=== PATIENT | female | born 1945 | race Caucasian/White ===

== ENCOUNTER 2018-11-01 17:10 | Emergency (ER) | payer MEDICARE, SELFPAY ==
[2018-11-01 17:11] VITALS: BP 164/86; PULSE 96; RESP 17; TEMP 36.9; O2SAT 100; BMI 31.6
--- NOTE | 2018-11-01 17:30 | EKG12_ITS ---
Test Reason : DIZZINESS Blood Pressure : / mmHG Vent. Rate : 102 BPM Atrial Rate : 104 BPM P-R Int : 000 ms QRS Dur : 080 ms QT Int : 328 ms P-R-T Axes : 000 031 022 degrees QTc Int : 427 ms Atrial fibrillation with rapid ventricular response Nonspecific ST and T wave abnormality Abnormal ECG Confirmed by KAVEH MARIE, RAHEL ([id number]), proposal editor WANDA PRESTON ([id number] on 11/03/2018 9:41:09 AM Referred By: Confirmed By:RAHEL LINN MD
--- NOTE | 2018-11-01 17:31 | ED.VIS.GEN ---
History of Present Illness Chief Complaint: Palpitations Informant: Patient Onset: Hours - 1.5 Context: Sudden Onset - just after carrying boxes up a flight of stairs at home Timing: Continuous Quality: skipping, irregular Location: chest Current Severity: Mild Maximum Severity: Moderate Worsened by: nothing Relieved by: nothing Associated Symptoms: a little lightheaded. no chest pain, sob, near-syncope or syncope. Narrative: Has a history of paroxysmal atrial fibrillation, feels like she went into afib an hour ago. Hasn't felt this for years; has been on Xarelto for around 2 years. Does not drink caffeine or any other stimulants recently. No recent illnesses. No urku-[id number] medications. No changes in her medications. No missed doses of her medications recently, which include metoprolol and Cardizem. - Past Medical History (1) Dyslipidemia Status: Chronic (2) HTN (hypertension) Status: Chronic (3) Paroxysmal a-fib Status: Chronic (4) Sick sinus syndrome Status: Chronic Past Medical History - Allergies and Home Meds Allergies/Adverse Reactions: Allergies lisinopril Adverse Reaction (Verified 03/26/17 09:16) Nausea Primary Care Physician: Dane Morrison MD [STAFF PHYSICIAN] - 11/19/18 10:15 am Nik Mabry III, MD [Primary Care Provider] - Doctors: Was Dr. Garcia; in process of switching to Dr. Morrison for cardiology Surgical History: no surgical history, noncontributory Lives: Spouse/ Significant Other Smoking Status: Never smoker Drugs: None - Family History Maternal Family History: Reports: No pertinent history Review of Systems General: Denies: Chills, Fever, Sweats Eyes: Denies: Visual changes - bilaterally, Diplopia ENT: Denies: Rhinorrhea, Sore throat Cardiovascular: Reports: Palpitations. Denies: Chest pain, Heart racing Respiratory: Denies: Dyspnea, Cough, Dyspnea on exertion Gastrointestinal: Denies: Abdominal pain, Nausea, Vomiting, Diarrhea, Melena, Hematochezia Genitourinary: Denies: Dysuria, Hematuria, Frequency Musculoskeletal: Denies: Back pain, Extremity Pain Skin: Denies: Rash, Wounds Neurological: Denies: Headache, Weakness, Numbness Physical Exam Vital Signs/Narrative: Vital Signs Temp Pulse Resp BP Pulse Ox 11/01/18 17:11 98.5 F 96 17 164/86 H 100 Inital Vital Signs reviewed: Yes General: Well nourished, Well developed, No Acute Distress Head: Normocephalic, Atraumatic Eyes: Perrl, EOMI ENT: Moist mucous membranes, No rhinorrhea Neck: Supple, Nontender Cardiovascular: No murmurs, Normal S1, Normal S2, Irregular. Negative for: Tachycardia Respiratory: No distress, CTA bilaterally, Chest nontender Abdomen: Soft, Nontender, Nondistended, Normal bowel sounds Back: Nontender, Normal Inspection Extremities: Nontender, No edema Skin: Normal color, No rash Neurological: Alert, Oriented x3, Cranial nerves II-XII grossly intact, Normal Strength, Normal Sensation Psychological: Normal affect, Normal Mood Diagnostic/Tx/Re-eval Laboratory Tests 11/01/18 11/01/18 Range/Units 17:50 17:50 WBC 6.6 (4.4-11.0) K/mm3 RBC 4.34 (4.2-5.4) M/mm3 Hgb 13.3 (12.0-15.0) g/dl Hct 41.6 (37-47) % MCV 95.9 (81-99) fL MCH 30.6 (27.0-32.0) pg MCHC 32.0 (32-36) g/gl RDW 13.2 (11.6-14.6) % RDW Differential 46.2 H (35.1-43.9) fl Plt Count 257 (150-450) K/mm3 MPV 10.3 (6.2-12.0) fl Immature Gran % (Auto) 0.200 (0.0-0.9) % Neut % (Auto) 58.3 (47-70) % Lymph % (Auto) 31.4 (19-41) % Phelps % (Auto) 9.1 (0-10) % Eos % (Auto) 0.8 (0-5) % Baso % (Auto) 0.2 (0-1) % Absolute Neuts (auto) 3.8 (2.0-7.7) X10^3/uL Absolute Lymphs (auto) 2.06 (0.83-4.51) X10^3/ul Total Counted Not Reportable Sodium 142 (136-145) mmol/L Potassium 4.0 (3.5-5.1) mmol/L Chloride 109 H (98-107) mmol/L Carbon Dioxide 28.0 (21.0-32.0) mmol/L Anion Gap 5 (5-15) BUN 16 (7-18) mg/dL Creatinine 0.89 (0.55-1.02) mg/dL Estim Creat Clear Calc 50.66 ml/min Est GFR (MDRD) Af Amer 80 (>60) mL/min Est GFR (MDRD) Non-Af 66 (>60) mL/min BUN/Creatinine Ratio 18.0 (10-20) RATIO Glucose 135 H (74-106) mg/dL Calcium 8.6 (8.5-10.1) mg/dL Troponin I < 0.015 (<0.045) ng/mL - Rhythm Strip Rhythm Strip: A-fib Rate: 90 Ectopy: None - EKG Initial EKG Interpretation: Atrial Fibrillation, Non-Specific ST Changes Prior: Unchanged - Medical Decision Making Workup is negative. Patient does not have any chest discomfort or anginal equivalent symptoms. I discussed with Dr. Morrison who recommends having her be discharged home and follow-up with him as an outpatient, he made her an appointment which was relayed to the patient. As we observed her, she averaged in the 110s for her heart rate and her blood pressure remained stable. At times she was not noticing the palpitations anymore, and at times she was. She is clinically stable with this mild tachycardia. I gave her a dose of Cardizem 10 mg and afterwards she is averaging in the 80-90s. I am comfortable with her going home and taking her medicines as prescribed and following up with Dr. Morrison, returning if she gets worse, including near syncope, dyspnea, chest discomfort. She is comfortable with that plan. ED Disposition - Plan for ED Patient: Disposition: Home or Assisted Living Diagnosis: Paroxysmal a-fib Instructions: ED Afib Referrals: Nik Mabry III, MD [Primary Care Provider] - Dane Morrison MD [STAFF PHYSICIAN] - 11/19/18 10:15 am
[2018-11-01 17:58] VITALS: O2SAT 97
[2018-11-01 18:06] LABS: Absolute Lymphocyte Count 2.06 X10^3/ul (0.83-4.51); Absolute Neutrophil Count 3.8 X10^3/uL (2.0-7.7); Basophil# 0.01 X10^3/uL; Basophil% 0.2 % (0-1); Eosinophil# 0.05 X10^3/uL; Eosinophils% 0.8 % (0-5); Hematocrit 41.6 % (37-47); Hemoglobin 13.3 g/dl (12.0-15.0); Lymphocyte # 2.06 X10^3/ul (4.0); Lymphocyte % 31.4 % (19-41); Mean Corpuscular Hgb 30.6 pg (27.0-32.0); Mean Corpuscular Volume 95.9 fL (81-99); Mean Platelet Vol. 10.3 fl (6.2-12.0); Monocyte% 9.1 % (0-10); Neutrophil # 3.83 X10^3/uL (2.7-7.7); Neutrophil % 58.3 % (47-70); Platelet Count 257 K/mm3 (150-450); RBC Distribution Width CV 13.2 % (11.6-14.6); RBC Distribution Width SD 46.2 fl (35.1-43.9); Red Blood Count 4.34 M/mm3 (4.2-5.4); White Blood Count 6.6 K/mm3 (4.4-11.0)
[2018-11-01 18:07] LABS: POSITIVE COUNT NO; POSITIVE DIFFERENTIAL NO; POSITIVE MORPHOLOGY NO
[2018-11-01 18:22] LABS: Anion Gap 5 (5-15); BUN 16 mg/dL (7-18); Calcium,Total 8.6 mg/dL (8.5-10.1); Chloride 109 mmol/L (98-107); Creatinine, Serum 0.89 mg/dL (0.55-1.02); EST Glomerular Filtration Rate 66 mL/min (>60); Est Glom Filt Rate - Afr Amer 80 mL/min (>60); Estimated Creatinine Clearance 50.66 ml/min; Glucose 135 mg/dL (74-106); Sodium Level 142 mmol/L (136-145)
[2018-11-01 20:04] VITALS: BP 147/111; PULSE 114; RESP 19; O2SAT 97
[2018-11-01] MEDS: dilTIAZem 25 MG/5 ML Vial 10 MG IV BOLUS (20:13)
[2018-11-01 20:35] VITALS: BP 127/86; PULSE 88; RESP 18; O2SAT 95
[2018-11-01 20:56] VITALS: BP 131/80; PULSE 103; RESP 19; O2SAT 95
== END 2018-11-01 20:58 | disposition home or self-care (01) ==
PROVIDERS: Emergency Provider Emergency Medicine; Family Provider Family Medicine; PCP Family Medicine
DX: I48.0 Paroxysmal atrial fibrillation (principal); E78.5 Hyperlipidemia, unspecified; I10 Essential (primary) hypertension; I49.5 Sick sinus syndrome; Z79.01 Long term (current) use of anticoagulants; Z79.899 Other long term (current) drug therapy
CPT/HCPCS: 80048; 84484; 85025; 93005; 96374; 99285; A4216

== ENCOUNTER → 2018-11-12 06:40 | Outpatient (CLI) | payer MEDICARE, SELFPAY ==
[2018-11-03 14:20] VITALS: BMI 32.3
--- NOTE | 2018-11-12 06:48 | RAD_ITS ---
STUDY: X-RAY CHEST REASON FOR EXAM: Female, 73 years old. Atrial fibrillation. TECHNIQUE: PA and lateral views of the chest. COMPARISON: April 07, 2016. FINDINGS: There are few left basilar streaky opacities. Normal size heart. Normal mediastinum and anahi. There is a loop recorder in place. Normal visualized pulmonary arteries. There is atherosclerotic calcification of the aortic arch with tortuosity. There are diffuse degenerative changes of the visualized thoracic spine. Normal visualized ribs, clavicles, and shoulders. There is no demonstrated abnormality of the visualized soft tissue structures of the upper abdomen. RAD/Chest PA and Lateral IMPRESSION: Minimal left basilar atelectasis and/or scarring. Electronically Signed: Roslyn Santana MD at 17:00 EST Tel , Service support ,
--- NOTE | 2018-11-12 06:48 | ECHOD_ITS ---
Version 2 Reason For Study: Afib, Aflutter Procedure This was a 2D Doppler, Color Flow transthoracic echocardiogram. The study was technically difficult. Exam performed in department. Left Ventricle Normal LV size. Left ventricular systolic function is normal. The estimated ejection fraction is 60 %. Unable to assess diastolic dysfunction due to arrhythmia. No regional wall motion abnormalities noted. Right Ventricle Normal RV size. Normal systolic function. Atria Normal left atrium. Normal right atrium. Mitral Valve There is mild mitral annular calcification. Mild (1+) anteriorly directed mitral valve insufficiency. Tricuspid Valve Normal tricuspid valve. Mild tricuspid valve insufficiency. Aortic Valve Trisinus/trileaflet aortic valve. Normal aortic valve. Pulmonic Valve The pulmonic valve is not well visualized. Great Vessels Normal aortic root. The pulmonary artery is normal size. Normal inferior vena cava. Pericardium/Pleural No pericardial effusion. MMode/2D Measurements & Calculations LVIDd: 4.5 cm IVSd: 1.2 cm Ao root diam: 2.8 cm LVIDs: 3.0 cm LVPWd: 1.1 cm RVDd: 2.6 cm FS: 32.6 % LAV(MOD-bp): 53.0 ml LVAd ap4: 17.6 cm2 SV(MOD-sp4): 25.7 ml LAV(MOD-bp) Indexed: 27.3 ml/m2 EDV(MOD-sp4): 38.9 ml LAV(MOD-sp2): 49.3 ml EDV(sp4-el): 40.7 ml LAV(MOD-sp4): 52.2 ml LVAs ap4: 9.0 cm2 ESV(MOD-sp4): 13.2 ml ESV(sp4-el): 13.5 ml EF(MOD-sp4): 66.0 % EF(sp4-el): 66.8 % SV(sp4-el): 27.2 ml LA A4 area: 19.3 cm2 LA dimension(2D): 4.5 cm RA A4 area: 12.2 cm2 Doppler Measurements & Calculations MV E max jazmyne: 97.2 cm/sec Ao V2 max: 141.7 cm/sec AI max jazmyne: 417.0 cm/sec Ao max P.0 mmHg AI max P.0 mmHg Ao V2 mean: 97.8 cm/sec Ao mean P.2 mmHg AI dec slope: 211.4 cm/sec2 Ao V2 VTI: 27.4 cm AI P1/2t: 577.6 msec LV V1 max: 90.8 cm/sec PA V2 max: 82.0 cm/sec PI end-d jazmyne: 129.5 cm/sec LV V1 max P.3 mmHg TR max jazmyne: 205.8 cm/sec TR max P.9 mmHg Interpretation Summary Normal LV size. Left ventricular systolic function is normal. The estimated ejection fraction is 60 %. Unable to assess diastolic dysfunction due to arrhythmia. Mild (1+) anteriorly directed mitral valve insufficiency. Ordering Physician: Dane Morrison Referring Physician: Nik Mabry Performed By: Katty Jean, RDSARI, RVT
--- NOTE | 2018-11-12 15:07 | STRESSREP ---
Stress Test Report Pharmacologic myocardial perfusion stress test. 73-year-old lady with a history of chest pain and atrial fibrillation. Medications: Cozaar, Xarelto, Lipitor, Cardizem, metoprolol. Stress protocol: Resting EKG demonstrates atrial fibrillation with a rate of 94 bpm. Resting blood pressure 110/62 mmHg. 0.4 mg of regadenoson was infused per usual protocol followed by rapid intravenous saline flush injection continuous EKG monitoring was performed. Atrial fibrillation was noted throughout. The maximum heart rate attained was 127 bpm which was 86% of maximum predicted heart rate the maximum workload was 1 metabolic equivalent. At rest there were no ST or T wave changes noted suggest abnormal flow reserve at peak infusion no ST or T wave changes were noted suggest abnormal flow reserve. Atrial fibrillation was noted throughout the recording. Resting blood pressure 110/62 final blood pressure 108/68. Myocardial perfusion protocol. 11.1 mCi of technetium 99m sestamibi was injected at rest. 0.4 mg of regadenoson was infused per usual protocol. At peak infusion 33.6 mCi of technetium 99m sestamibi was injected stress images were obtained stress and rest images were reconstructed and compared in the short axis vertical long and horizontal long axis. Gated images were also obtained per Perfusion SPECT analysis: Review of the stress images demonstrate normal uptake of tracer noted in all areas of the myocardium. The resting images similarly demonstrate normal uptake of tracer noted in all areas of the myocardium. No areas of reversibility are noted suggest ischemia no previous infarct is noted. Gated SPECT analysis: Gated ejection fraction is noted to be 76%. Conclusion: Normal pharmacologic myocardial perfusion stress test. Atrial fibrillation noted. Preserved ejection fraction.
== END ==
PROVIDERS: Family Provider Family Medicine; PCP Family Medicine; Referring Provider Internal Medicine Cardiovascular Disease; Visit Provider Internal Medicine Cardiovascular Disease
DX: I47.2 Ventricular tachycardia (principal); I48.0 Paroxysmal atrial fibrillation; I10 Essential (primary) hypertension; E78.5 Hyperlipidemia, unspecified; R07.9 Chest pain, unspecified
CPT/HCPCS: 71046; 78452; 93017; 93306; A9500; A4216; J2785

== ENCOUNTER 2018-11-15 10:38 | Day surgery (SDC) | payer MEDICARE, SELFPAY ==
[2018-11-03 14:20] VITALS: BMI 32.3
[2018-11-12 10:01] VITALS: BMI 32.3
--- NOTE | 2018-11-15 11:42 | PCM.PN.BLA ---
Progress Note Procedure note DC cardioversion. 73-year-old lady with a history of atrial fibrillation chronic persistent with preserved left ventricular systolic function. The patient was seen in consultation by Dr. Poole of the critical care division after informed consent was obtained anterior-posterior pads were applied. The patient was verified to be on anticoagulation for minimum of 3 weeks. The patient was administered 40 mg of intravenous propofol 200 J of synchronized biphasic energy were applied with prompt reversal to sinus rhythm. EKG confirmed sinus rhythm. Conclusion: Successful DC cardioversion to sinus rhythm. Continue current medical therapy.
--- NOTE | 2018-11-15 11:43 | PCM.OP.PRO ---
Procedure Report Date of Procedure: 11/15/18 CONSCIOUS SEDATION REPORT DATE OF SERVICE: November 15, 2018 BRIEF HISTORY OF PRESENT ILLNESS: The patient is a 73-year-old female who presented to [facility] for an elective outpatient cardioversion due to underlying atrial fibrillation. The patient has never previously undergone a cardioversion. She denies any previous anesthetic complications. Her last surface echocardiogram revealed an ejection fraction of approximately 60%. She is currently anticoagulated on Xarelto. She denies a history of COPD or asthma. She has never been identified as having obstructive sleep apnea. PHYSICAL EXAMINATION: VITAL SIGNS: Reviewed and were acceptable. GENERAL: The patient is an obese female, in no apparent distress, speaking in full sentences. HEENT: Normocephalic, atraumatic. Mucous membranes are moist and pink. Good mouth opening noted. Trachea is midline. MP-I. CHEST: S1, S2 irregularly irregular. No murmurs, rubs or gallops were noted. LUNGS: Clear to auscultation bilaterally without appreciable wheezes, rales or rhonchi. ABDOMEN: Soft, nontender, nondistended. Positive bowel sounds. EXTREMITIES: There is no clubbing, cyanosis or edema. ASA Class: II DESCRIPTION OF PROCEDURE: After confirmation of informed consent, the patient's anesthesia plan was reviewed in detail. Propofol was chosen. Risks and benefits were reviewed and the patient agreed to proceed. At 1132, the patient was given 40 mg of propofol. The patient achieved an appropriate level of sedation and was given a 200 joule synchronized cardioversion by Dr. Morrison at the bedside. This was successful in achieving normal sinus rhythm. The patient was monitored until 1140, at which time she reached her baseline mental status and function. The patient tolerated the procedure well. COMPLICATIONS: None ESTIMATED BLOOD LOSS: None RECOMMENDATIONS: Okay to recover in usual fashion. Code Visit 9xxxx: Other Procedure See Report - [id number]
== END 2018-11-15 12:40 | disposition home or self-care (01) ==
LOC: CLSP 10:39
PROVIDERS: Family Provider Family Medicine; PCP Family Medicine; Referring Provider Internal Medicine Cardiovascular Disease; Visit Provider Internal Medicine Cardiovascular Disease
DX: I48.1 Persistent atrial fibrillation (principal); I10 Essential (primary) hypertension; E78.5 Hyperlipidemia, unspecified; I48.0 Paroxysmal atrial fibrillation; Z79.899 Other long term (current) drug therapy; Z79.01 Long term (current) use of anticoagulants; M10.9 Gout, unspecified; E66.9 Obesity, unspecified; Z68.32 Body mass index [BMI] 32.0-32.9, adult
CPT/HCPCS: 92960; 93005; J7040

== ENCOUNTER 2018-12-05 13:12 | Observation (INO) | payer MEDICARE, SELFPAY ==
[2018-11-12 10:01] VITALS: BMI 32.3
[2018-12-05] VITALS (10 sets, daily range): BP systolic 147–177; BP diastolic 62–80; PULSE 54–74; RESP 14–20; TEMP 36.6–37.1; O2SAT 93–99; BMI 32.6; BMI 32.5
--- NOTE | 2018-12-05 14:27 | CT_ITS ---
STUDY: CT BRAIN WITHOUT CONTRAST REASON FOR EXAM: Female, 73 years old. Fall. Abrasions. RADIATION DOSAGE (If Supplied By Facility): CTDIvol = ( 44.99 ) mGy, DLP = ( 779.24 ) mGycm TECHNIQUE: Transaxial CT imaging of the brain was performed without administration of intravenous contrast material. Individualized dose optimization techniques were used for this CT. COMPARISON: November 16, 2014. FINDINGS: Normal soft tissue structures. Normal calvarium. There is mild cerebral atrophy with widening of the extra-axial spaces and ventricular dilatation. Normal white matter tracts of the cerebral hemispheres. Normal basal ganglia and thalami. Normal brainstem. Normal cerebellum. There is no intracranial hemorrhage. There are no findings of an acute ischemic infarction. Normal visualized paranasal sinuses. CT/Brain/Head without Contrast IMPRESSION: Chronic involutional changes of the brain. Electronically Signed: Timothy Aaron MD at 16:03 EDT , Service support ,
--- NOTE | 2018-12-05 14:27 | EKG12_ITS ---
Test Reason : FALL Blood Pressure : / mmHG Vent. Rate : 058 BPM Atrial Rate : 058 BPM P-R Int : 170 ms QRS Dur : 074 ms QT Int : 424 ms P-R-T Axes : 072 027 062 degrees QTc Int : 416 ms Sinus bradycardia Otherwise normal ECG Confirmed by KAVEH MARIE, RAHEL ([id number]), order editor JR HERBERT ([id number]) on 12/08/2018 1:36:53 PM Referred By: BB Confirmed By:RAHEL LINN MD
--- NOTE | 2018-12-05 14:28 | CT_ITS ---
STUDY: CT CERVICAL SPINE WITHOUT CONTRAST REASON FOR EXAM: Female, 73 years old. Fall loss of consciousness neck pain and abrasions RADIATION DOSAGE (If Supplied By Facility): CTDIvol = ( 20.28 ) mGy, DLP = ( 378.52 ) mGycm TECHNIQUE: High resolution transaxial imaging was performed without contrast material. Sagittal and coronal images were reconstructed. Individualized dose optimization techniques were used for this CT. COMPARISON: None FINDINGS: Normal craniovertebral junction. There are degenerative changes at C1-C2. There is subchondral geode within the odontoid. Normal cervical lordosis. Normal vertebral bodies and posterior osseous elements. C2-3: Normal endplates. Normal disc height and morphology. There is left facet fusion at C2-C3. There are moderate facet degenerative changes. There is no foraminal stenosis. No central canal stenosis. C3-4: There is mild posterior disc osteophyte complex. There is uncinate hypertrophy and facet spondylosis. No foraminal stenosis. No central canal stenosis. C4-5: There is posterior disc osteophyte complex mild central canal narrowing. There is no intervertebral neuroforamina. C5-6: There is disc space narrowing posterior disc osteophyte complex, mild cord compression moderate central canal stenosis. There is mild left foraminal stenosis there is no right foraminal stenosis C6-7: There is a right posterior lateral bulging annulus and small disc protrusion.. Normal central canal and normal intervertebral neuroforamina. C7-T1: There is right posterior lateral bulging annulus. No central canal or foraminal stenosis Normal visualized soft tissue structures. CT/Spine Cervical without Contras IMPRESSION: Multilevel spondylosis, no fractures Electronically Signed: Driss King, at 16:07 EDT Tel , Service support ,
--- NOTE | 2018-12-05 14:28 | CT_ITS ---
STUDY: CT FACIAL BONES WITHOUT CONTRAST REASON FOR EXAM: Female, 73 years old. Fall, loss of consciousness RADIATION DOSAGE (If Supplied By Facility): CTDIvol = ( 29.38 ) mGy, DLP = ( 584.19 ) mGycm TECHNIQUE: The patient was scanned in a multi detector CT scanner. Sagittal and coronal images were reconstructed. Individualized dose optimization techniques were used for this CT. COMPARISON: None. FINDINGS: There is left frontal convexity soft tissue hematoma. Normal orbital tucker and orbital contents. Normal nasal bones and anterior nasal spine. There is a 2 mm ossific density anterior to the left mandibular condyle within the joint. There is a right maxillary sinus mucous retention cyst. There is mild mucosal thickening within the paranasal sinuses. There is small left mastoid effusion. There are multilevel degenerative changes of the cervical spine. There is edema of the turbinates. CT/Sinus/Facial Bone IMPRESSION: Left frontal convexity soft tissue hematoma 2 mm ossific density anterior to the left mandibular condyle within the joint which is most likely degenerative or due to old trauma or, meniscal ossification.. This should be correlated with clinical symptoms. Mild inflammatory changes within the paranasal sinuses Multilevel spondylosis cervical spine Electronically Signed: Driss King, at 16:53 EDT Tel , Service support ,
--- NOTE | 2018-12-05 14:29 | ED.VIS.GEN ---
History of Present Illness Chief Complaint: Fall Informant: Patient, Family, Accounts Payable Coordinator Onset: Today Context: Sudden Onset Narrative: 73-year-old female with history of paroxysmal atrial fibrillation on Xarelto was walking into an arena after a basketball game, she was on the sidewalk walking when she suddenly fell and hit the pavement with her face. She does not recall any of this. She does recall walking on the sidewalk. She was feeling fine. She denies any known prodromal symptoms. Her was walking in front of her and did not see this occur. She was very briefly unconscious, then came around and was not confused. Somewhat walking behind her nurse said that it appeared that she did not trip, but rather just fell forward as if she passed out. At this time she does not have a headache, just facial pain where she hit. She denies any diplopia or vision changes. - Past Medical History (1) Dyslipidemia Status: Chronic (2) Essential (primary) hypertension Status: Chronic (3) Nonsustained ventricular tachycardia Status: Chronic (4) Paroxysmal atrial fibrillation Status: Chronic (5) Paroxysmal supraventricular tachycardia Status: Chronic (6) Sick sinus syndrome Status: Chronic Past Medical History - Allergies and Home Meds Allergies/Adverse Reactions: Allergies lisinopril Adverse Reaction (Verified 12/05/18 13:14) Nausea Primary Care Physician: Nik Mabry III, MD [Primary Care Provider] - Surgical History: no surgical history, noncontributory Lives: Spouse/ Significant Other Smoking Status: Never smoker - Family History Maternal Family History: Family History (Last Reviewed 11/03/18 @ 15:34 by Dane Morrison MD) Mother Colon cancer CAD (coronary artery disease) Family History: Reports: No pertinent history Review of Systems General: Denies: Chills, Fever, Sweats Eyes: Denies: Visual changes - bilaterally, Diplopia ENT: Reports: - - facial pain. Denies: Rhinorrhea, Sore throat Cardiovascular: Denies: Chest pain, Palpitations Respiratory: Denies: Dyspnea, Cough, Dyspnea on exertion Gastrointestinal: Denies: Abdominal pain, Nausea, Vomiting, Diarrhea, Melena, Hematochezia Genitourinary: Denies: Dysuria, Hematuria, Frequency Musculoskeletal: Denies: Neck pain, Back pain, Extremity Pain Skin: Reports: Abrasions. Denies: Rash Neurological: Denies: Headache, Weakness, Numbness Physical Exam Vital Signs/Narrative: Vital Signs Temp Pulse Resp BP Pulse Ox 12/05/18 13:16 97.8 F 62 17 147/65 H 98 Inital Vital Signs reviewed: Yes General: Well nourished, Well developed, No Acute Distress Head: Normocephalic, Trauma - facial, not scalp Eyes: Perrl, EOMI - w/o pain or entrapment ENT: Moist mucous membranes, No rhinorrhea, TM's clear, Sinus tenderness - left maxilla. no instability. tender medially; trauma evident laterally w/ abrasion anterior zygoma. no deformities., - - no russo sign or raccoon eyes. no nasal tenderness. Neck: Supple, Nontender Cardiovascular: Regular rate, Regular rhythm, No murmurs, Normal S1, Normal S2 Respiratory: No distress, CTA bilaterally, Chest nontender Abdomen: Soft, Nontender, Nondistended, Normal bowel sounds Back: Nontender, Normal Inspection Extremities: Nontender, No edema Skin: Normal color, No rash Neurological: Alert, Oriented x3, Cranial nerves II-XII grossly intact, Normal Strength, Normal Sensation, - - GCS 15 Psychological: Normal affect, Normal Mood Diagnostic/Tx/Re-eval Impressions Brain CT 12/05/18 14:27 IMPRESSION: Chronic involutional changes of the brain. Electronically Signed: Timothy Aaron MD at 16:03 EDT , Service support , Cervical Spine CT 12/05/18 14:28 IMPRESSION: Multilevel spondylosis, no fractures Electronically Signed: Driss King at 16:07 EDT Tel , Service support , Facial/Sinus 12/05/18 14:28 IMPRESSION: Left frontal convexity soft tissue hematoma 2 mm ossific density anterior to the left mandibular condyle within the joint which is most likely degenerative or due to old trauma or, meniscal ossification.. This should be correlated with clinical symptoms. Mild inflammatory changes within the paranasal sinuses Multilevel spondylosis cervical spine Electronically Signed: Driss King at 16:53 EDT Tel , Service support , 12/05/18 14:27 Brain/Head without Contrast [CT] Stat 12/05/18 14:28 CT Cervical [Spine Cervical without Contras] [CT] Stat Sinus/Facial Bone [CT] Stat Laboratory Results 12/05/18 12/05/18 12/05/18 13:34 13:34 15:15 WBC 6.4 RBC 3.84 L Hgb 12.0 Hct 37.1 MCV 96.6 MCH 31.3 MCHC 32.3 RDW 13.5 RDW Differential 47.3 H Plt Count 271 MPV 10.7 Immature Gran % (Auto) 0.200 Neut % (Auto) 56.8 Lymph % (Auto) 32.4 [place] % (Auto) 8.5 Eos % (Auto) 1.9 Baso % (Auto) 0.2 Absolute Neuts (auto) 3.6 Absolute Lymphs (auto) 2.07 Total Counted Not Reportable Sodium 142 Potassium 3.9 Chloride 108 H Carbon Dioxide 29.0 Anion Gap 5 BUN 15 Creatinine 0.89 Estim Creat Clear Calc 52.70 Est GFR (MDRD) Af Amer 80 Est GFR (MDRD) Non-Af 66 BUN/Creatinine Ratio 16.9 Glucose 137 H Calcium 8.5 Troponin I < 0.015 Urine Color Yellow Urine Clarity Cloudy Urine pH 6.5 Ur Specific [place] 1.015 Urine Protein 15 H Urine Glucose (UA) Normal Urine Ketones Negative Urine Occult Blood 150 H Urine Nitrite Positive H Urine Bilirubin Negative Urine Urobilinogen Normal Ur Leukocyte Esterase 500 H Urine RBC 0-5 SEEN Urine WBC 25-50 SEEN Ur Squamous Epith Cells 0-5 SEEN Urine Bacteria 4+ Urine Mucus 0 SEEN - Rhythm Strip Rhythm Strip: Sinus Rhythm Rate: 60 Ectopy: None - EKG Initial EKG Interpretation: Sinus Rhythm, No Acute Injury Pattern - nml EKG. rate 58. nml axis/intervals. - Medical Decision Making Workup including imaging of the brain, face, neck is negative/unremarkable, except for urine showing several indicators for infection. She has had no urinary symptoms lately. Her urine is sent for a culture and she is empirically given a dose of IV Rocephin. Her EKG shows sinus rhythm and she did not have any dysrhythmias or telemetry events of note in the emergency department. She had no recurrent lightheadedness or syncope or any other acute symptoms. She declined analgesics for her facial pain. There is no associated facial fracture with this abrasion. It was cleansed and dressed. She clinically is not septic, and I do not think her urinary infection necessarily caused her to lose consciousness. I am concerned that she had a syncopal episode with no prodromal symptoms. For that reason mostly, she is being admitted for observation on telemetry. ED Disposition - Plan for ED Patient: Disposition: Acute Care Hospital [facility] Diagnosis: Syncope, Closed head injury with brief loss of consciousness, Facial contusion Referrals: Nik Mabry III, MD [Primary Care Provider] -
--- NOTE | 2018-12-05 14:33 | ED.DCSUM_ITS ---
History of Present Illness Chief Complaint: Fall Informant: Patient, Family, Applications System Analyst Onset: Today Context: Sudden Onset Narrative: 73-year-old female with history of paroxysmal atrial fibrillation on Xarelto was walking into an arena after a basketball game, she was on the sidewalk walking when she suddenly fell and hit the pavement with her face. She does not recall any of this. She does recall walking on the sidewalk. She was feeling fine. She denies any known prodromal symptoms. Her was walking in front of her and did not see this occur. She was very briefly unconscious, then came around and was not confused. Somewhat walking behind her nurse said that it appeared that she did not trip, but rather just fell forward as if she passed out. At this time she does not have a headache, just facial pain where she hit. She denies any diplopia or vision changes. - Past Medical History (1) Dyslipidemia Status: Chronic (2) Essential (primary) hypertension Status: Chronic (3) Nonsustained ventricular tachycardia Status: Chronic (4) Paroxysmal atrial fibrillation Status: Chronic (5) Paroxysmal supraventricular tachycardia Status: Chronic (6) Sick sinus syndrome Status: Chronic Past Medical History - Allergies and Home Meds Allergies/Adverse Reactions: Allergies lisinopril Adverse Reaction (Verified 12/05/18 13:14) Nausea Primary Care Physician: Nik Mabry III, MD [Primary Care Provider] - Surgical History: no surgical history, noncontributory Lives: Spouse/ Significant Other Smoking Status: Never smoker - Family History Maternal Family History: Family History (Last Reviewed 11/03/18 @ 15:34 by Dane Morrison MD) Mother Colon cancer CAD (coronary artery disease) Family History: Reports: No pertinent history Review of Systems General: Denies: Chills, Fever, Sweats Eyes: Denies: Visual changes - bilaterally, Diplopia ENT: Reports: - - facial pain. Denies: Rhinorrhea, Sore throat Cardiovascular: Denies: Chest pain, Palpitations Respiratory: Denies: Dyspnea, Cough, Dyspnea on exertion Gastrointestinal: Denies: Abdominal pain, Nausea, Vomiting, Diarrhea, Melena, Hematochezia Genitourinary: Denies: Dysuria, Hematuria, Frequency Musculoskeletal: Denies: Neck pain, Back pain, Extremity Pain Skin: Reports: Abrasions. Denies: Rash Neurological: Denies: Headache, Weakness, Numbness Physical Exam Vital Signs/Narrative: Vital Signs Temp Pulse Resp BP Pulse Ox 12/05/18 13:16 97.8 F 62 17 147/65 H 98 Inital Vital Signs reviewed: Yes General: Well nourished, Well developed, No Acute Distress Head: Normocephalic, Trauma - facial, not scalp Eyes: Perrl, EOMI - w/o pain or entrapment ENT: Moist mucous membranes, No rhinorrhea, TM's clear, Sinus tenderness - left maxilla. no instability. tender medially; trauma evident laterally w/ abrasion anterior zygoma. no deformities., - - no russo sign or raccoon eyes. no nasal tenderness. Neck: Supple, Nontender Cardiovascular: Regular rate, Regular rhythm, No murmurs, Normal S1, Normal S2 Respiratory: No distress, CTA bilaterally, Chest nontender Abdomen: Soft, Nontender, Nondistended, Normal bowel sounds Back: Nontender, Normal Inspection Extremities: Nontender, No edema Skin: Normal color, No rash Neurological: Alert, Oriented x3, Cranial nerves II-XII grossly intact, Normal Strength, Normal Sensation, - - GCS 15 Psychological: Normal affect, Normal Mood Diagnostic/Tx/Re-eval Impressions Brain CT 12/05/18 14:27 IMPRESSION: Chronic involutional changes of the brain. Electronically Signed: Timothy Aaron MD at 16:03 EDT , Service support , Cervical Spine CT 12/05/18 14:28 IMPRESSION: Multilevel spondylosis, no fractures Electronically Signed: Driss King at 16:07 EDT Tel , Service support , Facial/Sinus 12/05/18 14:28 IMPRESSION: Left frontal convexity soft tissue hematoma 2 mm ossific density anterior to the left mandibular condyle within the joint which is most likely degenerative or due to old trauma or, meniscal ossification.. This should be correlated with clinical symptoms. Mild inflammatory changes within the paranasal sinuses Multilevel spondylosis cervical spine Electronically Signed: Driss King at 16:53 EDT Tel , Service support , 12/05/18 14:27 Brain/Head without Contrast [CT] Stat 12/05/18 14:28 CT Cervical [Spine Cervical without Contras] [CT] Stat Sinus/Facial Bone [CT] Stat Laboratory Results 12/05/18 12/05/18 12/05/18 13:34 13:34 15:15 WBC 6.4 RBC 3.84 L Hgb 12.0 Hct 37.1 MCV 96.6 MCH 31.3 MCHC 32.3 RDW 13.5 RDW Differential 47.3 H Plt Count 271 MPV 10.7 Immature Gran % (Auto) 0.200 Neut % (Auto) 56.8 Lymph % (Auto) 32.4 [place] % (Auto) 8.5 Eos % (Auto) 1.9 Baso % (Auto) 0.2 Absolute Neuts (auto) 3.6 Absolute Lymphs (auto) 2.07 Total Counted Not Reportable Sodium 142 Potassium 3.9 Chloride 108 H Carbon Dioxide 29.0 Anion Gap 5 BUN 15 Creatinine 0.89 Estim Creat Clear Calc 52.70 Est GFR (MDRD) Af Amer 80 Est GFR (MDRD) Non-Af 66 BUN/Creatinine Ratio 16.9 Glucose 137 H Calcium 8.5 Troponin I < 0.015 Urine Color Yellow Urine Clarity Cloudy Urine pH 6.5 Ur Specific [place] 1.015 Urine Protein 15 H Urine Glucose (UA) Normal Urine Ketones Negative Urine Occult Blood 150 H Urine Nitrite Positive H Urine Bilirubin Negative Urine Urobilinogen Normal Ur Leukocyte Esterase 500 H Urine RBC 0-5 SEEN Urine WBC 25-50 SEEN Ur Squamous Epith Cells 0-5 SEEN Urine Bacteria 4+ Urine Mucus 0 SEEN - Rhythm Strip Rhythm Strip: Sinus Rhythm Rate: 60 Ectopy: None - EKG Initial EKG Interpretation: Sinus Rhythm, No Acute Injury Pattern - nml EKG. rate 58. nml axis/intervals. - Medical Decision Making Workup including imaging of the brain, face, neck is negative/unremarkable, except for urine showing several indicators for infection. She has had no urinary symptoms lately. Her urine is sent for a culture and she is empirically given a dose of IV Rocephin. Her EKG shows sinus rhythm and she did not have any dysrhythmias or telemetry events of note in the emergency department. She had no recurrent lightheadedness or syncope or any other acute symptoms. She declined analgesics for her facial pain. There is no associated facial fracture with this abrasion. It was cleansed and dressed. She clinically is not septic, and I do not think her urinary infection necessarily caused her to lose consciousness. I am concerned that she had a syncopal episode with no prodromal symptoms. For that reason mostly, she is being admitted for observation on telemetry. ED Disposition - Plan for ED Patient: Disposition: Acute Care Hospital [facility] Diagnosis: Syncope, Closed head injury with brief loss of consciousness, Facial contusion Referrals: Nik Mabry III, MD [Primary Care Provider] -
[2018-12-05 14:37] LABS: Absolute Lymphocyte Count 2.07 X10^3/ul (0.83-4.51); Absolute Neutrophil Count 3.6 X10^3/uL (2.0-7.7); Basophil# 0.01 X10^3/uL; Basophil% 0.2 % (0-1); Eosinophil# 0.12 X10^3/uL; Eosinophils% 1.9 % (0-5); Hematocrit 37.1 % (37-47); Lymphocyte # 2.07 X10^3/ul (4.0); Lymphocyte % 32.4 % (19-41); Mean Corp Hgb Conc 32.3 g/gl (32-36); Mean Corpuscular Hgb 31.3 pg (27.0-32.0); Mean Corpuscular Volume 96.6 fL (81-99); Mean Platelet Vol. 10.7 fl (6.2-12.0); Monocyte# 0.54 X10^3/uL; Monocyte% 8.5 % (0-10); Neutrophil # 3.64 X10^3/uL (2.7-7.7); Neutrophil % 56.8 % (47-70); Platelet Count 271 K/mm3 (150-450); RBC Distribution Width CV 13.5 % (11.6-14.6); RBC Distribution Width SD 47.3 fl (35.1-43.9); Red Blood Count 3.84 M/mm3 (4.2-5.4); White Blood Count 6.4 K/mm3 (4.4-11.0)
[2018-12-05 14:42] LABS: POSITIVE COUNT NO; POSITIVE DIFFERENTIAL NO; POSITIVE MORPHOLOGY NO
[2018-12-05 14:50] LABS: Anion Gap 5 (5-15); BUN 15 mg/dL (7-18); BUN/Creat Ratio 16.9 RATIO (10-20); Calcium,Total 8.5 mg/dL (8.5-10.1); Chloride 108 mmol/L (98-107); Creatinine, Serum 0.89 mg/dL (0.55-1.02); EST Glomerular Filtration Rate 66 mL/min (>60); Est Glom Filt Rate - Afr Amer 80 mL/min (>60); Glucose 137 mg/dL (74-106); Potassium 3.9 mmol/L (3.5-5.1); Sodium Level 142 mmol/L (136-145)
[2018-12-05 15:24] LABS: Mucous, Urine 0 SEEN /hpf (<or=2+)
[2018-12-05 15:32] LABS: Color, Urine Yellow (Yellow); Glucose, Dipstick Normal (Normal); Ketone-Dipstick Negative (Negative); Leukocyte Esterase-Dipstick 500 /ul (Negative); Nitrite-Dipstick Positive (Negative); Occult Blood-Urine 150 /ul (Negative); Protein-Dipstick 15 mg/dl (Negative); Specific Gravity, Urine 1.015 (1.002-1.030); Urine Bilirubin Dipstick Negative (Negative); Urine Clarity Cloudy (Clear); Urine Urobilinogen Normal (Normal); Urine pH 6.5 (5.0 - 8.0)
[2018-12-05 15:40] LABS: White Blood Cells 25-50 SEEN /hpf (0-5)
[2018-12-05 15:41] LABS: Red Blood Cells-Urine 0-5 SEEN /hpf (0-5)
[2018-12-05 15:44] LABS: Bacteria 4+ /hpf (None Seen); Squamous Epithelial Cells - UA 0-5 SEEN /hpf (5-10)
[2018-12-05] MEDS: Ceftriaxone 1 GM/50 ML BAG IV (17:58)
--- NOTE | 2018-12-05 18:13 | PCM.HP.STD ---
Problem List (1) Syncope Status: Acute (2) Closed head injury with brief loss of consciousness Status: Acute (3) Facial contusion Status: Acute (4) Essential (primary) hypertension Status: Chronic (5) Dyslipidemia Status: Chronic (6) Paroxysmal atrial fibrillation Status: Chronic History of Present Illness Date of Admission: 12/05/18 Chief Complaint: Syncope The patient is a 73 year old F with a PMH as below who was walking into a basketball game today with 1 of her grandchildren when she fell and hit her head and face on the concrete. She does not remember falling, and there is some question on whether or not she passed out or tripped over a ledge. She states that she was only unconscious for a few seconds and was able to get up and continue walking. She was brought into the hospital for further evaluation. Of note she does have an extensive cardiac workup 20 days ago and everything was normal. She was in paroxysmal A. fib and had a cardioversion that appears to be successful. Of note cardiology has also increased her metoprolol from 50-100 daily. In the ER workup was unremarkable, EKG was normal sinus rhythm and lab work and vital signs were normal. CT of the head and face and C-spine were all normal. Past Medical History Past Medical History (Chronic Problems): Chronic Problems (Last Reviewed 11/03/18 @ 15:34 by Dane Morrison MD) Nonsustained ventricular tachycardia (Chronic) Paroxysmal supraventricular tachycardia (Chronic) Essential (primary) hypertension (Chronic) Dyslipidemia (Chronic) Paroxysmal atrial fibrillation (Chronic) Sick sinus syndrome (Chronic) Medical History: Medical History (Last Reviewed 11/03/18 @ 15:34 by Dane Morrison MD) Nonsustained ventricular tachycardia (Chronic) I47.2 Paroxysmal supraventricular tachycardia (Chronic) I47.1 Essential (primary) hypertension (Chronic) I10 Dyslipidemia (Chronic) E78.5 Paroxysmal atrial fibrillation (Chronic) I48.0 Sick sinus syndrome (Chronic) I49.5 Diverticulosis K57.90 Gout M10.9 Obesity E66.9 Obstructive sleep apnea G47.33 Thyroid nodule E04.1 Syncope R55 Allergies lisinopril Adverse Reaction (Verified 12/05/18 13:14) Nausea Home Medications: Ambulatory Orders Medication Instructions Recorded Allopurinol [Zyloprim] 300 mg PO QHS 11/15/14 Multivitamins,Therapeutic 1 tab PO DAILY 11/15/14 [Multivitamin] Losartan Potassium [Cozaar] 100 mg PO DAILY 03/26/17 Rivaroxaban [Xarelto] 20 mg PO QHS 03/26/17 Atorvastatin Calcium [Lipitor] 40 mg PO DAILY 11/01/18 diltiazem CD 120 mg 120 mg PO DAILY 11/03/18 capsule,extended release 24 hr metoprolol succinate ER 100 mg 100 mg PO DAILY #90 tab 11/03/18 tablet,extended release 24 hr Surgical History: Surgical History (Last Updated 11/15/18 @ 14:14 by Yoanna Perez) History of cardioversion Onset Date: 11/15/18 Z98.890 History of loop recorder Z98.890 EOL History of right hip replacement Z96.641 History of tonsillectomy Z90.89 History of tubal ligation Z98.51 Surgical History: no surgical history, noncontributory Lives: Spouse/ Significant Other Smoking Status: Never smoker Alcohol: None Drugs: None - *Family History Maternal Family History: Family History (Last Reviewed 11/03/18 @ 15:34 by Dane Morrison MD) Mother Colon cancer CAD (coronary artery disease) History Items: No pertinent history Review of Systems Constitutional: Denies: Chills, Fever, Weight Change HEENT: Denies: Head Aches, Sinus Congestion, Sinus Drainage Cardiovascular: Denies: Chest Pain, Palpitations Respiratory: Denies: Cough, Shortness of breath at rest, Sputum production Gastrointestinal: Denies: Abdominal Pain, Nausea, Vomiting Genitourinary: Denies: Dysuria Musculoskeletal: Denies: Joint Pain, Joint Tenderness Skin: Denies: Rash, Wounds Neurological: Denies: Numbness, Tingling, Focal weakness Psychiatric: Denies: Anxiety, Depression, Homicidal Ideations, Suicidal Ideations Hematologic/ Lymphatic: Denies: Easy Bruising, Easy Bleeding VTE Information - Inpt Only VTE Present on Admission: No Patient Problems: Active and Suspected Problems (Last Reviewed 11/03/18 @ 15:34 by Dane Morrison MD) Syncope (Acute) Closed head injury with brief loss of consciousness (Acute) Facial contusion (Acute) - Physical Exam General: Alert, Oriented x3, Cooperative, No apparent distress HEENT: PERRLA, EOMI, - - Contusion and abrasion on her left face Oral: Moist Mucosa Neck: Supple, No JVD, Trachea Midline Lungs: Clear to auscultation, Normal air movement, No rhonchi, No wheeze, No rales Cardiovascular: Regular rate, Regular Rhythm, Normal S1, Normal S2, No murmurs Abdomen: Soft, Non Tender, Non-Distended, No Hepato-splenomegaly Extremities: No edema, Capillary Refill Less than 3 Seconds Skin: No rashes, No breakdown Neurological: Neuro grossly intact, Sensory exam intact to light touch and pain Psych/Mental Status: Normal Affect, Appropriate Vital Signs Temp Pulse Resp BP Pulse Ox 97.8 F 68 14 177/70 H 99 12/05/18 13:16 12/05/18 18:06 12/05/18 18:06 12/05/18 18:06 12/05/18 18:06 Oxygen Delivery Method Room Air Weight: 202 lb 2.622 oz Body Mass Index (BMI) 32.6 Laboratory Tests Past 24 Hrs 12/05/18 12/05/18 12/05/18 13:34 13:34 15:15 WBC 6.4 RBC 3.84 L Hgb 12.0 Hct 37.1 MCV 96.6 MCH 31.3 MCHC 32.3 RDW 13.5 RDW Differential 47.3 H Plt Count 271 MPV 10.7 Immature Gran % (Auto) 0.200 Neut % (Auto) 56.8 Lymph % (Auto) 32.4 [place] % (Auto) 8.5 Eos % (Auto) 1.9 Baso % (Auto) 0.2 Absolute Neuts (auto) 3.6 Absolute Lymphs (auto) 2.07 Total Counted Not Reportable Sodium 142 Potassium 3.9 Chloride 108 H Carbon Dioxide 29.0 Anion Gap 5 BUN 15 Creatinine 0.89 Estim Creat Clear Calc 52.70 Est GFR (MDRD) Af Amer 80 Est GFR (MDRD) Non-Af 66 BUN/Creatinine Ratio 16.9 Glucose 137 H Calcium 8.5 Troponin I < 0.015 Urine Color Yellow Urine Clarity Cloudy Urine pH 6.5 Ur Specific [place] 1.015 Urine Protein 15 H Urine Glucose (UA) Normal Urine Ketones Negative Urine Occult Blood 150 H Urine Nitrite Positive H Urine Bilirubin Negative Urine Urobilinogen Normal Ur Leukocyte Esterase 500 H Urine RBC 0-5 SEEN Urine WBC 25-50 SEEN Ur Squamous Epith Cells 0-5 SEEN Urine Bacteria 4+ Urine Mucus 0 SEEN Assessment/Plan All Active Problems (Last Reviewed 11/03/18 @ 15:34 by Dane Morrison MD) Syncope (Acute) Closed head injury with brief loss of consciousness (Acute) Facial contusion (Acute) 1. Syncope/paroxysmal A. fib/HTN/HLD/history of nonsustained V. tach/pacemaker/facial contusions and abrasions -She had a stress test and an echocardiogram about 20 days ago, therefore will not repeat any further cardiac testing -Monitor overnight on telemetry -We will need to have pacemaker interrogated and will monitor her heart rate since she was recently increased on her metoprolol from 50-100 -She had a cardioversion on November 15, which she tolerated well -We will continue with her metoprolol, and her Cardizem as well as Lipitor and Xarelto -Continue with losartan -CT scan of her head, face, and neck were all normal, abrasion does not look infected 2. UTI -Urine is significant for a UTI, culture is pending -Received a dose of Rocephin in the ER will continue with Ancef and plan for discharge on Keflex DVT: Xarelto Code Visit OBSV E&M: [id number] Initial observation care L3
[2018-12-05] MEDS: Metoprolol(XL)Succ 100 MG Tablet PO (21:25)
[2018-12-05] MEDS: Rivaroxaban 20 MG Tablet PO (21:25)
[2018-12-05] MEDS: Cefazolin 2 GM in 0.9% Normal Saline 100 ML IV (21:26)
[2018-12-05] MEDS: Allopurinol 300 MG Tablet PO (21:26)
[2018-12-05] MEDS: 0.9% NaCl Peripheral Flush Adult/Peds IV (21:26)
[2018-12-05] MEDS: Atorvastatin Calcium 40 MG Tablet PO (21:26)
[2018-12-05] MEDS: Acetaminophen 325 MG Tablet 650 MG PO (23:41)
[2018-12-06] VITALS (7 sets, daily range): BP systolic 139–154; BP diastolic 69–110; PULSE 52–64; RESP 16–18; TEMP 36.7–37.1; O2SAT 93–96
[2018-12-06] MEDS: Cefazolin 2 GM in 0.9% Normal Saline 100 ML IV (05:37)
[2018-12-06 06:35] LABS: Anion Gap 6 (5-15); BUN 12 mg/dL (7-18); BUN/Creat Ratio 13.9 RATIO (10-20); Calcium,Total 8.4 mg/dL (8.5-10.1); Chloride 109 mmol/L (98-107); Creatinine, Serum 0.86 mg/dL (0.55-1.02); EST Glomerular Filtration Rate 69 mL/min (>60); Est Glom Filt Rate - Afr Amer 83 mL/min (>60); Estimated Creatinine Clearance 52.42 ml/min; Glucose 103 mg/dL (74-106); Potassium 3.9 mmol/L (3.5-5.1); Sodium Level 143 mmol/L (136-145)
[2018-12-06 07:32] LABS: Absolute Lymphocyte Count 2.21 X10^3/ul (0.83-4.51); Absolute Neutrophil Count 4.2 X10^3/uL (2.0-7.7); Basophil# 0.01 X10^3/uL; Basophil% 0.1 % (0-1); Eosinophil# 0.06 X10^3/uL; Eosinophils% 0.8 % (0-5); Hematocrit 38.3 % (37-47); Lymphocyte # 2.21 X10^3/ul (4.0); Lymphocyte % 31.3 % (19-41); Mean Corp Hgb Conc 31.3 g/gl (32-36); Mean Corpuscular Hgb 30.6 pg (27.0-32.0); Mean Corpuscular Volume 97.7 fL (81-99); Mean Platelet Vol. 10.8 fl (6.2-12.0); Monocyte# 0.59 X10^3/uL; Monocyte% 8.3 % (0-10); Neutrophil # 4.17 X10^3/uL (2.7-7.7); Neutrophil % 59.1 % (47-70); Platelet Count 245 K/mm3 (150-450); RBC Distribution Width CV 13.3 % (11.6-14.6); Red Blood Count 3.92 M/mm3 (4.2-5.4); White Blood Count 7.1 K/mm3 (4.4-11.0)
[2018-12-06 07:34] LABS: POSITIVE COUNT NO; POSITIVE DIFFERENTIAL NO; POSITIVE MORPHOLOGY NO
[2018-12-06] MEDS: Losartan Potassium 100 MG Tablet PO (09:24)
[2018-12-06] MEDS: dilTIAZem CD 120 MG Capsule PO (09:24)
--- NOTE | 2018-12-06 11:22 | DCINST_ITS ---
- Discharge Diagnoses Current Active Problems: Current Active and Chronic Problems (Last Reviewed 11/03/18 @ 15:34 by Dane Morrison MD) Syncope (Acute) Closed head injury with brief loss of consciousness (Acute) Facial contusion (Acute) You will use the following diet at home:: Cardiac Your food should be the consistency of: Regular Your liquids should be the consistency of: Regular/Thin Discharge Activity: Return to Normal Activity Allergies/Adverse Reactions: Allergies lisinopril Adverse Reaction (Verified 12/05/18 13:14) Nausea Medications to take at Discharge Allopurinol [Zyloprim] 300 mg PO QHS 11/15/14 Multivitamins,Therapeutic [Multivitamin] 1 tab PO QHS 11/15/14 Losartan Potassium [Cozaar] 100 mg PO DAILY 03/26/17 Rivaroxaban [Xarelto] 20 mg PO QHS 03/26/17 Atorvastatin Calcium [Lipitor] 40 mg PO DAILY 11/01/18 diltiazem CD 120 mg capsule,extended release 24 hr 120 mg PO DAILY 11/03/18 Metoprolol Succinate 100 mg PO QHS 12/05/18 Cephalexin [Keflex] 500 mg PO Q12H #8 capsule 12/06/18 The following prescriptions were given: Cephalexin [Keflex] 500 mg PO Q12H #8 capsule Primary Care Physician: Nik Mabry III, MD [Primary Care Provider] - Please follow up with your Primary Care Physician in: 1-2 weeks Test Results: Test results from this visit will be discussed in further detail at your follow- up appointment, if applicable. Proposed Discharge Date: 12/06/18
--- NOTE | 2018-12-06 14:11 | PCM.DC.SUM ---
<Amari Rivas - Last Filed: 12/06/18 14:11> Discharge Date and Diagnosis Date of Admission: 12/05/18 Date of Discharge: 12/06/18 - Primary Discharge Diagnosis Syncopal episode secondary to acute UTI and mild orthostatic hypotension Concussion secondary to fall with head strike, facial contusion Hypertension Hyperlipidemia Accessible atrial fibrillation - Secondary Discharge Diagnosis Chronic Problems (Last Reviewed 11/03/18 @ 15:34 by Dane Morrison MD) Nonsustained ventricular tachycardia (Chronic) Paroxysmal supraventricular tachycardia (Chronic) Essential (primary) hypertension (Chronic) Dyslipidemia (Chronic) Paroxysmal atrial fibrillation (Chronic) Sick sinus syndrome (Chronic) Hospital Course and Treatment Imaging Results: CT/Brain/Head without Contrast IMPRESSION: Chronic involutional changes of the brain. CT/Spine Cervical without Contras IMPRESSION: Multilevel spondylosis, no fractures CT/Sinus/Facial Bone IMPRESSION: Left frontal convexity soft tissue hematoma 2 mm ossific density anterior to the left mandibular condyle within the joint which is most likely degenerative or due to old trauma or, meniscal ossification.. This should be correlated with clinical symptoms. Mild inflammatory changes within the paranasal sinuses Multilevel spondylosis cervical spine Operations: None Procedures: None Summary of Care Provided: Hospital course: The patient is a 73 year old F with past medical history of hypertension, paroxysmal A. fib, nonsustained V. tach, PSVT, sick sinus syndrome,, hyperlipidemia, who presented to the emergency room with a syncopal episode. She was at a basketball game and fell under unclear circumstances and struck her forehead obtaining a contusion and concussion. It is not clear whether she passed out or tripped over something prior to falling. Patient had a poor memory of the event and was felt to be concussed. In the ER a CT of the brain was negative, CT C-spine negative, facial sinus x-ray negative. Urinalysis was significant for urinary tract infection. Troponin was negative and labs were otherwise unremarkable. She had a loop recorder in place however this was old and nonfunctional since August 2017. EKG was negative. She was admitted for syncope and UTI. She had mildly positive orthostatic vitals. She was started on cefazolin for UTI. She did admit to dysuria during the week following presentation. She had no fever or leukocytosis. The following morning she was asymptomatic. She had no events on telemetry. We transitioned her to oral Keflex for a total of 5 days of therapy. We advised her to have brain rest given the concussion, and we advised her to follow-up with her PCP in 1-2 weeks. She was discharged home in stable condition. This patient was seen by Amari Rivas PA-C under the supervision of Doctor Jolie. [] - Physical Exam General: Alert, Oriented x3, Cooperative HEENT: Atraumatic, PERRLA, EOMI, Normocephalic, - - Contusion over left eyebrow Neck: Supple, No JVD, Negative Carotid Bruits Lungs: Clear to auscultation, Normal air movement Cardiovascular: Regular rate, No murmurs Abdomen: Bowel Sounds Present, Soft, Non Tender Extremities: No edema, Capillary Refill Less than 3 Seconds Skin: No rashes, No breakdown Musculoskeletal: No Tenderness to Palpation of Joints or Extremities Neurological: Cranial nerves II-XII grossly intact Psych/Mental Status: Normal Affect, Appropriate Vital Signs Temp Pulse Resp BP Pulse Ox 98.1 F 62 18 148/110 H 95 12/06/18 11:22 12/06/18 11:22 12/06/18 11:22 12/06/18 11:22 12/06/18 11:22 Oxygen Delivery Method Room Air Weight: 195 lb 8.8 oz Body Mass Index (BMI) 32.5 Intake and Output for Last 24 Hours 12/04/18 12/05/18 12/06/18 23:59 23:59 23:59 Intake Total 244 / 244 315 / 315 Balance 244 / 244 315 / 315 Microbiology Past 72 Hours 12/05/18 15:15 Urine Culture - Preliminary Urine, Clean Catch Gram negative deena Laboratory Tests Past 24 Hrs 12/05/18 12/05/18 12/05/18 13:34 13:34 15:15 WBC 6.4 RBC 3.84 L Hgb 12.0 Hct 37.1 MCV 96.6 MCH 31.3 MCHC 32.3 RDW 13.5 RDW Differential 47.3 H Plt Count 271 MPV 10.7 Immature Gran % (Auto) 0.200 Neut % (Auto) 56.8 Lymph % (Auto) 32.4 [place] % (Auto) 8.5 Eos % (Auto) 1.9 Baso % (Auto) 0.2 Absolute Neuts (auto) 3.6 Absolute Lymphs (auto) 2.07 Total Counted Not Reportable Sodium 142 Potassium 3.9 Chloride 108 H Carbon Dioxide 29.0 Anion Gap 5 BUN 15 Creatinine 0.89 Estim Creat Clear Calc 52.70 Est GFR (MDRD) Af Amer 80 Est GFR (MDRD) Non-Af 66 BUN/Creatinine Ratio 16.9 Glucose 137 H Calcium 8.5 Troponin I < 0.015 Urine Color Yellow Urine Clarity Cloudy Urine pH 6.5 Ur Specific [place] 1.015 Urine Protein 15 H Urine Glucose (UA) Normal Urine Ketones Negative Urine Occult Blood 150 H Urine Nitrite Positive H Urine Bilirubin Negative Urine Urobilinogen Normal Ur Leukocyte Esterase 500 H Urine RBC 0-5 SEEN Urine WBC 25-50 SEEN Ur Squamous Epith Cells 0-5 SEEN Urine Bacteria 4+ Urine Mucus 0 SEEN 12/06/18 12/06/18 05:45 05:45 WBC 7.1 RBC 3.92 L Hgb 12.0 Hct 38.3 MCV 97.7 MCH 30.6 MCHC 31.3 L RDW 13.3 RDW Differential 46.0 H Plt Count 245 MPV 10.8 Immature Gran % (Auto) 0.400 Neut % (Auto) 59.1 Lymph % (Auto) 31.3 [place] % (Auto) 8.3 Eos % (Auto) 0.8 Baso % (Auto) 0.1 Absolute Neuts (auto) 4.2 Absolute Lymphs (auto) 2.21 Total Counted Not Reportable Sodium 143 Potassium 3.9 Chloride 109 H Carbon Dioxide 28.0 Anion Gap 6 BUN 12 Creatinine 0.86 Estim Creat Clear Calc 52.42 Est GFR (MDRD) Af Amer 83 Est GFR (MDRD) Non-Af 69 BUN/Creatinine Ratio 13.9 Glucose 103 Calcium 8.4 L Troponin I Urine Color Urine Clarity Urine pH Ur Specific [place] Urine Protein Urine Glucose (UA) Urine Ketones Urine Occult Blood Urine Nitrite Urine Bilirubin Urine Urobilinogen Ur Leukocyte Esterase Urine RBC Urine WBC Ur Squamous Epith Cells Urine Bacteria Urine Mucus Discharge Diet: Low fat/ Low Cholesterol, 2000 mg Sodium Diet Discharge Activity: May Not Drive, - - Brain rest Home Medications: Medications to take at Discharge Allopurinol [Zyloprim] 300 mg PO QHS 11/15/14 Multivitamins,Therapeutic [Multivitamin] 1 tab PO QHS 11/15/14 Losartan Potassium [Cozaar] 100 mg PO DAILY 03/26/17 Rivaroxaban [Xarelto] 20 mg PO QHS 03/26/17 Atorvastatin Calcium [Lipitor] 40 mg PO DAILY 11/01/18 diltiazem CD 120 mg capsule,extended release 24 hr 120 mg PO DAILY 11/03/18 Metoprolol Succinate 100 mg PO QHS 12/05/18 Cephalexin [Keflex] 500 mg PO Q12H #8 capsule 12/06/18 Following Prescrptions Were Given to Patient: Cephalexin [Keflex] 500 mg PO Q12H #8 capsule Primary Care Physician: Nik Mabry III, MD [Primary Care Provider] - Please follow up with your Primary Care Physician in: 1-2 weeks Disposition: Home Minutes spent on discharge:: 35 Patient Condition:: Stable Medical Necessity - Tobacco Use Smoking Status: Never smoker Meaningful Use Info Meaningful Use Diagnoses (Choose all that apply): None applicable <Theo Dave - Last Filed: 12/06/18 14:23> Discharge Date and Diagnosis - Secondary Discharge Diagnosis Chronic Problems (Last Reviewed 11/03/18 @ 15:34 by Dane Morrison MD) Nonsustained ventricular tachycardia (Chronic) Paroxysmal supraventricular tachycardia (Chronic) Essential (primary) hypertension (Chronic) Dyslipidemia (Chronic) Paroxysmal atrial fibrillation (Chronic) Sick sinus syndrome (Chronic) Hospital Course and Treatment Operations: None Procedures: None Summary of Care Provided: Patient seen and examined independently. Data reviewed. I agree with the above note by the physician city carrier assistant. The patient is a 73 year old F who fell and struck her head. Patient had no recollection of any issues preceding it but patient has no recollection whatsoever. Patient was evaluated and was found to have a urinary tract infection on her urinalysis. Patient does have a loop recorder but is been nonfunctional for years so that could not be interrogated, however, the suspicion for a malignant arrhythmia was extremely low. Is felt that this may been more of a vasovagal episode and the patient may have had a concussion where she may have had some antecedent amnesia. Patient is feeling well overall. I have advised the patient because the possibility of concussion to avoid reading and greens for the next 24 hours or so. Patient states that she feels otherwise well at this time. Patient will be on Keflex for the urinary tract infection. [] - Physical Exam General: Alert, Cooperative HEENT: Normocephalic, - Psych/Mental Status: Normal Affect, Appropriate Vital Signs Temp Pulse Resp BP Pulse Ox 36.7 C 62 18 148/110 H 95 12/06/18 11:22 12/06/18 11:22 12/06/18 11:22 12/06/18 11:22 12/06/18 11:22 Oxygen Delivery Method Room Air Weight: 88.7 kg Body Mass Index (BMI) 32.5 Intake and Output for Last 24 Hours 12/04/18 12/05/18 12/06/18 23:59 23:59 23:59 Intake Total 244 / 244 315 / 315 Balance 244 / 244 315 / 315 Microbiology Past 72 Hours 12/05/18 15:15 Urine Culture - Preliminary Urine, Clean Catch Gram negative deena Laboratory Tests Past 24 Hrs 12/05/18 12/05/18 12/05/18 13:34 13:34 15:15 WBC 6.4 RBC 3.84 L Hgb 12.0 Hct 37.1 MCV 96.6 MCH 31.3 MCHC 32.3 RDW 13.5 RDW Differential 47.3 H Plt Count 271 MPV 10.7 Immature Gran % (Auto) 0.200 Neut % (Auto) 56.8 Lymph % (Auto) 32.4 [place] % (Auto) 8.5 Eos % (Auto) 1.9 Baso % (Auto) 0.2 Absolute Neuts (auto) 3.6 Absolute Lymphs (auto) 2.07 Total Counted Not Reportable Sodium 142 Potassium 3.9 Chloride 108 H Carbon Dioxide 29.0 Anion Gap 5 BUN 15 Creatinine 0.89 Estim Creat Clear Calc 52.70 Est GFR (MDRD) Af Amer 80 Est GFR (MDRD) Non-Af 66 BUN/Creatinine Ratio 16.9 Glucose 137 H Calcium 8.5 Troponin I < 0.015 Urine Color Yellow Urine Clarity Cloudy Urine pH 6.5 Ur Specific [place] 1.015 Urine Protein 15 H Urine Glucose (UA) Normal Urine Ketones Negative Urine Occult Blood 150 H Urine Nitrite Positive H Urine Bilirubin Negative Urine Urobilinogen Normal Ur Leukocyte Esterase 500 H Urine RBC 0-5 SEEN Urine WBC 25-50 SEEN Ur Squamous Epith Cells 0-5 SEEN Urine Bacteria 4+ Urine Mucus 0 SEEN 12/06/18 12/06/18 05:45 05:45 WBC 7.1 RBC 3.92 L Hgb 12.0 Hct 38.3 MCV 97.7 MCH 30.6 MCHC 31.3 L RDW 13.3 RDW Differential 46.0 H Plt Count 245 MPV 10.8 Immature Gran % (Auto) 0.400 Neut % (Auto) 59.1 Lymph % (Auto) 31.3 [place] % (Auto) 8.3 Eos % (Auto) 0.8 Baso % (Auto) 0.1 Absolute Neuts (auto) 4.2 Absolute Lymphs (auto) 2.21 Total Counted Not Reportable Sodium 143 Potassium 3.9 Chloride 109 H Carbon Dioxide 28.0 Anion Gap 6 BUN 12 Creatinine 0.86 Estim Creat Clear Calc 52.42 Est GFR (MDRD) Af Amer 83 Est GFR (MDRD) Non-Af 69 BUN/Creatinine Ratio 13.9 Glucose 103 Calcium 8.4 L Troponin I Urine Color Urine Clarity Urine pH Ur Specific [place] Urine Protein Urine Glucose (UA) Urine Ketones Urine Occult Blood Urine Nitrite Urine Bilirubin Urine Urobilinogen Ur Leukocyte Esterase Urine RBC Urine WBC Ur Squamous Epith Cells Urine Bacteria Urine Mucus Discharge Diet: Low fat/ Low Cholesterol, 2000 mg Sodium Diet Discharge Activity: May Not Drive, - Disposition: Home Minutes spent on discharge:: 35 Patient Condition:: Stable Medical Necessity - Tobacco Use Smoking Status: Never smoker Meaningful Use Info Meaningful Use Diagnoses (Choose all that apply): None applicable Code Visit OBSV E&M: 47250 Observation care discharge
--- NOTE | 2018-12-06 14:16 | DS.PCM_ITS ---
<Amari Rivas - Last Filed: 12/06/18 14:11> Discharge Date and Diagnosis Date of Admission: 12/05/18 Date of Discharge: 12/06/18 - Primary Discharge Diagnosis Syncopal episode secondary to acute UTI and mild orthostatic hypotension Concussion secondary to fall with head strike, facial contusion Hypertension Hyperlipidemia Accessible atrial fibrillation - Secondary Discharge Diagnosis Chronic Problems (Last Reviewed 11/03/18 @ 15:34 by Dane Morrison MD) Nonsustained ventricular tachycardia (Chronic) Paroxysmal supraventricular tachycardia (Chronic) Essential (primary) hypertension (Chronic) Dyslipidemia (Chronic) Paroxysmal atrial fibrillation (Chronic) Sick sinus syndrome (Chronic) Hospital Course and Treatment Imaging Results: CT/Brain/Head without Contrast IMPRESSION: Chronic involutional changes of the brain. CT/Spine Cervical without Contras IMPRESSION: Multilevel spondylosis, no fractures CT/Sinus/Facial Bone IMPRESSION: Left frontal convexity soft tissue hematoma 2 mm ossific density anterior to the left mandibular condyle within the joint which is most likely degenerative or due to old trauma or, meniscal ossification.. This should be correlated with clinical symptoms. Mild inflammatory changes within the paranasal sinuses Multilevel spondylosis cervical spine Operations: None Procedures: None Summary of Care Provided: Hospital course: The patient is a 73 year old F with past medical history of hypertension, paroxysmal A. fib, nonsustained V. tach, PSVT, sick sinus syndrome,, hyperlipidemia, who presented to the emergency room with a syncopal episode. She was at a basketball game and fell under unclear circumstances and struck her forehead obtaining a contusion and concussion. It is not clear whether she passed out or tripped over something prior to falling. Patient had a poor memory of the event and was felt to be concussed. In the ER a CT of the brain was negative, CT C-spine negative, facial sinus x-ray negative. Urinalysis was significant for urinary tract infection. Troponin was negative and labs were otherwise unremarkable. She had a loop recorder in place however this was old and nonfunctional since August 2017. EKG was negative. She was admitted for syncope and UTI. She had mildly positive orthostatic vitals. She was started on cefazolin for UTI. She did admit to dysuria during the week following presentation. She had no fever or leukocytosis. The following morning she was asymptomatic. She had no events on telemetry. We transitioned her to oral Keflex for a total of 5 days of therapy. We advised her to have brain rest given the concussion, and we advised her to follow-up with her PCP in 1-2 weeks. She was discharged home in stable condition. This patient was seen by Amari Rivas PA-C under the supervision of Doctor Jolie. [] - Physical Exam General: Alert, Oriented x3, Cooperative HEENT: Atraumatic, PERRLA, EOMI, Normocephalic, - - Contusion over left eyebrow Neck: Supple, No JVD, Negative Carotid Bruits Lungs: Clear to auscultation, Normal air movement Cardiovascular: Regular rate, No murmurs Abdomen: Bowel Sounds Present, Soft, Non Tender Extremities: No edema, Capillary Refill Less than 3 Seconds Skin: No rashes, No breakdown Musculoskeletal: No Tenderness to Palpation of Joints or Extremities Neurological: Cranial nerves II-XII grossly intact Psych/Mental Status: Normal Affect, Appropriate Vital Signs Temp Pulse Resp BP Pulse Ox 98.1 F 62 18 148/110 H 95 12/06/18 11:22 12/06/18 11:22 12/06/18 11:22 12/06/18 11:22 12/06/18 11:22 Oxygen Delivery Method Room Air Weight: 195 lb 8.8 oz Body Mass Index (BMI) 32.5 Intake and Output for Last 24 Hours 12/04/18 12/05/18 12/06/18 23:59 23:59 23:59 Intake Total 244 / 244 315 / 315 Balance 244 / 244 315 / 315 Microbiology Past 72 Hours 12/05/18 15:15 Urine Culture - Preliminary Urine, Clean Catch Gram negative deena Laboratory Tests Past 24 Hrs 12/05/18 12/05/18 12/05/18 13:34 13:34 15:15 WBC 6.4 RBC 3.84 L Hgb 12.0 Hct 37.1 MCV 96.6 MCH 31.3 MCHC 32.3 RDW 13.5 RDW Differential 47.3 H Plt Count 271 MPV 10.7 Immature Gran % (Auto) 0.200 Neut % (Auto) 56.8 Lymph % (Auto) 32.4 [place] % (Auto) 8.5 Eos % (Auto) 1.9 Baso % (Auto) 0.2 Absolute Neuts (auto) 3.6 Absolute Lymphs (auto) 2.07 Total Counted Not Reportable Sodium 142 Potassium 3.9 Chloride 108 H Carbon Dioxide 29.0 Anion Gap 5 BUN 15 Creatinine 0.89 Estim Creat Clear Calc 52.70 Est GFR (MDRD) Af Amer 80 Est GFR (MDRD) Non-Af 66 BUN/Creatinine Ratio 16.9 Glucose 137 H Calcium 8.5 Troponin I < 0.015 Urine Color Yellow Urine Clarity Cloudy Urine pH 6.5 Ur Specific [place] 1.015 Urine Protein 15 H Urine Glucose (UA) Normal Urine Ketones Negative Urine Occult Blood 150 H Urine Nitrite Positive H Urine Bilirubin Negative Urine Urobilinogen Normal Ur Leukocyte Esterase 500 H Urine RBC 0-5 SEEN Urine WBC 25-50 SEEN Ur Squamous Epith Cells 0-5 SEEN Urine Bacteria 4+ Urine Mucus 0 SEEN 12/06/18 12/06/18 05:45 05:45 WBC 7.1 RBC 3.92 L Hgb 12.0 Hct 38.3 MCV 97.7 MCH 30.6 MCHC 31.3 L RDW 13.3 RDW Differential 46.0 H Plt Count 245 MPV 10.8 Immature Gran % (Auto) 0.400 Neut % (Auto) 59.1 Lymph % (Auto) 31.3 [place] % (Auto) 8.3 Eos % (Auto) 0.8 Baso % (Auto) 0.1 Absolute Neuts (auto) 4.2 Absolute Lymphs (auto) 2.21 Total Counted Not Reportable Sodium 143 Potassium 3.9 Chloride 109 H Carbon Dioxide 28.0 Anion Gap 6 BUN 12 Creatinine 0.86 Estim Creat Clear Calc 52.42 Est GFR (MDRD) Af Amer 83 Est GFR (MDRD) Non-Af 69 BUN/Creatinine Ratio 13.9 Glucose 103 Calcium 8.4 L Troponin I Urine Color Urine Clarity Urine pH Ur Specific [place] Urine Protein Urine Glucose (UA) Urine Ketones Urine Occult Blood Urine Nitrite Urine Bilirubin Urine Urobilinogen Ur Leukocyte Esterase Urine RBC Urine WBC Ur Squamous Epith Cells Urine Bacteria Urine Mucus Discharge Diet: Low fat/ Low Cholesterol, 2000 mg Sodium Diet Discharge Activity: May Not Drive, - - Brain rest Home Medications: Medications to take at Discharge Allopurinol [Zyloprim] 300 mg PO QHS 11/15/14 Multivitamins,Therapeutic [Multivitamin] 1 tab PO QHS 11/15/14 Losartan Potassium [Cozaar] 100 mg PO DAILY 03/26/17 Rivaroxaban [Xarelto] 20 mg PO QHS 03/26/17 Atorvastatin Calcium [Lipitor] 40 mg PO DAILY 11/01/18 diltiazem CD 120 mg capsule,extended release 24 hr 120 mg PO DAILY 11/03/18 Metoprolol Succinate 100 mg PO QHS 12/05/18 Cephalexin [Keflex] 500 mg PO Q12H #8 capsule 12/06/18 Following Prescrptions Were Given to Patient: Cephalexin [Keflex] 500 mg PO Q12H #8 capsule Primary Care Physician: Nik Mabry III, MD [Primary Care Provider] - Please follow up with your Primary Care Physician in: 1-2 weeks Disposition: Home Minutes spent on discharge:: 35 Patient Condition:: Stable Medical Necessity - Tobacco Use Smoking Status: Never smoker Meaningful Use Info Meaningful Use Diagnoses (Choose all that apply): None applicable <Theo Dave - Last Filed: 12/06/18 14:23> Discharge Date and Diagnosis - Secondary Discharge Diagnosis Chronic Problems (Last Reviewed 11/03/18 @ 15:34 by Dane Morrison MD) Nonsustained ventricular tachycardia (Chronic) Paroxysmal supraventricular tachycardia (Chronic) Essential (primary) hypertension (Chronic) Dyslipidemia (Chronic) Paroxysmal atrial fibrillation (Chronic) Sick sinus syndrome (Chronic) Hospital Course and Treatment Operations: None Procedures: None Summary of Care Provided: Patient seen and examined independently. Data reviewed. I agree with the above note by the physician surgeon assistant. The patient is a 73 year old F who fell and struck her head. Patient had no recollection of any issues preceding it but patient has no recollection whatsoever. Patient was evaluated and was found to have a urinary tract infection on her urinalysis. Patient does have a loop recorder but is been nonfunctional for years so that could not be interrogated, however, the malu picion for a malignant arrhythmia was extremely low. Is felt that this may been more of a vasovagal episode and the patient may have had a concussion where she may have had some antecedent amnesia. Patient is feeling well overall. I have advised the patient because the possibility of concussion to avoid reading and greens for the next 24 hours or so. Patient states that she feels otherwise wel l at this time. Patient will be on Keflex for the urinary tract infection. [] - Physical Exam General: Alert, Cooperative HEENT: Normocephalic, - Psych/Mental Status: Normal Affect, Appropriate Vital Signs Temp Pulse Resp BP Pulse Ox 36.7 C 62 18 148/110 H 95 12/06/18 11:22 12/06/18 11:22 12/06/18 11:22 12/06/18 11:22 12/06/18 11:22 Oxygen Delivery Method Room Air Weight: 88.7 kg Body Mass Index (BMI) 32.5 Intake and Output for Last 24 Hours 12/04/18 12/05/18 12/06/18 23:59 23:59 23:59 Intake Total 244 / 244 315 / 315 Balance 244 / 244 315 / 315 Microbiology Past 72 Hours 12/05/18 15:15 Urine Culture - Preliminary Urine, Clean Catch Gram negative deena Laboratory Tests Past 24 Hrs 12/05/18 12/05/18 12/05/18 13:34 13:34 15:15 WBC 6.4 RBC 3.84 L Hgb 12.0 Hct 37.1 MCV 96.6 MCH 31.3 MCHC 32.3 RDW 13.5 RDW Differential 47.3 H Plt Count 271 MPV 10.7 Immature Gran % (Auto) 0.200 Neut % (Auto) 56.8 Lymph % (Auto) 32.4 [place] % (Auto) 8.5 Eos % (Auto) 1.9 Baso % (Auto) 0.2 Absolute Neuts (auto) 3.6 Absolute Lymphs (auto) 2.07 Total Counted Not Reportable Sodium 142 Potassium 3.9 Chloride 108 H Carbon Dioxide 29.0 Anion Gap 5 BUN 15 Creatinine 0.89 Estim Creat Clear Calc 52.70 Est GFR (MDRD) Af Amer 80 Est GFR (MDRD) Non-Af 66 BUN/Creatinine Ratio 16.9 Glucose 137 H Calcium 8.5 Troponin I < 0.015 Urine Color Yellow Urine Clarity Cloudy Urine pH 6.5 Ur Specific [place] 1.015 Urine Protein 15 H Urine Glucose (UA) Normal Urine Ketones Negative Urine Occult Blood 150 H Urine Nitrite Positive H Urine Bilirubin Negative Urine Urobilinogen Normal Ur Leukocyte Esterase 500 H Urine RBC 0-5 SEEN Urine WBC 25-50 SEEN Ur Squamous Epith Cells 0-5 SEEN Urine Bacteria 4+ Urine Mucus 0 SEEN 12/06/18 12/06/18 05:45 05:45 WBC 7.1 RBC 3.92 L Hgb 12.0 Hct 38.3 MCV 97.7 MCH 30.6 MCHC 31.3 L RDW 13.3 RDW Differential 46.0 H Plt Count 245 MPV 10.8 Immature Gran % (Auto) 0.400 Neut % (Auto) 59.1 Lymph % (Auto) 31.3 [place] % (Auto) 8.3 Eos % (Auto) 0.8 Baso % (Auto) 0.1 Absolute Neuts (auto) 4.2 Absolute Lymphs (auto) 2.21 Total Counted Not Reportable Sodium 143 Potassium 3.9 Chloride 109 H Carbon Dioxide 28.0 Anion Gap 6 BUN 12 Creatinine 0.86 Estim Creat Clear Calc 52.42 Est GFR (MDRD) Af Amer 83 Est GFR (MDRD) Non-Af 69 BUN/Creatinine Ratio 13.9 Glucose 103 Calcium 8.4 L Troponin I Urine Color Urine Clarity Urine pH Ur Specific [place] Urine Protein Urine Glucose (UA) Urine Ketones Urine Occult Blood Urine Nitrite Urine Bilirubin Urine Urobilinogen Ur Leukocyte Esterase Urine RBC Urine WBC Ur Squamous Epith Cells Urine Bacteria Urine Mucus Discharge Diet: Low fat/ Low Cholesterol, 2000 mg Sodium Diet Discharge Activity: May Not Drive, - Disposition: Home Minutes spent on discharge:: 35 Patient Condition:: Stable Medical Necessity - Tobacco Use Smoking Status: Never smoker Meaningful Use Info Meaningful Use Diagnoses (Choose all that apply): None applicable Code Visit OBSV E&M: 49636 Observation care discharge
== END 2018-12-06 11:22 | disposition home or self-care (01) ==
LOC: ED 17:53 → PCU 18:09
PROVIDERS: Admitting Provider Family Medicine; Emergency Provider Emergency Medicine; Family Provider Family Medicine; PCP Family Medicine
DX: I95.1 Orthostatic hypotension (principal); S06.0X9A Concussion with loss of consciousness of unspecified duration, initial encounter; S00.83XA Contusion of other part of head, initial encounter; W18.39XA Other fall on same level, initial encounter; Y93.01 Activity, walking, marching and hiking; Y92.480 Sidewalk as the place of occurrence of the external cause; E78.5 Hyperlipidemia, unspecified; I10 Essential (primary) hypertension; I48.0 Paroxysmal atrial fibrillation; Z79.899 Other long term (current) drug therapy; Z79.01 Long term (current) use of anticoagulants; E66.9 Obesity, unspecified; Z68.32 Body mass index [BMI] 32.0-32.9, adult; Z71.3 Dietary counseling and surveillance; G47.33 Obstructive sleep apnea (adult) (pediatric); M10.9 Gout, unspecified; I47.1 Supraventricular tachycardia; N39.0 Urinary tract infection, site not specified
CPT/HCPCS: 36415; 70450; 70486; 72125; 80048; 81001; 84484; 85025; 87077; 87086; 87088; 87186; 93005; 96365; 96366; 96367; 99218; 99285; J7040; A4216; G0378

== ENCOUNTER 2019-04-15 18:44 | Emergency (ER) | payer MEDICARE, SELFPAY ==
[2019-01-26 10:59] VITALS: BMI 32.4
[2019-04-15] VITALS (7 sets, daily range): BP systolic 116–165; BP diastolic 65–97; PULSE 79–126; RESP 16–87; TEMP -8.3–36.3; O2SAT 96–99; BMI 32.9
--- NOTE | 2019-04-15 19:20 | EKG12_ITS ---
Test Reason : Blood Pressure : / mmHG Vent. Rate : 116 BPM Atrial Rate : 111 BPM P-R Int : 000 ms QRS Dur : 084 ms QT Int : 312 ms P-R-T Axes : 000 033 203 degrees QTc Int : 433 ms Atrial fibrillation with rapid ventricular response Nonspecific ST and T wave abnormality Abnormal ECG Confirmed by KAVEH MARIE, RAHEL ([id number]), web editor WANDA PRESTON ([id number] on 04/18/2019 11:47:01 AM Referred By: DC Confirmed By:RAHEL LINN MD
--- NOTE | 2019-04-15 19:25 | RAD_ITS ---
STUDY: X-RAY CHEST REASON FOR EXAM: Female, 74 years old. Chest pain TECHNIQUE: Single frontal view of the chest. COMPARISON: November 12, 2018 FINDINGS: Loop recorder projects over the left chest. The lungs are clear and expanded. There is no demonstrated pleural abnormality. Normal size heart. Normal mediastinum and anahi. Normal visualized pulmonary arteries. Normal visualized aortic arch and descending thoracic aorta. Normal visualized thoracic spine. Normal visualized ribs, clavicles, and shoulders. There is no demonstrated abnormality of the visualized soft tissue structures of the upper abdomen. RAD/Chest 1 View (Portable) IMPRESSION: Normal x-ray examination of the chest. Electronically Signed: Cb Ruelas MD at 19:41 EDT , Service support ,
[2019-04-15] MEDS: dilTIAZem 25 MG/5 ML Vial 20 MG IV BOLUS (19:29)
[2019-04-15 19:30] LABS: Absolute Lymphocyte Count 2.75 X10^3/uL (0.83-4.51); Absolute Neutrophil Count 4.6 X10^3/uL (2.0-7.7); Basophil# 0.01 X10^3/uL; Basophil% 0.1 % (0-1); Eosinophil# 0.11 X10^3/uL; Eosinophils% 1.4 % (0-5); Hematocrit 41.9 % (37-47); Lymphocyte # 2.75 X10^3/ul (4.0); Lymphocyte % 33.8 % (19-41); Mean Corp Hgb Conc 33.4 g/dL (32-36); Mean Corpuscular Hgb 31.6 pg (27.0-32.0); Mean Corpuscular Volume 94.6 fL (81-99); Mean Platelet Vol. 10.5 fl (6.2-12.0); Monocyte# 0.67 X10^3/uL; Monocyte% 8.2 % (0-10); NRBC Flagged by Analyzer 0 % (0-5); Neutrophil # 4.59 X10^3/uL (2.7-7.7); Neutrophil % 56.4 % (47-70); Platelet Count 250 K/mm3 (150-450); RBC Distribution Width CV 12.4 % (11.6-14.6); RBC Distribution Width SD 43.5 fl (35.1-43.9); Red Blood Count 4.43 M/mm3 (4.2-5.4); White Blood Count 8.1 K/mm3 (4.4-11.0)
[2019-04-15 19:44] LABS: Anion Gap 4 (5-15); BUN 14 mg/dL (7-18); BUN/Creat Ratio 15.4 RATIO (10-20); Calcium,Total 8.9 mg/dL (8.5-10.1); Chloride 106 mmol/L (98-107); Creatinine, Serum 0.91 mg/dL (0.55-1.02); EST Glomerular Filtration Rate 65 mL/min (>60); Est Glom Filt Rate - Afr Amer 78 mL/min (>60); Estimated Creatinine Clearance 46.84 ml/min; Glucose 136 mg/dL (74-106); Potassium 3.4 mmol/L (3.5-5.1); Sodium Level 140 mmol/L (136-145)
--- NOTE | 2019-04-15 20:55 | ED.RN ---
DR LINN PAGED FOR DR REYNAGA
--- NOTE | 2019-04-15 21:04 | ED.VISSUMM ---
- ER Visit Summary Date of Service: 04/15/19 Chief Complaint: Rapid irregular heartbeat History of Present Illness: The patient is a 74 F with a rapid irregular heartbeat for 1-1/2 hours prior to arrival. Patient had some mild lightheadedness but no other associated symptoms. She has a history of A. fib, sick sinus syndrome, PSVT. Nonsustained V. tach, hypertension, and syncope. She was cardioverted in November for this. She does take blood thinners, metoprolol, Cardizem, losartan, among her other medications. Physical Examination: Afebrile and vital signs unremarkable except for heart rate of 126. Blood pressure is 160. Heart tachycardic and irregular. Lungs clear. Extremities nontender with no edema. Test Results: EKG showed atrial fibrillation at a rate of 116. Chest x-ray was normal. CBC normal. Potassium 3.4. Troponin normal. Emergency Department Course and Treatment: Patient was placed on the monitor. Treated with Cardizem 20 mg. On reevaluation, heart rate is in the 80s. Blood pressure is normal. Patient is mentating well. She feels tired as it is getting later in the evening, but has no other complaints or symptoms. Patient was discussed with Dr. Mazariegos. We will change her diltiazem to twice a day. Keep her other medications the same. She was also treated with potassium. She will need outpatient follow-up and possible further evaluation including a BMP to check her potassium. She should call the office on Thursday. Return right away for any new or worsening issues. Treatment Plan: As above Disposition: Discharge Impression: 1. Atrial fibrillation 2. Hypokalemia This note was generated with [employer] dictation software. It may contain incorrect words, spelling, and punctuation that were not noted in review of the chart prior to signing ED Disposition - Plan for ED Patient: Referrals: Nik Mabry III, MD [Primary Care Provider] -
--- NOTE | 2019-04-15 21:07 | ED.DEP ---
ED Disposition - Plan for ED Patient: Instructions: Atrial Fibrillation Referrals: Dane Morrison MD [STAFF PHYSICIAN] - Additional Instructions: Your potassium was 3.4. He will need a follow-up recheck with your communications associate. Increase your Cardizem/diltiazem to 2 times a day. Keep your other medications the same. Call for an outpatient follow-up with your communications associate or return right away if you have new or worsening issues.
== END 2019-04-15 21:17 | disposition home or self-care (01) ==
LOC: ED 19:53
PROVIDERS: Emergency Provider Emergency Medicine; Family Provider Family Medicine; PCP Family Medicine
DX: I48.91 Unspecified atrial fibrillation (principal); E87.6 Hypokalemia; I49.5 Sick sinus syndrome; I47.1 Supraventricular tachycardia; I10 Essential (primary) hypertension; I47.2 Ventricular tachycardia; E78.00 Pure hypercholesterolemia, unspecified; Z79.899 Other long term (current) drug therapy
CPT/HCPCS: 71045; 80048; 84484; 85025; 93005; 96374; 99285; A4216

== ENCOUNTER 2019-04-19 04:53 | Emergency (ER) | payer MEDICARE, SELFPAY ==
[2019-04-15 18:45] VITALS: BMI 32.9
[2019-04-19 04:54] VITALS: BP 155/94; PULSE 93; RESP 23; TEMP 36.9; O2SAT 98; BMI 33.5
--- NOTE | 2019-04-19 04:59 | EKG12_ITS ---
Test Reason : Blood Pressure : / mmHG Vent. Rate : 095 BPM Atrial Rate : 357 BPM P-R Int : 000 ms QRS Dur : 082 ms QT Int : 350 ms P-R-T Axes : 000 033 -24 degrees QTc Int : 439 ms Atrial fibrillation Nonspecific T wave abnormality Abnormal ECG Confirmed by LAKISHA GOMEZ ([id number]), editor sound WANDA PRESTON ([id number]) on 04/20/2019 3:10:07 PM Referred By: Confirmed By:LAKISHA GOMEZ
--- NOTE | 2019-04-19 04:59 | RAD_ITS ---
STUDY: X-RAY CHEST REASON FOR EXAM: Female, 74 years old. Palpitations TECHNIQUE: Single frontal view of the chest. COMPARISON: April 15, 2019. FINDINGS: Basilar atelectasis. No focal consolidation. There is no demonstrated pleural abnormality. There is borderline cardiomegaly. Aortic calcifications. Cardiac Loop monitor. There are diffuse degenerative changes of the visualized thoracic spine. There is degenerative osteoarthritis of the bilateral shoulders. There is no demonstrated abnormality of the visualized soft tissue structures of the upper abdomen. RAD/Chest 1 View (Portable) IMPRESSION: Mild basilar atelectasis/scarring. No focal consolidation identified. Electronically Signed: Mg Romero, at 5:28 EDT Tel , Service support ,
[2019-04-19] MEDS: Aspirin 81 MG TAB.CHEW 324 MG PO (05:07)
[2019-04-19 05:12] VITALS: O2SAT 95
[2019-04-19 05:24] LABS: Anion Gap 7 (5-15); BUN 15 mg/dL (7-18); BUN/Creat Ratio 15.7 RATIO (10-20); Calcium,Total 8.8 mg/dL (8.5-10.1); Chloride 109 mmol/L (98-107); Creatinine, Serum 0.96 mg/dL (0.55-1.02); EST Glomerular Filtration Rate 61 mL/min (>60); Est Glom Filt Rate - Afr Amer 73 mL/min (>60); Glucose 91 mg/dL (74-106); Potassium 4.2 mmol/L (3.5-5.1); Sodium Level 144 mmol/L (136-145)
[2019-04-19 05:25] LABS: Absolute Lymphocyte Count 3.52 X10^3/uL (0.83-4.51); Absolute Neutrophil Count 3.5 X10^3/uL (2.0-7.7); Basophil# 0.02 X10^3/uL; Basophil% 0.3 % (0-1); Eosinophil# 0.12 X10^3/uL; Eosinophils% 1.5 % (0-5); Hematocrit 43.4 % (37-47); Hemoglobin 14.4 g/dL (12.0-15.0); Lymphocyte # 3.52 X10^3/ul (4.0); Lymphocyte % 44.3 % (19-41); Mean Corp Hgb Conc 33.2 g/dL (32-36); Mean Corpuscular Hgb 31.6 pg (27.0-32.0); Mean Corpuscular Volume 95.2 fL (81-99); Mean Platelet Vol. 10.6 fl (6.2-12.0); Monocyte# 0.72 X10^3/uL; Monocyte% 9.1 % (0-10); NRBC Flagged by Analyzer 0 % (0-5); Neutrophil # 3.54 X10^3/uL (2.7-7.7); Neutrophil % 44.5 % (47-70); Platelet Count 292 K/mm3 (150-450); RBC Distribution Width CV 12.5 % (11.6-14.6); RBC Distribution Width SD 44.2 fl (35.1-43.9); Red Blood Count 4.56 M/mm3 (4.2-5.4); White Blood Count 7.9 K/mm3 (4.4-11.0)
[2019-04-19 05:36] LABS: D-Dimer Quantitative (DVT/PE) < 0.27 FEU/ug/m (0.27-0.49)
[2019-04-19 06:05] VITALS: BP 142/80; PULSE 83; RESP 18; O2SAT 98
--- NOTE | 2019-04-19 07:21 | ED.VISSUMM ---
- ER Visit Summary Date of Service: 04/19/19 Chief Complaint: Palpitations History of Present Illness: The patient is a 74 F presenting with palpitations. Patient states this started just prior to arrival. Patient complains of irregular heartbeat and racing heartbeat. She denies chest pain. She has mild shortness of breath which is no worse than usual. She was seen in the ED on April 15 for similar complaints. At that time her diltiazem was increased to twice daily. She is unsure if she is in A. fib all the time of believes that she is. She is on Xarelto. Denies other complaints. Physical Examination: Vitals are stable. Patient is afebrile. Alert no acute distress. HEENT exam is unremarkable. Neck is supple. Lungs are clear and equal bilaterally. Heart is irregularly irregular Abdomen is soft nontender nondistended. Extremities are unremarkable. Skin is warm and dry. No focal neurologic deficit. Remainder of exam is unremarkable. Emergency Department Course and Treatment: EKG is A. fib rate of 95 with no acute ischemic changes. Chest x-ray shows no acute process. CBC, chemistries unremarkable. Troponin is negative. D-dimer is negative. Delta troponin is pending at this time will be checked out to the oncoming physician. Disposition: Pending Impression: Atrial fibrillation, palpitations This note was generated with [employer] dictation software. It may contain incorrect words, spelling, and punctuation that were not noted in review of the chart prior to signing ED Disposition - Plan for ED Patient: Instructions: Atrial Fibrillation Referrals: Nik Mabry III, MD [Primary Care Provider] - Luis Eduardo Mazariegos MD [STAFF PHYSICIAN] -
--- NOTE | 2019-04-19 07:46 | ED.DEP ---
ED Disposition - Plan for ED Patient: Instructions: Atrial Fibrillation Referrals: Nik Mabry III, MD [Primary Care Provider] - Luis Eduardo Mazariegos MD [STAFF PHYSICIAN] -
[2019-04-19 08:20] VITALS: BP 123/73; PULSE 66; RESP 18; O2SAT 100
[2019-04-19 08:51] VITALS: BP 119/78; PULSE 61; RESP 18; O2SAT 99
== END 2019-04-19 08:51 | disposition home or self-care (01) ==
PROVIDERS: Emergency Provider Emergency Medicine; Family Provider Family Medicine; PCP Family Medicine
DX: I48.91 Unspecified atrial fibrillation (principal); R00.2 Palpitations; I10 Essential (primary) hypertension; E78.00 Pure hypercholesterolemia, unspecified; I49.5 Sick sinus syndrome; I47.1 Supraventricular tachycardia; Z79.01 Long term (current) use of anticoagulants; Z79.899 Other long term (current) drug therapy
CPT/HCPCS: 36415; 71045; 80048; 84484; 85025; 85379; 93005; 99285; A4216

== ENCOUNTER 2019-05-06 09:28 | Day surgery (SDC) | payer MEDICARE, SELFPAY ==
[2019-04-27 12:51] VITALS: BMI 33.5
[2019-05-06 09:52] VITALS: BMI 32.1
--- NOTE | 2019-05-06 11:13 | PCM.HP.BLA ---
History and Physical Details: This is a 74-year-old female that presents here today for a cardiovascular follow-up as well as DC cardioversion. She has a history of paroxysmal atrial fibrillation, hypertension and hyperlipidemia. She did undergo a cardioversion in November 2018. Pt was in the Er last week for her Afib. She feels that she has been in this since then but her HR is better controlled. She is occasionally aware of her Afib. She does note occasional faster HR. She does not have any chest pain. She does not have any orthopnea. She does not have any worsening SOB but does have dizziness with her Afib. She does not have any edema. Intake Vital Signs 04/27/19 Height 5 ft 4 in 04/27/19 Weight: 195 lb 04/27/19 Body Mass Index (BMI) 33.5 04/27/19 Blood Pressure 121/74 H 04/27/19 Blood Pressure Location Lt brachial 04/27/19 Respiratory Rate 18 04/27/19 Pulse Rate 86 04/27/19 Pulse Source Monitor 04/27/19 Pulse Ox 97 Intake Visit Reasons: A-fib Plastic Eye Technician Required: No Is patient in pain?: No Allergies No Known Allergies Allergy (Verified 04/27/19 12:52) Medications Multivitamins,Therapeutic [Multivitamin] 1 tab PO QHS 11/15/14 [History Confirmed 04/27/19] atorvastatin 40 mg tablet 40 mg PO QHS #90 tab 01/26/19 [Rx Confirmed 04/27/19] losartan 100 mg tablet 100 mg PO DAILY #90 tab 01/26/19 [Rx Confirmed 04/27/19] metoprolol succinate ER 100 mg tablet,extended release 24 hr 100 mg PO QHS #90 tab 01/26/19 [Rx Confirmed 04/27/19] rivaroxaban 20 mg tablet 20 mg PO QHS #90 tab 01/26/19 [Rx Confirmed 04/27/19] allopurinol 300 mg tablet 100 mg PO QHS tab 04/27/19 [History Confirmed 04/27/19] diltiazem CD 120 mg capsule,extended release 24 hr 120 mg PO BID #180 cap 04/27/19 [Rx Confirmed 04/27/19] PFSH Medical History Syncope (Resolved) Nonsustained ventricular tachycardia (Chronic) Paroxysmal supraventricular tachycardia (Chronic) Essential (primary) hypertension (Chronic) Dyslipidemia (Chronic) Paroxysmal atrial fibrillation (Chronic) Sick sinus syndrome (Chronic) Diverticulosis (Chronic) Gout (Chronic) Obesity (Chronic) Obstructive sleep apnea (Chronic) Thyroid nodule (Chronic) Closed head injury with brief loss of consciousness (Resolved) Syncope (Resolved) Surgical History History of cardioversion (Resolved 11/15/18) History of loop recorder (Resolved) History of right hip replacement (Resolved) History of tonsillectomy (Resolved) History of tubal ligation (Resolved) Family History Mother Colon cancer CAD (coronary artery disease) Social History Smoking Status: Never smoker ROS Const Const: Negative for fatigue, weakness, fever(s) or headache(s) Eyes Eyes: Negative for blind spots, loss of peripheral vision or transient loss of vision ENT ENT: Positive for dizziness; negative for headache(s), tinnitus or Nosebleed/epistaxis Cardio Chest Pain: No Palpitations: Yes Edema: None Muscle aches with walking: None Resp Respiratory: Negative for SOB with activity, SOB at rest, SOB orthopnea\SOB lying down or Cough GI GI: Negative nausea, vomiting, heartburn or vomiting blood/hematemesis : Negative for hematuria Musc Musc: Negative for muscle aches/ myalgia Neuro Neuro: Positive for dizziness; negative for lightheadedness, near syncope, syncope, orthostatic symptoms, headache(s) or weakness Alberto Hematologic/Lymphatic: Negative for easy bleeding Endo Endo: Negative for fatigue Cardiology Exam Const Appearance: cooperative, no acute distress and well developed Orientation: alert, awake and oriented x3 Head Head: normocephalic and atraumatic Mouth: moist mucous membranes Eyes General: appearance normal, both eyes and all related structures Conjunctivae: conjunctivae normal Pupils: PERRL EOM: EOM intact bilaterally Neck Neck: normal visual inspection, no lymphadenopathy and no JVD Carotids: Negative bruit Neck Mass: Negative Neck mass Chest Chest inspection: normal inspection of the chest and symmetric chest movement Auscultation: Bilateral: Clear to Auscultation Cardio Palpation: normal PMI Rate: regular rate Rhythm: irregularly irregular Heart sounds: S1 normal and S2 normal; negative rub, gallop or murmur GI GI: normal to inspection, soft, no hepatosplenomegaly and bowel sounds present; negative tender Neuro General: alert, awake, oriented x3, CN's II-XI intact bilaterally and moves all extremities Extremities Pulses: Normal: Right Posterior Tibial Pulse, Left Posterior Tibial Pulse, Right Radial Pulse, Left Radial Pulse Lower Extremity Edema: None: Bilateral Psych Psychological: normal affect Assessment & Plan 1. Paroxysmal atrial fibrillation I48.0 Plan Patient has returned to atrial fibrillation. She is symptomatic with this. The plan is for her to undergo a DC cardioversion today and we will add amiodarone 200 mg to her regimen. Her rate is controlled since increasing her diltiazem. She will continue with her current dose of metoprolol. She has been anticoagulated with a factor X a inhibitor which has not been interrupted. Patient Instructions 2. Essential hypertension I10 Plan Blood pressure is well controlled on current medications, we do not recommend any changes at this time. 3. Dyslipidemia E78.5 Plan Patient will continue with current moderate intensity statin.
--- NOTE | 2019-05-06 11:15 | PCM.PN.BLA ---
Progress Note DC cardioversion Patient was brought to the cardiac catheterization lab in the postabsorptive nonsedated state. Patient was seen by Dr. Merrill of the critical care division. After informed consent was obtained it was ascertained that the patient had been taking her anticoagulation uninterrupted. She was noted to be in atrial fibrillation. Informed consent was obtained. Anterior-posterior pads were applied. The patient was administered 40 mg of intravenous propofol. 200 J of synchronized DC cardioversion energy was applied with prompt reversal to sinus rhythm. Conclusion: Successful DC cardioversion to sinus rhythm. Start amiodarone 200 mg once a day. Continue current medication and anticoagulation. Follow-up in my office.
--- NOTE | 2019-05-06 13:01 | PCM.OP.PRO ---
Problem List (1) Dyslipidemia Status: Chronic (2) Essential (primary) hypertension Status: Chronic (3) Nonsustained ventricular tachycardia Status: Chronic (4) Paroxysmal atrial fibrillation Status: Chronic (5) Paroxysmal supraventricular tachycardia Status: Chronic (6) Sick sinus syndrome Status: Chronic (7) Syncope Status: Resolved Procedure Report Date of Procedure: 05/06/19 - Conscious Sedation CONSCIOUS SEDATION REPORT BRIEF HISTORY OF PRESENT ILLNESS: The patient is a 74-year-old female who presented to [facility] for an elective outpatient cardioversion due to underlying atrial fibrillation. The patient reports no PO intake since midnight. The patient does not have a history of obstructive sleep apnea. The patient reports no history of smoking and COPD. The patient denies any recent constitutional symptoms such as fevers, chills, nausea or vomiting. The patient denies previous anesthetic complications. Since last known ejection fraction was 60%. Patient did take Xarelto on the day of the procedure. PHYSICAL EXAMINATION: VITAL SIGNS: Reviewed and were acceptable. GENERAL: The patient is a female, in no apparent distress, speaking in full sentences. HEENT: Normocephalic, atraumatic. Mucous membranes are moist and pink. Good mouth opening noted. Trachea is midline. Good neck mobility. MP III CHEST: S1, S2 irregularly irregular. No murmurs, rubs or gallops were noted. LUNGS: Clear to auscultation bilaterally without appreciable wheezes, rales or rhonchi. ABDOMEN: Soft, nontender, nondistended. Positive bowel sounds. EXTREMITIES: There is no clubbing, cyanosis or edema. ASA Class: II DESCRIPTION OF PROCEDURE: After confirmation of informed consent, the patient's anesthesia plan was reviewed in detail. Propofol was chosen. Risks and benefits were reviewed and the patient agreed to proceed. At 11:06 AM, the patient was given 40 mg of propofol. The patient achieved an appropriate level of sedation and received 1 attempt synchronized cardioversion, at [address] Morrison at the bedside. This was successful in achieving normal sinus rhythm. The patient was monitored until 11:12 AM, at which time the patient reached their baseline mental status and function. The patient tolerated the procedure well. COMPLICATIONS: None ESTIMATED BLOOD LOSS: None RECOMMENDATIONS: Okay to recover in usual fashion. Code Visit 9xxxx: Other Procedure See Report - [id number]
== END 2019-05-06 12:15 | disposition home or self-care (01) ==
LOC: CLSP 09:29
PROVIDERS: Family Provider Family Medicine; PCP Family Medicine; Referring Provider Internal Medicine Cardiovascular Disease; Visit Provider Internal Medicine Cardiovascular Disease
DX: I48.0 Paroxysmal atrial fibrillation (principal); I10 Essential (primary) hypertension; E78.5 Hyperlipidemia, unspecified; I47.2 Ventricular tachycardia; I47.1 Supraventricular tachycardia; I49.5 Sick sinus syndrome; M10.9 Gout, unspecified; E66.9 Obesity, unspecified; Z68.33 Body mass index [BMI] 33.0-33.9, adult; G47.33 Obstructive sleep apnea (adult) (pediatric); E04.1 Nontoxic single thyroid nodule; K57.90 Diverticulosis of intestine, part unspecified, without perforation or abscess without bleeding; Z79.01 Long term (current) use of anticoagulants; Z79.899 Other long term (current) drug therapy
CPT/HCPCS: 92960; 93005; J7040

== ENCOUNTER → 2020-03-14 10:28 | Outpatient (CLI) | payer MEDICARE, SELFPAY ==
[2020-03-13 15:01] VITALS: BMI 31.1
[2020-03-14 12:10] LABS: AST(SGOT) 23 U/L (15-37); Alanine Aminotransfer ALT/SGPT 38 U/L (13-56); Albumin, Serum 3.6 g/dL (3.2-5.0); Alkaline Phosphatase 91 U/L (45-117); Bilirubin, Direct 0.15 mg/dL (0.00-0.30); Cholesterol 142 mg/dL (200); Globulin 3.6 g/dL (2.2-4.2); High Density Lipoprotein 62 mg/dL; Protein, Total 7.2 g/dL (6.4-8.2); Thyroid Stim Hormone (TSH) 0.68 uIU/mL (0.358-3.74); Triglycerides 164 mg/dL; Very Low Density Lipoprotein 33 mg/dL (5-40)
== END ==
PROVIDERS: PCP Family Medicine; Referring Provider Internal Medicine Cardiovascular Disease; Visit Provider Internal Medicine Cardiovascular Disease
DX: E78.00 Pure hypercholesterolemia, unspecified (principal); E78.5 Hyperlipidemia, unspecified; I10 Essential (primary) hypertension; I48.0 Paroxysmal atrial fibrillation
CPT/HCPCS: 36415; 80061; 80076; 84443

== ENCOUNTER → 2020-03-23 09:10 | Outpatient (CLI) | payer MEDICARE, SELFPAY ==
[2020-03-13 15:01] VITALS: BMI 31.1
== END ==
PROVIDERS: PCP Family Medicine; Referring Provider Internal Medicine Cardiovascular Disease; Visit Provider Internal Medicine Cardiovascular Disease
DX: I48.0 Paroxysmal atrial fibrillation (principal)
CPT/HCPCS: 93225; 93226

== ENCOUNTER 2020-07-08 10:19 | Observation (INO) | payer MEDICARE, SELFPAY ==
[2020-03-13 15:01] VITALS: BMI 31.1
[2020-07-08] VITALS (15 sets, daily range): BP systolic 125–211; BP diastolic 49–72; PULSE 43–59; RESP 14–18; TEMP 36.4–37; O2SAT 97–99; BMI 29.9; BMI 30.1; BMI 30.2
--- NOTE | 2020-07-08 10:24 | ED.VIS.GEN ---
History of Present Illness Chief Complaint: Chest Pain Informant: Patient Narrative: 75-year-old female presenting with chest pain that began this morning at about 6 or 7 upon awakening. She states that it has been constant since then and feels like pressure however the severity waxes and wanes. She states when she gets up and walks she feels lightheaded. She states he has not been diaphoretic or short of breath. She not had a cough or fever. Prior to this morning she was otherwise well. He does have history of atrial fibrillation, V. tach, sick sinus syndrome, SVT. She is currently anticoagulated. She states she had a cardioversion about a year and a half ago for A. fib. - Past Medical History (1) Paroxysmal atrial fibrillation Status: Chronic (2) Essential (primary) hypertension Status: Chronic (3) Dyslipidemia Status: Chronic Past Medical History - Allergies and Home Meds Allergies/Adverse Reactions: Allergies No Known Allergies Allergy (Verified 03/13/20 15:02) Prior records reviewed: Yes Past Medical History: - - Reviewed in problem list Surgical History: noncontributory Lives: Spouse/ Significant Other Smoking Status: Never smoker Alcohol: None Drugs: None - Family History Maternal Family History: Family History (Last Reviewed 03/13/20 @ 15:[address] Dane Morrison MD) Mother Colon cancer CAD (coronary artery disease) Family History: Reports: No pertinent history Review of Systems General: Reports: - - Lightheadedness with ambulation.. Denies: Chills, Fever, Sweats ENT: Denies: Rhinorrhea, Sore throat Cardiovascular: Reports: Chest pain. Denies: Palpitations Respiratory: Denies: Dyspnea, Cough, Dyspnea on exertion Genitourinary: Denies: Dysuria, Hematuria, Frequency Musculoskeletal: Denies: Back pain, Extremity Pain Skin: Denies: Rash, Wounds Neurological: Denies: Headache, Weakness, Numbness Physical Exam Vital Signs/Narrative: Vital Signs Temp Pulse Resp BP Pulse Ox 07/08/20 10:19 97.6 F L 54 L 18 211/63 H 99 Inital Vital Signs reviewed: Yes General: Well nourished, No Acute Distress Head: Normocephalic, Atraumatic Eyes: Perrl, EOMI. Negative for: Pale conjunctiva ENT: Moist mucous membranes, No rhinorrhea Cardiovascular: Regular rate, Regular rhythm Respiratory: No distress, CTA bilaterally Extremities: Nontender, No edema Skin: Normal color, No rash. Negative for: Cyanosis, Diaphoresis Neurological: Alert, Oriented x3 Psychological: Normal affect, Normal Mood Diagnostic/Tx/Re-eval Clinical Impression(s) from Imaging Studies Chest X-Ray 07/08/20 10:36 IMPRESSION: No active disease. Electronically Signed: Deric Cantu MD at 10:50 EDT Tel , Service support , Laboratory Data 07/08/20 07/08/20 10:25 10:25 WBC 7.7 RBC 4.30 Hgb 13.6 Hct 42.7 MCV 99.3 H MCH 31.6 MCHC 31.9 L RDW Std Deviation 45.9 H RDW Coeff of Sammie 12.5 Plt Count 280 MPV 10.6 Immature Gran % (Auto) 0.300 Neut % (Auto) 59.0 Lymph % (Auto) 32.3 Fleming % (Auto) 7.3 Eos % (Auto) 0.8 Baso % (Auto) 0.3 Absolute Neuts (auto) 4.5 Absolute Lymphs (auto) 2.48 Nucleated RBC % 0 Sodium 142 Potassium 3.9 Chloride 109 H Carbon Dioxide 28.0 Anion Gap 5 BUN 13 Creatinine 1.17 H Estim Creat Clear Calc 38.89 Est GFR (MDRD) Af Amer 58 L Est GFR (MDRD) Non-Af 48 L BUN/Creatinine Ratio 11.1 Glucose 135 H Calcium 8.7 Troponin I < 0.015 - EKG Initial EKG Interpretation: No Acute Injury Pattern, Sinus Bradycardia - Medical Decision Making Patient arrived with chest pressure which started this morning. She states that she felt lightheaded when she got up to walk. She does have a history of dysrhythmias but has not has not had a catheterization or stents. She states she has not a recent stress test or echocardiogram. Her EKG is sinus bradycardia. She states that she has had bradycardia in the 40s and 50s for at least the last year and a half. Her podiatric technician has been aware of this. Hypertensive on arrival. After she was given nitroglycerin her blood pressure in her chest pain resolved. Troponin is negative. Her lab work was unremarkable. Chest x-ray is negative. Patient is anticoagulated so an embolism is unlikely. Given the patient's heart score of 4, I will admit her to the hospital. Given aspirin prior to transport to the floor. Impression: 1. Chest pain 2. Lightheadedness ED Disposition - Plan for ED Patient: Disposition: Acute [facility]
--- NOTE | 2020-07-08 10:32 | EKG12_ITS ---
Test Reason : CP Blood Pressure : / mmHG Vent. Rate : 053 BPM Atrial Rate : 052 BPM P-R Int : 000 ms QRS Dur : 090 ms QT Int : 460 ms P-R-T Axes : 000 032 065 degrees QTc Int : 431 ms Normal sinus rhythm Abnormal ECG Confirmed by SUDHAKAR JIMENES MD ([id number]), fan mail editor JR HERBERT ([id number]) on 07/10/2020 10:27:12 AM Referred By: FLORA/QUIRINO Confirmed By:SUDHAKAR JIMENES MD
--- NOTE | 2020-07-08 10:36 | RAD_ITS ---
STUDY: X-RAY CHEST REASON FOR EXAM: Female, 75 years old. CHEST PAINS MEDIASTINUM TECHNIQUE: Single AP portable view of the chest. COMPARISON: 04/19/2019 FINDINGS: Insertable lunchroom monitor. The lungs are clear and expanded. There is no demonstrated pleural abnormality. There is moderate cardiac enlargement. Normal mediastinum and anahi. Normal visualized pulmonary arteries. Normal visualized aortic arch and descending thoracic aorta. Normal visualized thoracic spine. Normal visualized ribs, clavicles, and shoulders. There is no demonstrated abnormality of the visualized soft tissue structures of the upper abdomen. RAD/Chest 1 View (Portable) IMPRESSION: No active disease. Electronically Signed: Deric Cantu MD at 10:50 EDT Tel , Service support ,
[2020-07-08] MEDS: Aspirin 81 MG TAB.CHEW 324 MG PO (10:37)
[2020-07-08] MEDS: Nitroglycerin SL (ED/IMG/CATH) 0.4 MG TABLET SUBLINGUAL ×2 (10:38→10:46)
[2020-07-08 10:43] LABS: Absolute Lymphocyte Count 2.48 X10^3/uL (0.83-4.51); Absolute Neutrophil Count 4.5 X10^3/uL (2.0-7.7); Basophil# 0.02 X10^3/uL; Basophil% 0.3 % (0-1); Eosinophil# 0.06 X10^3/uL; Eosinophils% 0.8 % (0-5); Hematocrit 42.7 % (37-47); Hemoglobin 13.6 g/dL (12.0-15.0); Lymphocyte # 2.48 X10^3/ul (4.0); Lymphocyte % 32.3 % (19-41); Mean Corp Hgb Conc 31.9 g/dL (32-36); Mean Corpuscular Hgb 31.6 pg (27.0-32.0); Mean Corpuscular Volume 99.3 fL (81-99); Mean Platelet Vol. 10.6 fl (6.2-12.0); Monocyte# 0.56 X10^3/uL; Monocyte% 7.3 % (0-10); NRBC Flagged by Analyzer 0 % (0-5); Neutrophil # 4.54 X10^3/uL (2.7-7.7); Platelet Count 280 K/mm3 (150-450); RBC Distribution Width CV 12.5 % (11.6-14.6); RBC Distribution Width SD 45.9 fl (35.1-43.9); White Blood Count 7.7 K/mm3 (4.4-11.0)
[2020-07-08 10:55] LABS: Anion Gap 5 (5-15); BUN 13 mg/dL (7-18); BUN/Creat Ratio 11.1 RATIO (10-20); Calcium,Total 8.7 mg/dL (8.5-10.1); Chloride 109 mmol/L (98-107); Creatinine, Serum 1.17 mg/dL (0.55-1.02); EST Glomerular Filtration Rate 48 mL/min (>60); Est Glom Filt Rate - Afr Amer 58 mL/min (>60); Estimated Creatinine Clearance 38.89 ml/min; Glucose 135 mg/dL (74-106); Potassium 3.9 mmol/L (3.5-5.1); Sodium Level 142 mmol/L (136-145)
--- NOTE | 2020-07-08 11:55 | HP.PCM_ITS ---
History of Present Illness Date of Admission: 07/08/20 Chief Complaint: chest pain The patient is a 75 year old F with a PMH as outlined who was admitted via the ED on 07/08/2020 with a complaint of chest pain that woke her up today. Pain was pressurelike, and waxing and waning, and associated with lightheadedness. She hasnt had such chest pain in the past. Reviewe of systems was otherwise negative. She has a history of Afib and had a cardioversion a year ago for afib. She is currently anticoagulated. On admission, temperature was 97.6F, with BP of 125/62 with NM of 44 and RR of 14. Chemistry showed na of 142, 3.9, Cr of 1.17, CBC of Hb of 13.6, wbc of 7.7 and platelets of 280. EKG showed bradycardia but no acute ST changes, and CXR showed no acute cardiopulmonary process. She is being admitted to be managed for chest pain to r/o ACS. [] Past Medical History Past Medical History (Chronic Problems): Chronic Problems (Last Reviewed 03/13/20 @ 15:[address] Dane Morrison MD) Paroxysmal atrial fibrillation (Chronic) Essential (primary) hypertension (Chronic) Dyslipidemia (Chronic) Medical History: Medical History (Last Reviewed 03/13/20 @ 15:[address] Dane Morrison MD) Paroxysmal atrial fibrillation (Chronic) I48.0 Essential (primary) hypertension (Chronic) I10 Dyslipidemia (Chronic) E78.5 Diverticulosis K57.90 Gout M10.9 Nonsustained ventricular tachycardia I47.2 Obesity E66.9 Obstructive sleep apnea G47.33 Paroxysmal supraventricular tachycardia I47.1 Sick sinus syndrome I49.5 Thyroid nodule E04.1 Closed head injury with brief loss of consciousness S06.9X9A Syncope R55 Syncope R55 Allergies No Known Allergies Allergy (Verified 03/13/20 15:02) Home Medications: Ambulatory Orders Medication Instructions Recorded losartan 100 mg tablet 100 mg PO DAILY #90 tab 01/26/19 rivaroxaban 20 mg tablet 20 mg PO QHS #90 tab 02/03/20 allopurinol 100 mg tablet 100 mg PO QHS tab 03/13/20 amiodarone 200 mg tablet 200 mg PO DAILY #90 tab 03/13/20 atorvastatin 40 mg tablet 40 mg PO QHS #90 tab 03/13/20 metoprolol succinate 25 mg 25 mg PO DAILY tab 03/13/20 tablet,extended release 24 hr Surgical History: Surgical History (Last Reviewed 03/13/20 @ 15:[address] Dane Morrison MD) History of cardioversion Onset Date: 05/06/19 Z98.890 11/15/18 History of loop recorder Z98.890 EOL History of right hip replacement Z96.641 History of tonsillectomy Z90.89 History of tubal ligation Z98.51 Surgical History: noncontributory Psychiatric History: No pertinent psych hx Lives: Spouse/ Significant Other Smoking Status: Never smoker Alcohol: None Drugs: None - *Family History Maternal Family History: Family History (Last Reviewed 03/13/20 @ 15:[address] Dane Morrison MD) Mother Colon cancer CAD (coronary artery disease) History Items: No pertinent history Review of Systems Constitutional: Denies: Chills, Fever, Weight Change Eyes: Denies: Blurred vision HEENT: Denies: Head Aches, Sinus Congestion, Sinus Drainage Cardiovascular: Reports: Chest Pain, Chest Pressure. Denies: Chest Tightness, Heaviness, Light Headedness, Orthopnea, Palpitations, Paroxysmal Noc. Dyspnea, Syncope Respiratory: Denies: Cough, Shortness of Breath, Shortness of breath at rest, Sputum production Gastrointestinal: Denies: Abdominal Pain, Nausea, Vomiting Genitourinary: Denies: Dysuria Musculoskeletal: Denies: Joint Pain, Joint Tenderness Skin: Denies: Rash, Wounds Neurological: Denies: Numbness, Tingling, Focal weakness Psychiatric: Denies: Anxiety, Depression, Homicidal Ideations, Suicidal Ideations Hematologic/ Lymphatic: Denies: Easy Bruising, Easy Bleeding VTE Information - Inpt Only VTE Present on Admission: No VTE Pharm Prophylaxis ordered?: Yes - Physical Exam Vitals/I&O's: Vital Signs Temp Pulse Resp BP Pulse Ox 97.6 F L 44 L 14 125/62 H 99 07/08/20 10:19 07/08/20 11:19 07/08/20 11:19 07/08/20 11:19 07/08/20 11:19 Oxygen Delivery Method Room Air Weight: 185 lb 6.54 oz Body Mass Index (BMI) 29.9 General: Alert, Oriented x3, Cooperative, No apparent distress HEENT: Atraumatic, PERRLA, EOMI, Normocephalic Oral: Dry Mucosa Neck: Supple, No JVD, Negative Carotid Bruits Lungs: Clear to auscultation, Normal air movement, No rhonchi, No wheeze, No rales Cardiovascular: Normal S1, Normal S2, No murmurs, Bradycardic Abdomen: Bowel Sounds Present, Soft, Non Tender, Non-Distended, No Hepato- splenomegaly Extremities: No clubbing, No cyanosis, No edema, Capillary Refill Less than 3 Seconds Skin: No rashes, No breakdown Musculoskeletal: No Tenderness to Palpation of Joints or Extremities Lymphatic: No Cervical, Supraclavicular, or Inguinal Adenopathy Neurological: Cranial nerves II-XII grossly intact, Neuro grossly intact, Motor Exam 5/5 strength throughout Psych/Mental Status: Normal Affect, Appropriate, Alert and oriented to time, place, person, mood and affect Laboratory Results 07/08/20 10:25: WBC 7.7, RBC 4.30, Hgb 13.6, Hct 42.7, MCV 99.3 H, MCH 31.6, MCHC 31.9 L, RDW Std Deviation 45.9 H, RDW Coeff of Sammie 12.5, Plt Count 280, MPV 10.6, Immature Gran % (Auto) 0.300, Neut % (Auto) 59.0, Lymph % (Auto) 32.3, Garza % (Auto) 7.3, Eos % (Auto) 0.8, Baso % (Auto) 0.3, Absolute Neuts (auto) 4.5, Absolute Lymphs (auto) 2.48, Nucleated RBC % 0 07/08/20 10:25: Sodium 142, Potassium 3.9, Chloride 109 H, Carbon Dioxide 28.0, Anion Gap 5, BUN 13, Creatinine 1.17 H, Estim Creat Clear Calc 38.89, Est GFR (MDRD) Af Amer 58 L, Est GFR (MDRD) Non-Af 48 L, BUN/Creatinine Ratio 11.1, Glucose 135 H, Calcium 8.7, Troponin I < 0.015 Diagnostic Data Chest X-Ray 07/08/20 10:36 IMPRESSION: No active disease. Electronically Signed: Deric Cantu MD at 10:50 EDT Tel , Service support , Current Medications Nitroglycerin (Nitroglycerin Sl (Ed/Img/Cath) 0.4 Mg Tablet) 0.4 mg SUBLINGUAL Q5M PRN PRN Reason: Chest pain Last Admin: 07/08/20 10:46 Dose: 0.4 mg Documented by: Assessment/Plan 75 y/o admitted with a complaint of chest pain to r/o ACS # Chest pain to r/o ACS * admit to PCU with telemetry * initial troponin was negative; EKG showed no acute ST changes * cycle troponins * Sl nitroglycerin; PO aspirin 81mg daily * for stress test tomorrow if troponins are negative * # Hypertensive emergency * Bp was 211/63 on admission; with chest pain, she qualified for hypertensive urgency * BP came down to 120s systolic, and at time of review, BP was 146/69 * resume BP meds, losartan. metoprolol on hold o/a of bradycardia * # Afib * currently bradycardic; EKG showed junctional bradycardia * on amiodarone and metoprolol; hold amiodarone and metoprolol * on xarelto # Bradycardia: * EKG shows bradycardia. * on amiodarone 200mg daily and metoprolol 25mg daily. * will hold amiodarone and metoprolol # Gout: on allopurinol DVT prophylaxis: already on anticoagulated Code status: full code * Patient and counseled extensively about different types of CODE STATUS including full code, DNR CCA and DNR CCA. * Patient elects to be full code. * Total [id number] time 16 mins OBSV E&M: 59302 Initial observation care L2 Procedures: 83452 Advncd Care Plan 30 Min
--- NOTE | 2020-07-08 13:51 | EKG12_ITS ---
Test Reason : AM EKG Blood Pressure : / mmHG Vent. Rate : 048 BPM Atrial Rate : 048 BPM P-R Int : 174 ms QRS Dur : 088 ms QT Int : 508 ms P-R-T Axes : 068 015 041 degrees QTc Int : 453 ms Sinus bradycardia Otherwise normal ECG When compared with ECG of 08-JUL-2020 14:17, MANUAL COMPARISON REQUIRED, DATA IS UNCONFIRMED Confirmed by JALIL MARIE, SUDHAKAR ([id number]), scientific publications editor JR HERBERT ([id number]) on 07/10/2020 10:50:04 AM Referred By: ISABEL Confirmed By:SUDHAKAR JIMENES MD
[2020-07-08] MEDS: Rivaroxaban 20 MG Tablet PO (21:04)
[2020-07-08] MEDS: Allopurinol 100 MG Tablet PO (21:04)
[2020-07-08] MEDS: Atorvastatin Calcium 40 MG Tablet PO (21:05)
[2020-07-08] MEDS: Losartan Potassium 100 MG Tablet PO (21:07)
[2020-07-09] VITALS (11 sets, daily range): BP systolic 107–183; BP diastolic 44–84; PULSE 48–95; RESP 14–16; TEMP 36.1–37; O2SAT 96–100
--- NOTE | 2020-07-09 05:00 | EKG12_ITS ---
Test Reason : CP Blood Pressure : / mmHG Vent. Rate : 051 BPM Atrial Rate : 051 BPM P-R Int : 180 ms QRS Dur : 090 ms QT Int : 470 ms P-R-T Axes : 040 032 046 degrees QTc Int : 433 ms Sinus bradycardia Otherwise normal ECG When compared with ECG of 06-MAY-2019 11:08, Premature supraventricular complexes are no longer Present Confirmed by JALIL MARIE, SUDHAKAR ([id number]), news videotape editor JR HERBERT ([id number]) on 07/10/2020 10:51:07 AM Referred By: ISABEL Confirmed By:SUDHAKAR JIMENES MD
[2020-07-09 06:04] LABS: Absolute Lymphocyte Count 1.57 X10^3/uL (0.83-4.51); Absolute Neutrophil Count 3.7 X10^3/uL (2.0-7.7); Basophil# 0.01 X10^3/uL; Basophil% 0.2 % (0-1); Eosinophil# 0.05 X10^3/uL; Eosinophils% 0.8 % (0-5); Hematocrit 39.8 % (37-47); Hemoglobin 12.5 g/dL (12.0-15.0); Lymphocyte # 1.57 X10^3/ul (4.0); Lymphocyte % 26.7 % (19-41); Mean Corp Hgb Conc 31.4 g/dL (32-36); Mean Corpuscular Hgb 31.2 pg (27.0-32.0); Mean Corpuscular Volume 99.3 fL (81-99); Mean Platelet Vol. 10.5 fl (6.2-12.0); Monocyte# 0.53 X10^3/uL; NRBC Flagged by Analyzer 0 % (0-5); Neutrophil # 3.71 X10^3/uL (2.7-7.7); Platelet Count 237 K/mm3 (150-450); RBC Distribution Width CV 12.4 % (11.6-14.6); RBC Distribution Width SD 45.1 fl (35.1-43.9); Red Blood Count 4.01 M/mm3 (4.2-5.4); White Blood Count 5.9 K/mm3 (4.4-11.0)
[2020-07-09 06:26] LABS: Anion Gap 6 (5-15); BUN 13 mg/dL (7-18); BUN/Creat Ratio 12.4 RATIO (10-20); Calcium,Total 8.5 mg/dL (8.5-10.1); Chloride 110 mmol/L (98-107); Creatinine, Serum 1.05 mg/dL (0.55-1.02); EST Glomerular Filtration Rate 54 mL/min (>60); Est Glom Filt Rate - Afr Amer 66 mL/min (>60); Estimated Creatinine Clearance 41.66 ml/min; Glucose 95 mg/dL (74-106); Potassium 3.9 mmol/L (3.5-5.1); Sodium Level 143 mmol/L (136-145)
--- NOTE | 2020-07-09 12:38 | STRESSREP ---
Stress Test Report Pharmacologic myocardial perfusion stress test. 75-year-old lady with a history of chest pain and paroxysmal atrial fibrillation. Stress protocol: Resting EKG demonstrates normal sinus rhythm with a rate of 48 bpm normal intervals are noted resting blood pressure is 1 and 38/70 2 mmHg. 0.4 mg of regadenoson was infused per usual protocol followed by rapid venous saline flush injection continuous EKG monitoring was performed. The maximum heart rate attained was 61 bpm which was 42% of max impacted heart rate the maximum workload was 1 metabolic equivalent. At rest there were no ST or T wave changes noted to suggest abnormal flow reserve and at peak infusion nonspecific ST changes were noted with no meet the criteria for ischemia. The final blood pressure was 130/70 mmHg. Myocardial perfusion protocol. 12.0 mCi of technetium 99m sestamibi was injected at rest. 0.4 mg of regadenoson was infused per usual protocol. At peak infusion 31.0 mCi of technetium 99m sestamibi was injected stress images were obtained stress and rest images were reconstructed and compared in the short axis vertical long and horizontal long axis. Gated images were also obtained. Perfusion SPECT analysis: Review of the stress images demonstrate a medium sized perfusion defect noted in the mid anterior wall. The resting images demonstrate mildly improved perfusion in this area suggestive of mild mid anterior ischemia. Gated SPECT analysis: The gated ejection fraction is noted to be 80%. Conclusion: Mildly abnormal pharmacologic myocardial perfusion stress test with mid anterior ischemia. Preserved ejection fraction.
--- NOTE | 2020-07-09 12:43 | PN_ITS ---
Reason for Visit: Follow-up on chest pain/abnormal stress test. Subjective: Patient was seen and examined. She denied any chest pain at the time of being seen. Stress test is abnormal. Cardiology consulted. Objective: Physical exam: General: Awake, Alert, Oriented x 3 HEENT: PERRL, EOMI, Sclera Non Icteric Neck: Supple, Good ROM, No Lymph Node Enlargement Lungs: Clear to auscultation Cardiovascular: Regular Rhythm, Normal S1, Normal S2, No Murmurs, No Rubs, No Gallops Vascular: No Carotid Bruits, Normal Femoral Pulses, Normal Radial Pulses, Normal Dorsalis Pedal Pulse, Normal Posterior Tibial Pulses Abdomen: Bowel Sounds Present, Soft, Non Tender, No HSM, No Organomegaly Extremities: No Cyanosis, No Clubbing, No edema Musculoskeletal: No Erythema Skin: No Rashes Lymphatic: No Lymph Node Enlargement Neurological: No Focal Motor or Sensory Deficit Psych/Mental Status: Appropriate Vitals/I&O's: Vital Signs Temp Pulse Resp BP Pulse Ox 97 F L 60 16 156/68 H 99 07/09/20 10:14 07/09/20 10:17 07/09/20 10:17 07/09/20 10:14 07/09/20 10:17 Oxygen Delivery Method Room Air Weight: 82.2 kg Body Mass Index (BMI) 30.1 Orthostatic Vital Signs Start: 07/08/20 15:41 Freq: q24h Status: Active Protocol: Activity Type Activity Date Activity User E-Sign Co-Sign Detail Recorded Client Recorded Date Recorded By Document 07/08/20 15:41 EY [id number] 07/08/20 15:47 EY 07/08/20 15:41 Orthostatic Vitals Standing -Blood Pressure (90/60-120/80) 155/59 H -Extremity Use Left Arm -Pulse Rate (60-100) 56 L Sitting -Blood Pressure (90/60-120/80) 167/56 H -Extremity Use Left Arm -Pulse Rate (60-100) 52 L Lying -Blood Pressure (90/60-120/80) 162/52 H -Extremity Use Left Arm -Pulse Rate (60-100) 49 L Intake and Output for Last 24 Hours 07/07/20 07/08/20 07/09/20 23:59 23:59 23:59 Intake Total 360 / 760 400 / 400 Balance 360 / 760 400 / 400 Laboratory Results 07/08/20 14:10: Troponin I < 0.015 07/08/20 16:45: Troponin I < 0.015 07/09/20 05:48: WBC 5.9, RBC 4.01 L, Hgb 12.5, Hct 39.8, MCV 99.3 H, MCH 31.2, MCHC 31.4 L, RDW Std Deviation 45.1 H, RDW Coeff of Sammie 12.4, Plt Count 237, MPV 10.5, Immature Gran % (Auto) 0.300, Neut % (Auto) 63.0, Lymph % (Auto) 26.7, [place] % (Auto) 9.0, Eos % (Auto) 0.8, Baso % (Auto) 0.2, Absolute Neuts (auto) 3.7, Absolute Lymphs (auto) 1.57, Nucleated RBC % 0 07/09/20 05:48: Sodium 143, Potassium 3.9, Chloride 110 H, Carbon Dioxide 27.0, Anion Gap 6, BUN 13, Creatinine 1.05 H, Estim Creat Clear Calc 41.66, Est GFR (MDRD) Af Amer 66, Est GFR (MDRD) Non-Af 54 L, BUN/Creatinine Ratio 12.4, Glucose 95, Calcium 8.5 Current Medications [facility] ([facility] 100 Mg Tablet) [facility] Last Admin: 07/08/20 21:04 Dose: 100 mg Documented by: Atorvastatin Calcium (Atorvastatin Calcium 40 Mg Tablet) 40 mg PO QHS [facility] Last Admin: 07/08/20 21:05 Dose: 40 mg Documented by: Sodium Chloride () 250 mls @ 15 mls/hr IV .[id number] PRN PRN Reason: Saline Flush Sodium Chloride () 250 mls @ 15 mls/hr IV .[id number] PRN PRN Reason: Additional IVPB Infusion Losartan Potassium (Losartan Potassium 100 Mg Tablet) 100 mg PO QHS [facility] Last Admin: 07/08/20 21:07 Dose: 100 mg Documented by: Nitroglycerin (Nitroglycerin Sl (Ed/Img/Cath) 0.4 Mg Tablet) 0.4 mg SUBLINGUAL Q5M PRN PRN Reason: Chest pain Last Admin: 07/08/20 10:46 Dose: 0.4 mg Documented by: Rivaroxaban (Rivaroxaban 20 Mg Tablet) 20 mg PO QHS [facility] Last Admin: 07/08/20 21:04 Dose: 20 mg Documented by: Sodium Chloride (0.9% Saline Lock 10 Ml Syringe) 10 - 40 ml IV UD PRN PRN Reason: SALINE FLUSH STROKE Vital Signs/Narrative: Vital Signs Temp Pulse Resp BP Pulse Ox 07/09/20 10:17 60 16 99 07/09/20 10:14 97 F L 54 L 16 156/68 H 99 Medical Necessity - Tobacco Use Smoking Status: Never smoker Assessment/Plan 1. Chest pain, typical, abnormal stress test showing mid anterior ischemia Cardiology consulted, Xarelto on hold, cath planned in a.m. We will follow-up on recommendations 2. Hypertensive emergency, blood pressure is better controlled Off metoprolol on account of bradycardia Losartan increased to 100 mg p.o. nightly 3. Chronic atrial fibrillation, heart rate shows bradycardia, off amiodarone and metoprolol 4. Gout, on allopurinol 5. DVT prophylaxis?patient was on Xarelto Inpatient E&M: 13032 Subs Hosp L2
--- NOTE | 2020-07-09 13:15 | CASEMGMT ---
This RN CM to room with BECERRIL form at this time, explanation done-pt voices understanding, and signs BECERRIL form at this time. Original to chart and copy to pt at this time. Pt has a MCR OBS vs IP booklet at bedside. Pt voices no further questions/concerns/needs at this time. SStaten RN CM
--- NOTE | 2020-07-09 14:10 | CASEMGMT ---
According to the [facility] website, the following are in-network tertiary facilities: [facility], [facility], [facility], [facility], [facility], and . Dolly SHARMA CM
--- NOTE | 2020-07-09 16:12 | CHAPLAIN ---
Type of Pastoral Visit _x__ Initial Visit ___ Follow-up Visit ___ On-call Visit ___ General Patient Visit ___ Spiritual Assessment ___ Family Conference ___ Bereavement ___ Rapid Response ___ Code Blue ___ Other (describe below) Pastoral Care Referral From _x__ Patient ___ Family ___ Nurse ___ Physician ___ Director Physical Therapy ___ Optical Technician ___ Other (describe below) Sacrament/Intervention _x__ Active listening ___ Anointing ___ Sabianism ___ Bereavement ___ Communion _x__ Nancy exploration ___ _x__ Life review _x__ Prayer ___ Reconciliation ___ Sacrament of Sick _x__ Supportive presence ___ Wedding ___ Other (describe below) Pastoral Comments
--- NOTE | 2020-07-09 16:55 | CON.PCM_ITS ---
Reason for Consult Date of Consultation: 07/09/20 Reason for Consultation: Chest pain History of Present Illness: The patient is a 75 year old F who presented to the hospital with chest discomfort which she says woke her from sleep. She described it as a heaviness. She also had some palpitations. She was admitted to the hospital she ruled out for myocardial infarction and underwent a stress test. Demonstrated evidence of anterior ischemia with hyperdynamic ventricle. Cardiology was called for further evaluation and management. She does have a history of paroxysmal atrial fibrillation, hypertension, hyperlipidemia. She underwent cardioversion in November 2018 and a repeat in April 2019. She tells me that she has been doing quite well with only occasional episodes of dizziness. She had been seen in the office recently and denied any chest pain no paroxysmal nocturnal dyspnea or pedal edema. Her last echocardiogram in November 2018 demonstrated preserved ejection fraction of 60%. She has been compliant with all her medications. A physical exam was not performed today but her blood pressure appears to be under good control. Past Medical History Allergies/Adverse Reactions: Allergies No Known Allergies Allergy (Verified 03/13/20 15:02) Home Medications: Ambulatory Orders Medication Instructions Recorded rivaroxaban 20 mg tablet 20 mg PO QHS #90 tab 02/03/20 allopurinol 100 mg tablet 100 mg PO QHS tab 03/13/20 atorvastatin 40 mg tablet 40 mg PO QHS #90 tab 03/13/20 metoprolol succinate 25 mg 25 mg PO QHS tab 03/13/20 tablet,extended release 24 hr Amiodarone HCl 200 mg PO QHS 07/08/20 Losartan Potassium 100 mg PO QHS 07/08/20 Past Medical History (Chronic Problems): Chronic Problems (Last Reviewed 03/13/20 @ 15:[address] Dane Morrison MD) Paroxysmal atrial fibrillation (Chronic) Essential (primary) hypertension (Chronic) Dyslipidemia (Chronic) Surgical History: noncontributory Psychiatric History: No pertinent psych hx - *Family History Maternal Family History: Family History (Last Reviewed 03/13/20 @ 15:[address] Dane Morrison MD) Mother Colon cancer CAD (coronary artery disease) History Items: No pertinent history Lives: Spouse/ Significant Other Smoking Status: Never smoker Alcohol: None Drugs: None Review of Systems - Review of Systems General: Denies: Fever, Night Sweats, Fatigue HEENT: Denies: Vision Change Cardiovascular: Denies: Chest Discomfort, Shortness of Breath, Orthopnea, PND, Peripheral Edema, Palpitations, Lightheadedness, Dizziness, Near Syncope, Syncope Respiratory: Denies: Cough, Sputum Production, Hemoptysis Gastrointestinal: Denies: Hematemesis, Hematochezia, Melena Genitourinary: Denies: Dysuria, Hematuria Muscoloskeletal: Denies: Myalgias Skin: Denies: Rash Neurological: Denies: Dizziness Psychiatric: Denies: Anxiety Endocrine: Denies: Heat Intolerance Subjectve: Pleasant ladkelvin Objective: Vital Signs Temp Pulse Resp BP Pulse Ox 98 F 86 14 169/54 H 100 07/09/20 15:41 07/09/20 16:25 07/09/20 15:41 07/09/20 16:25 07/09/20 15:41 Oxygen Delivery Method Room Air Weight: 181 lb 3.52 oz Body Mass Index (BMI) 30.1 Orthostatic Vital Signs Start: 07/08/20 15:41 Freq: q24h Status: Active Protocol: Activity Type Activity Date Activity User E-Sign Co-Sign Detail Recorded Client Recorded Date Recorded By Document 07/09/20 16:25 EDIL [id number] 07/09/20 16:36 EDIL 07/09/20 16:25 Orthostatic Vitals Standing -Blood Pressure (90/60-120/80) 157/71 H -Extremity Use Left Arm -Pulse Rate (60-100) 95 Sitting -Blood Pressure (90/60-120/80) 183/44 H -Extremity Use Left Arm -Pulse Rate (60-100) 86 Lying -Blood Pressure (90/60-120/80) 169/54 H -Extremity Use Left Arm -Pulse Rate (60-100) 86 Intake and Output for Last 24 Hours 07/07/20 07/08/20 07/09/20 23:59 23:59 23:59 Intake Total 360 / 760 640 / 640 Balance 360 / 760 640 / 640 General: Awake, Alert, Oriented x 3 HEENT: PERRL, EOMI, Sclera Non Icteric Neck: Supple, Good ROM, No Lymph Node Enlargement Lungs: Clear to auscultation Cardiovascular: Regular Rhythm, Normal S1, Normal S2, No Murmurs, No Rubs, No Gallops Vascular: No Carotid Bruits, Normal Femoral Pulses, Normal Radial Pulses, Normal Dorsalis Pedal Pulse, Normal Posterior Tibial Pulses Abdomen: Bowel Sounds Present, Soft, Non Tender, No HSM, No Organomegaly Extremities: No Cyanosis, No Clubbing, No edema Musculoskeletal: No Erythema Skin: No Rashes Lymphatic: No Lymph Node Enlargement Neurological: No Focal Motor or Sensory Deficit Psych/Mental Status: Appropriate 07/08/20 16:45: Troponin I < 0.015 07/09/20 05:48: WBC 5.9, RBC 4.01 L, Hgb 12.5, Hct 39.8, MCV 99.3 H, MCH 31.2, MCHC 31.4 L, Plt Count 237, MPV 10.5, Immature Gran % (Auto) 0.300, Neut % (Auto) 63.0, Lymph % (Auto) 26.7, [place] % (Auto) 9.0, Eos % (Auto) 0.8, Baso % (Auto) 0.2, Absolute Neuts (auto) 3.7, Nucleated RBC % 0 07/09/20 05:48: Sodium 143, Potassium 3.9, Chloride 110 H, Carbon Dioxide 27.0, Anion Gap 6, BUN 13, Creatinine 1.05 H, Est GFR (MDRD) Af Amer 66, Est GFR (MDRD) Non-Af 54 L, BUN/Creatinine Ratio 12.4, Glucose 95, Calcium 8.5 Rhythm: EKG: Normal sinus rhythm ECHO: Stress Test: Cardiac Cath: PCI: CT Surgery: Holter monitor: EPS: PPM: CXR: Chest CT Scan: Assessment/Plan 1. Chest pain. Patient presents with chest discomfort which appears to be somewhat atypical. She underwent stress testing today which demonstrated no evidence of ischemia. My strong suspicion is that this is a false positive. However in lieu of her risk factors she may need to be evaluated and I would recommend that we perform a cardiac catheterization. The risk benefits and alternatives have been explained to her she understands and agrees to proceed. 2. Hypertension * Her blood pressure appears to be under good control at this particular time and I will not recommend that we make any other changes. Was markedly elevated when she presented to the emergency room. Reinstitution of the medications appears to have normalized the above. * 3. Paroxysmal atrial fibrillation * She does not appear to have had any recurrence of her atrial fibrillation. We will continue with the current medical therapy without any changes. * * Thank you for allowing me to participate in the care of your patient. Please don't hesitate to call if any issues arise.
[2020-07-09] MEDS: Losartan Potassium 100 MG Tablet PO (21:06)
[2020-07-09] MEDS: 0.9% Saline Lock 10 ML Syringe IV (21:06)
[2020-07-09] MEDS: Atorvastatin Calcium 40 MG Tablet PO (21:12)
[2020-07-09] MEDS: Allopurinol 100 MG Tablet PO (21:14)
[2020-07-10] VITALS (13 sets, daily range): BP systolic 127–164; BP diastolic 53–76; PULSE 46–57; RESP 17–18; TEMP 36.2–36.7; O2SAT 96–100
--- NOTE | 2020-07-10 05:00 | EKG12_ITS ---
Test Reason : AM EKG Blood Pressure : / mmHG Vent. Rate : 053 BPM Atrial Rate : 053 BPM P-R Int : 170 ms QRS Dur : 088 ms QT Int : 498 ms P-R-T Axes : 068 011 020 degrees QTc Int : 467 ms Sinus bradycardia Nonspecific T wave abnormality Abnormal ECG When compared with ECG of 09-JUL-2020 05:21, MANUAL COMPARISON REQUIRED, DATA IS UNCONFIRMED Confirmed by JALIL MARIE, SUDHAKAR ([id number]), production editor JR HERBERT ([id number]) on 07/11/2020 1:59:32 PM Referred By: RUBEN Confirmed By:SUDHAKAR JIMENES MD
[2020-07-10 06:19] LABS: Absolute Lymphocyte Count 1.74 X10^3/uL (0.83-4.51); Absolute Neutrophil Count 3.6 X10^3/uL (2.0-7.7); Basophil# 0.02 X10^3/uL; Basophil% 0.3 % (0-1); Eosinophil# 0.12 X10^3/uL; Hemoglobin 13.1 g/dL (12.0-15.0); Lymphocyte # 1.74 X10^3/ul (4.0); Mean Corpuscular Hgb 31.3 pg (27.0-32.0); Mean Corpuscular Volume 97.9 fL (81-99); Mean Platelet Vol. 10.5 fl (6.2-12.0); Monocyte# 0.55 X10^3/uL; Monocyte% 9.2 % (0-10); NRBC Flagged by Analyzer 0 % (0-5); Neutrophil # 3.55 X10^3/uL (2.7-7.7); Neutrophil % 59.3 % (47-70); Platelet Count 261 K/mm3 (150-450); RBC Distribution Width CV 12.7 % (11.6-14.6); RBC Distribution Width SD 45.4 fl (35.1-43.9); Red Blood Count 4.19 M/mm3 (4.2-5.4)
[2020-07-10 06:45] LABS: ALB/GLOB Ratio 0.9 RATIO (0.9-2.4); AST(SGOT) 28 U/L (15-37); Alanine Aminotransfer ALT/SGPT 43 U/L (13-56); Albumin, Serum 3.2 g/dL (3.2-5.0); Alkaline Phosphatase 89 U/L (45-117); Anion Gap 6 (5-15); BUN 15 mg/dL (7-18); BUN/Creat Ratio 13.8 RATIO (10-20); Calcium,Total 8.4 mg/dL (8.5-10.1); Chloride 106 mmol/L (98-107); Creatinine, Serum 1.09 mg/dL (0.55-1.02); EST Glomerular Filtration Rate 52 mL/min (>60); Est Glom Filt Rate - Afr Amer 63 mL/min (>60); Estimated Creatinine Clearance 40.13 ml/min; Globulin 3.7 g/dL (2.2-4.2); Glucose 86 mg/dL (74-106); Potassium 3.8 mmol/L (3.5-5.1); Protein, Total 6.9 g/dL (6.4-8.2); Sodium Level 143 mmol/L (136-145)
[2020-07-10] MEDS: 0.9% Normal Saline 1,000 ML 15 ML IV (07:00)
--- NOTE | 2020-07-10 08:58 | PN_ITS ---
Reason for Visit: Follow-up on chest pain/abnormal stress test. Subjective: Patient was seen and examined. Vitals/I&O's: Vital Signs Temp Pulse Resp BP Pulse Ox 97.8 F 53 L 17 146/71 H 96 07/10/20 06:30 07/10/20 06:30 07/10/20 06:30 07/10/20 06:30 07/10/20 06:30 Oxygen Delivery Method Room Air Weight: 82.2 kg Body Mass Index (BMI) 30.1 Orthostatic Vital Signs Start: 07/08/20 15:41 Freq: q24h Status: Active Protocol: Activity Type Activity Date Activity User E-Sign Co-Sign Detail Recorded Client Recorded Date Recorded By Document 07/09/20 16:25 EDIL [id number] 07/09/20 16:36 EDIL 07/09/20 16:25 Orthostatic Vitals Standing -Blood Pressure (90/60-120/80) 157/71 H -Extremity Use Left Arm -Pulse Rate (60-100) 95 Sitting -Blood Pressure (90/60-120/80) 183/44 H -Extremity Use Left Arm -Pulse Rate (60-100) 86 Lying -Blood Pressure (90/60-120/80) 169/54 H -Extremity Use Left Arm -Pulse Rate (60-100) 86 Intake and Output for Last 24 Hours 07/08/20 07/09/20 07/10/20 23:59 23:59 23:59 Intake Total 360 / 760 880 / 1080 200 / 200 Balance 360 / 760 880 / 1080 200 / 200 Laboratory Results 07/10/20 05:25: WBC 6.0, RBC 4.19 L, Hgb 13.1, Hct 41.0, MCV 97.9, MCH 31.3, MCHC 32.0, RDW Std Deviation 45.4 H, RDW Coeff of Sammie 12.7, Plt Count 261, MPV 10.5, Immature Gran % (Auto) 0.200, Neut % (Auto) 59.3, Lymph % (Auto) 29.0, Henry % (Auto) 9.2, Eos % (Auto) 2.0, Baso % (Auto) 0.3, Absolute Neuts (auto) 3.6, Absolute Lymphs (auto) 1.74, Nucleated RBC % 0 07/10/20 05:25: Sodium 143, Potassium 3.8, Chloride 106, Carbon Dioxide 31.0, Anion Gap 6, BUN 15, Creatinine 1.09 H, Estim Creat Clear Calc 40.13, Est GFR (MDRD) Af Amer 63, Est GFR (MDRD) Non-Af 52 L, BUN/Creatinine Ratio 13.8, Glucose 86, Calcium 8.4 L, Total Bilirubin 0.50, AST 28, ALT 43, Alkaline Phosphatase 89, Total Protein 6.9, Albumin 3.2, Globulin 3.7, Albumin/Globulin Ratio 0.9 Current Medications Allopurinol (Allopurinol 100 Mg Tablet) 100 mg PO QHS [facility] Last Admin: 07/09/20 21:14 Dose: 100 mg Documented by: Atorvastatin Calcium (Atorvastatin Calcium 40 Mg Tablet) 40 mg PO QHS [facility] Last Admin: 07/09/20 21:12 Dose: 40 mg Documented by: Sodium Chloride () 250 mls @ 15 mls/hr IV .[id number] PRN PRN Reason: Saline Flush Sodium Chloride () 250 mls @ 15 mls/hr IV .[id number] PRN PRN Reason: Additional IVPB Infusion Sodium Chloride () 1,000 mls @ 15 mls/hr IV .Q48H [facility] Losartan Potassium (Losartan Potassium 100 Mg Tablet) 100 mg PO QHS [facility] Last Admin: 07/09/20 21:06 Dose: 100 mg Documented by: Nitroglycerin (Nitroglycerin Sl (Ed/Img/Cath) 0.4 Mg Tablet) 0.4 mg SUBLINGUAL Q5M PRN PRN Reason: Chest pain Last Admin: 07/08/20 10:46 Dose: 0.4 mg Documented by: Sodium Chloride (0.9% Saline Lock 10 Ml Syringe) 10 - 40 ml IV UD PRN PRN Reason: SALINE FLUSH Last Admin: 07/09/20 21:06 Dose: 20 ml Documented by: STROKE Vital Signs/Narrative: Vital Signs Temp Pulse Resp BP Pulse Ox 07/10/20 06:30 97.8 F 53 L 17 146/71 H 96 Medical Necessity - Tobacco Use Smoking Status: Never smoker Assessment/Plan 1. Chest pain, typical, abnormal stress test showing mid anterior ischemia Cardiology consulted, Xarelto on hold, cath planned in a.m. We will follow-up on recommendations 2. Hypertensive emergency, blood pressure is better controlled Off metoprolol on account of bradycardia Losartan increased to 100 mg p.o. nightly 3. Chronic atrial fibrillation, heart rate shows bradycardia, off amiodarone and metoprolol 4. Gout, on allopurinol 5. DVT prophylaxis?patient was on Xarelto Inpatient E&M: 85190 Subs Hosp L2
[2020-07-10] MEDS: amLODIPine 5 MG Tablet PO (10:11)
--- NOTE | 2020-07-10 10:58 | PN.CARD_ITS ---
Subjectve: pt seen and evaluated Objective: Vital Signs Temp Pulse Resp BP Pulse Ox 98.0 F 46 L 18 164/71 H 99 07/10/20 09:00 07/10/20 10:50 07/10/20 10:50 07/10/20 10:50 07/10/20 10:50 Oxygen Flow Rate (L/min) 2 Oxygen Delivery Method Room Air Weight: 181 lb 3.52 oz Body Mass Index (BMI) 30.1 Orthostatic Vital Signs Start: 07/08/20 15:41 Freq: q24h Status: Active Protocol: Activity Type Activity Date Activity User E-Sign Co-Sign Detail Recorded Client Recorded Date Recorded By Document 07/09/20 16:25 EDIL [id number] 07/09/20 16:36 EDIL 07/09/20 16:25 Orthostatic Vitals Standing -Blood Pressure (90/60-120/80) 157/71 H -Extremity Use Left Arm -Pulse Rate (60-100) 95 Sitting -Blood Pressure (90/60-120/80) 183/44 H -Extremity Use Left Arm -Pulse Rate (60-100) 86 Lying -Blood Pressure (90/60-120/80) 169/54 H -Extremity Use Left Arm -Pulse Rate (60-100) 86 Intake and Output for Last 24 Hours 07/08/20 07/09/20 07/10/20 23:59 23:59 23:59 Intake Total 360 / 760 880 / 1080 200 / 200 Balance 360 / 760 880 / 1080 200 / 200 General: Awake, Alert, Oriented x 3 HEENT: PERRL, EOMI, Sclera Non Icteric Neck: Supple, Good ROM, No Lymph Node Enlargement Lungs: Clear to auscultation Cardiovascular: Regular Rhythm, Normal S1, Normal S2, No Murmurs, No Rubs, No Gallops Vascular: No Carotid Bruits, Normal Femoral Pulses, Normal Radial Pulses, Normal Dorsalis Pedal Pulse, Normal Posterior Tibial Pulses Abdomen: Bowel Sounds Present, Soft, Non Tender, No HSM, No Organomegaly Extremities: No Cyanosis, No Clubbing, No edema Neurological: No Focal Motor or Sensory Deficit 07/10/20 05:25: WBC 6.0, RBC 4.19 L, Hgb 13.1, Hct 41.0, MCV 97.9, MCH 31.3, MCHC 32.0, Plt Count 261, MPV 10.5, Immature Gran % (Auto) 0.200, Neut % (Auto) 59.3, Lymph % (Auto) 29.0, [place] % (Auto) 9.2, Eos % (Auto) 2.0, Baso % (Auto) 0.3, Absolute Neuts (auto) 3.6, Nucleated RBC % 0 07/10/20 05:25: Sodium 143, Potassium 3.8, Chloride 106, Carbon Dioxide 31.0, Anion Gap 6, BUN 15, Creatinine 1.09 H, Est GFR (MDRD) Af Amer 63, Est GFR (MDRD) Non-Af 52 L, BUN/Creatinine Ratio 13.8, Glucose 86, Calcium 8.4 L, Total Bilirubin 0.50 Rhythm: EKG: ECHO: Stress Test: Cardiac Cath: PCI: CT Surgery: Holter monitor: EPS: PPM: CXR: Chest CT Scan: Medical Necessity - Tobacco Use Smoking Status: Never smoker Assessment/Plan 1. Chest pain. Patient presents with chest discomfort which appears to be somewhat atypical. She underwent stress testing today which demonstrated no evidence of ischemia. My strong suspicion is that this is a false positive. Cardiac cath revealed moderate LAD disease and mild LCx disease. Will manage with medications DC and follow up. 2. Hypertension * Her blood pressure appears to be under good control at this particular time and I will not recommend that we make any other changes. Was markedly elevated when she presented to the emergency room. Reinstitution of the medications appears to have normalized the above. * add Amlodipine. 3. Paroxysmal atrial fibrillation * She does not appear to have had any recurrence of her atrial fibrillation. We will continue with the current medical therapy without any changes. * * Thank you for allowing me to participate in the care of your patient. Please don't hesitate to call if any issues arise. * DC later today
--- NOTE | 2020-07-10 11:00 | DCINST_ITS ---
- Discharge Diagnoses Current Active Problems: Current Active and Chronic Problems (Last Reviewed 03/13/20 @ 15:[address] Dane Morrison MD) Paroxysmal atrial fibrillation (Chronic) Essential (primary) hypertension (Chronic) Dyslipidemia (Chronic) You will use the following diet at home:: Cardiac Discharge Activity: Return to Normal Activity Call your doctor if you observe: Shortness of breath, Dizziness, Fainting spells, Chest pain Additional Instructions: HOLD amiodarone and metoprolol for heart rate less than 60. Check heart rate prior to nighttime medications. Allergies/Adverse Reactions: Allergies No Known Allergies Allergy (Verified 03/13/20 15:02) Medications to take at Discharge rivaroxaban 20 mg tablet 20 mg PO QHS #90 tab 02/03/20 allopurinol 100 mg tablet 100 mg PO QHS tab 03/13/20 atorvastatin 40 mg tablet 40 mg PO QHS #90 tab 03/13/20 metoprolol succinate 25 mg tablet,extended release 24 hr 25 mg PO QHS tab 03/13/20 Amiodarone HCl 200 mg PO QHS 07/08/20 Losartan Potassium 100 mg PO QHS 07/08/20 Amlodipine [Norvasc] 5 mg PO DAILY #60 tab 07/10/20 Aspirin [Aspirin, Baby] 81 mg PO DAILY@0800 #60 tab.chew 07/10/20 The following prescriptions were given: Aspirin [Aspirin, Baby] 81 mg PO DAILY@0800 #60 tab.chew [id number] Amlodipine [Norvasc] 5 mg PO DAILY #60 tab [id number] Primary Care Physician: Nik Mabry III, MD [Primary Care Provider] - Please follow up with your Primary Care Physician in: 1 Week Test Results: Test results from this visit will be discussed in further detail at your follow- up appointment, if applicable. Please Follow Up With: Dane Morrison MD When: As scheduled Proposed Discharge Date: 07/10/20
--- NOTE | 2020-07-10 11:04 | DS.PCM_ITS ---
<Shahida Isidro NP - Last Filed: 07/10/20 12:20> Discharge Date and Diagnosis Date of Admission: 07/08/20 Date of Discharge: 07/10/20 - Primary Discharge Diagnosis Acute Problems: 1. Chest pain, ACS ruled out 2. Nonobstructive CAD 3. Hypertensive urgency 4. Chronic atrial fibrillation with bradycardia 5. Gout - Secondary Discharge Diagnosis Chronic Problems: Chronic Problems (Last Reviewed 03/13/20 @ 15:[address] Dane Morrison MD) Paroxysmal atrial fibrillation (Chronic) Essential (primary) hypertension (Chronic) Dyslipidemia (Chronic) Hospital Course and Treatment Imaging Results: Diagnostic Data Chest X-Ray 07/08/20 10:36 IMPRESSION: No active disease. Electronically Signed: Deric Cantu MD at 10:50 EDT Tel , Service support , Dr. Morrison- Cardiology Operations: None Procedures: 2-D Echocardiogram, Cardiac catheterization, Stress test Summary of Care Provided: The patient is a 75 year old F admitted 07/08/2020 due to chest pain. 1. Chest pain, ACS ruled out-troponin negative. Stress test demonstrated medium sized perfusion defect in the mid anterior wall. Cardiac cath 07/10/2020 demonstrated moderate LAD disease and mild LCx disease. Continue medical management. Follow-up with cardiology in 2 weeks or as scheduled. 2. Nonobstructive CAD-cardiac cath as noted above. Continue aspirin, statin, losartan, beta-oksana if heart rate tolerates. 3. Hypertensive urgency-improved. Initiated on amlodipine. Continue outpatient monitoring and further titration as necessary. Continue home losartan regimen. 4. Chronic atrial fibrillation with bradycardia-continue Xarelto. Amiodarone and metoprolol held during admission due to bradycardia. Continue to hold for heart rate less than 60. 5. Gout-on allopurinol. Patient seen and examined prior to discharge. Physical assessment as noted below. Patient is stable for discharge with follow up recommendations as noted above. This patient was seen by MAME Ramírez under the supervision of Dr. Prince maddox. - Physical Exam Vitals/I&O's: Vital Signs Temp Pulse Resp BP Pulse Ox 98.0 F 46 L 18 164/71 H 99 07/10/20 09:00 07/10/20 10:50 07/10/20 10:50 07/10/20 10:50 07/10/20 10:50 Oxygen Flow Rate (L/min) 2 Oxygen Delivery Method Room Air Weight: 181 lb 3.52 oz Body Mass Index (BMI) 30.1 Orthostatic Vital Signs Start: 07/08/20 15:41 Freq: q24h Status: Active Protocol: Activity Type Activity Date Activity User E-Sign Co-Sign Detail Recorded Client Recorded Date Recorded By Document 07/09/20 16:25 EDIL [id number] 07/09/20 16:36 EDIL 07/09/20 16:25 Orthostatic Vitals Standing -Blood Pressure (90/60-120/80) 157/71 H -Extremity Use Left Arm -Pulse Rate (60-100) 95 Sitting -Blood Pressure (90/60-120/80) 183/44 H -Extremity Use Left Arm -Pulse Rate (60-100) 86 Lying -Blood Pressure (90/60-120/80) 169/54 H -Extremity Use Left Arm -Pulse Rate (60-100) 86 Intake and Output for Last 24 Hours 07/08/20 07/09/20 07/10/20 23:59 23:59 23:59 Intake Total 360 / 760 880 / 1080 200 / 200 Balance 360 / 760 880 / 1080 200 / 200 General: Alert, Oriented x3, Cooperative HEENT: Atraumatic, PERRLA, EOMI, Normocephalic Neck: Supple, No JVD, Negative Carotid Bruits Lungs: Clear to auscultation, Normal air movement Cardiovascular: - - Atrial fibrillation, bradycardic Abdomen: Bowel Sounds Present, Soft, Non Tender, Non-Distended Extremities: No clubbing, No cyanosis, No edema, Capillary Refill Less than 3 Seconds Skin: No rashes, No breakdown Musculoskeletal: No Tenderness to Palpation of Joints or Extremities Neurological: Cranial nerves II-XII grossly intact, Neuro grossly intact Psych/Mental Status: Normal Affect, Appropriate Laboratory Results 07/10/20 05:25: WBC 6.0, RBC 4.19 L, Hgb 13.1, Hct 41.0, MCV 97.9, MCH 31.3, MCHC 32.0, RDW Std Deviation 45.4 H, RDW Coeff of Sammie 12.7, Plt Count 261, MPV 10.5, Immature Gran % (Auto) 0.200, Neut % (Auto) 59.3, Lymph % (Auto) 29.0, [place] % (Auto) 9.2, Eos % (Auto) 2.0, Baso % (Auto) 0.3, Absolute Neuts (auto) 3.6, Absolute Lymphs (auto) 1.74, Nucleated RBC % 0 07/10/20 05:25: Sodium 143, Potassium 3.8, Chloride 106, Carbon Dioxide 31.0, Anion Gap 6, BUN 15, Creatinine 1.09 H, Estim Creat Clear Calc 40.13, Est GFR (MDRD) Af Amer 63, Est GFR (MDRD) Non-Af 52 L, BUN/Creatinine Ratio 13.8, Glucose 86, Calcium 8.4 L, Total Bilirubin 0.50, AST 28, ALT 43, Alkaline Phosphatase 89, Total Protein 6.9, Albumin 3.2, Globulin 3.7, Albumin/Globulin Ratio 0.9 Current Medications Allopurinol (Allopurinol 100 Mg Tablet) 100 mg PO QHS [facility] Last Admin: 07/09/20 21:14 Dose: 100 mg Documented by: Amlodipine Besylate (Amlodipine 5 Mg Tablet) 5 mg PO DAILY [facility] Last Admin: 07/10/20 10:11 Dose: 5 mg Documented by: Aspirin (Aspirin 81 Mg Tab.Chew) 81 mg PO DAILY@0800 [facility] Atorvastatin Calcium (Atorvastatin Calcium 40 Mg Tablet) 40 mg PO QHS [facility] Last Admin: 07/09/20 21:12 Dose: 40 mg Documented by: Sodium Chloride () 250 mls @ 15 mls/hr IV .[id number] PRN PRN Reason: Saline Flush Sodium Chloride () 250 mls @ 15 mls/hr IV .[id number] PRN PRN Reason: Additional IVPB Infusion Sodium Chloride () 1,000 mls @ 15 mls/hr IV .Q48H [facility] Last Admin: 07/10/20 07:00 Dose: 15 mls/hr Documented by: Sodium Chloride () 1,000 mls @ 75 mls/hr IV .[id number] [facility] Losartan Potassium (Losartan Potassium 100 Mg Tablet) 100 mg PO QHS [facility] Last Admin: 07/09/20 21:06 Dose: 100 mg Documented by: Nitroglycerin (Nitroglycerin Sl (Ed/Img/Cath) 0.4 Mg Tablet) 0.4 mg SUBLINGUAL Q5M PRN PRN Reason: Chest pain Last Admin: 07/08/20 10:46 Dose: 0.4 mg Documented by: Sodium Chloride (0.9% Saline Lock 10 Ml Syringe) 10 - 40 ml IV UD PRN PRN Reason: SALINE FLUSH Last Admin: 07/09/20 21:06 Dose: 20 ml Documented by: Discharge Diet: Low fat/ Low Cholesterol Discharge Activity: Return to Normal Activity Call your doctor if you observe: Shortness of breath, Dizziness, Fainting spells, Chest pain Home Medications: Medications to take at Discharge rivaroxaban 20 mg tablet 20 mg PO QHS #90 tab 02/03/20 allopurinol 100 mg tablet 100 mg PO QHS tab 03/13/20 atorvastatin 40 mg tablet 40 mg PO QHS #90 tab 03/13/20 metoprolol succinate 25 mg tablet,extended release 24 hr 25 mg PO QHS tab 03/13/20 Amiodarone HCl 200 mg PO QHS 07/08/20 Losartan Potassium 100 mg PO QHS 07/08/20 Amlodipine [Norvasc] 5 mg PO DAILY #60 tab 07/10/20 Aspirin [Aspirin, Baby] 81 mg PO DAILY@0800 #60 tab.chew 07/10/20 Following Prescriptions Were Given to Patient: Aspirin [Aspirin, Baby] 81 mg PO DAILY@0800 #60 tab.chew Transmission Status: Received by [facility] [id number] Amlodipine [Norvasc] 5 mg PO DAILY #60 tab Transmission Status: Received by [facility] [id number] Primary Care Physician: Nik Mabry III, MD [Primary Care Provider] - Please follow up with your Primary Care Physician in: 1 Week Please Follow Up With: Dane Morrison MD When: As scheduled Disposition: Home Minutes spent on discharge:: 35 Patient Condition:: Stable Medical Necessity - Tobacco Use Smoking Status: Never smoker Meaningful Use Info Meaningful Use Diagnoses (Choose all that apply): None applicable <[place] - Last Filed: 07/10/20 17:41> Discharge Date and Diagnosis - Secondary Discharge Diagnosis Chronic Problems: Chronic Problems (Last Reviewed 03/13/20 @ 15:[address] Dane Morrison MD) Paroxysmal atrial fibrillation (Chronic) Essential (primary) hypertension (Chronic) Dyslipidemia (Chronic) Hospital Course and Treatment Summary of Care Provided: This patient was seen in conjunction with Shahida Isidro NP. I have independently interviewed and examined the patient and reviewed pertinent historical, laboratory, and other data. Please refer to her note for patient's presentation, findings, and recommendations. 75-year-old with past medical history of chronic atrial fibrillation who comes in with complaints of substernal chest pain. ACS was ruled out with negative troponin. Patient underwent stress test that showed medium sized perfusion defect in the mid anterior wall. Cardiology was consulted, she underwent cardiac catheterization which showed moderate disease in the LAD and mild left circumflex disease. Patient was continued on aspirin, statin, losartan and beta-oksana. Her blood pressure was uncontrolled on admission. She was con tinued also on amlodipine and her amiodarone and metoprolol were held. Patient to follow-up with cardiology in the outpatient. On the day of discharge, patient was seen and examined. Denied any new complaints. Gen: Comfortable, not pale, not jaundiced, alert oriented x3 CVS:HS I +II, regular, no murmurs RESP:Clinically clear to auscultation GI: BS present and normal, nontender, no palpable organs EXT:No edema - Physical Exam Vitals/I&O's: Vital Signs Temp Pulse Resp BP Pulse Ox 97.8 F 53 L 18 135/64 H 99 07/10/20 14:00 07/10/20 14:00 07/10/20 14:00 07/10/20 14:00 07/10/20 14:00 Oxygen Flow Rate (L/min) 2 Oxygen Delivery Method Room Air Weight: 82.2 kg Body Mass Index (BMI) 30.1 Intake and Output for Last 24 Hours 07/08/20 07/09/20 07/10/20 23:59 23:59 23:59 Intake Total 360 / 760 880 / 1080 440 / 440 Balance 360 / 760 880 / 1080 440 / 440 Laboratory Results 07/10/20 05:25: WBC 6.0, RBC 4.19 L, Hgb 13.1, Hct 41.0, MCV 97.9, MCH 31.3, MCHC 32.0, RDW Std Deviation 45.4 H, RDW Coeff of Sammie 12.7, Plt Count 261, MPV 10.5, Immature Gran % (Auto) 0.200, Neut % (Auto) 59.3, Lymph % (Auto) 29.0, [place] % (Auto) 9.2, Eos % (Auto) 2.0, Baso % (Auto) 0.3, Absolute Neuts (auto) 3.6, Absolute Lymphs (auto) 1.74, Nucleated RBC % 0 07/10/20 05:25: Sodium 143, Potassium 3.8, Chloride 106, Carbon Dioxide 31.0, Anion Gap 6, BUN 15, Creatinine 1.09 H, Estim Creat Clear Calc 40.13, Est GFR (MDRD) Af Amer 63, Est GFR (MDRD) Non-Af 52 L, BUN/Creatinine Ratio 13.8, Glucose 86, Calcium 8.4 L, Total Bilirubin 0.50, AST 28, ALT 43, Alkaline Phosphatase 89, Total Protein 6.9, Albumin 3.2, Globulin 3.7, Albumin/Globulin Ratio 0.9 OBSV E&M: [id number] Observation care discharge
[2020-07-10] MEDS: 0.9% Normal Saline 1,000 ML 75 ML IV (11:10)
--- NOTE | 2020-07-10 14:26 | PHA.DC.MR ---
Pharmacy Service has performed discharge medication reconciliation for this patient. The patient's discharge medication list was reviewed for discrepancies and discrepancies were resolved. Home Medications rivaroxaban 20 mg tablet 20 mg PO QHS #90 tab 02/03/20 allopurinol 100 mg tablet 100 mg PO QHS tab 03/13/20 atorvastatin 40 mg tablet 40 mg PO QHS #90 tab 03/13/20 metoprolol succinate 25 mg tablet,extended release 24 hr 25 mg PO QHS tab 03/13/20 Amiodarone HCl 200 mg PO QHS 07/08/20 Losartan Potassium 100 mg PO QHS 07/08/20 Amlodipine [Norvasc] 5 mg PO DAILY #60 tab 07/10/20 Aspirin [Aspirin, Baby] 81 mg PO DAILY@0800 #60 tab.chew 07/10/20
--- NOTE | 2020-07-10 16:58 | CL.D_ITS ---
Patient Name: CRISTINA SOTO Study Date: 07/10/2020 Performing: Dane Morrison MD Ht: 65 inches 165 cm : 1945 Wt: 181 lbs 82 kg Age: 75 Gender: female BSA: 1.89 PROCEDURE(S) PERFORMED UK35-NTL/COR/LV CLINICAL PROFILE AND INDICATIONS Indications: Suspected CAD Heart Failure: None Stress/Imaging Date: 07/09/2020Stress Test with SPECT MPI: Positive Intermediate Risk CAD Presentations: Symptom unlikely to be ischemic. CONCLUSIONS Moderate CAD noted in the mid left anterior descending artery encompassing the septal [employer]. Mi ld disease noted in the circumflex and the right coronary arteries. Preserved ejection fraction with significant hypercontractility of the mid segment RECOMMENDATIONS Medical therapy DESCRIPTION OF PROCEDURE The patient arrived to the procedure lab. The risks and benefits of the procedure as well as a full d escription of our services here and current unavailability of surgical backup were fully explained to the patient and/or their significant other prior to the catheterization. The Timeout was completed, verifying the correct patient and procedure. The patient's procedural site was prepped and draped in the usual fashion. Local anesthetic was given subcutaneously to right radial/ulnar regions with Lidoc emilia 2%. Using a modified Seldinger technique, arterial access was obtained via the right ulnar arter y, a 6Fr sheath was inserted. Left Coronary Artery selective angiography was performed in multiple v iews using a 5 Fr. 4.0 [place] catheter. Right Coronary Artery selective angiography was then performed in multiple views using a 5 Fr. 4.0 [place] catheter. Left Ventriculography was performed in MCKENZIE proje ction using a 5 Fr. Pigtail catheter. LV to AO pullback pressures were then recorded.The arterial sheath was pulled and a TR Band was applied for hemostasis CORONARY ANGIOGRAPHY DOMINANCE: Right Dominant LEFT HEART ASSESSMENT Left Ventricular Ejection Fraction: by LV Gram 75 % Normal LV wall motion Normal Left Ventricular systolic function Cardiomyopathy: Hypertrophic LEFT MAIN: Angiographically normal LEFT ANTERIOR DESCENDING ARTERY: MID LAD: Moderate luminal irregularities up to 50% CIRCUMFLEX ARTERY: Mild luminal irregularities RIGHT CORONARY ARTERY: Mild luminal irregularities less than 30% COMPLICATIONS No Complications PROCEDURE MEDICATIONS Versed 1 mg IV Fentanyl 50 mcg IV Oxygen: 2 L/min via nasal cannula Heparin diluted in 23cc Heparinized saline. Patient given 10cc IA of this solution. 07/10/2020 08:30 :09 Verapamil 2.5mg, Ntg 100mcgs, 2000 units of Heparin diluted in 23cc Heparinized saline. Patient give n 10cc IA of this solution. 07/10/2020 08:30:09 SUMMARY OF HEMODYNAMIC DATA Time AIR REST ECG 08:09:38 AO 164/68 (104) SA 08:35:23 LV 178/3, 13 08:41:09 LV 170/4, 13 08:41:15 LV 175/8, 19 08:41:57 LV 162/7, 13 08:42:03 LVp 164/15, 0 08:42:07 AOp 174/66 (107) 08:42:12 Signed By Dane Morrison MD On 07/10/2020 16:58:20 Dane Morrison MD
== END 2020-07-10 10:58 | disposition home or self-care (01) ==
LOC: ED 11:26 → PCU 12:55
PROVIDERS: Admitting Provider Student in an Organized Health Care Education/Training Program; Emergency Provider Student in an Organized Health Care Education/Training Program; PCP Family Medicine; Visit Provider Internal Medicine
DX: R07.89 Other chest pain (principal); I16.1 Hypertensive emergency; I48.0 Paroxysmal atrial fibrillation; I10 Essential (primary) hypertension; R00.1 Bradycardia, unspecified; E78.5 Hyperlipidemia, unspecified; I25.10 Atherosclerotic heart disease of native coronary artery without angina pectoris; E66.9 Obesity, unspecified; M10.9 Gout, unspecified; G47.33 Obstructive sleep apnea (adult) (pediatric); Z79.899 Other long term (current) drug therapy; Z79.01 Long term (current) use of anticoagulants; Z68.30 Body mass index [BMI] 30.0-30.9, adult
CPT/HCPCS: 36415; 71045; 78452; 80048; 80053; 84484; 85025; 93005; 93017; 93458; 97161; 97166; 99152; 99153; 99218; 99285; 99406; A9500; J7030; Q9967; A4216; C1769; C1894; G0378; J2785

== ENCOUNTER → 2021-06-12 11:23 | Outpatient (CLI) | payer MEDICARE, SELFPAY ==
--- NOTE | 2021-06-12 11:30 | RAD_ITS ---
STUDY: X-RAY CHEST REASON FOR EXAM: Female, 76 years old. CHEST PAIN COMPARISON: 07/08/2020 TECHNIQUE: XR Chest 2 Views FINDINGS: There is no demonstrated pleural abnormality. Loop recorder noted. Normal heart size. Normal mediastinum and anahi. Normal visualized pulmonary arteries. There is atherosclerotic calcification of the aortic arch with tortuosity. There are diffuse degenerative changes of the visualized thoracic spine. There is degenerative osteoarthritis of the bilateral shoulders. There is no demonstrated abnormality of the visualized soft tissue structures of the upper abdomen. RAD/Chest PA and Lateral IMPRESSION: There are no acute findings. Electronically Signed: Martin Rust MD at 21:03 EDT , Service support ,
== END ==
PROVIDERS: PCP Family Medicine; Referring Provider Internal Medicine Cardiovascular Disease; Visit Provider Internal Medicine Cardiovascular Disease
DX: I48.0 Paroxysmal atrial fibrillation (principal)
CPT/HCPCS: 71046

== ENCOUNTER 2021-10-21 15:49 | Observation (INO) | payer MEDICARE, SELFPAY ==
--- NOTE | 2021-10-10 12:34 | EKG12_ITS ---
Test Reason : PREOP Blood Pressure : / mmHG Vent. Rate : 060 BPM Atrial Rate : 059 BPM P-R Int : 000 ms QRS Dur : 092 ms QT Int : 366 ms P-R-T Axes : 000 037 060 degrees QTc Int : 366 ms SR Confirmed by KWASI MARIE, RENATO ([id number]), society editor JR HERBERT ([id number]) on 10/11/2021 1:01:37 PM Referred By: Juan Jacobsen Confirmed By:NATALIE VILLALPANDO MD
[2021-10-15 11:16] LABS: Absolute Lymphocyte Count 2.33 X10^3/uL (0.83-4.51); Absolute Neutrophil Count 4.6 X10^3/uL (2.0-7.7); Basophil# 0.02 X10^3/uL; Basophil% 0.3 % (0-1); Eosinophil# 0.09 X10^3/uL; Eosinophils% 1.2 % (0-5); Hematocrit 40.6 % (37-47); Hemoglobin 12.9 g/dL (12.0-15.0); Lymphocyte # 2.33 X10^3/ul (0.83-4.51); Lymphocyte % 30.7 % (19-41); Mean Corp Hgb Conc 31.8 g/dL (32-36); Mean Corpuscular Hgb 31.6 pg (27.0-32.0); Mean Corpuscular Volume 99.5 fL (81-99); Mean Platelet Vol. 10.8 fl (6.2-12.0); Monocyte# 0.54 X10^3/uL; Monocyte% 7.1 % (0-10); NRBC Flagged by Analyzer 0 % (0-5); Neutrophil # 4.58 X10^3/uL (2.7-7.7); Neutrophil % 60.3 % (47-70); Platelet Count 327 K/mm3 (150-450); RBC Distribution Width CV 12.8 % (11.6-14.6); RBC Distribution Width SD 46.9 fl (35.1-43.9); Red Blood Count 4.08 M/mm3 (4.2-5.4); White Blood Count 7.6 K/mm3 (4.4-11.0)
[2021-10-15 11:50] LABS: Anion Gap 3 (5-15); BUN 16 mg/dL (7-18); BUN/Creat Ratio 17.9 RATIO (10-20); Calcium,Total 8.3 mg/dL (8.5-10.1); Chloride 108 mmol/L (98-107); Creatinine, Serum 0.89 mg/dL (0.55-1.02); EST Glomerular Filtration Rate 65 mL/min (>60); Est Glom Filt Rate - Afr Amer 79 mL/min (>60); Glucose 98 mg/dL (74-106); Potassium 3.8 mmol/L (3.5-5.1); Sodium Level 140 mmol/L (136-145)
[2021-10-15 11:53] LABS: Hemoglobin A1c 5.5 % (3.8-5.6)
[2021-10-15 11:59] LABS: Magnesium 2.5 mg/dL (1.6-2.6)
[2021-10-21] VITALS (17 sets, daily range): BP systolic 114–138; BP diastolic 39–62; PULSE 48–59; RESP 16–18; TEMP 36.3–36.9; O2SAT 94–100; BMI 27.7
[2021-10-21 08:11] LABS: Bedside Glucose 79 mg/dL (70-110)
[2021-10-21] MEDS: Gabapentin 600 MG Tablet PO (08:34)
[2021-10-21] MEDS: Acetaminophen 500 MG Tablet 1000 MG PO ×3 (08:34→21:30)
[2021-10-21] MEDS: Lactated Ringers 1,000 ML 15 ML IV (08:39)
--- NOTE | 2021-10-21 10:00 | FEM_PTH ---
PATIENT: CRISTINA SOTO LOC: MS3 U#:[id number] AGE/SX: 76/F ROOM: DC313 RE10/21/[address]: Dr. Juan Jacobsen DO : 1945 BED: 1 DIS: 10/22/2021 SPEC #: [id number] RECD: 10/21/21 12:30 STATUS: TRISTAN NOLEN #: [id number] ADRIÁN: 10/21/21 10:[address]: Juan Jacobsen DEPT: SURGICAL PATHOLOGY RECD BY: Nishi Cartwright ENTERED: 10/21/21 12:48 SP TYPE: FEM HEAD OTHR DR: Dr. Emmett Becker MD Tissues: Femoral region, NOS Procedures: Decalcification bone/plaque Surgery Specimen Level IV HEADER OPERATION: ERAS, total hip replacement PRE-OP DIAGNOSIS: Primary osteoarthritis right hip TISSUE SUBMITTED: Bone and soft tissue of right hip MICROSCOPIC DIAGNOSIS Right hip bone and soft tissue, total hip replacement/resection: Femoral head with degenerative osteoarthritic changes. Fragments of fibroadipose and fibroconnective tissue. SANGITA:aman 10/24/2021 MICROSCOPIC DESCRIPTION Slides are reviewed. GROSS DESCRIPTION Received is one container labeled with the patient's name and designated bone and soft tissue hip, right. The specimen consists of a morin femoral head (with portion of femoral neck). The femoral head measures 4 x 4.5 x 4 cm (and the femoral neck measures 1.2 cm in length.) The articular surface displays prominent osteophyte formation and bone erosion. Also present in the specimen container are multiple irregular fragments of bone reamings and pink-yellow soft tissue measuring in aggregate 8 x 6 x 2 cm. Shell Grader sections are submitted in two cassettes as follows: 1 - soft tissue, 2 - bone after decalcification. / SANGITA:aman 10/21/2021 TC:5 CPT: 37537, 85011
[2021-10-21] MEDS: Cefazolin 2 GM in 0.9% Normal Saline 100 ML IV (10:21)
--- NOTE | 2021-10-21 11:29 | OP.PCM_ITS ---
Report of Operation Date of Procedure: 10/21/21 Pre-Operative Diagnosis: OA right hip Post-Operative Diagnosis: same Surgery/Procedure Performed:: Right THR Description of Surgical Findings:: Report of Operation Date of Procedure: 10/21/2021 Pre-Operative Diagnosis: OA [ right ] hip Post-Operative Diagnosis: same Surgery/Procedure Performed: [Right ] THR health education coordinator: uJnior Crockett PA-C Type of Anesthesia: spinal Anesthesiologist: Theo Bhagat M.D. Specimen's removed: bone Estimated Blood Loss (mL): 100 cc Implants: [place] Accolade 2 size 3 stem, +8 neck length, 48 mm MDM head Surgical Indications: Patient has severe end-stage osteoarthritic changes in the [right ] hip. They have failed conservative measures including activity modification, anti-inflamma tories, use of assistive devices. This to the point where the pain affects their ability to enjoy life and complete activities of daily living without discomfort. Patient has elected to undergo the above procedure Procedure Description: The patient was greeted in the preoperative area the [right ] hip was marked with surgical marker preoperative antibiotics administered. The patient was then taken to or suite in stable condition. Preoperative tranexamic acid was also utilized. Once the patient was placed in the supine position on the operating room table and once adequate anesthesia was obtained they were then placed in the lateral decubitus position with the surgical hip facing the field. All bony prominences were well-padded. A commercial hip position was utilized. The appropriate extremity was then prepped and draped in usual sterile fashion. Ioban was placed on the skin. Surgical timeout was performed and surgery was commenced. A standard posterior approach to the hip was then performed. Incision was planned and carried out with a #10 blade scalpel. Dissection was then carried length of the incision to the IT band which was split proximally and distally. A Charnley retractor was then placed for soft tissue retraction exposing the piriformis. A standard posterior capsulotomy was performed. Severe eburnation of bone was noted and periarticular osteophytes were identified consistent with severe end-stage osteoarthritis. A femoral neck osteotomy guide was used to enrike the proximal femur. A femoral osteotomy was then created approximately 1 fingerbreadth above the lesser trochanter. This was measured and placed on the back table. Once this was complete acetabular retractors were placed anteriorly and posteriorly. Labrum was then removed from the acetabulum exposing the entire cup of the acetabulum. Sequential reaming was then commenced and the acetabulum was medialized and sequentially widened in order to accommodate appropriate size cup. The acetabular cup was then impacted into position to the appropriate depth referencing approximately [ 45 ] anteversion and [45 ]of inclination. Excellent purchase was obtained. An appropriate size MDM liner was then placed. Attention was then turned to the femoral preparation. The hip was placed in the 90/90 position and a lateralizing box osteotome was utilized. Femoral starting awl was used followed by sequential broaching to the appropriate size. Excellent purchase was obtained with the stem no stem subsidence and excellent rotational stability was confirmed. A calcar reamer was then used in the trial head neck was placed on the broach. The hip was then located and taken through full range of motion flexion internal and external rotation as well as extension. Excellent stability was noted no impingement was identified of the components and leg lengths appear to be appropriate. The hip was at this point dislocated and the trial femoral components were removed. The final femoral stem was then implanted and impacted to the appropriate depth. Again excellent purchase was obtained no stem subsidence or rotational instability was noted. The hip was once again trialed and confirmation of leg length and stability was performed. Soft tissue tension also appeared to be appropriate. At this point the hip was redislocated and the trunnion was cleaned and dried meticulously in the appropriate size MDM femoral head was placed on the clean dry trunnion using a 12/14 Clark taper. The hip was once again relocated and again taken through full range of motion. I did inject a cocktail of postoperative pain medication in the deep and superficial tissues. Copious irrigation was performed. Anatomic closure of the piriformis tendon was performed through drill holes in the greater trochanter. A #1 Vicryl 0 Vicryl was utilized in subcutaneous tissue and surgical darek were placed in the skin. A well-padded nonadherent dressing was applied. Patient was taken to PACU in stable condition. No complications were identified. Will follow standard postop protocol for total hip arthroplasty. My product safety technical assistant played a vital role in the procedure beginning with positioning, holding retraction of soft tissues, positioning the leg to optimize visualization during the procedure and assisting with wound closure. Post-op Plan: DVT ppx; ASA 81 mg BID, thigh high compression stockings Follow up: in office in 2 weeks for wound check PT: to start POD #0 at hospital, outpatient PT should be arranged. Preoperative antibiotic: Ancef 2 grams IV Juan Jacobsen DO Surgeon: Juan Jacobsen health education coordinator: Junior Crockett Type of Anesthesia: Spinal Anesthesiologist: Theo Bhagat Specimen's removed: femoral head Estimated Blood Loss (mL): 100 cc Fluids Replaced: 1000 cc crystalloid Admit VTE Documentation VTE Present on Admission: No VTE Mechan Device Prophylaxis: SCD's and Thigh High DANNY Hose VTE Pharm Prophylaxis ordered?: Yes
--- NOTE | 2021-10-21 12:20 | RAD_ITS ---
STUDY: X-RAY - PELVIS AND RIGHT HIP REASON FOR EXAM: Female, 76 years old. Post Op -- AP both hips on single aidan/lateral of op hip PACU TECHNIQUE: 2 views of the pelvis and hip. COMPARISON: None. FINDINGS: The patient is status post right total hip replacement. There is good alignment. Postoperative soft tissue changes. RAD/Hip Min 2 Views (Portable) IMPRESSION: Status post right total hip replacement. There is good alignment. Postoperative soft tissue changes. Electronically Signed: Que Keith MD at 12:36 EST ,
[2021-10-21] MEDS: Lactated Ringers 1,000 ML 125 ML IV ×2 (12:43→15:09)
[2021-10-21] MEDS: Cefazolin 1 GM/50 ML BAG IV ×2 (17:29→23:51)
[2021-10-21] MEDS: Aspirin 81 MG TAB.CHEW PO (17:32)
[2021-10-21] MEDS: Losartan Potassium 100 MG Tablet PO (21:27)
[2021-10-21] MEDS: Amiodarone 200 MG Tablet PO (21:27)
[2021-10-21] MEDS: amLODIPine 5 MG Tablet PO (21:28)
[2021-10-21] MEDS: Rivaroxaban 20 MG Tablet PO (21:29)
[2021-10-21] MEDS: Senna/Docusate Sodium 1 Tablet 2 TABLET PO (21:30)
[2021-10-21] MEDS: Allopurinol 100 MG Tablet PO (21:31)
[2021-10-21] MEDS: Atorvastatin Calcium 20 MG Tablet PO (21:32)
[2021-10-21] MEDS: 0.9% Saline Lock 10 ML Syringe IV (21:36)
[2021-10-22] VITALS (8 sets, daily range): BP systolic 104–149; BP diastolic 59–92; PULSE 46–62; RESP 16–18; TEMP 36.2–36.5; O2SAT 95–100
[2021-10-22 04:59] LABS: Mean Corp Hgb Conc 33.3 g/dL (32-36); Mean Corpuscular Hgb 32.2 pg (27.0-32.0); Mean Corpuscular Volume 96.5 fL (81-99); Mean Platelet Vol. 10.3 fl (6.2-12.0); Platelet Count 251 K/mm3 (150-450); RBC Distribution Width CV 12.7 % (11.6-14.6); RBC Distribution Width SD 44.5 fl (35.1-43.9); Red Blood Count 3.42 M/mm3 (4.2-5.4); White Blood Count 15.9 K/mm3 (4.4-11.0)
[2021-10-22 05:21] LABS: Anion Gap 6 (5-15); BUN 14 mg/dL (7-18); BUN/Creat Ratio 17.8 RATIO (10-20); Calcium,Total 8.1 mg/dL (8.5-10.1); Chloride 105 mmol/L (98-107); Creatinine, Serum 0.79 mg/dL (0.55-1.02); EST Glomerular Filtration Rate 75 mL/min (>60); Est Glom Filt Rate - Afr Amer 91 mL/min (>60); Estimated Creatinine Clearance 43.07 ml/min; Glucose 134 mg/dL (74-106); Potassium 4.5 mmol/L (3.5-5.1); Sodium Level 136 mmol/L (136-145)
[2021-10-22] MEDS: Acetaminophen 500 MG Tablet 1000 MG PO ×2 (05:52→13:49)
[2021-10-22] MEDS: Senna/Docusate Sodium 1 Tablet 2 TABLET PO (07:36)
[2021-10-22] MEDS: Aspirin 81 MG TAB.CHEW PO (07:36)
--- NOTE | 2021-10-22 07:46 | PCM.PN.ORT ---
Subjective Subjective Patient sitting at bedside awake. Patient states pain is been very well managed. Patient denies chest pain, shortness of breath, calf pain, nausea vomiting. Patient states she is ready for discharge home today. Where she will continue with outpatient therapy. Objective Data Objective Data Vital Signs: Vital Signs Temp Pulse Resp BP Pulse Ox 97.2 F L 54 L 16 115/84 H 99 10/22/21 07:40 10/22/21 07:40 10/22/21 07:40 10/22/21 07:40 10/22/21 07:40 Oxygen Flow Rate (L/min) 2 Oxygen Delivery Method Room Air Weight: 75.6 kg Body Mass Index (BMI) 27.7 Intake & Output: Intake and Output for Last 24 Hours 10/20/21 10/21/21 10/22/21 23:59 23:59 23:59 Intake Total 1158.09 / 1158.09 758.33 / 758.33 Balance 1158.09 / 1158.09 758.33 / 758.33 Lab / Micro Data Result Diagrams: 10/22/21 04:21 10/22/21 04:21 Labs: Laboratory Results - last 24 hr 10/21/21 08:00: POC Glucose 79 10/22/21 04:21: WBC 15.9 H, RBC 3.42 L, Hgb 11.0 L, Hct 33.0 L, MCV 96.5, MCH 32.2 H, MCHC 33.3, RDW Std Deviation 44.5 H, RDW Coeff of Sammie 12.7, Plt Count 251, MPV 10.3 10/22/21 04:21: Sodium 136, Potassium 4.5, Chloride 105, Carbon Dioxide 25.0, Anion Gap 6, BUN 14, Creatinine 0.79, Estim Creat Clear Calc 43.07, Est GFR (MDRD) Af Amer 91, Est GFR (MDRD) Non-Af 75, BUN/Creatinine Ratio 17.8, Glucose 134 H, Calcium 8.1 L Micro: Microbiology 10/15/21 09:37 Swab (Method) Nasal Screen MRSA/MSSA - Final Radiography Diagnostic Testing: Radiology Impression Hip X-Ray 10/21/21 12:20 IMPRESSION: Status post right total hip replacement. There is good alignment. Postoperative soft tissue changes. Electronically Signed: Que Keith MD at 12:36 EST , Physical Exam Narrative Patient sitting at bedside alert oriented. Patient no respiratory distress, speaking in full sentences. Patient's dressing is clean dry intact. Patient has no calf tenderness. No signs or symptoms of DVT. Patient has good motion of the bilateral knees ankles and feet. Neurovascular is otherwise intact. Vital signs labs were all noted in the medical record. Const alert and oriented x3 General Appearance: cooperative HEENT normocephalic Eyes PERRL Neuro CN's II-XII intact bilaterally Psych mental status grossly normal Assessment & Plan Assessment/Plan (1) S/P total right hip arthroplasty: PLAN: 1. Continue all pain medications as prescribed 2. Resume Xarelto as prescribed and as patient was taking preoperatively for postop DVT prophylaxis 3. Encourage incentive spirometry 4. Discharge home today after therapy 5. Patient will continue her outpatient therapy at [facility] [place] 6. Follow-up as scheduled, see pink sheet
--- NOTE | 2021-10-22 07:49 | EX.PCM.DISCH ---
Discharge Instructions Diet Discharge Diet: No restrictions Activity Discharge Activity: May Not Drive, May Shower and Use Walker May shower in (days): 3 May resume sexual activity in: No Restrictions Ice area for (Minutes): 30 (every hour while awake.) Weight Bearing Status: Weight bearing as tolerated Keep extremity elevated above heart level: Operative Extremity Dressing / Incision Call your doctor if your incision/area has: Continuous Slow Oozing, Sudden Increased Bleeding, Increased Pain/ Swelling, Increased Redness and Foul Smelling Discharge Call your doctor if you observe: Fever of 101 or Higher, Coldness, Increased Pain, Numbness or Tingling, Change in Color, Shortness of breath, Calf discomfort and Uncontrolled pain Change Dressing in: leave in place till F/U Remove Dressing in: leave in place till F/U Follow Up Care Please Follow Up With: Junior Crockett PA-C When: Please call [phone] to schedule a follow up appointment. Test Results: Test results from this visit will be discussed in further detail at your follow-up appointment, if applicable. Discharge Plan Admission Admit Date/Time: 10/21/21 15:49 Primary Reason for Your Visit: Right total hip Attending Provider: Juan Jacobsen Primary Care Provider: Emmett Becker Discharge Orders/Prescriptions Prescriptions: New acetaminophen 500 mg Tablet 1,000 mg PO Q8 Qty: 90 RF: 0 aspirin 81 mg Tablet,Chewable 81 mg PO BIDCM Qty: 60 RF: 0 oxycodone 5 mg Tablet 5 - 10 mg PO Q4H PRN PRN (Reason: Pain Score 4-10) 7 Days Qty: 60 RF: 0 Continued allopurinol 100 mg tablet 100 mg PO QHS RF: 0 amiodarone 200 mg tablet 200 mg PO QHS Qty: 90 RF: 3 atorvastatin 20 mg tablet 20 mg PO QHS Qty: 90 RF: 3 losartan 100 MG tablet 100 mg PO QHS RF: 0 aspirin 81 MG tablet,chewable 81 mg PO DAILY@0800 Qty: 60 RF: 0 amlodipine 5 mg tablet 5 mg PO QHS RF: 0 rivaroxaban 20 mg tablet 20 mg PO QHS Qty: 90 RF: 3 metoprolol succinate 25 mg tablet extended release 24 hr 25 mg PO Q OTHER DAY Qty: 90 RF: 3 Referrals / Follow Up: Emmett Becker MD [Primary Care Provider] - Disposition Disposition (needs filled in before D/C Order can be placed): Home, Self Care
--- NOTE | 2021-10-22 11:05 | CASEMGMT ---
ZACHARY LIND Face to Face with patient for initial transition planning/care coordination assessment. RN CM introduced self and role at [facility]. Patient sitting in chair, alert and oriented. Patient willing to participate in assessment and is able to answer all questions appropriately. Care providers, pharmacy, and demographics verified. Patient wishes to discharge home and states her daughter works with therapy and will be complete it at home but wasn't sure. Patient states he has no further needs or concerns at this time. Patient gave permission to call . RN DIOGO called Dhruv to confirm therapy at discharge. He states that daughter Kim was to be making arrangements. RN DIOGO called daughter Kim, she states that they are wanting [facility] for home therapy and requested referral be made. RN CM called and left [facility] message with referral, awaiting call back. CM to follow for discharge planning needs that may arise. PCP: Rosita Specialists: bernice Jacobsen Pharmacy: [facility] Insurance: [facility] Prescription Benefit: yes Living Will/HPOA: none LNOK: , daughters Living Arrangements: patient lives with in a 2 story home with bed and bath on first floor. Patient states there at 2 steps to enter the home. Transportation: DME/HHC: Patient states she has raised toilet, grab bars, and walker at home. Patient denies previous HHC or SNF. Disposition Plan: Patient to discharge home with HHC, family support, and follow-up plans in place. Minerva RAO, RN, CM
--- NOTE | 2021-10-22 11:36 | CASEMGMT ---
TC larry Monreal at [facility], pt accepted and SOC will be .
== END 2021-10-22 14:00 | disposition home health service (06) ==
LOC: SDC 16:39 → MS3 16:39
PROVIDERS: Anesthesiology; Admitting Provider Orthopaedic Surgery; PCP Family Medicine; Referring Provider Orthopaedic Surgery; Visit Provider Orthopaedic Surgery
PROC: 0SR90JZ Replacement of Right Hip Joint with Synthetic Substitute, Open Approach (ICD-10-PCS; CPT 27130; principal; 2021-10-21 09:35)
DX: M16.11 Unilateral primary osteoarthritis, right hip (principal); I48.0 Paroxysmal atrial fibrillation; I10 Essential (primary) hypertension; E78.5 Hyperlipidemia, unspecified; M10.9 Gout, unspecified; Z79.899 Other long term (current) drug therapy; Z79.01 Long term (current) use of anticoagulants; Z79.82 Long term (current) use of aspirin; I25.10 Atherosclerotic heart disease of native coronary artery without angina pectoris; G47.33 Obstructive sleep apnea (adult) (pediatric)
CPT/HCPCS: 27130; 01214; 36415; 73502; 80048; 82962; 83036; 83735; 85025; 85027; 87081; 88305; 88307; 88311; 93005; 96361; 96365; 96366; 97110; 97116; 97162; 97166; 97530; 97535; 99218; 99251; C1776; J7120; A4216; G0378; G0463; J2405

== ENCOUNTER 2022-05-27 15:24 | Emergency (ER) | payer MEDICARE, SELFPAY ==
[2022-05-27 15:24] VITALS: BP 146/104; PULSE 69; RESP 18; TEMP 36.9; O2SAT 98; BMI 27.8
--- NOTE | 2022-05-27 15:36 | EDS_ITS ---
HPI History of Present Illness Chief Complaint: Neuro S/Sx Narrative Narrative: 77-year-old female presenting with her for evaluation. He states that about 45 minutes prior to arrival which is 3:35 PM he and his were watching a movie and he was asking her question and she could not form words or sentences. He states that he initially thought nothing of it because she has a history of dementia and has some trouble with word forming sometimes however he states this episode lasted about 30 minutes. He states he started to get worried but then she started to be able to form sentences and was making more sense. She did not have any facial droop, slurred speech. She did not have any inability to move her extremities. She had no visual disturbances she currently denies any numbness or tingling. She is confused about the month but does not know the day, year, her age. He states that she does have dementia and its not abnormal for her to be confused about the month at times. He also states that she has had a little bit of congestion and slight cold recently and attributed some of the slowness to this. She has not had fever, chills. No body aches. He states that she was trying to make a card for her grandson because she thought it was June and he had to tell her that it was not June yet. She is on Xarelto and baby aspirin daily. There is no history of head injury. Patient's states he is at baseline currently. [facility] Medical History Arthritis Cardiology follow-up encounter Closed head injury with brief loss of consciousness Diverticulosis Dyslipidemia Essential (primary) hypertension Gout High cholesterol History of edema History of pain when walking Hypertension Hypertensive emergency (07/08/20) Loss of hearing Non-smoker Nonobstructive atherosclerosis of coronary artery Nonsustained ventricular tachycardia Obesity Obstructive sleep apnea Paroxysmal atrial fibrillation Paroxysmal supraventricular tachycardia Sick sinus syndrome Syncope Thyroid nodule Wears glasses Home Medications rivaroxaban 20 mg tablet 20 mg PO QHS BLOOD THINNER #90 tabs 02/03/20 [Rx Last Taken 10/17/21] allopurinol 100 mg tablet 100 mg PO QHS 03/13/20 [History Last Taken 07/07/20] losartan 100 mg tablet 100 mg PO QHS blood pressure 07/08/20 [History Last Taken 07/07/20] aspirin 81 mg chewable tablet 81 mg PO DAILY@0800 ##60 07/10/20 [Rx Last Taken 10/16/21] amiodarone 200 mg tablet 200 mg PO QHS heart rate #90 tabs 07/30/20 [Rx Last Taken Unknown] atorvastatin 20 mg tablet 20 mg PO QHS #90 tabs 06/12/21 [Rx Last Taken Unknown] metoprolol succinate 25 mg tablet,extended release 24 hr 25 mg PO Q OTHER DAY blood pressure #90 tabs 06/17/21 [Rx Last Taken 10/19/21] amlodipine 5 mg tablet 5 mg PO QHS 10/07/21 [History Last Taken Unknown] acetaminophen 500 mg tablet 1,000 mg PO Q8 #90 tabs 10/22/21 [Rx Last Taken Unknown] aspirin 81 mg chewable tablet 81 mg PO BIDCM #60 tabs 10/22/21 [Rx Last Taken Unknown] oxycodone 5 mg tablet 5 - 10 mg PO Q4H PRN PRN Pain Score 4-10 7 days #60 tabs 10/22/21 [Rx Last Taken Unknown] Allergy/AdvReac Type Severity Reaction Status Date / Time No Known Allergies Allergy Verified 05/27/22 15:27 Family History Mother Colon cancer CAD (coronary artery disease) Surgical History History of cardioversion (05/06/19) History of left heart catheterization (07/10/20) History of left hip replacement (2018) History of loop recorder History of tonsillectomy History of tubal ligation Social History Smoking Status: Never smoker ROS ROS ED Constitutional Constitutional ED: Denies chills or fever(s) Eyes Eyes: Denies blurry vision or change in vision ENT ENT ED: Denies rhinorrhea or sore throat Cardiovascular Cardiovascular: Denies chest pain or palpitations Respiratory/Chest Respiratory/Chest: Denies cough or dyspnea Gastrointestinal Gastrointestinal: Denies abdominal pain or constipation Genitourinary Genitourinary ED: Denies dysuria Musculoskeletal Musculoskeletal: Denies arthralgias, back pain or myalgias Integumentary Denies abscess EXAM Physical Exam Const Vital Signs: 05/27/22 15:24 05/27/22 17:24 05/27/22 19:35 Temperature 98.5 F Temperature Source Temporal Pulse Rate 69 65 68 Respiratory Rate 18 19 H 20 H Blood Pressure 146/104 H 149/70 H Blood Pressure Mean 118 96 Pulse Ox 98 97 97 Oxygen Delivery Method Room Air Room Air Room Air 05/27/22 21:32 Temperature Temperature Source Pulse Rate 60 Respiratory Rate 23 H Blood Pressure 144/62 H Blood Pressure Mean 89 Pulse Ox 95 Oxygen Delivery Method Room Air Positive well nourished General Appearance ED: NAD HEENT Reports moist mucous membranes Eyes PERRL General Eye ED: Negative for pale conjunctiva or scleral icterus Chest Wall inspection of chest normal Resp normal respiratory effort and clear to auscultation bilaterally Auscultation: Negative for rales, rhonchi or wheezes Cardio Rate: regular rate Rhythm: regular rhythm GI normal to inspection, nondistended, normoactive bowel sounds Neuro oriented x3 and CN's II-XII intact bilaterally Sensorium / Orientation: alert Motor Exam: strength 5/5 throughout Psych mental status grossly normal NIHSS NIHSS Initial: 1a Level of Consciousness: 0 1b LOC Questions (Score 2 if aphasic/stupor): 1 1c LOC Commands (Only score 1st attempt): 0 2 Best Gaze (If aphasic, use reflexive mvmts.): 0 3 Visual: 0 4 Facial Palsy: 0 5 Motor Arm Right (UN = amputation/fusion): 0 5 Motor Arm Left: 0 6 Motor Leg Right: 0 6 Motor Leg Left: 0 7 Limb ataxia (Only + if out of proportion): 0 8 Sensory (Aphasia/stupor=0 or 1, coma=2): 0 9 Best Language: 0 10 Dysarthria (mute, coma=2, intubated=UN): 0 11 Extinction and Inattention (only scored if +): 0 Total Score: 1 MDM MDM MDM Narrative Medical decision making narrative: 77-year-old female presenting with difficulty speaking earlier. Her states it was about 30 minutes. At first he thought nothing of it because she has dementia and she has been sick and thought she was just slower to respond. Prior to the patient calling the on-call physician she started to make sentences and was acting normally. She had no facial droop, slurred speech, difficulty moving her extremities, visual complaints. On arrival her NIH stroke scale score is 1 because she did not answer the month right however the states that she has dementia and was already having confusion on this prior to today. He states that she was getting confused on the month and thought it was her grandsons birthday this month and it May. He states his birthday is next month in June. I did obtain a CT brain which was negative for acute intracranial findings. CBC was obtained and she has no leukocytosis. Hemoglo bin stable at 12.4. Platelets normal at 229. Patient is slightly lymphopenic. Renal function electrolytes within normal limits. LFTs are normal. Urinalysis slightly contaminated but does not appear to be consistent with infection. Chest x-ray on my interpretation shows no acute cardiopulmonary process and the radiologist does agree. EKG on my interpretation is sinus rhythm with a ventricular to 67 bpm without sign of ischemic change or dysrhythmia. Rapid COVID did return positive. Discussed with the hospitalist for admission who recommended an MRI in the ED as the patient is already on antiplatelet therapy and on Xarelto. It is possible that this is just an extension of her dementia as well. After speaking with the he was amenable to this. I did obtain an MRI of the brain which did not show any evidence of a stroke. I suspect the confusion over the month is part of her dementia. Discussed the findings with the patient and her that she tested positive for COVID-19. Also discussed with her that she has normal vital signs and has not required any oxygen. Her to monitor this at home. They return for any new or worsening symptoms Impression: 1. Confusion 2. COVID-19 Lab Data Attestation: I reviewed the patient's lab results. Labs: Laboratory Results - last 24 hr 05/27/22 05/27/22 05/27/22 15:45 15:45 16:00 WBC 7.2 RBC 3.95 L Hgb 12.4 Hct 38.0 MCV 96.2 MCH 31.4 MCHC 32.6 RDW Std Deviation 45.5 H RDW Coeff of Sammie 12.7 Plt Count 229 MPV 10.1 Immature Gran % (Auto) 0.400 Neut % (Auto) 76.5 H Lymph % (Auto) 11.2 L Mayes % (Auto) 11.9 H Eos % (Auto) 0.0 Baso % (Auto) 0.0 Absolute Neuts (auto) 5.5 Absolute Lymphs (auto) 0.81 L Nucleated RBC % 0 Sodium 137 Potassium 4.1 Chloride 103 Carbon Dioxide 26.0 Anion Gap 8 BUN 19 H Creatinine 1.01 Estim Creat Clear Calc 41.97 Est GFR (MDRD) Af Amer 68 Est GFR (MDRD) Non-Af 57 L BUN/Creatinine Ratio 18.8 Glucose 108 H Calcium 8.4 L Total Bilirubin 0.30 AST 23 ALT 32 Alkaline Phosphatase 79 Troponin I High Sens 7 Total Protein 6.8 Albumin 3.5 Globulin 3.3 Albumin/Globulin Ratio 1.1 Urine Color Yellow Urine Clarity Clear Urine pH 6.0 Ur Specific [place] 1.015 Urine Protein 30 H Urine Glucose (UA) Normal Urine Ketones Negative Urine Occult Blood 150 H Urine Nitrite Negative Urine Bilirubin Negative Urine Urobilinogen Normal Ur Leukocyte Esterase 500 H Urine RBC 5-10 SEEN Urine WBC 5-10 SEEN Ur Squamous Epith Cells 0-5 SEEN Urine Bacteria 1+ Urine Mucus 0 SEEN Radiography Diagnostic Testing: Clinical Impression(s) from Imaging Studies Brain CT 05/27/22 15:36 IMPRESSION: There are no acute intracranial findings. Electronically Signed: Martin Rust MD at 16:27 EDT , Chest X-Ray 05/27/22 16:12 IMPRESSION: There are no acute findings. Electronically Signed: Martin Rust MD at 16:26 EDT , Discharge Plan Triage Chief Complaint: Neuro S/Sx ED Provider: Juan Brooke Dx/Rx/DC Orders Instructions: Coronavirus Disease 2019 (COVID-19): Caring for Yourself or Others, ED CAREGIVER SUPPORT for DEMENTIA Prescriptions: No Action allopurinol 100 mg tablet 100 mg PO QHS Label Comments: TAKE 1 TABLET BY MOUTH ONCE DAILY FOR GOUT amiodarone 200 mg tablet 200 mg PO QHS Qty: 90 3RF atorvastatin 20 mg tablet 20 mg PO QHS Qty: 90 3RF losartan 100 MG tablet 100 mg PO QHS aspirin 81 MG tablet,chewable 81 mg PO DAILY@0800 Qty: 60 0RF amlodipine 5 mg tablet 5 mg PO QHS acetaminophen 500 mg Tablet 1,000 mg PO Q8 Qty: 90 0RF aspirin 81 mg Tablet,Chewable 81 mg PO BIDCM Qty: 60 0RF oxycodone 5 mg Tablet 5 - 10 mg PO Q4H PRN PRN (Reason: Pain Score 4-10) 7 Days Qty: 60 0RF rivaroxaban 20 mg tablet 20 mg PO QHS Qty: 90 3RF metoprolol succinate 25 mg tablet extended release 24 hr 25 mg PO Q OTHER DAY Qty: 90 3RF Primary Care Provider: Emmett Becker Referrals: Emmett Becker MD [Primary Care Provider] - Disposition Disposition: Home, Self Care
--- NOTE | 2022-05-27 15:36 | EKG12_ITS ---
Test Reason : Blood Pressure : / mmHG Vent. Rate : 067 BPM Atrial Rate : 067 BPM P-R Int : 170 ms QRS Dur : 088 ms QT Int : 410 ms P-R-T Axes : 092 006 032 degrees QTc Int : 433 ms Normal sinus rhythm Normal ECG Confirmed by JALIL MARIE, SUDHAKAR ([id number]), communications editor JR HERBERT ([id number]) on 05/28/2022 2:05:25 PM Referred By: Confirmed By:SUDHAKAR JIMENES MD
--- NOTE | 2022-05-27 15:36 | CT_ITS ---
STUDY: CT BRAIN WITHOUT CONTRAST REASON FOR EXAM: Female, 77 years old. tia TECHNIQUE: Transaxial CT imaging of the brain was performed without administration of intravenous contrast material. Individualized dose optimization techniques were used for this CT. COMPARISON: 12/05/2018 FINDINGS: Normal calvarium. Normal soft tissues. Normal size ventricles and extra-axial spaces for the patient''s age. There are areas of decreased attenuation within the white matter tracts of the supratentorial brain, consistent with microvascular disease changes. Normal basal ganglia and thalami. Normal brainstem. Normal cerebellum. There is no intracranial hemorrhage. There are no findings of an acute ischemic infarction. Normal visualized paranasal sinuses. ASPECTS 10 CT/Brain/Head without Contrast IMPRESSION: There are no acute intracranial findings. Electronically Signed: Martin Rust MD at 16:27 EDT ,
[2022-05-27 15:58] LABS: Absolute Lymphocyte Count 0.81 X10^3/uL (0.83-4.51); Absolute Neutrophil Count 5.5 X10^3/uL (2.0-7.7); Hemoglobin 12.4 g/dL (12.0-15.0); Lymphocyte # 0.81 X10^3/ul (0.83-4.51); Lymphocyte % 11.2 % (19-41); Mean Corp Hgb Conc 32.6 g/dL (32-36); Mean Corpuscular Hgb 31.4 pg (27.0-32.0); Mean Corpuscular Volume 96.2 fL (81-99); Mean Platelet Vol. 10.1 fl (6.2-12.0); Monocyte# 0.86 X10^3/uL; Monocyte% 11.9 % (0-10); NRBC Flagged by Analyzer 0 % (0-5); Neutrophil # 5.52 X10^3/uL (2.7-7.7); Neutrophil % 76.5 % (47-70); Platelet Count 229 K/mm3 (150-450); RBC Distribution Width CV 12.7 % (11.6-14.6); RBC Distribution Width SD 45.5 fl (35.1-43.9); Red Blood Count 3.95 M/mm3 (4.2-5.4); White Blood Count 7.2 K/mm3 (4.4-11.0)
[2022-05-27 15:59] VITALS: BMI 28.1
[2022-05-27 16:10] LABS: ALB/GLOB Ratio 1.1 RATIO (0.9-2.4); AST(SGOT) 23 U/L (15-37); Alanine Aminotransfer ALT/SGPT 32 U/L (13-56); Albumin, Serum 3.5 g/dL (3.2-5.0); Alkaline Phosphatase 79 U/L (45-117); Anion Gap 8 (5-15); BUN 19 mg/dL (7-18); BUN/Creat Ratio 18.8 RATIO (10-20); Calcium,Total 8.4 mg/dL (8.5-10.1); Chloride 103 mmol/L (98-107); Creatinine, Serum 1.01 mg/dL (0.55-1.02); EST Glomerular Filtration Rate 57 mL/min (>60); Est Glom Filt Rate - Afr Amer 68 mL/min (>60); Estimated Creatinine Clearance 41.97 ml/min; Globulin 3.3 g/dL (2.2-4.2); Glucose 108 mg/dL (74-106); Potassium 4.1 mmol/L (3.5-5.1); Protein, Total 6.8 g/dL (6.4-8.2); Sodium Level 137 mmol/L (136-145); Troponin-I HS 7 pg/mL (3.0-54.0)
[2022-05-27 16:11] LABS: Mucous, Urine 0 SEEN /hpf (<or=2+)
--- NOTE | 2022-05-27 16:12 | RAD_ITS ---
STUDY: XR Chest 1 View 05/27/2022 4:07 PM REASON FOR EXAM: Female, 77 years old. CHEST PAIN confusion COMPARISON: 07/08/2020 TECHNIQUE: XR Chest 1 View FINDINGS: There is no demonstrated pleural abnormality. Loop recorder noted. Normal heart size. Normal mediastinum. Normal anahi. Prominent appearing increased interstitial lung markings. Normal visualized pulmonary arteries. There is atherosclerotic calcification of the aortic arch with tortuosity. There are diffuse degenerative changes of the visualized thoracic spine. There is degenerative osteoarthritis of the bilateral shoulders. There is no demonstrated abnormality of the visualized soft tissue structures of the upper abdomen. RAD/Chest 1 View (Portable) IMPRESSION: There are no acute findings. Electronically Signed: Martin Rust MD at 16:26 EDT ,
[2022-05-27 16:23] LABS: Color, Urine Yellow (Yellow); Glucose, Dipstick Normal (Normal); Ketone-Dipstick Negative (Negative); Leukocyte Esterase-Dipstick 500 /ul (Negative); Nitrite-Dipstick Negative (Negative); Occult Blood-Urine 150 /ul (Negative); Protein-Dipstick 30 mg/dl (Negative); Specific Gravity, Urine 1.015 (1.002-1.030); Urine Bilirubin Dipstick Negative (Negative); Urine Clarity Clear (Clear); Urine Urobilinogen Normal (Normal)
[2022-05-27 16:34] LABS: Bacteria 1+ /hpf (None Seen); Red Blood Cells-Urine 5-10 SEEN /hpf (0-5); Squamous Epithelial Cells - UA 0-5 SEEN /hpf (5-10); White Blood Cells 5-10 SEEN /hpf (0-5)
[2022-05-27 17:24] VITALS: PULSE 65; RESP 19; O2SAT 97
--- NOTE | 2022-05-27 17:43 | MRI_ITS ---
STUDY: MRI BRAIN WITHOUT CONTRAST REASON FOR EXAM: Female, 77 years old. Speech difficulty TECHNIQUE: Standardized multiplanar fat and water weighted pulse sequences were obtained. COMPARISON: CT. FINDINGS: There is mild cerebral atrophy with widening of the extra-axial spaces and ventricular dilatation. There are a limited number of small white matter hyperintensities, distributed throughout the deep white matter tracts of the cerebral hemispheres, consistent with mild chronic white matter ischemic changes. There is no evidence for recent intracranial ischemia or other cause of cytotoxic edema on diffusion weighted imaging (DWI). Normal T2* images of the brain without demonstrated susceptibility artifact. There is no demonstrated hemosiderin stain. Normal bilateral basal ganglia. Normal thalami. There is no extra-axial fluid accumulation. Normal flow voids within the major intracranial circulation suggesting patency by spin echo criteria. Normal sella turcica, pituitary gland, infundibular stalk, optic chiasm and hypothalamus. Normal tectal plate and pineal gland. Normal midbrain, rita and medulla. Normal cerebellum. Normal basal cisterns. Normal bilateral temporal bones. Normal bilateral internal auditory canals. No demonstrated orbital abnormality, within the constraints of a routine brain study. Normal visualized paranasal sinuses. Normal calvarium and skull base. Normal visualized soft tissue structures. Normal visualized upper cervical spine. MRI/Brain without Contrast IMPRESSION: Involutional changes of the brain, as described above. Electronically Signed: Timothy Aaron MD at 19:34 EDT ,
[2022-05-27 19:35] VITALS: BP 149/70; PULSE 68; RESP 20; O2SAT 97
[2022-05-27 21:32] VITALS: BP 144/62; PULSE 60; RESP 23; O2SAT 95
[2022-05-27 22:04] VITALS: BP 177/67; PULSE 84; RESP 18; O2SAT 99
== END 2022-05-27 22:20 | disposition home or self-care (01) ==
PROVIDERS: Emergency Provider Student in an Organized Health Care Education/Training Program; PCP Family Medicine; Visit Provider Student in an Organized Health Care Education/Training Program
DX: U07.1 COVID-19 (principal); F03.90 Unspecified dementia, unspecified severity, without behavioral disturbance, psychotic disturbance, mood disturbance, and anxiety; I48.0 Paroxysmal atrial fibrillation; E07.9 Disorder of thyroid, unspecified; I10 Essential (primary) hypertension; M10.9 Gout, unspecified; E78.00 Pure hypercholesterolemia, unspecified; I25.10 Atherosclerotic heart disease of native coronary artery without angina pectoris; G47.33 Obstructive sleep apnea (adult) (pediatric); Z79.82 Long term (current) use of aspirin; Z79.899 Other long term (current) drug therapy
CPT/HCPCS: 70450; 70551; 71045; 80053; 81001; 84484; 85025; 87811; 93005; 99284; A4216

== ENCOUNTER → 2022-06-30 | Outpatient (CLI) | payer MEDICARE, SELFPAY ==
[2022-06-30 12:22] LABS: Thyroid Stim Hormone (TSH) 0.51 uIU/mL (0.358-3.74)
--- NOTE | 2022-07-01 10:41 | PFT ---
INTRODUCTION: The patient is a 77-year-old female that presents for pulmonary function studies secondary to a diagnosis of amiodarone use. Respiratory therapy reported good patient effort. Bronchodilators were used during testing. INTERPRETATION: Forced expiration spirometry demonstrates no evidence of a large airways obstructive ventilatory defect. There was no significant response to aerosolized bronchodilators. Spirograms are of good quality and plateau normally. Body plethysmography was performed and reveals lung volumes to be within normal limits. Diffusing capacity by single breath CO was within normal limits. IMPRESSION: Grossly normal pulmonary function studies.
== END | disposition home or self-care (01) ==
PROVIDERS: PCP Family Medicine; Referring Provider Nurse Practitioner Family; Visit Provider Nurse Practitioner Family
DX: I48.0 Paroxysmal atrial fibrillation (principal); E78.00 Pure hypercholesterolemia, unspecified; Z92.29 Personal history of other drug therapy
CPT/HCPCS: 36415; 84443; 94060; 94726; 94729

== ENCOUNTER 2022-09-11 21:31 | Emergency (ER) | payer MEDICARE, SELFPAY ==
[2022-09-11 21:32] VITALS: BP 146/49; PULSE 50; RESP 16; TEMP 36.4; O2SAT 98; BMI 26.1
--- NOTE | 2022-09-11 21:37 | RAD_ITS ---
INDICATION: INJURY EXAMINATION/TECHNIQUE: X-RAY - LEFT XR Shoulder Min 2 Views 3 VIEWS COMPARISON: None. RAD/Shoulder min 2 Views IMPRESSION: Left humeral neck impacted fracture without glenohumeral dislocation. Demineralized bones. Electronically Signed: Luis Eduardo Timmons MD at 21:51 EST ,
--- NOTE | 2022-09-11 21:49 | RAD_ITS ---
INDICATION: Trauma EXAMINATION/TECHNIQUE: X-RAY - LEFT XR Hip Unilateral with Pelvis when performed; 2-3 Views 3 VIEWS COMPARISON: 10/21/2021 FINDINGS: SOFT TISSUES: No soft tissue swelling or gas. No radiopaque foreign body. BONES/JOINTS: No acute fracture or subluxation. The pelvic ring appears intact. Left total hip arthroplasty in anatomic alignment without lucency to suggest loosening. RAD/HIP, UNI W/ Pelvis 2-3 Views IMPRESSION: No acute abnormal finding. Electronically Signed: Luis Eduardo Timmons MD at 22:28 EST ,
--- NOTE | 2022-09-11 22:09 | EX.ED.UPPERE ---
HPI History of Present Illness Chief Complaint: Upper Extremity Injury Informant: patient and family Narrative Narrative: And fell when she missed the last step. She landed on her left side. Denies hitting her head. She caught herself with her arm. She also hit her left hip slightly. Her hip does hurt a little bit when she is walking but she is able to walk relatively normally. She has had total hip replacement. She is on Xarelto. However she never hit her head has no headache and is acting normally per family. Her primary area of pain of the left shoulder. Rest makes it better and motion or palpation makes it worse. [facility] Medical History Arthritis Cardiology follow-up encounter Closed head injury with brief loss of consciousness COVID-19 (05/27/22) Diverticulosis Dyslipidemia Essential (primary) hypertension Gout High cholesterol History of edema History of pain when walking Hypertension Hypertensive emergency (07/08/20) Loss of hearing Non-smoker Nonobstructive atherosclerosis of coronary artery Nonsustained ventricular tachycardia Obesity Obstructive sleep apnea Paroxysmal atrial fibrillation Paroxysmal supraventricular tachycardia Sick sinus syndrome Syncope Thyroid nodule Wears glasses Home Medications rivaroxaban 20 mg tablet 20 mg PO QHS BLOOD THINNER #90 tabs 02/03/20 [Rx Last Taken 10/17/21] allopurinol 100 mg tablet 100 mg PO QHS 03/13/20 [History Last Taken 07/07/20] losartan 100 mg tablet 100 mg PO QHS blood pressure 07/08/20 [History Last Taken 07/07/20] metoprolol succinate 25 mg tablet,extended release 24 hr 25 mg PO Q OTHER DAY blood pressure #45 tabs 06/05/22 [Rx Last Taken Unknown] acetaminophen 500 mg tablet 1,000 mg PO Q8 PRN 06/12/22 [History Last Taken Unknown] amlodipine 5 mg tablet 5 mg PO QHS #90 tabs 07/14/22 [Rx Last Taken Unknown] atorvastatin 20 mg tablet 20 mg PO QHS #90 tabs 07/14/22 [Rx Last Taken Unknown] amiodarone 200 mg tablet 200 mg PO QHS heart rate #90 tabs 07/15/22 [Rx Last Taken Unknown] oxycodone-acetaminophen 5 mg-325 mg tablet (Percocet) 1 tab PO Q6H PRN pain 3 days #12 tabs 09/11/22 [Rx Last Taken Unknown] Allergy/AdvReac Type Severity Reaction Status Date / Time No Known Allergies Allergy Verified 09/11/22 21:34 Family History Mother Colon cancer CAD (coronary artery disease) Surgical History History of cardioversion (05/06/19) History of left heart catheterization (07/10/20) History of left hip replacement (2019) History of loop recorder History of tonsillectomy History of tubal ligation Social History Smoking Status: Never smoker alcohol intake: never substance use type: does not use caffeine: No ROS ROS ED Constitutional Constitutional ED: Denies chills or fever(s) Eyes Eyes: Denies change in vision ENT ENT ED: Denies rhinorrhea or sore throat Cardiovascular Cardiovascular: Reports other Details: Patient's heart rate is little slow here but she has no symptoms of this. Her fall was mechanical and not syncopal. ; Denies chest pain, palpitations or racing heartbeat Respiratory/Chest Respiratory/Chest: Denies cough or dyspnea Gastrointestinal Gastrointestinal: Denies abdominal pain, nausea or vomiting Musculoskeletal Musculoskeletal: Reports other Details: Left shoulder pain and slight left hip pain. ; Denies back pain or neck pain Integumentary Denies Abrasions or rash Neurologic Neurologic: Denies headache(s), paresthesias or weakness Hematologic/Lymphatic Hematologic/Lymphatic: Reports easy bleeding and easy bruising Allergic/Immunologic Allergic/Immunologic ED: Denies urticaria EXAM Physical Exam Const Vital Signs: 09/11/22 21:32 Temperature 97.5 F L Temperature Source Temporal Pulse Rate 50 L Respiratory Rate 16 Blood Pressure 146/49 H Blood Pressure Mean 81 Pulse Ox 98 Oxygen Delivery Method Room Air Positive well nourished and well developed General Appearance ED: well developed and NAD HEENT Reports moist mucous membranes HEENT Narrative: There is no visible or palpable swelling contusions or abrasions on her scalp. normocephalic and atraumatic; Negative for trauma Eyes EOMs intact bilaterally Neck full ROM General: Negative for tenderness Chest Wall inspection of chest normal and palpation of chest normal Resp normal respiratory effort and clear to auscultation bilaterally Effort and Inspection: Negative for pain with movement Auscultation: Negative for rales, rhonchi or wheezes Cardio regular rate and regular rhythm GI non-tender and non-distended Back/Spine no CVA tenderness Back/Spine Narrative: There is no cervical thoracic or lumbar spinal tenderness. No paraspinal tenderness. Extremity normal to inspection Extremity Narrative: I do not see any bruising yet at this point. However, I am suspicious this may develop because of her medications. Left hip only hurts if she bears weight. Motion does not seem to bother it. Range of motion is good. Left shoulder has tenderness mostly at the proximal humerus. Does not appear to be dislocated. No peripheral numbness tingling. Neuro Sensorium / Orientation: alert Psych mental status grossly normal Skin General Skin Exam: Negative for petechiae Lesions: no lesions Rashes: no rashes MDM MDM MDM Narrative Medical decision making narrative: X-rays verify left proximal humeral fracture. Hip is okay. Patient will be placed in a sling and swath pain meds. I explained she does need to follow-up. She will need repeat imaging to see if her position is okay or she may need surgery. We will have her ring removed from her left finger. Radiography Diagnostic Testing: Clinical Impression(s) from Imaging Studies Shoulder X-Ray 09/11/22 21:37 IMPRESSION: Left humeral neck impacted fracture without glenohumeral dislocation. Demineralized bones. Electronically Signed: Luis Eduardo Timmons MD at 21:51 EST Reading Location ID and State: [facility] / [place] Tel , Service support , Three-view x-rays of the left hip looked at by me and read by radiology showed no acute process. There is prior arthroplasty done.Three-view x-rays of the left hip looked at by me and read by radiology showed no acute process. There is prior arthroplasty. You asked for any of the left shoulder looked at by me and read by radiology does show a proximal humeral fracture with some angulation. Discharge Plan Triage Chief Complaint: Upper Extremity Injury ED Provider: Yo Pantoja Dx/Rx/DC Orders Clinical Impression: Closed fracture of left proximal humerus, Accidental fall on or from stairs or steps, Contusion of hip, left Instructions: Understanding a Humerus Fracture Prescriptions: New oxycodone-acetaminophen [Percocet] 5-325 mg tablet 1 tab PO Q6H PRN (Reason: pain) 3 Days Qty: 12 0RF No Action allopurinol 100 mg tablet 100 mg PO QHS Label Comments: TAKE 1 TABLET BY MOUTH ONCE DAILY FOR GOUT acetaminophen 500 mg tablet 1,000 mg PO Q8 PRN losartan 100 MG tablet 100 mg PO QHS rivaroxaban 20 mg tablet 20 mg PO QHS Qty: 90 3RF metoprolol succinate 25 mg tablet extended release 24 hr 25 mg PO Q OTHER DAY Qty: 45 3RF amlodipine 5 mg tablet 5 mg PO QHS Qty: 90 3RF atorvastatin 20 mg tablet 20 mg PO QHS Qty: 90 3RF amiodarone 200 mg tablet 200 mg PO QHS Qty: 90 3RF Primary Care Provider: Emmett Becker Referrals: Emmett Becker MD [Primary Care Provider] - Juan Jacobsen DO [Med Staff - Active Staff] - As soon as possible Disposition Disposition: Home, Self Care
[2022-09-11] MEDS: HYDROcodone Bitartrate/Apap 5/325 Tablet PO (22:34)
== END 2022-09-11 23:55 | disposition home or self-care (01) ==
PROVIDERS: Emergency Provider Emergency Medicine; PCP Family Medicine; Visit Provider Emergency Medicine
DX: S42.202A Unspecified fracture of upper end of left humerus, initial encounter for closed fracture (principal); I25.10 Atherosclerotic heart disease of native coronary artery without angina pectoris; I10 Essential (primary) hypertension; E78.5 Hyperlipidemia, unspecified; Z79.01 Long term (current) use of anticoagulants; S70.02XA Contusion of left hip, initial encounter; Z96.642 Presence of left artificial hip joint; W10.9XXA Fall (on) (from) unspecified stairs and steps, initial encounter
CPT/HCPCS: 73030; 73502; 99283

== ENCOUNTER 2022-09-16 08:18 | Observation (INO) | payer MEDICARE, SELFPAY ==
[2022-09-16] VITALS (11 sets, daily range): BP systolic 120–159; BP diastolic 55–88; PULSE 59–71; RESP 14–18; TEMP 36.6–37.3; O2SAT 96–100; BMI 28.2; BMI 28.0
--- NOTE | 2022-09-16 08:26 | EKG12_ITS ---
Test Reason : RIGHT SIDED EKG Blood Pressure : / mmHG Vent. Rate : 062 BPM Atrial Rate : 062 BPM P-R Int : 200 ms QRS Dur : 076 ms QT Int : 424 ms P-R-T Axes : 095 002 -08 degrees QTc Int : 430 ms Normal sinus rhythm Anterolateral infarct , age undetermined , cannot be excluded Abnormal ECG Confirmed by KAVEH MARIE, RAHEL ([id number]), editor publications JR HERBERT ([id number]) on 09/17/2022 9:46:48 AM Referred By: Confirmed By:RAHEL LINN MD
--- NOTE | 2022-09-16 08:26 | CT_ITS ---
STUDY: CT BRAIN WITHOUT CONTRAST REASON FOR EXAM: Female, 77 years old. altered mental RADIATION DOSAGE (If Supplied By Facility): CTDIvol = ( 44.99 ) mGy, DLP = ( 796.11 ) mGycm TECHNIQUE: Transaxial CT imaging of the brain was performed without administration of intravenous contrast material. Individualized dose optimization techniques were used for this CT. COMPARISON: 05/27/2022 FINDINGS: Normal soft tissue structures. Normal calvarium. Normal size ventricles and extra-axial spaces for the patient''s age. Normal white matter tracts of the cerebral hemispheres. Normal basal ganglia and thalami. Normal brainstem. Normal cerebellum. There is no intracranial hemorrhage. There are no findings of an acute ischemic infarction. Normal visualized paranasal sinuses. CT/Brain/Head without Contrast IMPRESSION: Normal unenhanced CT scan of the brain. Electronically Signed: Deric aCntu MD at 9:14 EST ,
--- NOTE | 2022-09-16 08:27 | EX.ED.DYSGE1 ---
HPI History of Present Illness Chief Complaint: Confusion Informant: patient, spouse/S.O. and EMS Onset/Context/Timing Onset: Yesterday Context: Gradual Onset Timing: Continuous Quality: Confused/disoriented Current Severity: Moderate Maximum Severity: Moderate Worsened by: Nothing Relieved by: Nothing. Occasional pain medication due to recent arm fracture. Associated Symptoms Associated Symptoms: None Narrative Narrative: Patient had a mechanical fall a couple days ago and broke her left proximal humerus she has been in a sling. Yesterday she started getting confused, so family sent her by EMS here for further evaluation today. She denies any pain or symptoms right now. If she moves her left arm, her shoulder hurts where her fracture is. She is in a sling. She is on rivaroxaban for stroke prophylaxis due to a history of atrial fibrillation. She thinks she remembers her fall but not completely, she is unsure if she hit her head or not. Later the patient's and son both came and are both individual historians for this case. Since the patient fell 3-4 days ago, she has been getting more confused with regards to hallucinating. She is picking at things that are not there and talking about them. This is new. She has had symptoms over the last year or 2 that sound like gradually progressively worsening dementia although it has not been formally diagnosed or treated with pharmacologic's. She has never had hallucinations like this. Since she broke her arm 3 or 4 days ago, she has needed 24-hour care at home, and now is getting out of bed repeatedly overnight despite trying to redirect her, and not knowing that she was at her own home. Family states that they indeed are looking for placement here, at least if temporary. [facility] Medical History Arthritis Cardiology follow-up encounter Closed head injury with brief loss of consciousness COVID-19 (05/27/22) Diverticulosis Dyslipidemia Essential (primary) hypertension Gout High cholesterol History of edema History of pain when walking Hypertension Hypertensive emergency (07/08/20) Loss of hearing Non-smoker Nonobstructive atherosclerosis of coronary artery Nonsustained ventricular tachycardia Obesity Obstructive sleep apnea Paroxysmal atrial fibrillation Paroxysmal supraventricular tachycardia Sick sinus syndrome Syncope Thyroid nodule Wears glasses Home Medications rivaroxaban 20 mg tablet 20 mg PO QHS BLOOD THINNER #90 tabs 02/03/20 [Rx Last Taken 09/15/22] allopurinol 100 mg tablet 100 mg PO QHS gout 03/13/20 [History Last Taken 09/15/22] losartan 100 mg tablet 100 mg PO DAILY blood pressure 07/08/20 [History Last Taken 09/16/22] metoprolol succinate 25 mg tablet,extended release 24 hr 25 mg PO Q OTHER DAY blood pressure #45 tabs 06/05/22 [Rx Last Taken 09/15/22] acetaminophen 500 mg tablet 1,000 mg PO Q8 PRN Pain 06/12/22 [History Last Taken 09/16/22] oxycodone-acetaminophen 5 mg-325 mg tablet (Percocet) 1 tab PO Q6H PRN pain 3 days #12 tabs 09/11/22 [Rx Last Taken Unknown] amiodarone 200 mg tablet 200 mg PO DAILY heart rate 09/16/22 [History Last Taken 09/16/22] amlodipine 5 mg tablet 5 mg PO DAILY AFIB 09/16/22 [History Last Taken 09/16/22] atorvastatin 20 mg tablet 20 mg PO QHS CHOLESTEROL 09/16/22 [History Last Taken 09/15/22] tramadol 50 mg tablet 50 mg PO Q6H PRN Pain 09/16/22 [History Last Taken Unknown] Allergy/AdvReac Type Severity Reaction Status Date / Time No Known Allergies Allergy Verified 09/11/22 21:34 Family History Mother Colon cancer CAD (coronary artery disease) Surgical History History of cardioversion (05/06/19) History of left heart catheterization (07/10/20) History of left hip replacement (2019) History of loop recorder History of tonsillectomy History of tubal ligation Social History Smoking Status: Never smoker alcohol intake: never substance use type: does not use caffeine: No ROS ROS ED Constitutional Constitutional ED: Denies chills or fever(s) Eyes Eyes: Denies change in vision or diplopia ENT ENT ED: Denies ear pain, epistaxis, facial pain or rhinorrhea Cardiovascular Cardiovascular: Denies chest pain or palpitations Respiratory/Chest Respiratory/Chest: Reports cough; Denies dyspnea Gastrointestinal Gastrointestinal: Denies abdominal pain, diarrhea, melena, nausea or vomiting Genitourinary Genitourinary ED: Denies dysuria or hematuria Musculoskeletal Musculoskeletal: Reports extremity pain; Denies back pain, myalgias or neck pain Integumentary Denies abscess, Abrasions, laceration or rash Neurologic Neurologic: Reports confusion; Denies headache(s), paresthesias or weakness EXAM Physical Exam Const Vital Signs: 09/16/22 08:19 09/16/22 08:25 09/16/22 08:32 Temperature 97.8 F 97.8 F Temperature Source Temporal Temporal Pulse Rate 66 63 Respiratory Rate 18 18 Respiratory Effort Normal Non-Labored Respiratory Pattern Normal Blood Pressure 120/56 L 120/56 L Blood Pressure Mean 77 77 Pulse Ox 98 98 Oxygen Delivery Method Room Air Room Air 09/16/22 09:25 Temperature 99.1 F Temperature Source Oral Pulse Rate 60 Respiratory Rate 15 Respiratory Effort Respiratory Pattern Blood Pressure 144/55 H Blood Pressure Mean 84 Pulse Ox 96 Oxygen Delivery Method Room Air Positive well nourished and well developed General Appearance ED: well developed and NAD HEENT Reports TM's clear and nasal mucous membranes and turbinates normal HEENT Narrative: No signs of head trauma. atraumatic Face and Sinus: Negative for facial tenderness Tympanic Membrane ED: Yes TM's clear Eyes PERRL and EOMs intact bilaterally Visual Acuity: other Other Details: no entrapment or pain with extraocular movements Neck full ROM and supple General: Negative for tenderness Chest Wall inspection of chest normal and palpation of chest normal Chest: symmetrical chest wall rise; Negative for crepitus or tenderness Resp normal respiratory effort and clear to auscultation bilaterally Percussion: other equal BS bilat Cardio no murmurs Rate: regular rate Rhythm: regular rhythm GI normal to inspection, nondistended, normoactive bowel sounds, soft to palpation and non-tender Back/Spine normal ROM Cervical Spine: Negative for cervical spine tenderness Thoracic Spine / Upper Back: Negative for thoracic spinal tenderness Lumbar Spine / Lower Back: Negative for lumbar spinal tenderness Extremity normal to inspection Extremity Narrative: Left proximal humerus tenderness. No deformity. In sling, neurovascularly intact distally. All other extremities move fully without pain to any joint. Mild symmetric edema to both lower extremities to the mid shins. No signs of cellulitis or palpable cords or calf tenderness. General Extremety ED: Yes edema and tenderness General Extremity: edema Neuro oriented x3, CN's II-XII intact bilaterally, moves all extremities, no focal motor deficits and no sensory deficits noted Neuro Narrative: Is oriented x3, however cannot remember all details symptoms recent events. A little disoriented according to family. Desiree Coma Scale: document GCS findings Spontaneous Obeys Commands Oriented 15 Sensorium / Orientation: awake and alert Psych mental status grossly normal Skin no wounds Lesions: no lesions Rashes: no rashes MDM MDM MDM Narrative Medical decision making narrative: I reviewed all the patient's labs. Cardiac work-up is unremarkable, she does have a history of A. fib and appears to be in a sinus rhythm right now although artifact makes it difficult to interpret. CT of the head was obtained, my interpretation of the CT agrees with that of the radiologist. It is negative for any acute. Chest x-ray 1 view on my interpretation negative as well. Radiology agrees. They do see the left proximal humerus fracture which is already known. The rest of her work-up is unremarkable except her urine which shows some soft signs of infection, this will be sent for culture and treated empirically with Rocephin, family is looking for placement at least short-term. Discussed with hospitalist for inpatient admission. Of note, the patient had her first appointment with orthopedics as an outpatient today which she is missing. She was supposed to see Dr. Penny. Lab Data Attestation: I reviewed the patient's lab results. Labs: Laboratory Results - last 24 hr 09/16/22 09/16/22 09/16/22 08:30 08:30 09:35 WBC 8.6 RBC 3.82 L Hgb 12.6 Hct 35.1 L MCV 91.9 MCH 33.0 H MCHC 35.9 RDW Std Deviation 41.8 RDW Coeff of Sammie 12.4 Plt Count 275 MPV 9.5 Immature Gran % (Auto) 0.300 Neut % (Auto) 80.8 H Lymph % (Auto) 10.7 L Isabella % (Auto) 7.9 Eos % (Auto) 0.1 Baso % (Auto) 0.2 Absolute Neuts (auto) 7.0 Absolute Lymphs (auto) 0.92 Nucleated RBC % 0 Sodium 132 L Potassium 3.5 Chloride 97 L Carbon Dioxide 28.0 Anion Gap 7 BUN 14 Creatinine 0.87 Estim Creat Clear Calc 50.69 Est GFR (MDRD) Af Amer 81 Est GFR (MDRD) Non-Af 67 BUN/Creatinine Ratio 16.0 Glucose 140 H Calcium 8.7 Troponin I High Sens 13 Urine Color Yellow Urine Clarity Clear Urine pH 7.0 Ur Specific [place] 1.005 Urine Protein Negative Urine Glucose (UA) Normal Urine Ketones Negative Urine Occult Blood 150 H Urine Nitrite Negative Urine Bilirubin Negative Urine Urobilinogen Normal Ur Leukocyte Esterase 100 H Urine RBC 0-5 SEEN Urine WBC 5-10 SEEN Ur Squamous Epith Cells 10-25 SEEN Urine Bacteria 2+ Urine Mucus 0 SEEN Radiography Diagnostic Testing: Clinical Impression(s) from Imaging Studies Brain CT 09/16/22 08:26 IMPRESSION: Normal unenhanced CT scan of the brain. Electronically Signed: Deric Cantu MD at 9:14 EST , Chest X-Ray 09/16/22 08:50 IMPRESSION: No acute cardiopulmonary process identified. Fracture of the left humeral neck. Electronically Signed: Celena Varela MD at 9:03 EST , Rhythm Strip Rhythm Strip: Sinus Rhythm Rate: 60 Ectopy: None EKG Initial EKG: Attestation: I personally reviewed and interpreted this EKG as follows: Interpretation: Sinus Rhythm, No Acute Injury Pattern and Non-Specific ST Changes Discharge Plan Triage Chief Complaint: Confusion ED Provider: Timothy Torres Dx/Rx/DC Orders Clinical Impression: Acute encephalopathy, Paroxysmal atrial fibrillation, Closed fracture of proximal end of left humerus, Anticoagulated Prescriptions: No Action allopurinol 100 mg tablet 100 mg PO QHS Label Comments: TAKE 1 TABLET BY MOUTH ONCE DAILY FOR GOUT acetaminophen 500 mg tablet 1,000 mg PO Q8 PRN (Reason: Pain) losartan 100 MG tablet 100 mg PO DAILY oxycodone-acetaminophen [Percocet] 5-325 mg tablet 1 tab PO Q6H PRN (Reason: pain) 3 Days Qty: 12 0RF tramadol 50 mg tablet 50 mg PO Q6H PRN (Reason: Pain) Label Comments: TAKE 1 TABLET BY MOUTH EVERY 6 HOURS NEEDED FOR PAIN atorvastatin 20 mg tablet 20 mg PO QHS amiodarone 200 mg tablet 200 mg PO DAILY amlodipine 5 mg tablet 5 mg PO DAILY rivaroxaban 20 mg tablet 20 mg PO QHS Qty: 90 3RF metoprolol succinate 25 mg tablet extended release 24 hr 25 mg PO Q OTHER DAY Qty: 45 3RF Primary Care Provider: Emmett Becker Referrals: Emmett Becker MD [Primary Care Provider] - Disposition Disposition: Acute Care [facility]
[2022-09-16 08:39] LABS: Absolute Lymphocyte Count 0.92 X10^3/uL (0.83-4.51); Basophil# 0.02 X10^3/uL; Basophil% 0.2 % (0-1); Eosinophil# 0.01 X10^3/uL; Eosinophils% 0.1 % (0-5); Hematocrit 35.1 % (37-47); Hemoglobin 12.6 g/dL (12.0-15.0); Lymphocyte # 0.92 X10^3/ul (0.83-4.51); Lymphocyte % 10.7 % (19-41); Mean Corp Hgb Conc 35.9 g/dL (32-36); Mean Corpuscular Volume 91.9 fL (81-99); Mean Platelet Vol. 9.5 fl (6.2-12.0); Monocyte# 0.68 X10^3/uL; Monocyte% 7.9 % (0-10); NRBC Flagged by Analyzer 0 % (0-5); Neutrophil # 6.97 X10^3/uL (2.7-7.7); Neutrophil % 80.8 % (47-70); Platelet Count 275 K/mm3 (150-450); RBC Distribution Width CV 12.4 % (11.6-14.6); RBC Distribution Width SD 41.8 fl (35.1-43.9); Red Blood Count 3.82 M/mm3 (4.2-5.4); White Blood Count 8.6 K/mm3 (4.4-11.0)
--- NOTE | 2022-09-16 08:50 | RAD_ITS ---
HISTORY: cough, confusion. TECHNIQUE: XR Chest 2 Views. COMPARISON: 05/27/2022. FINDINGS: CARDIOMEDIASTINAL BORDERS: Cardiac silhouette within normal limits in size. Mediastinal contour unremarkable with calcification of the aortic knob. Implanted loop recorder again noted. LUNGS: Radiographically clear. PLEURA: No pleural effusion or pneumothorax seen. OSSEOUS STRUCTURES: Fracture of the left humeral neck. RAD/Chest PA and Lateral IMPRESSION: No acute cardiopulmonary process identified. Fracture of the left humeral neck. Electronically Signed: Celena Varela MD at 9:03 EST ,
[2022-09-16 08:56] LABS: Anion Gap 7 (5-15); BUN 14 mg/dL (7-18); Calcium,Total 8.7 mg/dL (8.5-10.1); Chloride 97 mmol/L (98-107); Creatinine, Serum 0.87 mg/dL (0.55-1.02); EST Glomerular Filtration Rate 67 mL/min (>60); Est Glom Filt Rate - Afr Amer 81 mL/min (>60); Estimated Creatinine Clearance 50.69 ml/min; Glucose 140 mg/dL (74-106); Potassium 3.5 mmol/L (3.5-5.1); Sodium Level 132 mmol/L (136-145); Troponin-I HS 13 pg/mL (3.0-54.0)
[2022-09-16 09:38] LABS: Color, Urine Yellow (Yellow); Glucose, Dipstick Normal (Normal); Ketone-Dipstick Negative (Negative); Leukocyte Esterase-Dipstick 100 /ul (Negative); Mucous, Urine 0 SEEN /hpf (<or=2+); Nitrite-Dipstick Negative (Negative); Occult Blood-Urine 150 /ul (Negative); Protein-Dipstick Negative (Negative); Specific Gravity, Urine 1.005 (1.002-1.030); Urine Bilirubin Dipstick Negative (Negative); Urine Clarity Clear (Clear); Urine Urobilinogen Normal (Normal)
[2022-09-16 09:54] LABS: Bacteria 2+ /hpf (None Seen); Red Blood Cells-Urine 0-5 SEEN /hpf (0-5); Squamous Epithelial Cells - UA 10-25 SEEN /hpf (5-10); White Blood Cells 5-10 SEEN /hpf (0-5)
--- NOTE | 2022-09-16 10:41 | PCM.HP.STD ---
HPI - General General Date of Admission: 09/16/22 Date of Service: 09/16/22 Chief Complaint: Confusion and hallucination for last 2 days HPI Narrative CRISTINA SOTO, is a 77 F with history of dementia at fall on past on 09/11/2022 and had left humerus fracture. She did not had head injury. At that time she came to ED and was found to have left humerus neck impacted fracture without glenohumeral dislocation. Impacted fracture she also had left hip x-ray which did not show any acute process. Patient was put on sling and swath and was given prescription for Percocet. She had bilateral hip replacement in the past. In the past she had confusion and hallucination with oxycodone and hydrocodone during hip replacement surgeries. As per the , pain medication was changed to tramadol but she still had confusion and hallucination. Patient had hallucination, confusion. She was seeing her grandson sitting in the chair in ED although he was not there. She was also seeing butterflies last evening. Denies any fever or chills. She does not have burning micturition but increased frequency urgency for last 2 days. She had nocturia 4 times yesterday night. In ED, UA shows LE 100, WBC 5-10 cells, 2+ bacteria. No leukocytosis. CT head without contrast was done which was reported normal. Chest x-ray evaluation reviewed and shows no acute cardiopulmonary process and fracture of left humerus neck. Twelve-lead EKG individually reviewed. 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 [facility] Medical History Arthritis Cardiology follow-up encounter Closed head injury with brief loss of consciousness COVID-19 (05/27/22) Diverticulosis Dyslipidemia Essential (primary) hypertension Gout High cholesterol History of edema History of pain when walking Hypertension Hypertensive emergency (07/08/20) Loss of hearing Non-smoker Nonobstructive atherosclerosis of coronary artery Nonsustained ventricular tachycardia Obesity Obstructive sleep apnea Paroxysmal atrial fibrillation Paroxysmal supraventricular tachycardia Sick sinus syndrome Syncope Thyroid nodule Wears glasses Home Medications rivaroxaban 20 mg tablet 20 mg PO QHS BLOOD THINNER #90 tabs 02/03/20 [Rx Last Taken 09/15/22] allopurinol 100 mg tablet 100 mg PO QHS gout 03/13/20 [History Last Taken 09/15/22] losartan 100 mg tablet 100 mg PO DAILY blood pressure 07/08/20 [History Last Taken 09/16/22] metoprolol succinate 25 mg tablet,extended release 24 hr 25 mg PO Q OTHER DAY blood pressure #45 tabs 06/05/22 [Rx Last Taken 09/15/22] acetaminophen 500 mg tablet 1,000 mg PO Q8 PRN Pain 06/12/22 [History Last Taken 09/16/22] oxycodone-acetaminophen 5 mg-325 mg tablet (Percocet) 1 tab PO Q6H PRN pain 3 days #12 tabs 09/11/22 [Rx Last Taken Unknown] amiodarone 200 mg tablet 200 mg PO DAILY heart rate 09/16/22 [History Last Taken 09/16/22] amlodipine 5 mg tablet 5 mg PO DAILY AFIB 09/16/22 [History Last Taken 09/16/22] atorvastatin 20 mg tablet 20 mg PO QHS CHOLESTEROL 09/16/22 [History Last Taken 09/15/22] tramadol 50 mg tablet 50 mg PO Q6H PRN Pain 09/16/22 [History Last Taken Unknown] Allergy/AdvReac Type Severity Reaction Status Date / Time No Known Allergies Allergy Verified 09/11/22 21:34 Family History Mother Colon cancer CAD (coronary artery disease) Surgical History History of cardioversion (05/06/19) History of left heart catheterization (07/10/20) History of left hip replacement (2018) History of loop recorder History of tonsillectomy History of tubal ligation Social History Smoking Status: Never smoker alcohol intake: never substance use type: does not use caffeine: No ROS ROS Narrative 14 system ROS are incomplete as patient is confused and hallucinating. This was mainly reviewed with patient's near the bedside. Constitutional: No fever. Left arm pain. HEENT: Reports systems reviewed and no addt'l complaints, except as documented Respiratory/Chest: Denies chest pain, shortness of breath at rest or with exertion Gastrointestinal: Denies coffee ground emesis, hematemesis or vomiting Genitourinary: As mentioned in HPI Musculoskeletal: Left arm/shoulder pain. Left upper extremity in sling and swath. Neurologic: Denies seizure-like activity. No acute weakness or numbness tingling. skin: No ulcer. No rash Endocrinology: Could not be obtained. Hematologic/Lymphatic: Could not be obtained. Vital Signs Vital Signs Vital Signs: 09/16/22 08:19 09/16/22 08:25 09/16/22 08:32 Temperature 97.8 F 97.8 F Temperature Source Temporal Temporal Pulse Rate 66 63 Respiratory Rate 18 18 Respiratory Effort Normal Non-Labored Respiratory Pattern Normal Blood Pressure 120/56 L 120/56 L Blood Pressure Mean 77 77 Pulse Ox 98 98 Oxygen Delivery Method Room Air Room Air 09/16/22 09:25 Temperature 99.1 F Temperature Source Oral Pulse Rate 60 Respiratory Rate 15 Respiratory Effort Respiratory Pattern Blood Pressure 144/55 H Blood Pressure Mean 84 Pulse Ox 96 Oxygen Delivery Method Room Air Weight Weight: 174 lb 13.225 oz Body Mass Index (BMI) 28.2 Physical Exam Narrative General: Confused, disoriented to time and place. Pleasant and quiet. HEENT: Atraumatic, PERRLA, EOMI, Normocephalic Oral: Oral mucosa moist. No Gingival or Mucosal Lesions/ Ulcerations Neck: Supple, No JVD, Negative Carotid Bruits Lungs: Air entry diminished in bilateral lung bases. No crepitation/rhonchi Cardiovascular: Regular rate, Regular Rhythm, Normal S1, Normal S2, No murmurs Abdomen: Bowel Sounds Present, Soft, Non Tender, Non-Distended : No renal angle tenderness. No suprapubic tenderness. Extremities: No edema, Capillary Refill Less than 3 Seconds Skin: No rashes, No breakdown Musculoskeletal: Left arm is mildly tender. LUE sling and swath. Neurological: Cranial nerves II-XII grossly intact, DTR 2+/4. No acute neurological deficit. Psych/Mental Status: Flat affect, hallucination Results Lab / Micro Data Result Diagrams: 09/16/22 08:30 09/16/22 08:30 Labs: Laboratory Results - last 24 hr 09/16/22 08:30: WBC 8.6, RBC 3.82 L, Hgb 12.6, Hct 35.1 L, MCV 91.9, MCH 33.0 H, MCHC 35.9, RDW Std Deviation 41.8, RDW Coeff of Sammie 12.4, Plt Count 275, MPV 9.5, Immature Gran % (Auto) 0.300, Neut % (Auto) 80.8 H, Lymph % (Auto) 10.7 L, Peach % (Auto) 7.9, Eos % (Auto) 0.1, Baso % (Auto) 0.2, Absolute Neuts (auto) 7.0, Absolute Lymphs (auto) 0.92, Nucleated RBC % 0 09/16/22 08:30: Sodium 132 L, Potassium 3.5, Chloride 97 L, Carbon Dioxide 28.0, Anion Gap 7, BUN 14, Creatinine 0.87, Estim Creat Clear Calc 50.69, Est GFR (MDRD) Af Amer 81, Est GFR (MDRD) Non-Af 67, BUN/Creatinine Ratio 16.0, Glucose 140 H, Calcium 8.7, Troponin I High Sens 13 09/16/22 09:35: Urine Color Yellow, Urine Clarity Clear, Urine pH 7.0, Ur Specific [place] 1.005, Urine Protein Negative, Urine Glucose (UA) Normal, Urine Ketones Negative, Urine Occult Blood 150 H, Urine Nitrite Negative, Urine Bilirubin Negative, Urine Urobilinogen Normal, Ur Leukocyte Esterase 100 H, Urine RBC 0-5 SEEN, Urine WBC 5-10 SEEN, Ur Squamous Epith Cells 10-25 SEEN, Urine Bacteria 2+, Urine Mucus 0 SEEN Micro: Microbiology 09/16/22 08:30 Nasal Secretion SARS-CoV-2 & FLU Antigen (Rapid) - Final Radiology Impression Brain CT 09/16/22 08:26 IMPRESSION: Normal unenhanced CT scan of the brain. Electronically Signed: Deric Cantu MD at 9:14 EST , Chest X-Ray 09/16/22 08:50 IMPRESSION: No acute cardiopulmonary process identified. Fracture of the left humeral neck. Electronically Signed: Celena Varela MD at 9:03 EST , Assessment & Plan Assessment/Plan (1) Acute encephalopathy: (2) Closed fracture of left proximal humerus: PLAN: Plan This is 77-year-old female is being admitted for further evaluation of change in mental status/acute encephalopathy 1. Acute encephalopathy multiple etiologies, most likely due to pain medication/UTI: Patient is being admitted as an observation status. IV fluid normal saline. We will restrict the use of pain medication only for severe pain and avoid if she is sleepy 2. Suspected UTI: UA shows WBC 5-10 cells, bacteria 2+. Urine culture pending. Empirically patient on IV ceftriaxone. 3. left humerus neck impacted fracture without glenohumeral dislocation most likely pathological due to osteoporosis with trivial fall: X-ray of left arm shows demineralization. Orthopedic surgeon Dr. Bynum consulted at the request of patient's . Currently on conservative management. 4. Paroxysmal A. fib on amiodarone: Continue amiodarone. Patient on Xarelto. 5. Hypertension: BP is normal. Continue home antihypertensive medication with holding parameters 6. Dyslipidemia: Patient on statin continued. 7. Nonobstructive atherosclerotic coronary artery disease: Patient follows Dr. Morrison. No acute chest pain or pressure. Patient on baby aspirin, metoprolol succinate and losartan continued 8. Other comorbidities include obstructive sleep apnea, gout: No acute issues VT prophylaxis, moderate risk: Patient on Xarelto Living will/advanced directive/end of life care: Patient doeshave living will or advanced directive. Her is the power of litigation attorney for health. Advanced directive features will discussed with patient's as patient is confused and disoriented. After discussion of benefits/risks procedures involved with full code, DNR CC arrest and DNR CC, the patient's opted for full code. Patient's 's want artificial life support including intubation, tube feed, ventilator and/chest compression, central venous catheter, vasopressor and DC shock if needed Total time spent in [id number] encounter in discussion of advanced directive 16 minutes. Total time of the visit including total time spent in counseling or coordination of care, (more than 50% of the total time, spent in obtaining medical information from nurses and other ancillary care providers,explaining to the patient about labs, imaging, diagnosis and management of active complex medical conditions), discussion with orthopedic surgeon, review of labs and imaging is 60 minutes. Microbiology Past 72 Hours 09/16/22 08:30 Nasal Secretion SARS-CoV-2 & FLU Antigen (Rapid) - Final Laboratory Results 09/16/22 08:30: WBC 8.6, RBC 3.82 L, Hgb 12.6, Hct 35.1 L, MCV 91.9, MCH 33.0 H, MCHC 35.9, RDW Std Deviation 41.8, RDW Coeff of Sammie 12.4, Plt Count 275, MPV 9.5, Immature Gran % (Auto) 0.300, Neut % (Auto) 80.8 H, Lymph % (Auto) 10.7 L, Peach % (Auto) 7.9, Eos % (Auto) 0.1, Baso % (Auto) 0.2, Absolute Neuts (auto) 7.0, Absolute Lymphs (auto) 0.92, Nucleated RBC % 0 09/16/22 08:30: Sodium 132 L, Potassium 3.5, Chloride 97 L, Carbon Dioxide 28.0, Anion Gap 7, BUN 14, Creatinine 0.87, Estim Creat Clear Calc 50.69, Est GFR (MDRD) Af Amer 81, Est GFR (MDRD) Non-Af 67, BUN/Creatinine Ratio 16.0, Glucose 140 H, Calcium 8.7, Troponin I High Sens 13 09/16/22 08:30: Phosphorus 3.5, Magnesium 2.2 09/16/22 09:35: Urine Color Yellow, Urine Clarity Clear, Urine pH 7.0, Ur Specific [place] 1.005, Urine Protein Negative, Urine Glucose (UA) Normal, Urine Ketones Negative, Urine Occult Blood 150 H, Urine Nitrite Negative, Urine Bilirubin Negative, Urine Urobilinogen Normal, Ur Leukocyte Esterase 100 H, Urine RBC 0-5 SEEN, Urine WBC 5-10 SEEN, Ur Squamous Epith Cells 10-25 SEEN, Urine Bacteria 2+, Urine Mucus 0 SEEN Charges/Coding Visit Charges Inpatient E&M: 64096 Init Hosp L2
[2022-09-16] MEDS: Ceftriaxone 1 GM/50 ML BAG IV (10:56)
[2022-09-16] MEDS: 0.9% Normal Saline 1,000 ML 100 ML IV (13:49)
[2022-09-16 13:54] LABS: Magnesium 2.2 mg/dL (1.6-2.6); Phosphorus 3.5 mg/dL (2.5-4.9)
[2022-09-16] MEDS: Acetaminophen 500 MG Tablet 1000 MG PO ×2 (13:59→21:13)
[2022-09-16] MEDS: Enoxaparin 40 MG/0.4 ML Syringe SC (13:59)
--- NOTE | 2022-09-16 17:43 | CON.PCM.OR_ITS ---
HPI Consult Data Date of Consult: 09/16/22 HPI Narrative Reason for Consultation: Left shoulder pain HPI Narrative: CRISTINA SOTO, is a 77 F with significant dementia who presents with left shoulder pain and confusion. Patient's states that on evening they were walking down the bleachers from a basketball game when she fell. She has significant dementia and requires 24-hour monitoring. She was initially placed in a sling and discharged from the hospital for outpatient follow-up with my partner who did both of her hip replacements. She had significant confusion over the weekend. Initially they thought it was her tramadol as she has a history of confusion with pain medications after surgery however, after 24 hours of discontinuing the tramadol and using only Tylenol she continued to have hallucinations. Hallucinations were described in the H&P as patient was seeing individuals and objects that were not there even in the emergency department. She is largely unable to answer any questions for me and history comes primarily from her . She did present with a ring on her left hand which was pr omptly removed and given to her . REPLACED BY [facility] Medical History Arthritis Cardiology follow-up encounter Closed head injury with brief loss of consciousness COVID-19 (05/27/22) Diverticulosis Dyslipidemia Essential (primary) hypertension Gout High cholesterol History of edema History of pain when walking Hypertension Hypertensive emergency (07/08/20) Loss of hearing Non-smoker Nonobstructive atherosclerosis of coronary artery Nonsustained ventricular tachycardia Obesity Obstructive sleep apnea Paroxysmal atrial fibrillation Paroxysmal supraventricular tachycardia Sick sinus syndrome Syncope Thyroid nodule Wears glasses Home Medications rivaroxaban 20 mg tablet 20 mg PO QHS BLOOD THINNER #90 tabs 02/03/20 [Rx Last Taken 09/15/22] allopurinol 100 mg tablet 100 mg PO QHS gout 03/13/20 [History Last Taken 09/15/22] losartan 100 mg tablet 100 mg PO DAILY blood pressure 07/08/20 [History Last Taken 09/16/22] metoprolol succinate 25 mg tablet,extended release 24 hr 25 mg PO Q OTHER DAY blood pressure #45 tabs 06/05/22 [Rx Last Taken 09/15/22] acetaminophen 500 mg tablet 1,000 mg PO Q8 PRN Pain 06/12/22 [History Last Taken 09/16/22] oxycodone-acetaminophen 5 mg-325 mg tablet (Percocet) 1 tab PO Q6H PRN pain 3 days #12 tabs 09/11/22 [Rx Last Taken Unknown] amiodarone 200 mg tablet 200 mg PO DAILY heart rate 09/16/22 [History Last Taken 09/16/22] amlodipine 5 mg tablet 5 mg PO DAILY AFIB 09/16/22 [History Last Taken 09/16/22] atorvastatin 20 mg tablet 20 mg PO QHS CHOLESTEROL 09/16/22 [History Last Taken 09/15/22] tramadol 50 mg tablet 50 mg PO Q6H PRN Pain 09/16/22 [History Last Taken Unknown] Allergy/AdvReac Type Severity Reaction Status Date / Time No Known Allergies Allergy Verified 09/11/22 21:34 Family History Mother Colon cancer CAD (coronary artery disease) Surgical History History of cardioversion (05/06/19) History of left heart catheterization (07/10/20) History of left hip replacement (2018) History of loop recorder History of tonsillectomy History of tubal ligation Social History Smoking Status: Never smoker alcohol intake: never substance use type: does not use caffeine: No ROS Review of Systems ROS Unobtainable: due to encephalopathy Vital Signs Vital Signs Vital Signs: 09/16/22 08:19 09/16/22 08:25 09/16/22 08:32 Temperature 97.8 F 97.8 F Temperature Source Temporal Temporal Pulse Rate 66 63 Respiratory Rate 18 18 Respiratory Effort Normal Non-Labored Respiratory Pattern Normal Blood Pressure 120/56 L 120/56 L Blood Pressure Mean 77 77 Blood Pressure Source Blood Pressure Position Blood Pressure Location Pulse Ox 98 98 Oxygen Delivery Method Room Air Room Air 09/16/22 09:25 09/16/22 10:59 09/16/22 10:00 Temperature 99.1 F 98.3 F 98.7 F Temperature Source Oral Temporal Temporal Pulse Rate 60 66 59 L Respiratory Rate 15 18 16 Respiratory Effort Respiratory Pattern Blood Pressure 144/55 H 130/56 H 144/60 H Blood Pressure Mean 84 80 88 Blood Pressure Source Blood Pressure Position Blood Pressure Location Pulse Ox 96 96 97 Oxygen Delivery Method Room Air Room Air Room Air 09/16/22 11:00 09/16/22 12:27 09/16/22 12:29 Temperature 98.1 F 98.7 F 98.7 F Temperature Source Temporal Oral Oral Pulse Rate 60 66 62 Respiratory Rate 17 17 14 Respiratory Effort Respiratory Pattern Blood Pressure 138/88 H 159/59 H 153/59 H Blood Pressure Mean 104 92 90 Blood Pressure Source Monitor Blood Pressure Position Semi-Fowlers Blood Pressure Location Right Arm Pulse Ox 96 96 97 Oxygen Delivery Method Room Air Room Air Room Air 09/16/22 15:10 09/16/22 16:33 Temperature 98.5 F Temperature Source Oral Pulse Rate 67 Respiratory Rate 16 Respiratory Effort Respiratory Pattern Blood Pressure 147/64 H Blood Pressure Mean 91 Blood Pressure Source Monitor Blood Pressure Position Semi-Fowlers Blood Pressure Location Right Arm Pulse Ox 97 100 Oxygen Delivery Method Room Air Room Air Weight Weight: 174 lb 13.225 oz Body Mass Index (BMI) 28.0 Physical Exam Narrative Physical examination is limited secondary to patient's mental status Const Constitutional Narrative: Patient is alert however not oriented cooperative HEENT normocephalic Eyes PERRL Neck no JVD Resp normal respiratory effort Cardio Cardio Narrative: Regular pulse rate GI non-distended Extremity Extremity Narrative: Left upper extremity: Tenderness palpation and pain with left shoulder motion. Exam limited secondary to pain. Patient gives thumbs up, okay sign and cross his fingers. There was a ring on her ring finger which was removed. She has minimal hand swelling at this time fortunately. Moderate ecchymosis of the upper extremity. Skin no wounds Psych Thought Content: hallucination(s) Medical Records Data Attestation: I reviewed the patient's medical records Lab / Micro Data Result Diagrams: 09/16/22 08:30 09/16/22 08:30 Labs: Laboratory Results - last 24 hr 09/16/22 08:30: WBC 8.6, RBC 3.82 L, Hgb 12.6, Hct 35.1 L, MCV 91.9, MCH 33.0 H, MCHC 35.9, RDW Std Deviation 41.8, RDW Coeff of Sammie 12.4, Plt Count 275, MPV 9.5, Immature Gran % (Auto) 0.300, Neut % (Auto) 80.8 H, Lymph % (Auto) 10.7 L, [place] % (Auto) 7.9, Eos % (Auto) 0.1, Baso % (Auto) 0.2, Absolute Neuts (auto) 7.0, Absolute Lymphs (auto) 0.92, Nucleated RBC % 0 09/16/22 08:30: Sodium 132 L, Potassium 3.5, Chloride 97 L, Carbon Dioxide 28.0, Anion Gap 7, BUN 14, Creatinine 0.87, Estim Creat Clear Calc 50.69, Est GFR (MDRD) Af Amer 81, Est GFR (MDRD) Non-Af 67, BUN/Creatinine Ratio 16.0, Glucose 140 H, Calcium 8.7, Troponin I High Sens 13 09/16/22 08:30: Phosphorus 3.5, Magnesium 2.2 09/16/22 09:35: Urine Color Yellow, Urine Clarity Clear, Urine pH 7.0, Ur Specific [place] 1.005, Urine Protein Negative, Urine Glucose (UA) Normal, Urine Ketones Negative, Urine Occult Blood 150 H, Urine Nitrite Negative, Urine Bilirubin Negative, Urine Urobilinogen Normal, Ur Leukocyte Esterase 100 H, Urine RBC 0-5 SEEN, Urine WBC 5-10 SEEN, Ur Squamous Epith Cells 10-25 SEEN, Urine Bacteria 2+, Urine Mucus 0 SEEN Micro: Microbiology 09/16/22 08:30 Nasal Secretion SARS-CoV-2 & FLU Antigen (Rapid) - Final Rhythm Strip Rhythm Strip: Sinus Rhythm Rate: 60 Ectopy: None Radiology Impression Brain CT 09/16/22 08:26 IMPRESSION: Normal unenhanced CT scan of the brain. Electronically Signed: Deric Cantu MD at 9:14 EST , Chest X-Ray 09/16/22 08:50 IMPRESSION: No acute cardiopulmonary process identified. Fracture of the left humeral neck. Electronically Signed: Celena Varela MD at 9:03 EST , Previous bilateral hip x-rays show no acute fractures, bilateral total hip replacements. Previous left shoulder x-rays were reviewed showing a 2 part proximal humerus fracture with moderate posterior displacement overall impacted fracture with valgus impaction. Assessment & Plan Assessment/Plan (1) Closed fracture of left proximal humerus: PLAN: Natural history of the disease process and treatment options were discussed the patient and more importantly her who is her power of research attorney. Her is her primary caregiver and she has minimal cognition to understand the conversation at this time to the conversation was directed to her . POA was given the opportunity to ask questions and all questions were answered to the greatest of my ability. Treatment options were discussed including operative and nonoperative intervention. Based on patient's medical history and her significant encephalopathy at this time no surgery was recommended. Based on her significant history of dementia we have agreed that nonoperative intervention if at all possible was going to be the best course for this patient. Based on the impaction of the fracture I feel confident we can proceed with nonoperative intervention. We did discuss potential operative intervention should patient have overall change in her health or fracture alignment that may allow for surgery to improve her overall outcome. Patient is low demand at this time. I did discuss that her mental status and dementia will significantly affect her ability to participate in rehabilitation. At this time we will need to follow her closely with radiographs. Patient should follow-up in the office in 2 to 3 weeks for follow-up x-rays. In the meantime she should wear her sling and swath and remove only for bathing and ADLs. Please contact orthopedics for any further questions [facility] Office: (2) Acute encephalopathy: PLAN: Per primary service.
--- NOTE | 2022-09-16 17:55 | NURSING ---
Bed exit alarming. Pt trying to get out of bed by by her side telling her to stay in the bed. informed this RN and Luis RN that he is concerned for patients safety. She will try to get up on her own and shes just going to fall. states that their daughter and himself have been staying with pt to make sure she does not fall. Mr. Guillaume requesting a sitter. She needs someone to sit in here with her to make sure she does not get up on her own This RN informed Mr. Guillaume that we would move pt closer to the nurses station in 205 (only room open that is close) and will consult with the Nursing Nuclear Monitoring Technician in getting his a sitter. This Nurse spoke with Crystal, Nursing Nuclear Monitoring Technician and informed of the above.
[2022-09-16] MEDS: Rivaroxaban 20 MG Tablet PO (18:31)
[2022-09-16] MEDS: QUEtiapine 25 MG Tablet PO (20:13)
[2022-09-16] MEDS: traMADol 50 MG Tablet PO (21:12)
[2022-09-16] MEDS: Allopurinol 100 MG Tablet PO (21:13)
[2022-09-16] MEDS: Atorvastatin Calcium 20 MG Tablet PO (21:13)
--- NOTE | 2022-09-16 23:10 | NURSING ---
pt restless, confused, resistive to care, attempted to pull the pt up and reposition and she got combative and mad, hitting and grabbing staff i feel the ultram may have increased her confusion.
[2022-09-17] VITALS (9 sets, daily range): BP systolic 129–155; BP diastolic 59–79; PULSE 61–71; RESP 16; TEMP 2.8–37.1; O2SAT 94–99
[2022-09-17] MEDS: 0.9% Normal Saline 1,000 ML 100 ML IV (00:41)
[2022-09-17] MEDS: OLANZapine 5 MG/TAB TAB.RAPDIS 10 MG PO (00:41)
[2022-09-17] MEDS: Acetaminophen 500 MG Tablet 1000 MG PO ×3 (06:00→21:31)
[2022-09-17 06:10] LABS: Absolute Lymphocyte Count 1.26 X10^3/uL (0.83-4.51); Absolute Neutrophil Count 4.7 X10^3/uL (2.0-7.7); Basophil# 0.01 X10^3/uL; Basophil% 0.1 % (0-1); Eosinophil# 0.03 X10^3/uL; Eosinophils% 0.4 % (0-5); Hematocrit 34.6 % (37-47); Hemoglobin 11.4 g/dL (12.0-15.0); Lymphocyte # 1.26 X10^3/ul (0.83-4.51); Lymphocyte % 18.4 % (19-41); Mean Corp Hgb Conc 32.9 g/dL (32-36); Mean Corpuscular Hgb 31.8 pg (27.0-32.0); Mean Corpuscular Volume 96.4 fL (81-99); Mean Platelet Vol. 10.1 fl (6.2-12.0); Monocyte# 0.83 X10^3/uL; Monocyte% 12.1 % (0-10); NRBC Flagged by Analyzer 0 % (0-5); Neutrophil % 68.6 % (47-70); Platelet Count 275 K/mm3 (150-450); RBC Distribution Width CV 12.7 % (11.6-14.6); RBC Distribution Width SD 44.7 fl (35.1-43.9); Red Blood Count 3.59 M/mm3 (4.2-5.4); White Blood Count 6.9 K/mm3 (4.4-11.0)
[2022-09-17 06:44] LABS: Anion Gap 5 (5-15); BUN 15 mg/dL (7-18); BUN/Creat Ratio 22.7 RATIO (10-20); Calcium,Total 8.2 mg/dL (8.5-10.1); Chloride 107 mmol/L (98-107); Creatinine, Serum 0.66 mg/dL (0.55-1.02); EST Glomerular Filtration Rate 92 mL/min (>60); Est Glom Filt Rate - Afr Amer 112 mL/min (>60); Glucose 93 mg/dL (74-106); Potassium 3.2 mmol/L (3.5-5.1); Sodium Level 139 mmol/L (136-145); Thyroid Stim Hormone (TSH) 0.44 uIU/mL (0.358-3.74)
[2022-09-17] MEDS: amLODIPine 5 MG Tablet PO (10:23)
[2022-09-17] MEDS: Metoprolol(XL)Succ 25 MG Tablet PO (10:23)
[2022-09-17] MEDS: Amiodarone 200 MG Tablet PO (10:24)
[2022-09-17] MEDS: Losartan Potassium 100 MG Tablet PO (10:24)
--- NOTE | 2022-09-17 15:00 | CASEMGMT ---
Addendum entered by Kaylene Lim 09/17/22 19:07: 3:30 PM Call received from Kim. She states her 1st choices of SNF is [facility]. She was made aware they are full. She states her 2nd choices is [facility], but like RN DIOGO to talk w/her father to discuss his preferences. Original Note: RN CM STARCH COOKER CM to room to meet with patient for initial transition planning/care coordination assessment. RN DIOGO introduced self and role at [facility].?? Pt resting in bed in no distress at this time. Has been having confusion. Dtr's, Carmita and Taty, @ bedside and info obtained from them.? Care providers, pharmacy, and demographics verified/updated at this time. PCP: Rosita Specialists: ortho. Prince Jacobsen-cardiology Preferred Pharmacy: [facility] Insurance: [employer] [facility] Prescription Benefit: yes Living Will/HPOA: none LNOK: -Jenny. 3 dtrs: Carmita Posey, Kim Living Arrangements: patient lives with in a 2 story home with bed and bath on first floor. 2 steps to enter the home. Dtr's state prior to fall/injury, pt was mostly independent. Since then, she is needing help w/everything. Dtr's report she has been very unsteady when walking, not listening to instructions, not calling for help, and needing 24/7 supervision. Transportation: DME: Patient states she has raised toilet, cane, grab bars, and walker at home. HHC/SHF: No previous HHC or SNF. Dtr's state they have talking things over w/other sister, Kim, and w/their father and they feel pt would benefit from SNF. Dtr's request RN DIOGO speak w/their sister, Kim, re: preferences. Questions answered. Call placed to Kim. No answer. Will attempt at a later time. Plan: SNF. Jaycee RAO RN, CM
--- NOTE | 2022-09-17 15:44 | NURSING ---
temp is in celsius.
[2022-09-17] MEDS: Rivaroxaban 20 MG Tablet PO (16:36)
--- NOTE | 2022-09-17 17:45 | CASEMGMT ---
Addendum entered by Kaylene Lim 09/17/22 17:54: is now in room. Intro role of CM to and BECERRIL form explained re: Observation status for treatment of fall and confusion. Explained hospitalization will be paid per her insurance policy for Outpatient billing and condition will continue to be evaluated for Inpt necessity. Also let know that [facility] sends paper in the billing packet with their phone number if questions arise. Discussed Pharmacy section of BECERRIL form and self administered medication guideline. verbalizes understanding and does not have further questions. Form signed, copy made and placed in chart, and original given to . provided w/list of SNF choices, as stated below. He was made aware his dtr, Kim, requested TCU as 1st choice but made aware TCU is full and unable to accept pt. He is aware Kim's 2nd choice is [facility] and he states that is his 2nd choice as well. He was asked to review list and choose 2 other preferences and SW will f/u with him tomorrow. He voices understanding. Original Note: ZACHARY LIND NOTE: To room to review BECERRIL w/pt's . Dtr @ bedside. She state her father is driving on his way back to the hospital. ZACHARY LIND to attempt to complete BECERRIL w/ tomorrow. A list of SNF providers including quality and resource use data and consistent with the patient?s preferred geographic region, medical needs, and insurance network were provided from the [employer] Guide given to dtr. She states she will give to pt's to review. SW to f/u with tomorrow re: SNF preferences. She was made aware to have him choose top 3 preferences. Jaycee RAO RN, CM
--- NOTE | 2022-09-17 18:45 | PCM.PN.HOSP ---
Subjective Subjective Patient was seen and examined today, she remains confused but she is not agitated. Patient's daughter question whether she had a urinary tract infection-on review of the patient's admission data, it appears that she might have a cystitis, I placed her on Keflex today. Patient's white count is not elevated, and she is afebrile. We are currently awaiting placement for the patient in a long-term facility for ongoing care. Objective Data Objective Data Vital Signs: Vital Signs Temp Pulse Resp BP Pulse Ox O2 Del Method 37.1 F L 62 16 133/59 H 98 Room Air 09/17/22 14:35 09/17/22 14:35 09/17/22 14:42 09/17/22 14:35 09/17/22 14:35 09/17/22 14:35 Oxygen Delivery Method Room Air Weight: 79.3 kg Body Mass Index (BMI) 28.0 Intake & Output: Intake and Output for Last 24 Hours 09/15/22 09/16/22 09/17/22 23:59 23:59 23:59 Intake Total 1050 / 1050 1000 / 1000 Output Total 1200 / 1600 650 / 650 Balance -150 / -550 350 / 350 Lab / Micro Data Result Diagrams: 09/17/22 05:20 09/17/22 05:20 Labs: Laboratory Results - last 24 hr 09/17/22 05:20: WBC 6.9, RBC 3.59 L, Hgb 11.4 L, Hct 34.6 L, MCV 96.4, MCH 31.8, MCHC 32.9 D, RDW Std Deviation 44.7 H, RDW Coeff of Sammie 12.7, Plt Count 275, MPV 10.1, Immature Gran % (Auto) 0.400, Neut % (Auto) 68.6, Lymph % (Auto) 18.4 L, [place] % (Auto) 12.1 H, Eos % (Auto) 0.4, Baso % (Auto) 0.1, Absolute Neuts (auto) 4.7, Absolute Lymphs (auto) 1.26, Nucleated RBC % 0 09/17/22 05:20: Sodium 139, Potassium 3.2 L, Chloride 107, Carbon Dioxide 27.0, Anion Gap 5, BUN 15, Creatinine 0.66, Estim Creat Clear Calc 44.10, Est GFR (MDRD) Af Amer 112, Est GFR (MDRD) Non-Af 92, BUN/Creatinine Ratio 22.7 H, Glucose 93, Calcium 8.2 L, TSH 0.44 Micro: Microbiology 09/16/22 09:35 Urine, Clean Catch Urine Culture - Preliminary Gram Positive Cocci 09/16/22 08:30 Nasal Secretion SARS-CoV-2 & FLU Antigen (Rapid) - Final Rhythm Strip Rhythm Strip: Sinus Rhythm Rate: 60 Ectopy: None Physical Exam Const alert and no apparent distress Constitutional Narrative: Patient is alert but confused General Appearance: cooperative, well kempt and well developed Orientation / Consciousness: awake HEENT normocephalic, head/scalp atraumatic and moist oral mucous membranes Eyes PERRL, EOMs intact bilaterally and conjunctivae normal Neck supple, no JVD and thyroid normal General: trachea midline Resp normal respiratory effort, no retractions, no use of accessory muscles and clear to auscultation bilaterally Auscultation: Negative for rales, rhonchi or wheezes Cardio regular rate, regular rhythm, S1 normal heart sound, S2 normal heart sound, no murmurs, no rub and no gallops GI normal to inspection, nondistended, normoactive bowel sounds, soft to palpation, non-tender and non-distended Extremity no clubbing, cyanosis or edema Skin no rashes or lesions noted General Skin Exam: no breakdown Neuro CN's II-XII intact bilaterally, no focal motor deficits and no sensory deficits noted Sensorium / Orientation: awake and alert Psych Psych Narrative: Patient is alert but confused, affect is flat Assessment & Plan Assessment/Plan (1) Closed fracture of left proximal humerus: PLAN: Plan 1. Acute fracture of the left humeral head without glenohumeral dislocation-patient is currently in a sling and swath, she is being seen by PT and OT, no surgery was recommended by orthopedic surgery #2 acute debility secondary to #1 and dementia-patient will need placement in long-term facility #3 dementia-complicates care, management, recovery, and prognosis #4 acute cystitis-I placed the patient on Keflex today, gram-positive cocci it were read out on the patient's urinalysis, it is unknown whether she could have a strep organism #5 coronary artery disease-stable at this time #6 paroxysmal A. fib-patient is on amiodarone and Xarelto #7 hypercoagulable state secondary to #6-patient is on Xarelto #8 hyperlipidemia-patient is on a statin Total clinical time spent by myself addressing the patient's medical issues, reviewing all of the patient's data, and collaborating with the patient's care team: 35-minutes Charges/Coding Visit Charges Inpatient E&M: 56231 Subs Hosp L2
[2022-09-17] MEDS: Cephalexin 500 MG Capsule PO (21:31)
[2022-09-17] MEDS: Atorvastatin Calcium 20 MG Tablet PO (21:31)
[2022-09-17] MEDS: Allopurinol 100 MG Tablet PO (21:31)
[2022-09-18] VITALS (8 sets, daily range): BP systolic 127–149; BP diastolic 60–62; PULSE 54–92; RESP 16; TEMP 36.6–37; O2SAT 95–99
[2022-09-18] MEDS: 0.9% Saline Lock 10 ML Syringe IV (06:31)
[2022-09-18] MEDS: Cephalexin 500 MG Capsule PO (06:31)
[2022-09-18] MEDS: Acetaminophen 500 MG Tablet 1000 MG PO ×3 (06:32→21:03)
--- NOTE | 2022-09-18 09:23 | PCM.PN.HOSP ---
Subjective Subjective Doing well, no issues overnight. She does have a left proximal humerus fracture and they have elected nonoperative treatments Objective Data Objective Data Vital Signs: Vital Signs Temp Pulse Resp BP Pulse Ox O2 Del Method 98.0 F 54 L 16 141/60 H 95 Room Air 09/18/22 03:30 09/18/22 03:30 09/18/22 03:30 09/18/22 03:30 09/18/22 07:31 09/18/22 07:31 Oxygen Delivery Method Room Air Weight: 174 lb 13.225 oz Body Mass Index (BMI) 28.0 Intake & Output: Intake and Output for Last 24 Hours 09/17/22 09/18/22 09/19/22 03:59 03:59 03:59 Intake Total 1050 / 1050 1000 / 1000 50 / 50 Output Total 1600 / 1600 250 / 250 Balance -550 / -550 750 / 750 50 / 50 Lab / Micro Data Result Diagrams: 09/17/22 05:20 09/17/22 05:20 Micro: Microbiology 09/16/22 09:35 Urine, Clean Catch Urine Culture - Preliminary Gram Positive Cocci 09/16/22 08:30 Nasal Secretion SARS-CoV-2 & FLU Antigen (Rapid) - Final Rhythm Strip Rhythm Strip: Sinus Rhythm Rate: 60 Ectopy: None Physical Exam Narrative General: Alert, oriented, Cooperative, No apparent distress HEENT: Atraumatic, PERRLA, EOMI, Normocephalic Oral: Moist Mucosa Neck: Supple, No JVD Lungs: Diminished, Normal air movement, No rhonchi, No wheeze, No rales Cardiovascular: Regular rate, Regular Rhythm, Normal S1, Normal S2, No murmurs Abdomen: Soft, Non Tender, Non-Distended, No Hepato-splenomegaly Extremities: No edema, Capillary Refill Less than 3 Seconds Skin: No rashes, No breakdown Musculoskeletal: Pain to palpation of her left shoulder Neurological: Moves all extremities, no sensory deficits noted Psych/Mental Status: Normal Affect, confused Assessment & Plan Assessment/Plan (1) Closed fracture of left proximal humerus: PLAN: Plan 1. Acute fracture of the left humeral head without glenohumeral dislocation/UTI with acute debility/dementia ? Continue with p.o. Keflex urine cultures are pending ? Continue with PT/OT for evaluation and placement ? Appreciate orthopedic surgery's assistance with her left humerus fracture, plan for nonoperative management she will need to follow-up in 2 to 3 weeks with orthopedic surgery continue with sling ? Plan disposition to SNF 2. CAD/A. fib/HTN/HLD ? Blood pressures are stable, continue with her home amiodarone as well as her home blood pressure medications ? Continue with her home Lipitor ? Continue Xarelto DVT: Xarelto Charges/Coding Visit Charges Inpatient E&M: 47008 Subs Hosp L2
[2022-09-18] MEDS: Amiodarone 200 MG Tablet PO (10:20)
[2022-09-18] MEDS: Losartan Potassium 100 MG Tablet PO (10:21)
[2022-09-18] MEDS: amLODIPine 5 MG Tablet PO (10:21)
--- NOTE | 2022-09-18 12:10 | CASEMGMT ---
SW Note SW was advised that plan for patient is SNF. SW reviewed notes. Patient's first choice was TCU and then [facility]. [facility]. PANKAJ sent email to Radha at [facility] regarding referral. PANKAJ met with patient's , Jenny. Jenny said that patient is doing better today and indicated that he feels that he can take patient home. Jenny said 24 hours ago I wouldn't have said that. Jenny said that patient is at baseline. Jenny said that patient is logical and that he feels comfortable taking her home. Jenny indicates he wants home health and his daughter works for home health and has that all arranged. PANKAJ asked patient's daughter's name and patient responded to that question with her daughter's last name. PANKAJ updated insulation cupola charger, Mary, and RN caring for the patient. Plan: managed care liaison will notify MD. Keira ANNE
--- NOTE | 2022-09-18 12:56 | CASEMGMT ---
Addendum entered by Tammie Clay 09/18/22 12:59: Received returned tc from [facility], they are able to accept pt for care. Original Note: RN DIOGO made aware by PANKAJ that pt is having [facility] to see her as her dtr works there. TC to Kimbreley at [facility], she states she is aware this referral is coming through but needs it to be official. Referral made, will await acceptance.
[2022-09-18] MEDS: AMOXICILLIN 500 MG CAPSULE PO ×2 (15:09→21:02)
[2022-09-18] MEDS: Rivaroxaban 20 MG Tablet PO (17:09)
[2022-09-18] MEDS: Atorvastatin Calcium 20 MG Tablet PO (21:03)
[2022-09-18] MEDS: Allopurinol 100 MG Tablet PO (21:03)
[2022-09-19 03:00] VITALS: BP 141/65; PULSE 61; RESP 16; TEMP 37.1; O2SAT 98
[2022-09-19 03:16] VITALS: BP 142/65; PULSE 61; RESP 16; TEMP 37.1; O2SAT 98
[2022-09-19 05:18] LABS: Anion Gap 7 (5-15); BUN 25 mg/dL (7-18); BUN/Creat Ratio 30.7 RATIO (10-20); Calcium,Total 7.9 mg/dL (8.5-10.1); Chloride 107 mmol/L (98-107); Creatinine, Serum 0.81 mg/dL (0.55-1.02); EST Glomerular Filtration Rate 72 mL/min (>60); Est Glom Filt Rate - Afr Amer 88 mL/min (>60); Estimated Creatinine Clearance 54.45 ml/min; Glucose 95 mg/dL (74-106); Potassium 3.5 mmol/L (3.5-5.1); Sodium Level 141 mmol/L (136-145)
[2022-09-19] MEDS: Acetaminophen 500 MG Tablet 1000 MG PO (05:23)
[2022-09-19] MEDS: AMOXICILLIN 500 MG CAPSULE PO (05:23)
[2022-09-19 08:53] VITALS: PULSE 62
[2022-09-19] MEDS: Losartan Potassium 100 MG Tablet PO (08:53)
[2022-09-19] MEDS: amLODIPine 5 MG Tablet PO (08:53)
[2022-09-19] MEDS: Amiodarone 200 MG Tablet PO (08:53)
[2022-09-19] MEDS: Metoprolol(XL)Succ 25 MG Tablet PO (08:53)
[2022-09-19 10:03] VITALS: BP 154/60; PULSE 62; RESP 14; TEMP 36.9; O2SAT 98
--- NOTE | 2022-09-19 10:33 | DCINST_ITS ---
Discharge Instructions Diet Discharge Diet: No restrictions Activity Discharge Activity: Return to Normal Activity Dressing / Incision Call your doctor if you observe: Fever of 101 or Higher, Shortness of breath, Dizziness, Fainting spells, Swelling in the ankles, Chest pain and Increased palpitations (irregular heartbeat) Follow Up Care Test Results: Test results from this visit will be discussed in further detail at your follow- up appointment, if applicable. Discharge Plan Admission Admit Date/Time: 09/16/22 10:40 Attending Provider: Dex Oliver Primary Care Provider: Emmett Becker Consulting Providers: Scottie Bynum ; Jim Coffey ; Emmett Mcnally Discharge Orders/Prescriptions Prescriptions: New amoxicillin 500 mg Capsule 500 mg PO Q8 5 Days Qty: 15 0RF Continued allopurinol 100 mg tablet 100 mg PO QHS Label Comments: TAKE 1 TABLET BY MOUTH ONCE DAILY FOR GOUT acetaminophen 500 mg tablet 1,000 mg PO Q8 PRN (Reason: Pain) losartan 100 MG tablet 100 mg PO DAILY oxycodone-acetaminophen [Percocet] 5-325 mg tablet 1 tab PO Q6H PRN (Reason: pain) 3 Days Qty: 12 0RF tramadol 50 mg tablet 50 mg PO Q6H PRN (Reason: Pain) Label Comments: TAKE 1 TABLET BY MOUTH EVERY 6 HOURS NEEDED FOR PAIN atorvastatin 20 mg tablet 20 mg PO QHS amiodarone 200 mg tablet 200 mg PO DAILY amlodipine 5 mg tablet 5 mg PO DAILY rivaroxaban 20 mg tablet 20 mg PO QHS Qty: 90 3RF metoprolol succinate 25 mg tablet extended release 24 hr 25 mg PO Q OTHER DAY Qty: 45 3RF Referrals / Follow Up: Emmett Becker MD [Primary Care Provider] - Within 1 Week Scottie Bynum MD [Med Staff - Active Staff] - Within 1 Month (For follow up shoulder xrays for her humerus fracture) Disposition Disposition (needs filled in before D/C Order can be placed): Home Health Service
--- NOTE | 2022-09-19 11:12 | CASEMGMT ---
Pt ready for dc. Notified Carmita at [facility] that pt will dc today. Plan to see pt tomorrow.
--- NOTE | 2022-09-19 17:23 | PCM.DC.SUM ---
Providers Date of Admission: 09/16/22 Primary Care Physician: Dr. Emmett Becker MD Consultations 09/16/22 15:14 Consult: Orthopedics Routine Consulting Provider: Scottie Bynum Reason for Consult: left humerus fracture EMERGENT Consult: No MD Notified: Yes Date Notified: 09/16/22 Time Notified: 15:14 Method of Notification: Answering Service Reason For Visit: fall, confusion Diagnosis Discharge Diagnosis (1) Closed fracture of left proximal humerus: Status: Acute Code(s): S42.202A - Unspecified fracture of upper end of left humerus, initial encounter for closed fracture Plan 1. Acute fracture of the left humeral head without glenohumeral dislocation/UTI with acute debility/dementia ? Continue with p.o. Keflex urine cultures are pending ? Continue with PT/OT for evaluation and placement ? Appreciate orthopedic surgery's assistance with her left humerus fracture, plan for nonoperative management she will need to follow-up in 2 to 3 weeks with orthopedic surgery continue with sling ? Plan disposition to SNF 2. CAD/A. fib/HTN/HLD ? Blood pressures are stable, continue with her home amiodarone as well as her home blood pressure medications ? Continue with her home Lipitor ? Continue Xarelto DVT: Xarelto Medications at Discharge Home Medications rivaroxaban 20 mg tablet 20 mg PO QHS BLOOD THINNER #90 tabs 02/03/20 allopurinol 100 mg tablet 100 mg PO QHS gout 03/13/20 losartan 100 mg tablet 100 mg PO DAILY blood pressure 07/08/20 metoprolol succinate 25 mg tablet,extended release 24 hr 25 mg PO Q OTHER DAY blood pressure #45 tabs 06/05/22 acetaminophen 500 mg tablet 1,000 mg PO Q8 PRN Pain 06/12/22 oxycodone-acetaminophen 5 mg-325 mg tablet (Percocet) 1 tab PO Q6H PRN pain 3 days #12 tabs 09/11/22 amiodarone 200 mg tablet 200 mg PO DAILY heart rate 09/16/22 amlodipine 5 mg tablet 5 mg PO DAILY AFIB 09/16/22 atorvastatin 20 mg tablet 20 mg PO QHS CHOLESTEROL 09/16/22 tramadol 50 mg tablet 50 mg PO Q6H PRN Pain 09/16/22 amoxicillin 500 mg capsule 500 mg PO Q8 5 days #15 caps 09/19/22 Hospital Course Operations None Procedures None Summary of Care Provided Minutes Spent on Discharge: 42 Hospital Course: Per HPI: CRISTINA SOTO, is a 77 F with history of dementia at fall on past on 09/11/2022 and had left humerus fracture.? She did not had head injury.? At that time she came to ED and was found to have left humerus neck impacted fracture without glenohumeral dislocation.? Impacted fracture she also had left hip x-ray which did not show any acute process.? Patient was put on sling and swath and was given prescription for Percocet.? She had bilateral hip replacement in the past.? In the past she had confusion and hallucination with oxycodone and hydrocodone during hip replacement surgeries.? As per the , pain medication was changed to tramadol? but she still had confusion and hallucination. Patient had hallucination, confusion.? She was seeing her grandson sitting in the chair in ED although he was not there.? She was also seeing butterflies last evening.? Denies any fever or chills.? She does not have burning micturition but increased frequency urgency for last 2 days.? She had nocturia 4 times yesterday night. In ED, UA shows LE 100, WBC 5-10 cells, 2+ bacteria.? No leukocytosis.? CT head without contrast was done which was reported normal.? Chest x-ray evaluation reviewed and shows no acute cardiopulmonary process and fracture of left humerus neck.? Twelve-lead EKG individually reviewed.? 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 Hospital Course: 1.? Acute fracture of the left humeral head without glenohumeral dislocation/UTI with acute debility/dementia ? Continue with amoxicillin 3 times daily for 5 more days to treat her Enterococcus UTI ? Continue with PT/OT for evaluation and placement ? Appreciate orthopedic surgery's assistance with her left humerus fracture, plan for nonoperative management she will need to follow-up in 2 to 3 weeks with orthopedic surgery continue with sling ? Her evaluated her and felt that he would be able to take care of her at home so she was discharged home today. I discussed with him the plan for discharge yesterday and he expressed understanding of the risk benefits of going home and was okay with taking her home. 2.? CAD/A. fib/HTN/HLD ? Blood pressures are stable, continue with her home amiodarone as well as her home blood pressure medications ? Continue with her home Lipitor ? Continue Xarelto Physical Exam Narrative General: Alert, oriented, Cooperative, No apparent distress HEENT: Atraumatic, PERRLA, EOMI, Normocephalic Oral: Moist Mucosa Neck: Supple, No JVD Lungs: Diminished, Normal air movement, No rhonchi, No wheeze, No rales Cardiovascular: Regular rate, Regular Rhythm, Normal S1, Normal S2, No murmurs Abdomen: Soft, Non Tender, Non-Distended, No Hepato-splenomegaly Extremities: No edema, Capillary Refill Less than 3 Seconds Skin: No rashes, No breakdown Musculoskeletal: Pain to palpation of her left shoulder Neurological: Moves all extremities, no sensory deficits noted Psych/Mental Status: Normal Affect, confused Weight / BMI Weight Weight: 174 lb 13.225 oz Body Mass Index (BMI) 28.0 ABG / Lab / Microbiology Data Result Diagrams: 09/17/22 05:20 09/19/22 04:12 Laboratory: Laboratory Results - last 24 hr 09/19/22 04:12: Sodium 141, Potassium 3.5, Chloride 107, Carbon Dioxide 27.0, Anion Gap 7, BUN 25 H, Creatinine 0.81, Estim Creat Clear Calc 54.45, Est GFR (MDRD) Af Amer 88, Est GFR (MDRD) Non-Af 72, BUN/Creatinine Ratio 30.7 H, Glucose 95, Calcium 7.9 L Microbiology: Microbiology 09/16/22 09:35 Urine, Clean Catch Urine Culture - Final Enterococcus gallinarum 09/16/22 08:30 Nasal Secretion SARS-CoV-2 & FLU Antigen (Rapid) - Final D/C Instructions Discharge Diet: No restrictions Call your doctor if you observe: Fever of 101 or Higher, Shortness of breath, Dizziness, Fainting spells, Swelling in the ankles, Chest pain and Increased palpitations (irregular heartbeat) Meaningful Use Info Meaningful Use Diagnoses (Choose all that apply): None applicable Discharge Plan Admission Admit Date/Time: 09/16/22 10:40 Attending Provider: Dex Oliver Primary Care Provider: Emmett Becker Consulting Providers: Scottie Bynum ; Jim Coffey ; Emmett Mcnally Discharge Orders/Prescriptions Prescriptions: New amoxicillin 500 mg Capsule 500 mg PO Q8 5 Days Qty: 15 0RF Continued allopurinol 100 mg tablet 100 mg PO QHS Label Comments: TAKE 1 TABLET BY MOUTH ONCE DAILY FOR GOUT acetaminophen 500 mg tablet 1,000 mg PO Q8 PRN (Reason: Pain) losartan 100 MG tablet 100 mg PO DAILY oxycodone-acetaminophen [Percocet] 5-325 mg tablet 1 tab PO Q6H PRN (Reason: pain) 3 Days Qty: 12 0RF tramadol 50 mg tablet 50 mg PO Q6H PRN (Reason: Pain) Label Comments: TAKE 1 TABLET BY MOUTH EVERY 6 HOURS NEEDED FOR PAIN atorvastatin 20 mg tablet 20 mg PO QHS amiodarone 200 mg tablet 200 mg PO DAILY amlodipine 5 mg tablet 5 mg PO DAILY rivaroxaban 20 mg tablet 20 mg PO QHS Qty: 90 3RF metoprolol succinate 25 mg tablet extended release 24 hr 25 mg PO Q OTHER DAY Qty: 45 3RF Referrals / Follow Up: Emmett Becker MD [Primary Care Provider] - Within 1 Week Scottie Bynum MD [Med Staff - Active Staff] - Within 1 Month (For follow up shoulder xrays for her humerus fracture) Disposition Disposition (needs filled in before D/C Order can be placed): Home Health Service Charges/Coding Visit Charges Inpatient E&M: 51109 Disch Hosp >30min
== END 2022-09-19 12:30 | disposition home health service (06) ==
LOC: ED 10:43 → MS3 12:00 → MS2 16:22
PROVIDERS: Admitting Provider Internal Medicine; Emergency Provider Emergency Medicine; PCP Family Medicine; Visit Provider Family Medicine
DX: S42.202A Unspecified fracture of upper end of left humerus, initial encounter for closed fracture (principal); F03.90 Unspecified dementia, unspecified severity, without behavioral disturbance, psychotic disturbance, mood disturbance, and anxiety; I48.0 Paroxysmal atrial fibrillation; G47.33 Obstructive sleep apnea (adult) (pediatric); R44.3 Hallucinations, unspecified; R53.81 Other malaise; M10.9 Gout, unspecified; I10 Essential (primary) hypertension; I25.10 Atherosclerotic heart disease of native coronary artery without angina pectoris; Z79.01 Long term (current) use of anticoagulants; Z86.16 Personal history of COVID-19; E78.00 Pure hypercholesterolemia, unspecified; G93.40 Encephalopathy, unspecified; N30.00 Acute cystitis without hematuria; Z79.899 Other long term (current) drug therapy; W10.8XXA Fall (on) (from) other stairs and steps, initial encounter; Y93.01 Activity, walking, marching and hiking; Y92.89 Other specified places as the place of occurrence of the external cause
CPT/HCPCS: 36415; 70450; 71046; 80048; 81001; 83735; 84100; 84443; 84484; 85025; 87077; 87086; 87088; 87186; 87428; 93005; 96361; 96365; 96372; 97116; 97162; 97166; 97530; 97535; 99221; 99285; J7030; J7040; A4216; G0378

== ENCOUNTER 2022-10-13 06:34 | Emergency (ER) | payer MEDICARE, SELFPAY ==
[2022-10-13 06:34] VITALS: BP 162/61
[2022-10-13 06:35] VITALS: PULSE 74; RESP 15; TEMP 35.7; O2SAT 98; BMI 26.5
--- NOTE | 2022-10-13 06:47 | RAD_ITS ---
EXAM: XR LEFT KNEE COMPLETE, 4 OR MORE VIEWS CLINICAL INDICATION: trauma TECHNIQUE: Four or more views of the left knee. This report was created using [employer] report generation technology. COMPARISON: None. FINDINGS: BONES/JOINTS: Moderate medial compartment joint space narrowing with marginal osteophytes. Moderate patellofemoral joint osteophytes. Moderate knee joint effusion. No acute fracture. No subluxation. Normal alignment. No sclerotic or destructive changes observed. SOFT TISSUES: Unremarkable. No soft tissue swelling or gas. No radiopaque foreign body. RAD/Knee 4 or More Views IMPRESSION: 1. Moderate degenerative changes patellofemoral joint and medial knee joint. 2. Moderate knee joint effusion. Electronically Signed: Juan Kahn MD at 7:16 EST ,
--- NOTE | 2022-10-13 06:47 | RAD_ITS ---
EXAM: XR PELVIS, 1 OR 2 VIEWS CLINICAL INDICATION: trauma TECHNIQUE: Frontal view of the pelvis. This report was created using [employer] report generation technology. COMPARISON: None. FINDINGS: BONES/JOINTS: Mild irregularity of the left-sided sacral arcuate foraminal lines. Bilateral total hip arthroplasty with prostheses in good alignment. . No destructive or sclerotic lesions. Note that overlapping bowel shadows may however obscure fine detail. Sacroiliac joints are unremarkable. No widening of the pubic symphysis. SOFT TISSUES: Unremarkable. No soft tissue swelling or gas. RAD/Pelvis 1 or 2 Views IMPRESSION: 1. Mild irregularity of the left-sided sacral arcuate foraminal lines. Findings are concerning for left sacral wing fracture. Consider CT scan for further evaluation. 2. Bilateral total hip arthroplasty with prostheses in good alignment. Electronically Signed: Juan Kahn MD at 7:22 EST ,
--- NOTE | 2022-10-13 06:51 | EDS_ITS ---
HPI HPI - Fall History of Present Illness Chief Complaint: Fall Informant: patient and spouse/S.O. Narrative Narrative: Patient presents with left knee pain after a fall last evening. She tells me that there were a lot of people over. There were children over. She was walking down the steps. At the bottom of the steps one of her feet just gave out and slipped and she landed on her left knee. She denies hitting her head or loss of consciousness. She was not syncopal. She has been feeling fine prior to this. Triage note says left knee and hip pain. She states is really only the knee that hurts and while she is laying down it does not hurt at all. It only hurts with weightbearing. She has been able to get up and walk on this since the injury. She is on Xarelto but is not having any notable bleeding. She has not had fevers or chills. A few days after a fall back in August/early September she had a UTI but she is not having any of the UTI symptoms now. Her then came in part way through her evaluation. He verifies her story. He states she has some mild baseline dementia but she is acting totally normal to him. She had a mechanical fall and she hurt her knee. Other than that she has been doing well recently. [facility] Medical History Arthritis Cardiology follow-up encounter Closed head injury with brief loss of consciousness COVID-19 (05/27/22) Diverticulosis Dyslipidemia Essential (primary) hypertension Gout High cholesterol History of edema History of pain when walking Hypertension Hypertensive emergency (07/08/20) Loss of hearing Non-smoker Nonobstructive atherosclerosis of coronary artery Nonsustained ventricular tachycardia Obesity Obstructive sleep apnea Paroxysmal atrial fibrillation Paroxysmal supraventricular tachycardia Sick sinus syndrome Syncope Thyroid nodule Wears glasses Home Medications rivaroxaban 20 mg tablet 20 mg PO QHS BLOOD THINNER #90 tabs 02/03/20 [Rx Last Taken 09/15/22] allopurinol 100 mg tablet 100 mg PO QHS gout 03/13/20 [History Last Taken 09/15/22] losartan 100 mg tablet 100 mg PO DAILY blood pressure 07/08/20 [History Last Taken 09/16/22] metoprolol succinate 25 mg tablet,extended release 24 hr 25 mg PO Q OTHER DAY blood pressure #45 tabs 06/05/22 [Rx Last Taken 09/15/22] acetaminophen 500 mg tablet 1,000 mg PO Q8 PRN Pain 06/12/22 [History Last Taken 09/16/22] oxycodone-acetaminophen 5 mg-325 mg tablet (Percocet) 1 tab PO Q6H PRN pain 3 days #12 tabs 09/11/22 [Rx Last Taken Unknown] amiodarone 200 mg tablet 200 mg PO DAILY heart rate 09/16/22 [History Last Taken 09/16/22] amlodipine 5 mg tablet 5 mg PO DAILY AFIB 09/16/22 [History Last Taken 09/16/22] atorvastatin 20 mg tablet 20 mg PO QHS CHOLESTEROL 09/16/22 [History Last Taken 09/15/22] tramadol 50 mg tablet 50 mg PO Q6H PRN Pain 09/16/22 [History Last Taken Unknown] amoxicillin 500 mg capsule 500 mg PO Q8 5 days #15 caps 09/19/22 [Rx Last Taken Unknown] Allergy/AdvReac Type Severity Reaction Status Date / Time No Known Allergies Allergy Verified 10/13/22 06:39 Family History Mother Colon cancer CAD (coronary artery disease) Surgical History History of cardioversion (05/06/19) History of left heart catheterization (07/10/20) History of left hip replacement (2019) History of loop recorder History of tonsillectomy History of tubal ligation Social History Smoking Status: Never smoker alcohol intake: never substance use type: does not use caffeine: No ROS ROS ED Constitutional Constitutional ED: Denies chills, fever(s) or subjective Eyes Eyes: Denies change in vision ENT ENT ED: Denies sore throat Cardiovascular Cardiovascular: Denies chest pain, palpitations or racing heartbeat Respiratory/Chest Respiratory/Chest: Denies cough or dyspnea Gastrointestinal Gastrointestinal: Denies abdominal pain, diarrhea, melena, nausea or vomiting Genitourinary Genitourinary ED: Denies dysuria, hematuria or urinary frequency Musculoskeletal Musculoskeletal: Reports arthralgias; Denies back pain or neck pain Integumentary Denies Abrasions or rash Neurologic Neurologic: Denies headache(s), paresthesias or weakness Hematologic/Lymphatic Hematologic/Lymphatic: Reports easy bleeding and easy bruising Allergic/Immunologic Allergic/Immunologic ED: Denies urticaria EXAM Physical Exam Narrative Exam Narrative: Patient is awake alert no acute distress. I do note a sling on her left arm. This was broken back in August and she actually has an appointment with her orthopedic surgeon today at 830. HEENT: I looked through her hair and do not see any bruising or contusions or tender areas. No bruising on the face. Mucous membranes are moist. Neck: No tenderness or pain with range of motion Chest clear to auscultation bilaterally. No chest wall tenderness. Heart is regular I do not hear murmur. Abdomen is soft and nontender. I feel no mass. shows no suprapubic or CVA tenderness. Back: No tenderness along cervical thoracic or lumbar spine. Extremities I am not getting any pain with compression of the pelvis or pain with motion of the hips. But it sounds like she had told nursing or someone that she may have had hip pain before. She is denying it now. Her exam is really normal. There is also no shortening or rotation. She does not appear to have a small amount of ecchymosis on the anterior inferior lateral aspect of her left knee. But her extensor mechanism is intact. No deformity noted. No effusion noted. No distal swelling. Neuro: Patient is alert oriented appropriate and at baseline also per . Skin: Mild bruising at the left knee as above but no pallor or jaundice. Const Vital Signs: 10/13/22 06:35 10/13/22 06:34 10/13/22 06:40 Temperature 96.2 F L Temperature Source Temporal Pulse Rate 74 Respiratory Rate 15 Respiratory Effort Normal Respiratory Depth Normal Respiratory Pattern Normal Blood Pressure 162/61 H Blood Pressure Mean 94 Pulse Ox 98 Oxygen Delivery Method Room Air MDM MDM MDM Narrative Medical decision making narrative: My independent interpretation of 5 views of her left knee show significant arthritic changes but no acute fracture. Final reading by radiology is degenerative changes and moderate knee effusion. My independent interpretation a single AP pelvis x-ray shows bilateral hip replacements. I did not see definitive fracture but there is suspicion of 1 per radiology. They also had suspicion of heterotropic bone growth at the greater t rochanter and could not rule out a fracture. CT recommended. These have been ordered. Radiography Diagnostic Testing: Clinical Impression(s) from Imaging Studies Knee X-Ray 10/13/22 06:47 IMPRESSION: 1. Moderate degenerative changes patellofemoral joint and medial knee joint. 2. Moderate knee joint effusion. Electronically Signed: Juan Kahn MD at 7:16 EST , Pelvis X-Ray 10/13/22 06:47 IMPRESSION: 1. Mild irregularity of the left-sided sacral arcuate foraminal lines. Findings are concerning for left sacral wing fracture. Consider CT scan for further evaluation. 2. Bilateral total hip arthroplasty with prostheses in good alignment. Electronically Signed: Juan Kahn MD at 7:22 EST , Femur X-Ray 10/13/22 07:12 IMPRESSION: Heterotopic bone adjacent to the left greater trochanter. I cannot completely exclude a fracture of the greater trochanter. Consider CT for further evaluation. Electronically Signed: Juan Kahn MD at 7:38 EST , Discharge Plan Triage Chief Complaint: Fall ED Provider: Yo Pantoja Dx/Rx/DC Orders Clinical Impression: Fall at home Prescriptions: No Action allopurinol 100 mg tablet 100 mg PO QHS Label Comments: TAKE 1 TABLET BY MOUTH ONCE DAILY FOR GOUT acetaminophen 500 mg tablet 1,000 mg PO Q8 PRN (Reason: Pain) losartan 100 MG tablet 100 mg PO DAILY oxycodone-acetaminophen [Percocet] 5-325 mg tablet 1 tab PO Q6H PRN (Reason: pain) 3 Days Qty: 12 0RF tramadol 50 mg tablet 50 mg PO Q6H PRN (Reason: Pain) Label Comments: TAKE 1 TABLET BY MOUTH EVERY 6 HOURS NEEDED FOR PAIN atorvastatin 20 mg tablet 20 mg PO QHS amiodarone 200 mg tablet 200 mg PO DAILY amlodipine 5 mg tablet 5 mg PO DAILY amoxicillin 500 mg Capsule 500 mg PO Q8 5 Days Qty: 15 0RF rivaroxaban 20 mg tablet 20 mg PO QHS Qty: 90 3RF metoprolol succinate 25 mg tablet extended release 24 hr 25 mg PO Q OTHER DAY Qty: 45 3RF Primary Care Provider: Emmett Becker Referrals: Emmett Becker MD [Primary Care Provider] -
--- NOTE | 2022-10-13 07:12 | RAD_ITS ---
EXAM: XR LEFT FEMUR, 2 VIEWS CLINICAL INDICATION: trauma TECHNIQUE: Frontal and lateral views of the left femur. This report was created using [employer] report generation technology. COMPARISON: None. FINDINGS: BONES/JOINTS: Heterotopic bone adjacent to the left greater trochanter. I cannot completely exclude a fracture of the greater trochanter. Preservation of the joint space. No sclerotic or destructive changes observed. SOFT TISSUES: Unremarkable. No soft tissue swelling or gas. No radiopaque foreign body. RAD/Femur Min 2 Views IMPRESSION: Heterotopic bone adjacent to the left greater trochanter. I cannot completely exclude a fracture of the greater trochanter. Consider CT for further evaluation. Electronically Signed: Juan Kahn MD at 7:38 EST ,
--- NOTE | 2022-10-13 07:35 | CT_ITS ---
HISTORY: trauma. Fell onto left side last night and now has pain in hip and knee on that side. TECHNIQUE: Routine noncontrast bone CT protocol was performed of the pelvis. 2-D reformats were performed by the technologist. A radiation dose optimization technique was used for this scan. 531 images. COMPARISON: XR same day, 10/21/2021. FINDINGS: BONES:No acute fracture or abnormal periprosthetic lucency identified. Old avulsion injury of the left lesser trochanter noted. Mild spurring of the iliac crests and greater trochanters. JOINTS: Right hip arthroplasty in place without dislocation.[Left hip arthroplasty in place without dislocation. SOFT TISSUES: Mild subcutaneous edema over the left hip. Peripheral vascular disease noted. PELVIC CONTENTS: Mildly lobulated uterus, likely small leiomyoma. No significant free fluid in the pelvis. Colonic diverticulosis without perisigmoid stranding. CT/Pelvis without IV Contrast IMPRESSION: No evidence of acute fracture or dislocation the pelvis. Bilateral hip arthroplasties in place. Electronically Signed: Celena Varela MD at 8:21 EST ,
--- NOTE | 2022-10-13 07:42 | CT_ITS ---
HISTORY: Fell onto left side last night and now has pain in hip and knee on that side. TECHNIQUE: Multiple axial images were obtained of the head without intravenous contrast. A radiation dose optimization technique was used for this scan. 237 images. COMPARISON: 09/16/2022. FINDINGS: BRAIN PARENCHYMA: Multiple foci and zones of low attenuation in the bilateral cerebral white matter compatible with chronic small vessel ischemic gliosis. No acute intra-axial hemorrhage identified. CSF SPACES: Generalized volume loss. No midline shift or other significant mass effect. No acute extra-axial hemorrhage seen. OTHER: Intact calvarium. No significant air fluid levels in the paranasal sinuses or mastoid air cells. Unremarkable orbits. CT/Brain/Head without Contrast IMPRESSION: No acute intracranial process identified. Chronic involutional and white matter changes. Electronically Signed: Celena Varela MD at 8:12 EST ,
[2022-10-13 08:46] VITALS: BP 150/64; PULSE 51; O2SAT 99
--- NOTE | 2022-10-13 12:51 | CM.ED ---
Addendum entered by Keira Koch 10/13/22 15:51: PANKAJ spoke to Liliam from PT who came to the do the evaluation along with patient and patient's . voiced that he saw patient walk down the kinney today 2x. Patient's said that he has a wheelchair, chair lift and ramp. Children help with meals. Husbands concern was patient getting PT for her new knee injury and also assistance with bathing. PANKAJ called Home Health and spoke to Jocelin. PT has just closed for patient but OT was scheduled to close tomorrow. Jocelin will reach out to OT to see about if patient needs assistance with bathing and they will determine if they need a home health aide. Jocelin requested PT order. PANKAJ completed PT order and sent backline to Jocelin that the order was placed. PANKAJ updated patient and his . They voiced understanding and had no concerns about discharge. PANKAJ advised the hospital ED is open 06/04 for assessment if the plan, as it currently is, did not work. SW discussed CCN however, family voiced no interest in CCN at this time. Plan: Home with home health Keira ANNE Original Note: PANKAJ met with patient and her . voiced concern that he did not know what to do in regards to caring for patiandrea. He voiced that he felt comfortable caring for patient at home with her shoulder but now had concerns regarding her knee. said that his son in law will bring a ramp and wheelchair. Patient has a lift chair that she can sleep in at home. Daughters and granddaughters fix meals. Patient's husbands concern was the bathroom and assisting patient to the bathroom and also with bathing or showering. is interested in patient going to [facility]. PANKAJ called Kim Simpson at [facility]. She has no beds. PANKAJ spoke to MD and he ordered PT evaluation. PANKAJ called Liliam and requested ED PT evaluation. PANKAJ updated patient and her . Patient and gave verbal permission to speak to their daughter, Carmita, who is a [facility] PT. PANKAJ attempted to call Carmita. No answer and no voice mail thus PANKAJ did not leave message. PANKAJ called Carmita, patient's daugher, again. No voice mail and thus PANKAJ did not leave message. Keira ANNE
[2022-10-13 14:34] VITALS: BP 137/74; PULSE 71; RESP 16; O2SAT 98
== END 2022-10-13 14:36 | disposition home or self-care (01) ==
PROVIDERS: Emergency Provider Emergency Medicine; PCP Family Medicine; Visit Provider Emergency Medicine
DX: S80.02XA Contusion of left knee, initial encounter (principal); F03.A0 Unspecified dementia, mild, without behavioral disturbance, psychotic disturbance, mood disturbance, and anxiety; Z96.643 Presence of artificial hip joint, bilateral; I10 Essential (primary) hypertension; W10.8XXA Fall (on) (from) other stairs and steps, initial encounter; Z79.899 Other long term (current) drug therapy; M25.462 Effusion, left knee; E78.00 Pure hypercholesterolemia, unspecified; Z79.01 Long term (current) use of anticoagulants
CPT/HCPCS: 70450; 72170; 72192; 73552; 73564; 97162; 99284

== ENCOUNTER 2023-03-21 00:29 | Emergency (ER) | payer MEDICARE, SELFPAY ==
[2023-03-21 00:30] VITALS: BP 178/57; PULSE 54; RESP 16; TEMP 37.1; O2SAT 99; BMI 26.4
--- NOTE | 2023-03-21 00:40 | EKG12_ITS ---
Test Reason : CP Blood Pressure : / mmHG Vent. Rate : 054 BPM Atrial Rate : 054 BPM P-R Int : 170 ms QRS Dur : 100 ms QT Int : 498 ms P-R-T Axes : 082 023 059 degrees QTc Int : 472 ms Sinus bradycardia Otherwise normal ECG Confirmed by KWASI MARIE, RENATO ([id number]), loan expeditor JR HERBERT ([id number]) on 03/23/2023 1:21:57 PM Referred By: TIGRE Confirmed By:NATALIE VILLALPANDO MD
--- NOTE | 2023-03-21 00:47 | ED.VIS.CHEST ---
HPI History of Present Illness Chief Complaint: Chest Pain Informant: patient and spouse/S.O. 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 Symptoms last about 1/2-hour currently resolved. No dyspnea nausea diaphoresis. No radicular symptoms. History of paroxysmal A-fib on amiodarone and Xarelto. Reports had a heart catheter 4 years ago with no interventions followed by Dr. Morrison. Hypertension, hyperlipidemia. Denies tobacco. Denies family history of MIs at a young age. Denies any cough or upper respiratory symptoms. Prior Similar Symptoms: No CVD Risk Factors: Positive for Hypertension and Hypercholesterolemia; Negative for Diabetes, Family History 1' </=55 or Smoking [facility] Medical History Arthritis Cardiology follow-up encounter Closed head injury with brief loss of consciousness COVID-19 (05/27/22) Diverticulosis Dyslipidemia Essential (primary) hypertension Gout High cholesterol History of edema History of pain when walking Hypertension Hypertensive emergency (07/08/20) Loss of hearing Non-smoker Nonobstructive atherosclerosis of coronary artery Nonsustained ventricular tachycardia Obesity Obstructive sleep apnea Paroxysmal atrial fibrillation Paroxysmal supraventricular tachycardia Sick sinus syndrome Syncope Thyroid nodule Wears glasses Home Medications rivaroxaban 20 mg tablet 20 mg PO QHS BLOOD THINNER #90 tabs 02/03/20 [Rx Last Taken 09/15/22] allopurinol 100 mg tablet 100 mg PO QHS gout 03/13/20 [History Last Taken 09/15/22] losartan 100 mg tablet 100 mg PO DAILY blood pressure 07/08/20 [History Last Taken 09/16/22] metoprolol succinate 25 mg tablet,extended release 24 hr 25 mg PO Q OTHER DAY blood pressure #45 tabs 06/05/22 [Rx Last Taken 09/15/22] acetaminophen 500 mg tablet 1,000 mg PO Q8 PRN Pain 06/12/22 [History Last Taken 09/16/22] oxycodone-acetaminophen 5 mg-325 mg tablet (Percocet) 1 tab PO Q6H PRN pain 3 days #12 tabs 09/11/22 [Rx Last Taken Unknown] amiodarone 200 mg tablet 200 mg PO DAILY heart rate 09/16/22 [History Last Taken 09/16/22] amlodipine 5 mg tablet 5 mg PO DAILY AFIB 09/16/22 [History Last Taken 09/16/22] atorvastatin 20 mg tablet 20 mg PO QHS CHOLESTEROL 09/16/22 [History Last Taken 09/15/22] tramadol 50 mg tablet 50 mg PO Q6H PRN Pain 09/16/22 [History Last Taken Unknown] amoxicillin 500 mg capsule 500 mg PO Q8 5 days #15 caps 09/19/22 [Rx Last Taken Unknown] Allergy/AdvReac Type Severity Reaction Status Date / Time No Known Allergies Allergy Verified 03/21/23 00:30 Family History Mother Colon cancer CAD (coronary artery disease) Surgical History History of cardioversion (05/06/19) History of left heart catheterization (07/10/20) History of left hip replacement (2018) History of loop recorder History of tonsillectomy History of tubal ligation Social History Smoking Status: Never smoker alcohol intake: never substance use type: does not use caffeine: No ROS ROS ED Constitutional Constitutional ED: Denies chills, fever(s) or sweats Eyes Eyes: Denies change in vision ENT ENT ED: Denies dysphagia or sore throat Cardiovascular Cardiovascular: Reports chest pain; Denies leg edema, palpitations or racing heartbeat Respiratory/Chest Respiratory/Chest: Denies cough, dyspnea or dyspnea on exertion Gastrointestinal Gastrointestinal: Denies abdominal pain, diarrhea, nausea or vomiting Genitourinary Genitourinary ED: Denies dysuria, hematuria or urinary frequency Musculoskeletal Musculoskeletal: Denies back pain, extremity pain or neck pain Integumentary Denies rash or wounds Neurologic Neurologic: Denies headache(s), paresthesias or weakness EXAM Physical Exam Const Vital Signs: 03/21/23 00:30 03/21/23 00:35 03/21/23 00:40 Temperature 98.8 F Temperature Source Temporal Pulse Rate 54 L Respiratory Rate 16 Respiratory Effort Normal Non-Labored Blood Pressure 178/57 H Blood Pressure Mean 97 Pulse Ox 99 Oxygen Delivery Method Room Air Room Air 03/21/23 01:30 03/21/23 02:30 03/21/23 03:00 Temperature Temperature Source Pulse Rate 46 L 46 L Respiratory Rate 16 14 16 Respiratory Effort Blood Pressure 142/40 H 148/39 H Blood Pressure Mean 74 75 Pulse Ox 99 97 Oxygen Delivery Method Room Air Positive well nourished and well developed General Appearance ED: well developed and NAD HEENT Reports moist mucous membranes normocephalic and atraumatic Eyes PERRL, EOMs intact bilaterally and conjunctivae normal General Eye ED: Yes normal appearance of both eyes Neck no lymphadenopathy and supple General: Negative for tenderness Chest Wall Chest: Negative for tenderness Resp normal respiratory effort and normal air movement Effort and Inspection: symmetric chest movement; Negative for respiratory distress Cardio regular rate, regular rhythm and no murmurs Peripheral Pulses: pulses 2+ throughout GI normal to inspection, nondistended, normoactive bowel sounds and non-tender Palpation: Negative for guarding or rebound tenderness present Back/Spine no CVA tenderness and no thoracic nor lumbar tenderness Extremity normal to inspection General Extremety ED: Negative for edema or tenderness General Extremity: Negative for edema Neuro oriented x3 and no sensory deficits noted Sensorium / Orientation: awake and alert Skin no rashes or lesions noted and no wounds Heart Score History: Slightly/Non-Suspicious ECG: Normal Age: >/= 65 years Risk Factors: 1 or 2 Risk Factors Troponin: </= Normal Limit Score: 3 MDM MDM MDM Narrative Medical decision making narrative: Interventions / MDM: Differential diagnosis: Chest pain, ACS, musculoskeletal Diagnosis considered but do not suspect: Pulmonary embolus however patient on Xarelto. My EKG interpretation: Sinus rate of 54, no ST or T wave changes. Imaging independently reviewed and interpreted by myself: 2 view chest x-ray: No acute process also read by radiology noted stable loop recorder. External documents reviewed: Catheterization report June 2020. 50% lesion mid LAD, 30% right RCA, minimal circumflex. EF of 75%. Test considered but not ordered:N/A ED course: Patient currently symptom-free EKG sinus bradycardia she is on metoprolol. Aspirin ordered. Cardiac work-up initiated for further evaluation. Re-evaluation: 0150: Remains symptom-free, initial troponin was 7. Awaiting for repeat troponin at this time. 0330: Remains symptom-free. Second troponin normal. Outpatient follow-up with strict return precautions. Disposition discussed with patient/family/significant other: Patient and significant other. Case discussed with consulting clinician: N/A This note was generated with [employer] dictation software. It may contain incorrect words, spelling, and punctuation that were not noted in checking the note before signing. Lab Data Attestation: I reviewed the patient's lab results. Labs: Laboratory Results - last 24 hr 03/21/23 03/21/23 00:35 02:55 WBC 6.7 RBC 4.21 Hgb 13.2 Hct 41.2 MCV 97.9 MCH 31.4 MCHC 32.0 RDW Std Deviation 45.3 H RDW Coeff of Sammie 12.6 Plt Count 301 MPV 10.6 Immature Gran % (Auto) 0.300 Neut % (Auto) 51.1 Lymph % (Auto) 38.1 [place] % (Auto) 9.0 Eos % (Auto) 1.2 Baso % (Auto) 0.3 Absolute Neuts (auto) 3.4 Absolute Lymphs (auto) 2.55 Nucleated RBC % 0 Sodium 142 Potassium 3.8 Chloride 109 H Carbon Dioxide 28.0 Anion Gap 5 BUN 18 Creatinine 1.06 H Estim Creat Clear Calc 41.61 Est GFR (MDRD) Af Amer 65 Est GFR (MDRD) Non-Af 53 L BUN/Creatinine Ratio 17.0 Glucose 93 Calcium 8.6 Troponin I High Sens 7 8 Radiography Diagnostic Testing: Clinical Impression(s) from Imaging Studies Chest X-Ray 03/21/23 00:55 IMPRESSION: Mild increase in heart size, otherwise stable. No pneumonia or pulmonary edema. Electronically Signed: Weston Holloway MD at 1:46 EDT , Discharge Plan Triage Chief Complaint: Chest Pain ED Provider: Sunil Vieyra Dx/Rx/DC Orders Clinical Impression: Chronic anticoagulation, Nonobstructive atherosclerosis of coronary artery, Chest pain Instructions: ED Chest Pain, Uncertain Cause Prescriptions: No Action allopurinol 100 mg tablet 100 mg PO QHS Patient Comments: TAKE 1 TABLET BY MOUTH ONCE DAILY FOR GOUT acetaminophen 500 mg tablet 1,000 mg PO Q8 PRN (Reason: Pain) losartan 100 MG tablet 100 mg PO DAILY oxycodone-acetaminophen [Percocet] 5-325 mg tablet 1 tab PO Q6H PRN (Reason: pain) 3 Days Qty: 12 0RF tramadol 50 mg tablet 50 mg PO Q6H PRN (Reason: Pain) Patient Comments: TAKE 1 TABLET BY MOUTH EVERY 6 HOURS NEEDED FOR PAIN atorvastatin 20 mg tablet 20 mg PO QHS amiodarone 200 mg tablet 200 mg PO DAILY amlodipine 5 mg tablet 5 mg PO DAILY amoxicillin 500 mg Capsule 500 mg PO Q8 5 Days Qty: 15 0RF rivaroxaban 20 mg tablet 20 mg PO QHS Qty: 90 3RF metoprolol succinate 25 mg tablet extended release 24 hr 25 mg PO Q OTHER DAY Qty: 45 3RF Primary Care Provider: Emmett Becker Referrals: Dane Morrison MD [Med Staff - Active Staff] - 3-5 Days Emmett Becker MD [Primary Care Provider] - 3-5 Days Activity Restrictions/Additional Instructions: Cardiac work-up negative. Follow-up with your doctors further testing as an outpatient. Return if worsening symptoms. Disposition Disposition: Home, Self Care
[2023-03-21] MEDS: Aspirin 81 MG TAB.CHEW 324 MG PO (00:48)
--- NOTE | 2023-03-21 00:55 | RAD_ITS ---
EXAM: XR CHEST, 2 VIEWS CLINICAL INDICATION: chest pain TECHNIQUE: Frontal and lateral views of the chest. COMPARISON: Previous chest radiographs of 09/16/2022 and 05/27/2022. FINDINGS: LUNGS AND PLEURAL SPACES: Unremarkable. No consolidation or edema. No pneumothorax. No effusion. HEART: Mild interval increase in heart size which is now mildly enlarged. Pulmonary vasculature remains within normal limits. Loop recording device remains in place. MEDIASTINUM: Stable mild elongation and calcification aorta. Trachea is midline. BONES/JOINTS: Thoracic degenerative spurring. Old fracture of the proximal left humerus again noted. SOFT TISSUES: Unremarkable. RAD/Chest PA and Lateral IMPRESSION: Mild increase in heart size, otherwise stable. No pneumonia or pulmonary edema. Electronically Signed: Weston Holloway MD at 1:46 EDT ,
[2023-03-21 01:07] LABS: Absolute Lymphocyte Count 2.55 X10^3/uL (0.83-4.51); Absolute Neutrophil Count 3.4 X10^3/uL (2.0-7.7); Basophil# 0.02 X10^3/uL; Basophil% 0.3 % (0-1); Eosinophil# 0.08 X10^3/uL; Eosinophils% 1.2 % (0-5); Hematocrit 41.2 % (37-47); Hemoglobin 13.2 g/dL (12.0-15.0); Lymphocyte # 2.55 X10^3/ul (0.83-4.51); Lymphocyte % 38.1 % (19-41); Mean Corpuscular Hgb 31.4 pg (27.0-32.0); Mean Corpuscular Volume 97.9 fL (81-99); Mean Platelet Vol. 10.6 fl (6.2-12.0); NRBC Flagged by Analyzer 0 % (0-5); Neutrophil # 3.42 X10^3/uL (2.7-7.7); Neutrophil % 51.1 % (47-70); Platelet Count 301 K/mm3 (150-450); RBC Distribution Width CV 12.6 % (11.6-14.6); RBC Distribution Width SD 45.3 fl (35.1-43.9); Red Blood Count 4.21 M/mm3 (4.2-5.4); White Blood Count 6.7 K/mm3 (4.4-11.0)
[2023-03-21 01:30] VITALS: RESP 16
[2023-03-21 01:33] LABS: Anion Gap 5 (5-15); BUN 18 mg/dL (7-18); Calcium,Total 8.6 mg/dL (8.5-10.1); Chloride 109 mmol/L (98-107); Creatinine, Serum 1.06 mg/dL (0.55-1.02); EST Glomerular Filtration Rate 53 mL/min (>60); Est Glom Filt Rate - Afr Amer 65 mL/min (>60); Estimated Creatinine Clearance 41.61 ml/min; Glucose 93 mg/dL (74-106); Potassium 3.8 mmol/L (3.5-5.1); Sodium Level 142 mmol/L (136-145); Troponin-I HS (w/2H Reflex) 7 pg/mL (3.0-54.0)
[2023-03-21 02:30] VITALS: BP 142/40; PULSE 46; RESP 14; O2SAT 99
[2023-03-21 03:00] VITALS: BP 148/39; PULSE 46; RESP 16; O2SAT 97
[2023-03-21 03:04] LABS: Reflex Troponin-HS? (from REC) Y
[2023-03-21 03:30] LABS: Troponin-I HS 8 pg/mL (3.0-54.0)
[2023-03-21 03:46] VITALS: BP 138/62
== END 2023-03-21 03:47 | disposition home or self-care (01) ==
PROVIDERS: Emergency Provider Emergency Medicine; PCP Family Medicine; Visit Provider Emergency Medicine
DX: R07.9 Chest pain, unspecified (principal); I48.0 Paroxysmal atrial fibrillation; Z79.01 Long term (current) use of anticoagulants; E78.00 Pure hypercholesterolemia, unspecified; I25.10 Atherosclerotic heart disease of native coronary artery without angina pectoris; I10 Essential (primary) hypertension; M10.9 Gout, unspecified; Z79.899 Other long term (current) drug therapy; Z96.642 Presence of left artificial hip joint; Z98.51 Tubal ligation status
CPT/HCPCS: 71046; 80048; 84484; 85025; 93005; 99284; A4216

== ENCOUNTER → 2023-06-17 | Outpatient (CLI) | payer MEDICARE, SELFPAY ==
[2023-06-17 18:06] LABS: Absolute Lymphocyte Count 2.48 X10^3/uL (0.83-4.51); Absolute Neutrophil Count 3.4 X10^3/uL (2.0-7.7); Basophil# 0.01 X10^3/uL; Basophil% 0.2 % (0-1); Eosinophil# 0.05 X10^3/uL; Eosinophils% 0.8 % (0-5); Hemoglobin 12.9 g/dL (12.0-15.0); Lymphocyte # 2.48 X10^3/ul (0.83-4.51); Lymphocyte % 38.1 % (19-41); Mean Corp Hgb Conc 32.3 g/dL (32-36); Mean Corpuscular Hgb 31.6 pg (27.0-32.0); Mean Platelet Vol. 10.7 fl (6.2-12.0); Monocyte# 0.56 X10^3/uL; Monocyte% 8.6 % (0-10); NRBC Flagged by Analyzer 0 % (0-5); Neutrophil % 52.1 % (47-70); Platelet Count 257 K/mm3 (150-450); RBC Distribution Width CV 12.8 % (11.6-14.6); RBC Distribution Width SD 45.9 fl (35.1-43.9); Red Blood Count 4.08 M/mm3 (4.2-5.4); White Blood Count 6.5 K/mm3 (4.4-11.0)
[2023-06-17 18:34] LABS: AST(SGOT) 15 U/L (15-37); Alanine Aminotransfer ALT/SGPT 25 U/L (13-56); Albumin, Serum 3.6 g/dL (3.2-5.0); Alkaline Phosphatase 82 U/L (45-117); Anion Gap 4 (5-15); BUN 19 mg/dL (7-18); BUN/Creat Ratio 17.3 RATIO (10-20); Calcium,Total 8.6 mg/dL (8.5-10.1); Chloride 109 mmol/L (98-107); EST Glomerular Filtration Rate 51 mL/min (>60); Est Glom Filt Rate - Afr Amer 62 mL/min (>60); Globulin 3.5 g/dL (2.2-4.2); Glucose 90 mg/dL (74-106); Potassium 4.1 mmol/L (3.5-5.1); Protein, Total 7.1 g/dL (6.4-8.2); Sodium Level 141 mmol/L (136-145); Thyroid Stim Hormone (TSH) 0.93 uIU/mL (0.358-3.74); Uric Acid 3.2 mg/dL (2.6-6.0)
[2023-06-17 19:07] LABS: Hepatitis C Antibody Non-Reactive (Nonreactive); Syphilis Antibodies Non-reactive; Vitamin B12 242 pg/mL (211-911); Vitamin D,25 Hydroxy 18.2 ng/mL
== END | disposition home or self-care (01) ==
LOC: POLAB3 16:44
PROVIDERS: PCP Family Medicine; Visit Provider Family Medicine Geriatric Medicine
DX: E55.9 Vitamin D deficiency, unspecified (principal); G30.9 Alzheimer's disease, unspecified; I10 Essential (primary) hypertension; M10.9 Gout, unspecified
CPT/HCPCS: 36415; 80053; 82306; 82607; 82746; 84443; 84550; 85025; 86780; 86803

== ENCOUNTER 2023-06-30 09:16 | Outpatient (CLI) | payer MEDICARE, SELFPAY ==
[2023-06-30 10:09] LABS: Homocysteine 13.7 umol/L (3.2-10.7)
[2023-07-03 05:07] LABS: Methylmalonic Acid Bld 765 nmol/L (0-378)
== END 2023-06-30 23:59 | disposition home or self-care (01) ==
LOC: LAB 09:18
PROVIDERS: PCP Family Medicine Geriatric Medicine; Referring Provider Family Medicine Geriatric Medicine; Visit Provider Family Medicine Geriatric Medicine
DX: R89.9 Unspecified abnormal finding in specimens from other organs, systems and tissues (principal); E72.11 Homocystinuria
CPT/HCPCS: 36415; 83090; 83921

== ENCOUNTER → 2023-06-30 | Outpatient (CLI) | payer MEDICARE, SELFPAY ==
--- NOTE | 2023-06-30 08:53 | BD_ITS ---
STUDY: DUAL ENERGY X-RAY ABSORPTIOMETRY / DXA REASON FOR EXAM: Female, 78 years old. [id number] TECHNIQUE: Bone Mineral Density (BMD) measurements of lumbar spine and left forearm were obtained. COMPARISON: None. FINDINGS: Lumbar Spine (L1-L4): g/cm2 (1.119) / T-score (0.7) / Z-score (3.2) Findings are suggestive of normal bone density with a low fracture risk. Left Forearm: g/cm2 (0.565) / T-score (-0.3) / Z-score (2.5) BD/Dexa Bone Density Study IMPRESSION: The patient is considered normal as outlined below according to World [place] Organization (WHO) criteria with a low fracture risk. Reference Information: The T-score is the number of standard deviations above or below the standard which is normal for young adults at their peak bone mineral density. The World Health Organization (WHO) interprets the T-scores as follows: Above -1 Normal bone density Between -1 and -2.5 Osteopenia Equal to / or below -2.5 Osteoporosis As a practical clinical guideline, osteopenia may be graded as follows: Mild -1 through -1.5 Moderate -1.6 through -2.0 Severe -2.1 through -2.4 The Z-score is the number of standard deviations above or below age-matched controls. A Z-score of less than -1.5 would be considered abnormal. References: 1. NIH Osteoporosis and Related Bone Diseases www osteo.org 2. International Society for Clinical Densitometry www iscd.org 3. National Osteoporosis Foundation www nof.org Electronically Signed: Que Keith MD at 8:19 EDT ,
== END | disposition home or self-care (01) ==
PROVIDERS: PCP Family Medicine; Referring Provider Family Medicine Geriatric Medicine; Visit Provider Family Medicine Geriatric Medicine
DX: Z78.0 Asymptomatic menopausal state (principal); E72.11 Homocystinuria
CPT/HCPCS: 36415; 77080; 83090; 83921

== ENCOUNTER → 2023-07-23 | Outpatient (CLI) | payer MEDICARE, SELFPAY ==
--- NOTE | 2023-07-23 13:10 | RAD_ITS ---
STUDY: X-RAY - CERVICAL SPINE REASON FOR EXAM: Female, 78 years old. NECK PAIN TECHNIQUE: 3 view(s) of the cervical spine were obtained. COMPARISON: December 05, 2018 CT cervical spine. FINDINGS: There are degenerative changes of the anterior atlantoaxial articulation. Normal odontoid process. There is straightening of the normal cervical lordosis. There is disc space narrowing C5-C6 especially C6-C7 where there is robust osteophyte formation. There is no apparent acute loss of height or alignment. There is visualized facet arthropathy. Partially visualized atherosclerotic disease of the aorta. RAD/Cerv Spine 2 or 3 Views IMPRESSION: Degenerative change of the cervical spine. No visualized acute fracture. Electronically Signed: Alisa Rice MD at 15:18 EST Reading Location ID and State: [facility] / ID Tel , Service support ,
== END | disposition home or self-care (01) ==
LOC: RAD 12:28
PROVIDERS: PCP Family Medicine Geriatric Medicine; Referring Provider Family Medicine Geriatric Medicine; Visit Provider Family Medicine Geriatric Medicine
DX: M54.2 Cervicalgia (principal)
CPT/HCPCS: 72040

== ENCOUNTER → 2023-08-25 | Outpatient (CLI) | payer MEDICARE, SELFPAY | END | disposition home or self-care (01) | PROVIDERS: PCP Family Medicine Geriatric Medicine; Visit Provider Family Medicine Geriatric Medicine | DX: G30.9 Alzheimer's disease, unspecified (principal) | CPT/HCPCS: 36415 ==

== ENCOUNTER 2023-08-26 09:30 | Outpatient (RCR) | payer MEDICARE, SELFPAY ==
--- NOTE | 2023-07-27 12:35 | HP.PTEVAL ---
Patient's Visit Information Visit Information Visit Information: CRISTINA SOTO is a 78 year old F referred to Physical Therapy by Dr. Rustam Nicholson MD with a diagnosis of NECK PAIN. Date of Evaluation: 07/27/23 Physical Therapist: Ji Woodard PT, Cert MDT, OCS Visit Plan Frequency: 2x /Week Duration: 4 Weeks Plan: PT INTERVENTIONS MANUAL THERAPY STM /CERVICAL TRACTION/MOBILIZATION ,CERVICAL ROM ,POSTURAL EX'S ,AND MODALTIES Subjective Subjective: This 78 y/o female presents to physical therapy with neck pain. Patient has neck pain for ~ 6 months. Patient pain insidious onset . Patient symmetrical neck pain. Patient seen DR kylee VALENCIA and had x-rays showed DDD. Aggravating turning neck either direction, lifting affects ADLS and housework tasks. Alleviating factors rest. Denies parestehesia/tingling-. Denies GODINEZ/nausea/tinnitus. Patient sleeping okay. Patient ahs no abnormal night pain. Patient did fell last Sep and arm. Patient condition affects QOL and function. Patient goals to decrease pain. 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 Pain Bilateral Neck: Pain Intensity (Out of 10): 7 Pain Intensity Range: 10 Objective Objective: POSTURE: rounded shoulder head forward NEURO: denies paresthesia/tingling ,reflexes C5-6-7 2/3 AROM: BUE shoulder flexion ~ 100 degrees flexion PALPATION: tender UT /levator/scalenus/occiput CERVICAL ROM: flexion min loss ,lateral flexion right severe , left mod/severe loss ,rotation right mod/severe loss ,left mod loss ,extension severe loss MMT: grossly 4/5 ,except right shoulder 4-/5 ,left 3+/5 Special Tests C/S Radiculapathy - Left Upper limb tension test: Negative C/S Radiculapathy - Right Upper limb tension test: Negative C/S Radiculapathy - Left Spurlings: Positive C/S Radiculapathy - Right Spurlings: Positive C/S Radiculapathy - Left Cervical distraction: Negative C/S Radiculapathy - Right Cervical distraction: Negative C/S Radiculapathy - Left Relief test: Negative C/S Radiculapathy - Right Relief test: Negative C/S Radiculapathy - Valsalva: Negative Sharp Kim: Negative Vertebral Artery Test: Negative Alar Ligament Test: Negative Balance/Special Test Scores Oswestry Neck Score: 21 Goals Goal 1:: Patient to be I with Hep cervical spine Goal Time Frame: 4-6 Weeks Goal 2:: Patient to improve Cervical ROM for function of recovery for ADLS Goal Time Frame: 4-6 Weeks Goal 3:: Patient will improve neck oswestry score by 5 points to improve QOL Goal Time Frame: 4-6 Weeks Goal 4:: Patient to demonstrate 50% improvement with decrease pain and improve function Goal Time Frame: 4-6 Weeks Rehabilitation Potential Physical Therapy Diagnosis: Patient has neck pain with DDD with poor ROM ,decrease posture with pain and affects ADLS and housework tasks thus benefit from skilled PT Rehabilitation Potential: Good Anticipated Interventions Patient/Client Instruction: Educate patient on: Condition and Plan of Care For the Purpose of:: To decrease pain, To increase ROM, To improve muscle performance and motor function, To increase tolerance to activity/condition/position, To improve ability of physical actions for home/community/work/leisure, To improve health of tissue, To decrease soft tissue restriction, To increase flexibility/ROM, To improve endurance, To reduce risk of recurrence and To improve tolerance to ADL's Therapeutic Exercise to Include: Strength training, Postural training, Flexibilty training and Active ROM For the Purpose of:: To decrease pain, To increase ROM, To improve muscle performance and motor function, To increase tolerance to activity/condition/position, To improve ability of physical actions for home/community/work/leisure, To improve health of tissue, To decrease soft tissue restriction, To increase flexibility/ROM and To improve tolerance to ADL's Manual Therapy Techniques to Include: Mobilization and Soft tissue mobilization Comment: CERVICAL TRACTION For the Purpose of:: To decrease pain, To increase ROM, To improve nutrient delivery to tissue, To increase oxygenation perfusion, To improve muscle performance and motor function, To improve health of tissue, To decrease soft tissue restriction, To increase flexibility/ROM and To improve tolerance to ADL's For the Purpose of:: To improve self management TENS: Yes IF ES: Yes Cryotherapy (ice pack, ice massage): Yes Thermo therapy (hot pack): Yes Ultrasound (thermal/non thermal): Yes For the Purpose of:: To decrease pain, To increase ROM, To improve nutrient delivery to tissue, To increase oxygenation perfusion, To improve health of tissue and To decrease soft tissue restriction Text: Thank you for the opportunity to evaluate your patient. For Medicare and Medicare HMO plans, please review the plan of care and approve it. It will need to be FAXED BACK to us at [phone] for Medicare purposes. For Medicare only, by signing this I certify the plan of care. Please let me know if there are questions or concerns regarding this plan of care. Physician Signature: Date:
--- NOTE | 2023-08-26 09:55 | HP.PTDCSUM ---
Discharge Summary D/C summary: It has been my pleasure to treat CRISTINA SOTO referred by Dr. Rustam Nicholson MD, with the diagnosis of NECK PAIN for a total of 8 visit(s). Discharge Date: 08/26/23 Please see the following information for a summary of their discharge status. Subjective Subjective: Doing okay Pain Bilateral Neck: Pain Intensity (Out of 10): 0 Overall Improvement % Improvement: 25 Objective Objective/Function: POSTURE: rounded shoulder head forward NEURO: denies paresthesia/tingling ,reflexes C5-6-7 2/3 AROM: BUE shoulder flexion ~ 100 degrees flexion PALPATION: tender UT /levator/scalenus/occiput CERVICAL ROM: flexion min loss ,lateral flexion right mod/severe , left mod loss ,rotation right mod/severe loss ,left mod loss ,extension severe loss MMT: grossly 4/5 ,except right shoulder 4-/5 ,left 3+/5 Goals Goal 1:: Patient to be I with Hep cervical spine Goal Progress: Goal Met Goal 2:: Patient to improve Cervical ROM for function of recovery for ADLS Goal Progress: Progressing Goal 3:: Patient will improve neck oswestry score by 5 points to improve QOL Goal 4:: Patient to demonstrate 50% improvement with decrease pain and improve function Goal Progress: Progressing Plan Plan: D/C D/C Information Discharge Comments: HEP d/c sentence: If there are questions or concerns regarding this patient's physical therapy, please feel free to call me at [phone]. Thank you for the referral of this patient. Sincerely, Ji Woodard, PT, Cert MDT, OCS Balance/Gait/Functional tests Balance/Special Test Scores Oswestry Neck Score: 7 Improvement % Improvement: 25
== END 2023-08-26 19:00 | disposition home or self-care (01) ==
LOC: PT 09:30
PROVIDERS: PCP Family Medicine Geriatric Medicine; Referring Provider Family Medicine Geriatric Medicine; Visit Provider Family Medicine Geriatric Medicine
DX: M54.2 Cervicalgia (principal)
CPT/HCPCS: 97110; 97140; 97162; 97530

== ENCOUNTER → 2023-09-02 | Outpatient (CLI) | payer MEDICARE, SELFPAY ==
--- NOTE | 2023-09-02 09:57 | RAD_ITS ---
PROCEDURE: Fluoroscopic guided Lumbar Puncture. DATE: September 02, 2023 CLINICAL INDICATION: Dementia PHYSICIAN: Que Keith M.D. MEDICATIONS: 1% lidocaine administered subcutaneously for local anesthesia. ACCESS SITE: Lower posterior back. NEEDLE: 22-gauge spinal needle. SPECIMEN: Approximately 8 mL clear]CSF fluid. FLUOROSCOPY TIME (if supplied): (1:42) minutes/seconds. 35.8 mGy COMPLICATIONS: None immediate. The risks, benefits, and alternatives to the procedure were explained to the patient. The specific risks of bleeding, infection, and neurovascular injury were detailed and accepted. Witnessed informed consent was obtained. The patient was placed on the fluoroscopic table in the prone position. The level for needle entry was determined and marked. The overlying skin was cleaned and prepped in the usual sterile fashion. 2% lidocaine was administered subcutaneously for local anesthesia. Under fluoroscopic guidance a 22-gauge spinal needle was advanced. The thecal sac was entered at the L3- L4 vertebral level. The inner stylet was removed. There was spontaneous flow of clear CSF fluid. The patient was placed in a reversed Trendelenburg position. Approximately 8 mL of cerebrospinal fluid was collected using gravity. The specimen was collected and submitted to the laboratory for further evaluation. The needle was withdrawn,. Hemostasis was achieved and a sterile dressing placed. The patient tolerated the procedure well without any immediate complications. The patient was placed supine with head elevated and returned to the floor in stable condition. RAD/Dx Lumbar Puncture w/IMG Guide IMPRESSION: Successful fluoroscopic-guided lumbar puncture. Electronically Signed: Que Keith MD at 11:24 EST ,
[2023-09-02 10:14] VITALS: BP 149/60; PULSE 54; RESP 16; TEMP 36.3; O2SAT 100; BMI 24.9
[2023-09-02 11:02] VITALS: BP 164/54; PULSE 54; RESP 16
[2023-09-02 11:52] VITALS: BP 155/58; PULSE 54; RESP 16; O2SAT 98
[2023-09-02 11:54] VITALS: BP 155/58; PULSE 54; RESP 16; O2SAT 100
== END | disposition home or self-care (01) ==
PROVIDERS: PCP Family Medicine Geriatric Medicine; Referring Provider Family Medicine Geriatric Medicine; Visit Provider Family Medicine Geriatric Medicine
DX: G30.9 Alzheimer's disease, unspecified (principal); F02.80 Dementia in other diseases classified elsewhere, unspecified severity, without behavioral disturbance, psychotic disturbance, mood disturbance, and anxiety
CPT/HCPCS: 62328

== ENCOUNTER → 2024-01-04 | Outpatient (CLI) | payer MEDICARE, SELFPAY ==
[2024-01-04 11:33] LABS: Absolute Neutrophil Count 4.5 X10^3/uL (2.0-7.7); Basophil# 0.02 X10^3/uL; Basophil% 0.3 % (0-1); Eosinophil# 0.04 X10^3/uL; Eosinophils% 0.6 % (0-5); Hematocrit 39.7 % (37-47); Hemoglobin 12.4 g/dL (12.0-15.0); Mean Corp Hgb Conc 31.2 g/dL (32-36); Mean Corpuscular Hgb 30.5 pg (27.0-32.0); Mean Corpuscular Volume 97.8 fL (81-99); Mean Platelet Vol. 10.9 fl (6.2-12.0); Monocyte# 0.59 X10^3/uL; Monocyte% 8.2 % (0-10); NRBC Flagged by Analyzer 0 % (0-5); Neutrophil # 4.45 X10^3/uL (2.7-7.7); Neutrophil % 61.5 % (47-70); Platelet Count 274 K/mm3 (150-450); RBC Distribution Width CV 13.6 % (11.6-14.6); RBC Distribution Width SD 49.4 fl (35.1-43.9); Red Blood Count 4.06 M/mm3 (4.2-5.4); White Blood Count 7.2 K/mm3 (4.4-11.0)
[2024-01-04 11:53] LABS: Vitamin D,25 Hydroxy 14.4 ng/mL
[2024-01-04 11:58] LABS: ALB/GLOB Ratio 0.9 RATIO (0.9-2.4); AST(SGOT) 15 U/L (15-37); Alanine Aminotransfer ALT/SGPT 22 U/L (13-56); Albumin, Serum 3.3 g/dL (3.2-5.0); Alkaline Phosphatase 86 U/L (45-117); Anion Gap 5 (5-15); BUN 19 mg/dL (7-18); BUN/Creat Ratio 17.9 RATIO (10-20); Calcium,Total 8.4 mg/dL (8.5-10.1); Chloride 110 mmol/L (98-107); Creatinine, Serum 1.06 mg/dL (0.55-1.02); EST Glomerular Filtration Rate 53 mL/min (>60); Est Glom Filt Rate - Afr Amer 64 mL/min (>60); Globulin 3.8 g/dL (2.2-4.2); Glucose 99 mg/dL (74-106); Potassium 4.1 mmol/L (3.5-5.1); Protein, Total 7.1 g/dL (6.4-8.2); Sodium Level 142 mmol/L (136-145); Thyroid Stim Hormone (TSH) 0.61 uIU/mL (0.358-3.74)
== END | disposition home or self-care (01) ==
LOC: POLAB3 10:36
PROVIDERS: PCP Family Medicine Geriatric Medicine; Visit Provider Family Medicine Geriatric Medicine
DX: I10 Essential (primary) hypertension (principal); M10.9 Gout, unspecified; E55.9 Vitamin D deficiency, unspecified
CPT/HCPCS: 36415; 80053; 82306; 84443; 84550; 85025

== ENCOUNTER → 2024-07-05 | Outpatient (CLI) | payer MEDICARE, SELFPAY ==
--- OUTSIDE RECORDS SUMMARY | 2024-07-05 12:07 | XMS RPT_ITS | CCD ---
Author Organization [facility] Care Team Providers Care Director Of Casework Name Role Phone VITEBSKIY, GRICEL ALEKSANDROVICH Unavailable Unavailable ALEX, JAYLON E Unavailable Unavailable VITEBSKIY, GRICEL ALEKSANDROVICH Unavailable Unavailable ALEX, JAYLON Unavailable Unavailable [facility] Unavailable Unavailable CEBUL, PEMA Unavailable Unavailable VITEBSKIY, GRICEL Unavailable Unavailable ALEX, JAYLON Unavailable Unavailable CEBUL PEMA Unavailable Unavailable VITEBSKIY, GRICEL Unavailable Unavailable HERSON PEMA Unavailable Unavailable Herson COCHRAN MD, Frank A Unavailable Unavailab le Prince, Dane S Unavailable Rustam Becker MD Primary Care Provider Herson COCHRAN MD, Frank A Unavailable Unavailab le Prince, Wake S Unavailable Rustam Becker MD Primary Care Provider Herson COCHRAN MD, Frank A Unavailable Unavailab le Prince, Wake S Unavailable Rustam Becker MD Primary Care Provider Prince MARIE, Wake S Unavailable Rustam Nicholson Chi Primary Care Provider RUSTAM BECKER Primary Care Unavailable RUSTAM BECKER Attending Unavailable RUSTAM BECKER Referring Unavailable RUSTAM BECKER Primary Care Unavailable WILLIS SUAREZ Attending Unavailable RUSTAM NICHOLSON [facility] Primary Care Unavailable Rustam Becker MD Primary Care Provider Allergies Allergy Classification Reported Allergen(s) Allergy Type Date of Onset Reaction(s) Facility (2 sources) lisinopril; Translations: [LISINOPRIL] Drug Allergy 11-13-2014 AOF [facility] Other [place] Repository (17 sources) oxyCODONE; Translations: [OXYCODONE] Drug Allergy 09-12-2022 GI Upset [facility] Medications Current Medications Medication Drug Class(es) Dates Sig (Normalized) Sig (Original) amLODIPine 5 mg oral tablet (20 sources) Dihydropyridine Calcium Channel Gonzalo Start: 07-22-2022 End: 10-20-2022 take 1 tablet by mouth once daily amLODIPine (NORVASC) 5 mg tablet Indications: Essential hypertension, benign Take 1 tablet by mouth once daily. 90 tablet 3 07/22/2022 Active Start: 08-19-2021 take 1 tablet by mayra th once daily amLODIPine (NORVASC) 5 mg tablet Indications: Essential hypertension, benign Take 1 tablet by mouth once daily. 90 tablet 3 08/19/2021 Active Comment on above: Take 1 tablet by mayra th once daily. atorvastatin 40 mg oral tablet (20 sources) HMG-CoA Reductase Inhibitor Start: take 0.5 tablet by mouth once daily for hyperlipidemia atorvastatin (LIPITOR) 40 mg tablet Take 0.5 tablets by mouth once daily. For cholesterol. 90 tablet 3 05/13/2021 Active Comment on above: Take 0.5 tablets by mouth once daily. For cholesterol. nirmatrelvir tablet 150 mg and ritonavir tablet 100 mg in a dose pack (PAXLOVID) (1 source) Start: End: nirmatrelvir tablet 150 mg and ritonavir tablet 100 mg in a dose pack (PAXLOVID) Indications: COVID-19 Administer ONE pink nirmatrelvir 150 mg tablet and ONE white ritonavir 100 mg tablet for a total of two tablets twice daily. 20 tablet 0 05/29/2022 06/03/2022 Active Comment on above: Administer ONE pink nirmatrelvir 150 mg tablet and ONE white ritonavir 100 mg tablet for a total of two tablets twice daily. traMADol hydrochloride 50 mg oral tablet (1 source) Opioid Agonist Start: End: take 1 tablet by mouth every six hours as needed for pain traMADol (ULTRAM) 50 mg tablet Indications: Closed fracture of proximal end of left humerus with routine healing, unspecified fracture morphology, subsequent encounter Take 1 tablet by mouth every 6 hours as needed for pain for up to 5 days. 20 tablet 0 09/12/2022 09/17/2022 Active Comment on above: Take 1 tablet by mayra th every 6 hours as needed for pain for up to 5 days. Completed/Discontinued Medications Medication Drug Class(es) Dates Sig (Normalized) Sig (Original) allopurinol 100 mg oral tablet (20 sources) Xanthine Oxidase Inhibitor Start: 02-21-2021 End: 12-15-2022 take 1 tablet by mouth once daily allopurinol (ZYLOPRIM) 100 mg tablet Indications: Paroxysmal atrial fibrillation (HCC) Take 1 tablet by mouth once daily. For gout. 90 tablet 3 01/17/2022 12/15/2022 Discontinued Comment on above: Take 1 tablet by mayra th once daily. For gout. amiodarone hydrochloride 200 mg oral tablet (20 sources) Antiarrhythmic Start: 02-03-2022 End: 12-15-2022 take 1 tablet by mouth once daily amiodarone (PACERONE) 200 mg tablet Take 1 tablet by mouth once daily. 90 tablet 3 02/03/2022 12/15/2022 Discontinued Start: 12-24-2020 End: 02-01-2022 take 1 tablet by mouth once daily amiodarone (PACERONE) 200 mg tablet Take 1 tablet by mouth once daily. 90 tablet 3 12/24/2020 02/01/2022 Discontinued Comment on above: Take 1 tablet by mayra th once daily. aspirin 81 mg chewable tablet (6 sources) Platelet Aggregation Inhibitor, Nonsteroidal Anti-inflammatory Drug take 1 tablet by mouth once daily aspirin 81 mg chewable tablet Take 81 mg by mouth once daily. 0 Active Comment on above: Take 81 mg by mouth once daily. Docusate (11 sources) docusate sodium (STOOL SOFTENER ORAL) Take by mouth twice daily. 0 Active Comment on above: Take by mouth twice daily. losartan potassium 100 mg oral tablet (20 sources) Angiotensin 2 Receptor Gonzalo Start: End: 3 take 1 tablet by mouth once daily losartan (COZAAR) 100 mg tablet Indications: Essential hypertension, benign Take 1 tablet by mouth once daily. 90 tablet 3 01/17/2022 12/15/2022 Discontinued Comment on above: Take 1 tablet by mayra th once daily. 24 hr metoprolol succinate 25 mg extended release oral tablet (20 sources) beta-Adrenergic Gonzalo Start: 3 take 1 tablet by mouth every other day metoprolol succinate ER (TOPROL XL) 25 mg 24 hr tablet Take 1 tablet by mouth every other day. 45 tablet 3 02/26/2023 Active Start: 12-24-2020 End: 02-26-2023 take 1 tablet by mouth once daily metoprolol succinate ER (TOPROL XL) 25 mg 24 hr tablet Take 1 tablet by mouth once daily. 90 tablet 3 12/24/2020 02/26/2023 Discontinued Comment on above: Take 1 tablet by mayra th once daily. Take 1 tablet by mayra th every other day. rivaroxaban 20 mg oral tablet (20 sources) Factor Xa Inhibitor Start: End: 3 take 1 tablet by mouth once daily at dinner XARELTO 20 mg tablet TAKE 1 TABLET BY MOUTH ONCE DAILY WITH DINNER 07/14/2022 12/15/2022 Discontinued Start: 02-04-2021 End: 04-17-2022 take 1 tablet by mouth once daily at dinner rivaroxaban (XARELTO) 20 mg tablet Indications: Paroxysmal atrial fibrillation (HCC) Take 1 tablet by mouth daily with dinner. 90 tablet 3 01/17/2022 04/17/2022 Active Comment on above: Take 1 tablet by mayra th daily with dinner. TAKE 1 TABLET BY MAYRA TH ONCE DAILY WITH DINNER Problems Active Problems Problem Classification Problem Date Documented Da te Episodic/Chronic Cardiac dysrhythmias (20 sources) Sick sinus syndrome; Translations: [Paroxysmal atrial fibrillation] Onset: 11-20-2014 Resolved: 11-01-2019 11-23-2014 Chronic Cardiac dysrhythmias (1 source) Palpitations; Translations: [Palpitations] Onset: 03-30-2018 Episodic Chronic kidney disease (5 sources) Chronic kidney disease stage 3A ; Translations: [Stage 3a chronic kidney disease] Onset: 01-27-2023 01-27-2023 Chronic Delirium, dementia, and amnestic and other cognitive disorders (11 sources) Dementia; Translations: [Unspecified dementia without behavioral disturbance] Onset: 09-26-2022 3 Chronic Disorders of lipid metabolism (20 sources) Hyperlipidemia; Translations: [Hyperlipidemia, unspecified] Onset: 07-11-2010 02-13-2016 Chronic E Codes: Fall (1 source) Unspecified fall, initial encounter; Translations: [Fall, initial encounter] Onset: 12-26-2023 Episodic Essential hypertension (20 sources) Benign essential hypertension; Translations: [Essential (primary) hypertension] Onset: 04-05-2007 04-05-2007 Chronic Fracture of upper limb (1 source) Closed fracture of upper end of humerus; Translations: [Unspecified fracture of upper end of left humerus, subsequent encounter for fracture with routine healing] Episodic Genitourinary symptoms and ill-defined conditions (1 source) Microscopic hematuria; Translations: [Other microscopic hematuria] Episodic Gout and other crystal arthropathies (20 sources) Gout; Translations: [Gout, unspecified] Onset: 07-11-2010 07-11-2010 Chronic Headache; including migraine (20 sources) Migraine aura without headache ; Translations: [Migraine with aura, not intractable, without status migrainosus] Onset: 10-10-2009 10-10-2009 Chronic Hemorrhoids (20 sources) Hemorrhoids; Translations: [Unspecified hemorrhoids] 04-05-2007 Episodic Osteoarthritis (20 sources) Arthritis of hip; Translations: [Unilateral primary osteoarthritis, unspecified hip] Onset: 12-24-2020 12-24-2020 Chronic Other circulatory disease (1 source) Presence of other cardiac implants and grafts; Translations: [Presence of other cardiac implants and grafts] Onset: 08-19-2016 Chronic Screening and history of mental health and substance abuse codes (1 source) Personal history of other mental and behavioral disorders; Translations: [History of dementia] Onset: 12-26-2023 Episodic Spondylosis; intervertebral disc disorders; other back problems (2 sources) Acute low back pain; Translations: [Acute midline low back pain without sciatica] Onset: 04-07-2007 Resolved: 03-24-2017 08-09-2022 Episodic Superficial injury; contusion (1 source) Contusion of other part of head, initial encounter; Translations: [Contusion of forehead, initial encounter] Onset: 12-26-2023 Episodic Unclassified (1 source) Unknown / UNK(Unknown) Onset: 08-19-2016 Viral infection (1 source) Disease caused by 2019-nCoV; Translations: [COVID-19] Episodic Past or Other Problems Problem Classification Problem Date Documented Date Episodic/Chronic Conditions associated with dizziness or vertigo (20 sources) Orthostatic hypotension; Translations: [Dizziness and giddiness] Onset: 01-14-2017 Resolved: 03-24-2017 11-01-2019 Episodic Fluid and electrolyte disorders (1 source) Hyperkalemia; Translations: [Hyperkalemia] Onset: 04-20-2018 Resolved: 11-01-2019 11-01-2019 Episodic Other aftercare (20 sources) Long-term current use of anticoagulant; Translations: [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 transportation intermediary (current) use of anticoagulants] Onset: 08-19-2016 08-19-2016 Episodic Other circulatory disease (1 source) History of cardiovascular surgery; Translations: [Presence of other cardiac implants and grafts] Onset: 08-19-2016 Resolved: 11-01-2019 11-01-2019 Chronic Other injuries and conditions due to external causes (20 sources) At high risk for fall; Translations: [History of falling] Onset: 12-24-2020 12-24-2020 Episodic Other skin disorders (20 sources) Skin lesion; Translations: [Disorder of the skin and subcutaneous tissue, unspecified] Onset: 11-01-2019 11-01-2019 Episodic Residual codes; unclassified (20 sources) Family history of cancer of colon; Translations: [Family history of malignant neoplasm of digestive organs] Onset: 02-20-2015 02-20-2015 Episodic Syncope (2 sources) Syncope; Translations: [Syncope and collapse] Onset: 11-23-2014 Resolved: 03-24-2017 02-20-2015 Episodic Unclassified (1 source) Presence of other cardiac implants and grafts Onset: 03-30-2018 Results Test Name Value Interpretation Reference Range Facility CT BRAIN WO IVCONon 12-26-[address] BRAIN WO IVCON * * *Final Report* * * DATE OF EXAM: Dec 26 2023 11:53AM [facility] 0504 - CT BRAIN WO IVCON / PROCEDURE REASON: Head trauma, moderate-severe * * * * Physician Interpretation * * * * EXAMINATION: CT BRAIN WO IVCON, CT CERVICAL SPINE WO IVCON CLINICAL HISTORY: Head trauma, concern for cervical spine injury. TECHNIQUE: CT head and cervical spine without contrast. MQ: CTBCSWO_3 Dose-Length Product (DLP): 1349 mGy*cm CT Dose Reduction Employed: Automated exposure control (AEC) COMPARISON: None. RESULT: BRAIN: Acute change: No evidence of an acute intracranial process. Hemorrhage: No evidence of acute intracranial hemorrhage. Mass Lesion / Mass Effect: No evidence of an intracranial mass or extraaxial fluid collection. No significant mass effect. Chronic change: Scattered patchy foci of low attenuation are present within supratentorial white matter which is a nonspecific finding but likely represents mild microvascular ischemia. Parenchyma: Mild generalized volume loss. Ventricles: Normal caliber and morphology. Other: Bifrontal scalp contusions. No underlying calvarial abnormality. Bilateral lens replacements. Orbits and globes are otherwise unremarkable. Paranasal sinuses and mastoid air cells are clear. Visualized extracranial soft tissues are within normal limits. CERVICAL SPINE: Counting reference: Craniocervical junction. Anatomic Variants: None. Alignment: Alignment is anatomic. Craniocervical junction: Craniocervical junction is normal. Osseous structures/fracture: No evidence of a lytic or blastic process in the visualized spine. No evidence of acute or chronic fracture. Cervical soft tissues: Mildly heterogeneous appearance of the thyroid. No discrete nodules. No cervical lymphadenopathy. Degenerative changes: Multilevel degenerative changes of the cervical spine with up to moderate spinal canal stenosis at C5-6 due to disc osteophyte complex. Moderate to severe spinal canal stenosis on the right at C3-4 and moderate foraminal stenosis on the left at C5-6 due to uncovertebral and facet arthropathy. IMPRESSION: 1. No acute intracranial findings. Chronic changes of the brain as described. 2. No acute fracture or traumatic malalignment of the cervical spine. Multilevel degenerative changes. Anatomic Variant: None. Assume 7 cervical vertebrae with counting from the craniocervical junction. Odd Piece Checker: ALEJANDRO Transcribe Date/Time: Dec 26 2023 12:04P Dictated by : APOORVA CALDERON MD This examination was interpreted and the report reviewed and electronically signed by: APOORVA CALDERON MD on Dec 26 2023 12:10PM EST [id number] [facility] CT CERVICAL SPINE WO IVCONon 12-26-2023 CT CERVICAL SPINE WO IVCON * * *Final Report* * * DATE OF EXAM: Dec 26 2023 11:53AM [facility] 0[facility] - CT CERVICAL SPINE WO IVCON / PROCEDURE REASON: Spine fracture, cervical, traumatic * * * * Physician Interpretation * * * * EXAMINATION: CT BRAIN WO IVCON, CT CERVICAL SPINE WO IVCON CLINICAL HISTORY: Head trauma, concern for cervical spine injury. TECHNIQUE: CT head and cervical spine without contrast. MQ: CTBCSWO_3 Dose-Length Product (DLP): 1349 mGy*cm CT Dose Reduction Employed: Automated exposure control (AEC) COMPARISON: None. RESULT: BRAIN: Acute change: No evidence of an acute intracranial process. Hemorrhage: No evidence of acute intracranial hemorrhage. Mass Lesion / Mass Effect: No evidence of an intracranial mass or extraaxial fluid collection. No significant mass effect. Chronic change: Scattered patchy foci of low attenuation are present within supratentorial white matter which is a nonspecific finding but likely represents mild microvascular ischemia. Parenchyma: Mild generalized volume loss. Ventricles: Normal caliber and morphology. Other: Bifrontal scalp contusions. No underlying calvarial abnormality. Bilateral lens replacements. Orbits and globes are otherwise unremarkable. Paranasal sinuses and mastoid air cells are clear. Visualized extracranial soft tissues are within normal limits. CERVICAL SPINE: Counting reference: Craniocervical junction. Anatomic Variants: None. Alignment: Alignment is anatomic. Craniocervical junction: Craniocervical junction is normal. Osseous structures/fracture: No evidence of a lytic or blastic process in the visualized spine. No evidence of acute or chronic fracture. Cervical soft tissues: Mildly heterogeneous appearance of the thyroid. No discrete nodules. No cervical lymphadenopathy. Degenerative changes: Multilevel degenerative changes of the cervical spine with up to moderate spinal canal stenosis at C5-6 due to disc osteophyte complex. Moderate to severe spinal canal stenosis on the right at C3-4 and moderate foraminal stenosis on the left at C5-6 due to uncovertebral and facet arthropathy. IMPRESSION: 1. No acute intracranial findings. Chronic changes of the brain as described. 2. No acute fracture or traumatic malalignment of the cervical spine. Multilevel degenerative changes. Anatomic Variant: None. Assume 7 cervical vertebrae with counting from the craniocervical junction. Odd Piece Checker: ALEJANDRO Transcribe Date/Time: Dec 26 2023 12:04P Dictated by : APOORVA CALDERON MD This examination was interpreted and the report reviewed and electronically signed by: APOORVA CALDERON MD on Apr 13 2024 12:10PM EST [id number] [facility] [id number] 12-26-2023 ECG01 Ventricular Rate : 5 5 BPM Atrial Rate : 55 BPM P-R Interval : 176 ms QRS Duration : 86 ms Q-T Interval : 464 ms QTC Calculation(Bazett) : 443 ms Calculated P [place] : 65 degrees Calculated R [place] : 7 degrees Calculated T [place] : 33 degrees SINUS BRADYCARDIA OTHERWISE NORMAL ECG 11312/26/23 Confirmed by DO SUAREZ ALAN ([id number]), offline editor MAX CHIN ([id number]) on 12/27/2023 11:01:55 AM NAME : CRISTINA SOTO PID : [id number] : 1945 Gender : Female Race : ORD : Procedure Date : Dec 26 2023 11:26:27 Edit Date : Dec 27 2023 11:01:59 Diagnosis: SINUS BRADYCARDIA OTHERWISE NORMAL ECG 1135 12/26/23 Confirmed by DO SUAREZ ALAN ([id number]), offline editor MAX CHIN ([id number]) on 12/27/2023 11:01:55 AM Test Reason : Location : 215 : BRUED 009 Overread By : DO SUAREZ ALAN Edited By : MAX CHIN Referred By : , Acquired by : Consuelo CHÁVZE [facility] ED NOTEon 12-26-2023 ED NOTE HNO ID: [id number] Author: RODNEY MONTILLA, ZACHARY Service: Nursing Author Type: Registered Nurse Type: ED Notes Filed: 12/26/2023 12:39 Note Text: Patient educated on d/c instructions and follow up care with PCP. Patient and family educated by Dr Suarez on results. D/c in stable condition [facility] ED NOTE HNO ID: [id number] Author: MAYE HUGGINS, ZACHARY Service: ? Author Type: Registered Nurse Type: ED Notes Filed: 12/26/2023 11:29 Note Text: [place] fell forward hitting her head on concrete wall. -LOC, +BT. Alert and awake. VSS. Patient reports spouse manages her daily medications and is not sure what she takes. Plan of care -Monitor Patient's Vital Signs for changes in condition -Monitor patient for changes in pain -Maintain patient safety and privacy -Provide comfort measures -Call light in place Siderails up, bed in locked and low position [facility] ED PROV NOTEon 12-26-2023 ED PROV NOTE HNO ID: [id number] Author: WILLIS SUAREZ DO Service: Emergency Medicine Author Type: Physician Type: ED Provider Notes Filed: 12/26/2023 12:28 Note Text: ED Provider Note Patient Name: Cristina Soto : 1945 SERVICE DATE: 12/26/23 History Patient presents with: Head Injury: Missed a step and hit head on concrete wall. +Blood thinners. -LOC, 78-year-old female patient who [place] ED [place] where she was watching her grandchild play when she was walking down the stairs and missed the stairs as per . Paramedics at bedside confirm this. Patient notes it happened quickly. She presents to ED with hematomas on both sides of her forehead. Of importance she is on Xarelto. She has an extensive medical history. She denies chest pain. She has no back or neck pain. She has no abdominal pain. She is otherwise doing well today. She is not really sure how she missed a step but this is the story is provided by paramedics. Patient has history of dementia. To be at her baseline. She has a headache. She does not have neck pain. She has no red flag symptoms of neck or back injury. No other complaints voiced by patient. 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 best COLONOSCOPY FLX DX W/COLLJ SPEC WHEN PFRMD 06/26/2003 Colonoscopy COLONOSCOPY FLX DX W/COLLJ SPEC WHEN PFRMD 12/26/2009 COLONOSCOPY FLX DX W/COLLJ SPEC WHEN PFRMD 08/27/2021 HIP SURGERY HX Right 10/21/2021 Right THR-Dr. Knapic JOINT REPLACEMENT HX LIG/TRNSXJ FLP TUBE ABDL/VAG APPR UNI/BI Tubal ligation TONSILLECTOMY PRIMARY/SECONDARY Tonsillectomy FAMILY HISTORY Problem Relation Age of Onset Colon Cancer Mother diagnosed in her 80s per patient Arthritis Mother other (ASHD) Mother Arthritis Father other (colonic polyps) Brother pt stated 04/30 not aware of any fam Hx polyps Social History Tobacco Use Smoking status: Never Smokeless tobacco: Never Vaping Use Vaping Use: Never used Substance and Sexual Activity Alcohol use: No Drug use: No Sexual activity: Never ALLERGIES Allergen Reactions Oxycodone GI Upset Vomiting Review of Systems Constitutional: Negative for activity change, appetite change, chills and fever. HENT: Negative for congestion. Respiratory: Negative for cough and shortness of breath. Gastrointestinal: Negative for abdominal pain, nausea and vomiting. Genitourinary: Negative for flank pain. Musculoskeletal: Negative for back pain and neck pain. Skin: Positive for wound. Neurological: Positive for headaches. Negative for seizures and syncope. Physical Exam Vitals BP Pulse Temp Temp src Resp SpO2 Weight Height 12/26/23 1125 12/26/23 1125 12/26/23 1125 12/26/23 1125 12/26/23 1125 12/26/23 1125 12/26/23 1128 -- 163/74 56 37.1 ?C (98.7 ?F) Oral 18 99 % 72.1 kg (159 lb) Physical Exam Vitals reviewed. Constitutional: Appearance: Normal appearance. She is not ill-appearing or diaphoretic. HENT: Head: Normocephalic. Comments: Bilateral hematomas as indicated above. No orbital tenderness. No otorrhea. No rhinorrhea. No hyphema or subconjunctival injury appreciated. Nose: Nose normal. No congestion. Mouth/Throat: Mouth: Mucous membranes are moist. Eyes: General: No scleral icterus. Pupils: Pupils are equal, round, and reactive to light. Cardiovascular: Rate and Rhythm: Normal rate and regular rhythm. Heart sounds: No murmur heard. Pulmonary: Breath sounds: Normal breath sounds. No wheezing, rhonchi or rales. Abdominal: General: Bowel sounds are normal. Palpations: Abdomen is soft. Tenderness: There is no abdominal tenderness. Musculoskeletal: General: Tenderness present. No swelling. Normal range of motion. Cervical back: Neck supple. No tenderness. Comments: Surrounding circumference of the left knee with no crepitance deformity or effusion. No instability. Neurovascularly intact. No distal calf or ankle tenderness. No contralateral leg tenderness. Skin: General: Skin is warm and dry. Neurological: Mental Status: She is alert. Cranial Nerves: Cranial nerves 2- (more content not included)... [facility] XR KNEE 2V AP/LAT LTon 12-25 XR KNEE 2V AP/LAT LT * * *Final Report* * * DATE OF EXAM: Dec 26 2023 12:03PM BRX [id number] - XR KNEE 2V AP/LAT LT / PROCEDURE REASON: Trauma * * * * Physician Interpretation * * * * Left knee HISTORY: 78 years old Clinical information: Trauma FALL TECHNIQUE: Images: XR KNEE 2V AP/LAT LT Comparison: None. RESULT: Findings: Small effusion. Narrowing medial knee joint compartment. Hypertrophic spurring medial compartment and patellofemoral joint. No evidence of recent fracture. IMPRESSION: Degenerative joint disease with small effusion. No evidence of a fracture Odd Piece Checker: ALEJANDRO Transcribe Date/Time: Dec 26 2023 12:09P Dictated by : RUSTAM NEVAREZ MD This examination was interpreted and the report reviewed and electronically signed by: RUSTAM NEVAREZ MD on Dec 26 2023 12:10PM EST [id number] Normal [facility] 08-27-2023 CNPN Telephone (FAMPWS) CRISTINA SOTO ([id number]) 1945 F Date Time Provider Department 08/27/23 RUSTAM BECKER During your visit today, we recorded the following information about you: Adrienne Saini Ma 08/27/2023 9:40 AM Signed Office received fax from [facility] on 08/26/23 to Tao Gonzalez CNP regarding patient. Patient has been ordered by Dr. Nicholson to complete a lumbar puncture procedure on 08/31/23. They are requesting that patient hold her Xarelto for 2 doses. Pt PCP and [facility] Team are currently out of the office until 08/31/23, which is the date of the Procedure. On-Call Provider is out of the office but taking call at this time. Routing message to OC Provider to review. Omar Denis Ma, MD 08/27/2023 9:55 AM Signed Patient may hold Xarelto for 2 doses for this procedure. 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 Please fax this information and if not acceptable, can see if someone can sign tomorrow. Suzie Stuart Ma 08/27/2023 10:34 AM Signed This encounter faxed along with form. Suzie Stuart Ma Allergies As of Date: 08/27/2023 Noted Allergy Reaction OXYCODONE 09/12/2022 8 - GI Upset Comments: Vomiting Date Reviewed: 01/27/2023 Reviewed by: Adrienne Saini Ma - Fully Assessed Reason for Visit: Anticoagulation [8] Cmt: Authorization to hold anti-thrombotic Prescriptions as of 08/27/2023 - metoprolol succinate ER (TOPROL XL) 25 mg 24 hr tablet Take 1 tablet by mouth every other day. - amiodarone (PACERONE) 200 mg tablet Take 1 tablet by mouth once daily. - allopurinol (ZYLOPRIM) 100 mg tablet Take 1 tablet by mouth once daily. For gout. - losartan (COZAAR) 100 mg tablet Take 1 tablet by mouth once daily. - XARELTO 20 mg tablet Take 1 tablet by mouth daily with dinner. - docusate sodium (STOOL SOFTENER ORAL) Take by mouth twice daily. - amLODIPine (NORVASC) 5 mg tablet Take 1 tablet by mouth once daily. - atorvastatin (LIPITOR) 40 mg tablet Take 0.5 tablets by mouth once daily. For cholesterol. Problem List As Of Date 08/27/2023 Noted Resolved BENIGN HYPERTENSION [I10] HEMORRHOIDS NOS [K64.9] Sciatica [M54.30] 04/07/2007 03/24/2017 Migraine Aura without Headache [G43.109] 10/10/2009 Gout [M10.9] 07/11/2010 Hyperlipidemia with target LDL less than 100 [E*07/11/2010 Supraventricular tachycardia, paroxysmal (HCC) *11/20/2014 11/01/2019 Syncope [R55] 11/23/2014 02/20/2015 Sick sinus syndrome (HCC) [I49.5] 11/23/2014 Paroxysmal atrial fibrillation (HCC) [I48.0] 02/02/2015 Family history of colon cancer in mother [Z80.0]02/20/2015 Faintness [R55] 05/01/2015 03/24/2017 Status post placement of implantable loop recor*08/19/2016 11/01/2019 Chronic anticoagulation [Z79.01] 08/19/2016 Nonsustained ventricular tachycardia (HCC) [I47*01/14/2017 11/01/2019 Lightheadedness [R42] 01/14/2017 03/24/2017 Hyperkalemia [E87.5] 04/20/2018 11/01/2019 Skin lesion of back [L98.9] 11/01/2019 Orthostatic lightheadedness [R42] 11/01/2019 At high risk for falls [Z91.81] 12/24/2020 Arthritis of hip [M16.10] 12/24/2020 Dementia without behavioral disturbance (HCC) [*09/26/2022 Stage 3a chronic kidney disease (HCC) [N18.31] 01/27/2023 Encounter Status:Closed by SUZIE STUART MA on 08/27/23 [facility] Pratibha 01-27-2023 CNOV Office Visit (FAMPWS ) CRISTINA SOTO ([id number]) 1945 F Date Time Provider Department 01/27/23 9:20 AM RUSTAM BECKER During your visit today, we recorded the following information about you: Pulse Respiration Blood pressure Weight 58/minute 16/minute 112/64 72.4 kg Rustam Becker MD 01/27/2023 3:16 PM Signed Chief Complaint Patient presents with: F/U 6 Month HPI Cristina Stoo is a 77 year old female who presents here today for a 6 month follow up. Pt here today with her spouse for her routine follow up and lab review. Pt last seen by Jackie on 09/26/22 for a hospital follow up. Pt has 7 grandchildren. GI - Denies any stomach or bowel issues. No issues with blood in stool since her last OV. Colonoscopy completed in 08/2021 noting hemorrhoids. Denies any urinary issues presently, did f/u with Urology. HTN - Denies checking BP at home or having symptoms of chest pain or sob. Reports occasional dizziness with positional changes, tries to be careful of this. Follows with [facility] Cardiology, Dr. Morrison annually. On current regimen of Toprol XL 25 mg every other day, Amlodipine 200 mg daily, Norvasc 10 mg daily and Losartan 100 mg daily. Toprol was decreased to every other day to help with dizziness. Denies any edema in lower legs. Gout - Stable with use of Allopurinol 100 mg once daily. Afib - Stable with use of Xarelto 20 mg daily. Denies any bleeding or bruising. Lipids - Stable, followed by Cardiology. On current regimen of Lipitor 40 mg 0.5 tab po every day. Does try to watch diet, states that she's lost weight on purpose. Denies any exercise, other then when walking with her grandchildren. Derm - Hx of basal cell carcinoma. Was seen by General Surgery. Neuro - Spouse states that she's had dementia issues/memory issues for the past couple years, but seems to be getting worse. Pt states that she's doing fine but spouse states it's not good. Pt was referred to Geriatrics at [facility], but has not seen anyone. He attempted to contact them 3 x with no call back. He still prefers to proceed with this after her upcoming surgery. Did fall and broke her arm. Since that time she's been stable. Does have limited ROM with left arm. states that she cancelled her PT and didn't complete this. Pt has scheduled cataract surgery with Dr. Villa at [facility]. Pt scheduled for left eye on 02/02/23 and right eye 02/17/23. - Has Adv Dir/Living will scanned into chart, but has brought new ones to be scanned into file. Discussed Tdap and insurance coverage. Past medical history, appointments, medications, allergies reviewed. Previous Medical History PAST MEDICAL HISTORY Diagnosis Date Arthritis Diverticulosis of colon (without mention of hemorrhage) Diverticulosis Essential hypertension, benign Family history of diabetes mellitus Family history of ischemic heart disease Family history of malignant neoplasm of gastrointestinal tract Gout 07/11/2010 History of falling Hyperlipidemia LDL goal < 100 07/11/2010 shelter (current) use of anticoagulants Mild cognitive impairment, so stated Nonsustained ventricular tachycardia 01/14/2017 Obesity, unspecified Paroxysmal atrial fibrillation (HCC) 02/02/2015 Presence of artificial hip joint Supraventricular tachycardia, paroxysmal (HCC) 11/20/2014 Unspecified hemorrhoids without mention of complication Hemorrhoids Previous Surgical History PAST SURGICAL HISTORY Procedure Laterality Date ARTHRP ACETBLR/PROX FEM PROSTC AGRFT/ALGRFT Left 04/13/2017 Dr. best COLONOSCOPY FLX DX W/COLLJ SPEC WHEN PFRMD 06/26/2003 Colonoscopy COLONOSCOPY FLX DX W/COLLJ SPEC WHEN PFRMD 12/26/2009 COLONOSCOPY FLX DX W/COLLJ SPEC WHEN PFRMD 08/27/2021 HIP SURGERY HX Right 10/21/2021 Right THR-Dr. Best JOINT REPLACEMENT HX LIG/TRNSXJ FLP TUBE ABDL/VAG APPR UNI/BI Tubal ligation TONSILLECTOMY PRIMARY/SECONDARY Tonsillectomy Family History FAMILY HISTORY Problem Relation Age of Onset Colon Cancer Mother diagnosed in her 80s per patient Arthritis Mother other (ASHD) Mother Arthritis Father other (colonic polyps) Brother pt stated 04/30 not aware of any fam Hx polyps Patient Allergies ALLERGIES Allergen Reactions Oxycodone GI Upset Vomiting Current Medications Current Outpatient Medications on File Prior to Visit Medication Sig amiodarone (PACERONE) 200 mg tablet Take 1 tablet by mouth once daily. allopurinol (ZYLOPRIM) 100 mg tablet Take 1 tablet by mouth once daily. For gout. losartan (COZAAR) 100 mg tablet Take 1 tablet by mouth once daily. XARELTO 20 mg tablet Take 1 tablet by mouth daily with dinner. docusate sodium (STOOL SOFTENER ORAL) Take by mouth twice daily. amLODIPine (NORVASC) 5 mg tablet Take 1 tablet by mouth once daily. atorvastatin (LIPITOR) 40 mg tablet Take 0.5 tablet (more content not included)... Normal [facility] CBC W Auto Differential pane l (Bld)on 01-20-2023 Basophils (Bld) [#/Vol] 10*3/uL Normal <0.11 [facility] Comment on above: Order Comment: Speci men Type: BLOOD SPECIMENOrdering Facility: [facility] Address: [address] [place] [address] Performed By: #### 5 7021-8 ####[facility] [id number] [place] [address] [place] Basophils/100 WBC (Bld) 0.4 % Normal [facility] Comment on above: Order Comment: Speci men Type: BLOOD SPECIMENOrdering Facility: [facility] Address: [address] [place] [address] Performed By: #### 5 7021-8 ####[facility] [id number] [place] [address] [place] Differential cell count method Nom (Bld) Auto Normal [facility] Comment on above: Order Comment: Speci men Type: BLOOD SPECIMENOrdering Facility: [facility] Address: [address] [place] [address] Performed By: #### 5 7021-8 ####[facility] [id number] [place] [address] [place] Eosinophils (Bld) [#/Vol] 0.06 10*3/uL Normal <0.46 [facility] Comment on above: Order Comment: Speci men Type: BLOOD SPECIMENOrdering Facility: [facility] Address: [address] [address] Performed By: #### 5 7021-8 ####[facility] YAHIR [id number] [place] [address] [place] Eosinophils/100 WBC (Bld) 1.2 % Normal [facility] Comment on above: Order Comment: Speci men Type: BLOOD SPECIMENOrdering Facility: [facility] Address: [address] [address] Performed By: #### 5 7021-8 ####[facility] JOSHUANCDARRINMonse [id number] [place] [address] [place] Erythrocyte distribution width (RBC) [Ratio] 12.2 % Normal 11.5-15.0 [facility] Comment on above: Order Comment: Speci men Type: BLOOD SPECIMENOrdering Facility: [facility] Address: [address] [address] Performed By: #### 5 7021-8 ####[facility] HOSPITALNCDARRINA [id number] [place] [address] [place] Hematocrit (Bld) [Volume fraction] 38.7 % Normal 36.0-46.0 [facility] Comment on above: Order Comment: Speci men Type: BLOOD SPECIMENOrdering Facility: [facility] Address: [address] [address] Performed By: #### 5 7021-8 ####[facility] H[facility]PITALNCLIA [id number] [place] [address] [place] Hemoglobin (Bld) [Mass/Vol] 12.7 g/dL Normal 11.5-15.5 [facility] Comment on above: Order Comment: Speci men Type: BLOOD SPECIMENOrdering Facility: [facility] Address: [address] [address] Performed By: #### 5 7021-8 ####[facility] MILLWNCLIA [id number] [place] [address] [place] Immature granulocytes (Bld) [#/Vol] 10*3/uL Normal <0.10 [facility] Comment on above: Order Comment: Speci men Type: BLOOD SPECIMENOrdering Facility: [facility] Address: [address] [place] [address] Performed By: #### 5 7021-8 ####[facility] [id number] [place] [address] [place] Immature granulocytes/100 WBC (Bld) 0.2 % Normal [facility] Comment on above: Order Comment: Speci men Type: BLOOD SPECIMENOrdering Facility: [facility] Address: [address] [place] [address] Performed By: #### 5 7021-8 ####[facility] [id number] [place] [address] [place] Lymphocytes (Bld) [#/Vol] 2.01 10*3/uL Normal 1.00-4.00 [facility] Comment on above: Order Comment: Speci men Type: BLOOD SPECIMENOrdering Facility: [facility] Address: [address] [place], [place] [id number] Performed By: #### 5 7021-8 ####[facility] [id number] [place] [address] [place] Lymphocytes/100 WBC (Bld) 39.3 % Normal [facility] Comment on above: Order Comment: Speci men Type: BLOOD SPECIMENOrdering Facility: [facility] Address: [address] [place], [place] [id number] Performed By: #### 5 7021-8 ####[facility] HOSPITALNCLIA [id number] [place] [address] [place] MCH (RBC) [Entitic mass] 31.8 pg Normal 26.0-34.0 [facility] Comment on above: Order Comment: Speci men Type: BLOOD SPECIMENOrdering Facility: [facility] Address: [address] [place] [address] Performed By: #### 5 7021-8 ####[facility] HOSPITALNCMILENA [id number] [place] [address] [place] MCHC (RBC) [Mass/Vol] 32.8 g/dL Normal 30.5-36.0 [facility] Comment on above: Order Comment: Speci men Type: BLOOD SPECIMENOrdering Facility: [facility] Address: [address] [place] [address] Performed By: #### 5 7021-8 ####[facility]ITALNC[facility] [id number] [place] [address] [place] MCV (RBC) [Entitic vol] 96.8 fL Normal 80.0-100.0 [facility] Comment on above: Order Comment: Speci men Type: BLOOD SPECIMENOrdering Facility: [facility] Address: [address] [place] [address] Performed By: #### 5 7021-8 ####[facility] HOSPITALNCLI [id number] [place] [address] [place] Monocytes (Bld) [#/Vol] 0.39 10*3/uL Normal <0.87 [facility] Comment on above: Order Comment: Speci men Type: BLOOD SPECIMENOrdering Facility: [facility] Address: [address] [place] [address] Performed By: #### 5 7021-8 ####[facility] HOSPITALNCLIA [id number] [place] [address] [place] Monocytes/100 WBC (Bld) 7.6 % Normal [facility] Comment on above: Order Comment: Speci men Type: BLOOD SPECIMENOrdering Facility: [facility] Address: [address] [address] Performed By: #### 5 7021-8 ####[facility] KYMBERLYSusanneNCDARRINA [id number] [place] [address] [place] Neutrophils (Bld) [#/Vol] 2.62 10*3/uL Normal 1.45-7.50 [facility] Comment on above: Order Comment: Speci men Type: BLOOD SPECIMENOrdering Facility: [facility] Address: [address] [place] [address] Performed By: #### 5 7021-8 ####[facility] HOSPITALNCDARRINA [id number] [place] [address] [place] Neutrophils/100 WBC (Bld) 51.3 % Normal [facility] Comment on above: Order Comment: Speci men Type: BLOOD SPECIMENOrdering Facility: [facility] Address: [address] [place] [address] Performed By: #### 5 7021-8 ####[facility] HOSPITALNCA [id number] [place] [address] [place] Nucleated RBC (Bld) [#/Vol] 10*3/uL Normal <0.01 [facility] Comment on above: Order Comment: Speci men Type: BLOOD SPECIMENOrdering Facility: [facility] Address: [address] [address] Performed By: #### 5 7021-8 ####[facility] HOSPITALNCLIA [id number] [place] [address] [place] Nucleated RBC/100 WBC (Bld) [Ratio] 0.0 /100 WBC Normal [facility] Comment on above: Order Comment: Speci men Type: BLOOD SPECIMENOrdering Facility: [facility] Address: [address] [place] [address] Performed By: #### 5 7021-8 ####[facility] KYMBERLYSusanneNCLIA [id number] [place] [address] [place] Platelet mean volume (Bld) [Entitic vol] 9.9 fL Normal 9.0-12.7 [facility] Comment on above: Order Comment: Speci men Type: BLOOD SPECIMENOrdering Facility: [facility] Address: [address] [place], [place] [id number] Performed By: #### 5 7021-8 ####[facility] HOSPITALNCLIA [id number] [place] [address] [place] Platelets (Bld) [#/Vol] 247 10*3/uL Normal 150-400 [facility] Comment on above: Order Comment: Speci men Type: BLOOD SPECIMENOrdering Facility: [facility] Address: [address] [place], [place] [id number] Performed By: #### 5 7021-8 ####[facility] HOSPITALNCLIA [id number] [place] [address] [place] RBC (Bld) [#/Vol] 4.00 10*6/uL Normal 3.90-5.20 [facility] Comment on above: Order Comment: Speci men Type: BLOOD SPECIMENOrdering Facility: [facility] Address: [address] [place] [id number] Performed By: #### 5 7021-8 ####[facility] HOSPITALNCLIA [id number] [place] [address] [place] WBC (Bld) [#/Vol] 5.11 10*3/uL Normal 3.70-11.00 [facility] Comment on above: Order Comment: Speci men Type: BLOOD SPECIMENOrdering Facility: [facility] Address: [address] [place], [place] [id number] Performed By: #### 5 7021-8 ####[facility] PINELLASWNCLIA [id number] [place] [address] [place] Comprehensive metabolic 2000 panelon 01-20-2023 Albumin [Mass/Vol] 4.2 g/dL Normal 3.9-4.9 [facility] Comment on above: Order Comment: Speci men Type: BLOOD SPECIMENOrdering Facility: [facility] Address: [address] [place] [address] Performed By: #### 3 084-1, 46600-1 ####[facility] HOSPITALNCLIA [id number] [place] [address] [place] ALP [Catalytic activity/Vol] 84 U/L Normal 34-123 [facility] Comment on above: Order Comment: Speci men Type: BLOOD SPECIMENOrdering Facility: [facility] Address: [address] [place] [address] Performed By: #### 3 084-1, 28923-1 ####[facility] [id number] [place] [address] [place] ALT [Catalytic activity/Vol] 13 U/L Normal 7-38 [facility] Comment on above: Order Comment: Speci men Type: BLOOD SPECIMENOrdering Facility: [facility] Address: [address] [place] [address] Performed By: #### 3 084-1, 97057-4 ####[facility] [id number] [place] [address] [place] Anion gap [Moles/Vol] 9 mmol/L Normal 9-18 [facility] Comment on above: Order Comment: Speci men Type: BLOOD SPECIMENOrdering Facility: [facility] Address: [address] [place] [address] Performed By: #### 3 084-1, 52920-5 ####[facility] HOSPITALNCLIA [id number] [place] [address] [place] AST [Catalytic activity/Vol] 16 U/L Normal 13-35 [facility] Comment on above: Order Comment: Speci men Type: BLOOD SPECIMENOrdering Facility: [facility] Address: [address] [place] [address] Performed By: #### 3 084-1, 96513-2 ####[facility] SUBHA YAHIR [id number] [place] [address] [place] Bilirubin [Mass/Vol] 0.3 mg/dL Normal 0.2-1.3 [facility] Comment on above: Order Comment: Speci men Type: BLOOD SPECIMENOrdering Facility: [facility] Address: [address] [place] [address] Performed By: #### 3 084-1, 86123-5 ####[facility] CENTERALEKSANDER [id number] [place] [address] [place] Calcium [Mass/Vol] 8.6 mg/dL Normal 8.5-10.2 [facility] Comment on above: Order Comment: Speci men Type: BLOOD SPECIMENOrdering Facility: [facility] Address: [address] [place] [address] Performed By: #### 3 084-1, 17894-6 ####[facility] PINELLASNITISH [id number] [place] [address] [place] Chloride [Moles/Vol] 106 mmol/L High 97-105 [facility] Comment on above: Order Comment: Speci men Type: BLOOD SPECIMENOrdering Facility: [facility] Address: [address] [place] [address] Performed By: #### 3 084-1, 55089-9 ####[facility] BILLYWELISSALIA [id number] [place] [address] [place] CO2 [Moles/Vol] 28 mmol/L Normal 22-30 [facility] Comment on above: Order Comment: Speci men Type: BLOOD SPECIMENOrdering Facility: [facility] Address: [address] [address] Performed By: #### 3 084-1, ####[facility]ITAL[facility] [id number] [place] [address] [place] Creatinine [Mass/Vol] 0.99 mg/dL High 0.58-0.96 [facility] Comment on above: Order Comment: Speci men Type: BLOOD SPECIMENOrdering Facility: [facility] Address: [address] [address] Performed By: #### 3 084-, ####[facility] [id number] [place] [address] [place] ESTIMATED GLOMERULAR FILTRATION RATE 59 mL/min/1.73m??? Low >=60 [facility] Comment on above: Order Comment: Speci men Type: BLOOD SPECIMENOrdering Facility: [facility] Address: [address] [place] [address] Result Comment: Mamie mated Glomerular Filtration Rate (eGFR) is calculated using the 2020 CKD-EPI creatinine equation. This equation utilizes serum creatinine, sex, and age as parameters. The creatinine assay has traceable calibration to isotope dilution-mass spectrometry. Refer to KDIGO guidelines for clinical interpretation. In patients with unstable renal function, e.g. those with acute kidney injury, the eGFR may not accurately reflect actual GFR. Performed By: #### 3 084-1, ####[facility]LEA [id number] [place] [address] [place] Glucose [Mass/Vol] 96 mg/dL Normal 74-99 [facility] Comment on above: Order Comment: Speci men Type: BLOOD SPECIMENOrdering Facility: [facility] Address: [address] [address] Result Comment: The [place] Diabetes [employer] (ADA) provides guidance for cutoff values for fasting glucose and random glucose. The ADA defines fasting as no caloric intake for at least 8 hours. Fasting plasma glucose results between 100 to 125 mg/dL indicate increased risk for diabetes (prediabetes). Fasting plasma glucose results greater than or equal to 126 mg/dL meet the criteria for diagnosis of diabetes. In the absence of unequivocal hyperglycemia, results should be confirmed by repeat testing. In a patient with classic symptoms of hyperglycemia or hyperglycemic crisis, random plasma glucose results greater than or equal to 200 mg/dL meet the criteria for diagnosis of diabetes. Reference: Standards of Medical Care in Diabetes 2016, [place] [employer]. Diabetes Care. 2016.39(Suppl 1). Performed By: #### 3 084-1, 97842-3 ####[facility]OOKSVILLEMonse [id number] [place] [address] [place] Potassium [Moles/Vol] 4.4 mmol/L Normal 3.7-5.1 [facility] Comment on above: Order Comment: Speci men Type: BLOOD SPECIMENOrdering Facility: [facility] Address: [address] [place] [address] Performed By: #### 3 084-1, 89335-2 ####[facility]ILLEMonse [id number] [place] [address] [place] Protein [Mass/Vol] 6.5 g/dL Normal 6.3-8.0 [facility] Comment on above: Order Comment: Speci men Type: BLOOD SPECIMENOrdering Facility: [facility] Address: [address] [address] Performed By: #### 3 084-1, 18020-8 ####[facility]PITALMILENA [id number] [place] [address] [place] Sodium [Moles/Vol] 143 mmol/L Normal 136-144 [facility] Comment on above: Order Comment: Speci men Type: BLOOD SPECIMENOrdering Facility: [facility] Address: [address] [address] Performed By: #### 3 084-1, 26414-2 ####[facility] PINELLASWNCLIA [id number] [address] [place] [facility] Urea nitrogen [Mass/Vol] 18 mg/dL Normal 7-21 [facility] Comment on above: Order Comment: Speci men Type: BLOOD SPECIMENOrdering Facility: [facility] Address: [address] [place] [address] Performed By: #### 3 084-1, 21484-2 ####[facility] HOS[facility]IT[facility] [id number] [address] OF [place] Lipid 1996 panelon 3 Cholesterol [Mass/Vol] 155 mg/dL Normal <200 [facility] Comment on above: Order Comment: Speci men Type: BLOOD SPECIMEN Ordering Facility: [facility] Address: [address] [place] [address] Result Comment: <200 mg/dL, Desirable 200-239 mg/dL, Borderline high >239 mg/dL, High Performed By: #### 2 4331-1 #### [facility] CLIA [id number] [address] [id number] [address] [place] [facility] Cholesterol in HDL [Mass/Vol] 63 mg/dL Normal >39 [facility] Comment on above: Order Comment: Speci men Type: BLOOD SPECIMEN Ordering Facility: [facility] Address: [address] [place] [address] Result Comment: 40-5 9 mg/dL, Acceptable >59 mg/dL, High: Negative risk factor for coronary heart disease <40 mg/dL, Low: Positive risk factor for coronary heart disease Performed By: #### 2 4331-1 #### [facility] CLIA [id number] [address] [place] [facility] CLIA [id number] [address] [place] [address] [place] Cholesterol in LDL [Mass/Vol] 78 mg/dL Normal <100 [facility] Comment on above: Order Comment: Naomii men Type: BLOOD SPECIMEN Ordering Facility: [facility] Address: [address] [place] [address] Result Comment: <100 mg/dL, Optimal 100-129 mg/dL, Near optimal/above optimal 130-159 mg/dL, Borderline high 160-189 mg/dL, High >189 mg/dL, Very high Secondary prevention optimal LDL Cholesterol levels are recommended to be < 70 mg/dL Performed By: #### 2 4331-1 #### [facility] CLIA [id number] [facility] [id number] [place] [address] [place] Cholesterol in LDL/Cholesterol in HDL [Mass ratio] 1.24 {ratio} Normal <2.54 [facility] Comment on above: Order Comment: Speci men Type: BLOOD SPECIMEN Ordering Facility: [facility] Address: [address] [place] [address] Result Comment: Gloria espana: 1. National Cholesterol Education Program ATP III Guideline At-A-Glance Quick Desk Reference: National Heart, Lung, and Blood Sunset. National Institutes of Health. 2001: NIH Publication No. 01-3305. 2. An International Atherosclerosis Society position paper: global recommendations for the management of dyslipidemia: executive summary, Atherosclerosis. 2014: 232(2):410-413. Performed By: #### 2 4331-1 #### [facility] CLIA [id number] [address] [place] [facility] CLIA [id number] [address] [place] [address] [place] Cholesterol in VLDL [Mass/Vol] 14 mg/dL Normal <30 [facility] Comment on above: Order Comment: Speci men Type: BLOOD SPECIMEN Ordering Facility: [facility] Address: [address] [place] [address] Performed By: #### 2 4331-1 #### [facility] CLIA [id number] [address] [place] [address] [place] [facility] CLIA [id number] [address] [place] [address] [place] Cholesterol non HDL [Mass/Vol] 92 mg/dL Normal <130 [facility] Comment on above: Order Comment: Speci men Type: BLOOD SPECIMEN Ordering Facility: [facility] Address: [address] [place] [address] Result Comment: <130 mg/dL, Optimal 130-159 mg/dL, Near optimal/above optimal 160-189 mg/dL, Borderline high 190-219 mg/dL, High >219 mg/dL, Very high Secondary prevention optimal non HDL Cholesterol levels are recommended to be <100 mg/dL Performed By: #### 2 4331-1 #### [facility] CLIA [id number] [address] [place] [address] [place] [facility] CLIA [id number] [address] [place] [address] [place]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 03-30-2018 End: 03-30-2018 [facility] Start: 03-26-2018 Patient encounter JAYLON Angelo ility:[facility] Procedures Date Procedure Procedure Detail Performing Clinician Start: 08-09-2022 Radex spine lumbosac ral 2/3 views Cb Romo MD Work Phone: Start: 01-17-2022 Adult depression scr eening assessment Jackie Savage APRN.BACON SLICER Work Phone: Start: 08-27-2021 Colonoscopy Rhea shirley Start: 12-18-2020 Adult depression scr eening assessment Rhea Jin Plan of Treatment Date Care Activity Detail Author Start: 06-18-2033 Urine microalbumin profile DTaP,Tdap,Td Vaccine (4 - Td or Tdap) [facility] Start: 08-27-2026 Colonoscopy COLONOSCOPY [facility] Start: 08-27-2026 COLORECTAL CANCER SCREENING COLORECTAL CANCER SCREENING [facility] Start: 08-27-2026 Screening for malign ant neoplasm of colon [facility] Start: 01-20-2026 DIABETES SCREEN DIABETES SCREEN [facility] Start: 01-20-2026 Diabetes Screening Diabetes Screenin g [facility] Start: 01-13-2025 DIABETES SCREEN DIABETES SCREEN [facility] Start: 05-15-2024 Covid-19 Vaccine (8 - 2024-25 season) Covid-19 Vaccine ( season) [facility] Start: 05-15-2024 Influenza vaccination Influenza Vacc ine (#1) [facility] Start: 01-28-2024 ANNUAL PCP TEAM VACUUM BOTTLE ASSEMBLER ABRAHAM DISEASE VISIT ANNUAL PCP TEAM CHRONIC DISEASE VISIT [facility] Start: 01-28-2024 BP CONTROLLED (<130/80) BP CONTROLLE D (<130/80) [facility] Start: 01-21-2024 Complete blood count Hemoglobin/Alberto tocrit [facility] Start: 01-21-2024 Creatinine measurement Serum Creatin ine [facility] Start: 01-21-2024 HEMOGLOBIN/HEMATOCRIT HEMOGLOBIN/HEM ATOCRIT [facility] Start: 01-21-2024 SERUM CREATININE SERUM CREATININE Cl [facility] Start: 12-23-2023 DIABETES SCREEN DIABETES SCREEN [facility] Start: 09-26-2023 ANNUAL PCP TEAM VACUUM BOTTLE ASSEMBLER ABRAHAM DISEASE VISIT ANNUAL PCP TEAM CHRONIC DISEASE VISIT [facility] Start: 09-26-2023 BP CONTROLLED (<130/80) BP CONTROLLE D (<130/80) [facility] Start: 09-14-2023 Advance Directive Discussion Advance Directive Discussion [facility] Start: 09-12-2023 ANNUAL PCP TEAM VACUUM BOTTLE ASSEMBLER ABRAHAM DISEASE VISIT ANNUAL PCP TEAM CHRONIC DISEASE VISIT [facility] Start: 05-29-2023 ANNUAL PCP TEAM VACUUM BOTTLE ASSEMBLER ABRAHAM DISEASE VISIT ANNUAL PCP TEAM CHRONIC DISEASE VISIT [facility] Start: 05-15-2023 Covid-19 Vaccine ( season) Covid-19 Vaccine ( season) [facility] Start: 01-17-2023 Adult depression screening assessment DEPRESSION SCREENING [facility] Start: 01-17-2023 ANNUAL PCP TEAM VACUUM BOTTLE ASSEMBLER ABRAHAM DISEASE VISIT ANNUAL PCP TEAM CHRONIC DISEASE VISIT [facility] Start: 09-30-2022 End: 11-30-2022 Bacteria identified in Urine by Culture URINE CULTURE Microbiology Routine Microscopic hematuria Expected: 09/30/2022, Expires: 11/30/2022 [facility] Work Phone: Comment on above: Expected: 09/30/2022 , Expires: 11/30/2022 Start: 09-30-2022 BP CONTROLLED (<130/80) BP CONTROLLE D (<130/80) [facility] Start: 09-30-2022 End: 11-30-2022 Urinalysis complete panel - Urine URINALYSIS, WITH MICROSCOPIC Lab Routine Microscopic hematuria Expected: 09/30/2022, Expires: 11/30/2022 [facility] Work Phone: Comment on above: Expected: 09/30/2022 , Expires: 11/30/2022 Start: 09-14-2022 ADVANCE DIRECTIVE DISCUSSION ADVANCE DIRECTIVE DISCUSSION [facility] Start: 09-14-2022 DEPRESSION ASSESSMENT DEPRESSION ASS ESSMENT [facility] Start: 08-19-2022 ANNUAL PCP TEAM VACUUM BOTTLE ASSEMBLER ABRAHAM DISEASE VISIT ANNUAL PCP TEAM CHRONIC DISEASE VISIT [facility] Start: 05-15-2022 Influenza vaccination INFLUENZA (#1) [facility] Start: 12-24-2021 SHINGRIX VACCINE (2 of 3) SHINGRIX VACCINE (2 of 3) [facility] Comment on above: Postponed from 03/16 (Declined at this time) Start: 12-24-2021 Urine microalbumin profile DTAP,TDAP,TD (3 - Td or Tdap) [facility] Comment on above: Postponed from 04/07 (Declined at this time) Start: 12-18-2021 Adult depression screening assessment DEPRESSION SCREENING [facility] Start: 09-14-2021 ADVANCE DIRECTIVE DISCUSSION ADVANCE DIRECTIVE DISCUSSION [facility] Start: 04-07-2017 Urine microalbumin profile DTAP,TDAP,TD (3 - Td or Tdap) [facility] Start: 03-16-2015 SHINGRIX VACCINE (2 of 3) SHINGRIX VACCINE (2 of 3) [facility] Start: 1990 COLOGUARD (FIT-DNA) COLOGUARD (FIT-D NA) [facility] Start: [address] COLONOGRAPHY [facility] Start: 1990 FECAL OCCULT BLOOD FECAL OCCULT BLOO D [facility] Start: 1990 Screening for malign ant neoplasm of colon [facility] Start: 1990 SIGMOIDOSCOPY SIGMOIDOSCOPY [facility] Start: 1963 BP CONTROLLED (<130/80) BP CONTROLLE D (<130/80) [facility] Immunizations Immunization Date Immunization Notes Care Provider Fa cility 06-18-2023 pneumococcal (PCV20) vaccine, 20 valent (PREVNAR 20) Rustam Becker MD Work Phone: [facility] 06-18-2023 tetanus toxoid, redu viviana diphtheria toxoid, and acellular pertussis vaccine, adsorbed Rustam Becker MD Work Phone: [facility] 05-27-2023 influenza (aIIV4) vaccine, age 65+ yr, quadrivalent, PF (FLUAD QUAD) Rustam Becker MD Work Phone: [facility] 05-27-2023 respiratory syncytia l virus (RSV) vaccine, bivalent (ABRYSVO) Rustam Becker MD Work Phone: [facility] 05-27-2023 influenza virus vacc ine, unspecified formulation [facility] [place] Work Phone: [facility] 07-15-2022 COVID-19 booster vaccine, age 12+ yr, bivalent (PFIZER-BIONTECH) Rustam Becker MD Work Phone: [facility] 12-21-2021 COVID-19 vaccine, ag e 12+ yr (PFIZER-BIONTECH - DOWLING TOP) Tao Gonzalez APRN.BACON SLICER Work Phone: [facility] 11-30-2020 COVID-19 vaccine, ag e 12+ yr (PFIZER-BIONTECH - PURPLE TOP) [facility] Work Phone: 11-09-2020 COVID-19 vaccine, ag e 12+ yr (PFIZER-BIONTECH - PURPLE TOP) [facility] Work Phone: 05-07-2020 influenza, high dose seasonal, preservative-free [facility] 06-14-2019 influenza, high dose seasonal, preservative-free [facility] 04-14-2019 zoster vaccine recombinant Jackie Savage PIT STEWARD.BACON SLICER Work Phone: [facility] Work Phone: 02-11-2019 zoster vaccine recombinant Jackie Savage PIT STEWARD.BACON SLICER Work Phone: [facility] Work Phone: 06-16-2018 influenza, high dose seasonal, preservative-free [facility] 05-26-2017 influenza, high dose seasonal, preservative-free [facility] 06-23-2016 influenza, high dose seasonal, preservative-free [facility] 02-13-2016 pneumococcal conjuga te vaccine, 13 valent [facility] 06-11-2015 influenza, high dose seasonal, preservative-free [facility] 01-19-2015 zoster vaccine, live [facility] 10-07-2011 influenza virus vacc ine, unspecified formulation [facility] 07-10-2010 influenza virus vacc ine, unspecified formulation [facility] Work Phone: 07-10-2010 pneumococcal polysaccharide vaccine, 23 valent [facility] Work Phone: 04-07-2007 tetanus toxoid, redu viviana diphtheria toxoid, and acellular pertussis vaccine, adsorbed [facility] Work Phone: 03-14-1992 diphtheria and tetan us toxoids, adsorbed for pediatric use [facility] Payers Date Payer Category Payer Medicare [employer] MEDICARE A ETNA MEDICARE PPO [id number] 2021-Present [phone] [address] [place] [address] O [id number] 2021 Medicare [employer] MEDICARE A ETNA MEDICARE PPO [id number] 2021-Present [phone] [address] [place] [address] PPO [id number] 2021 Medicare [id number] Medicare [id number] Social History Date Type Detail Facility Start: 10-07-2011 Tobacco smoking stat us NHIS Never smoked tobacco [facility] Start: 10-21-2021 End: 08-09-2022 Alcohol intake Current non-drinker of alcohol (finding) [facility] Start: 12-18-2020 End: 09-12-2022 History SDOH Alcohol Frequency 1 [facility] Start: 12-18-2020 End: 09-12-2022 History SDOH Social Connections Phone 5 [facility] Start: 12-18-2020 End: 09-12-2022 History SDOH Social Connections Get Together 3 [facility] Start: 12-18-2020 End: 09-12-2022 History SDOH Social Connections Membership 2 [facility] Start: 12-18-2020 End: 09-12-2022 History SDOH Physical Activity DPW 0 [facility] Start: 12-18-2020 Education 17 [facility] Start: 1945 Sex Assigned At Female C [facility] Start: 12-01-2021 End: 07-22-2022 Exposure to SARS-CoV-2 (event) Not sure [facility] Start: 10-07-2011 Tobacco use and exposure Smoke less tobacco non-user [facility] Start: 09-12-2022 History SDOH Social Connections Phone 4 [facility] Start: 08-19-2020 End: 09-12-2022 History of Social function [place] [facility] Start: 08-19-2020 End: 09-12-2022 Social connection and isolation panel [facility] Do you belong to any clubs or organizations such as jain groups, unions, fraternal or athletic groups, or school groups? Yes [facility] Are you now , , , , never or living with a partner? [facility] How often to you hav e a drink containing alcohol? Never [facility] How many standard dr inks containing alcohol do you have on a typical day? Patient does not drink [facility] Do you feel stress - tense, restless, nervous, or anxious, or unable to sleep at night because your mind is troubled all the time - these days [OSQ] Not at all [facility] (I/We) worried whejake er (my/our) food would run out before (I/we) got money to buy more. Never true [facility] In the past 12 month s, was there a time when you were not able to pay the mortgage or rent on time? No [facility] Start: 12-18-2020 Gender identity Identifies as female gender (finding) [facility] Start: 05-07-2021 Sexual orientation Heterosexual (renee hodges) [facility] Medical Equipment Procedure Code Equipment Code Equipment Origin al Text Equipment Identifier Dates Sys Card Mntr Rv l Linq Ins - [id number] Start: 11-24-2014 Comment on above: Description: MedCamioCam ic Reveal LINQ Loop Recorder-[id number] Reveal [id number] Start: 11-24-2014 Clinical Notes 04-20-2018 to 12-26-[address] - 12/26/2023 11:59 AM EDTRhea Jin MA - 12/02/2023 11:21 AM EDTTelephone Encounter - Suzie Stuart Ma - 08/27/2023 10:34 AM Monica Saini Mi - 09/12/2022 4:39 PM EST Note Date & Type Note Facility 12-26-2023 Note HNO ID: [id number] Author: ARACELI OWENS CT Service: ? Author Type: Technologist Type: Progress Notes Filed: 12/26/2023 11:59 Note Text: Radiology Service Progress Note PATIENT NAME: Cristina Soto DATE OF SERVICE: December 26, 2023 TIME: 11:59 AM PATIENT IDENTITY VERIFICATION COMPLETED USING TWO (2) IDENTIFIERS: Name and Date of confirmed by patient verbally. FALL SCREENING: Has the patient had 2 falls in the last year or 1 fall with injury or currently using an Ambulatory Assistive Device (Walker, Cane, Wheelchair, Crutches, etc.)? Emergency Room Patient: Screened in ED PATIENT GENDER DATA: Female. status: : No status: NO. PATIENT RELEVANT IMPLANT DATA REVIEWED: Not Applicable PATIENT PRESENTS WITH AN IMPLANTABLE OR ATTACHED TRANSMISSION AND COORDINATION ENGINEER: No RADIOLOGY DEPARTMENT: CT; Exam(s) Completed: Brain and Spine PERIPHERAL IV DATA: Not applicable SIGNED BY: NAKIA Salinas December 26, 2023 11:59 AM [place] [id number] History of Present illness Narrative Radiology Service Progress Note PATIENT NAME: Cristina Soto DATE OF SERVICE: December 26, 2023 TIME: 11:59 AM PATIENT IDENTITY VERIFICATION COMPLETED USING TWO (2) IDENTIFIERS: Name and Date of confirmed by patient verbally. FALL SCREENING: Has the patient had 2 falls in the last year or 1 fall with injury or currently using an Ambulatory Assistive Device (Walker, Cane, Wheelchair, Crutches, etc.)? Emergency Room Patient: Screened in ED PATIENT GENDER DATA: Female. status: : No status: NO. PATIENT RELEVANT IMPLANT DATA REVIEWED: Not Applicable PATIENT PRESENTS WITH AN IMPLANTABLE OR ATTACHED TRANSMISSION AND COORDINATION ENGINEER: No RADIOLOGY DEPARTMENT: CT; Exam(s) Completed: Brain and Spine PERIPHERAL IV DATA: Not applicable SIGNED BY: NAKIA Salinas December 26, 2023 11:59 AM documented in this encounter [facility] 12-02-2023 Note Patient Outreach (NE TNAV) CRISTINA SOTO ([id number]) 1945 F Date Time Provider Department 12/02/23 RHEA JIN During your visit today, we recorded the following information about you: Rhea Jin MA 12/02/2023 4:55 PM Signed POPULATION HEALTH NAVIGATION OUTREACH Action/12.02.23 Patient is on HCC list and needs appointment to address gap closure ~Annual wellness exam Outcome: ~Called and spoke to patient who states she no longer goes to [facility]. ~PCP updated. Reason for Outreach Care Gap/HCC or Scheduling Wellness Visits Care Gaps due: Medicare Annual Wellness Visit Patient Contacted: Spoke to patient/parent/or legal guardian Patient identified by name and : Yes Care Gap/HCC/Scheduling Wellness actions taken: Patient declined: Not interested in scheduling PCP field updated Navigation Signature: Rhea Jin MA December 02, 2023 11:21 AM Allergies As of Date: 12/02/2023 Noted Allergy Reaction OXYCODONE 09/12/2022 8 - GI Upset Comments: Vomiting Date Reviewed: 01/27/2023 Reviewed by: Adrienne Saini Ma - Fully Assessed Reason for Visit: Population Health Navigation Outreach [3910] Cmt: [employer] [facility] 2.16.24 Prescriptions as of 12/02/2023 - metoprolol succinate ER (TOPROL XL) 25 mg 24 hr tablet Take 1 tablet by mouth every other day. - amiodarone (PACERONE) 200 mg tablet Take 1 tablet by mouth once daily. - allopurinol (ZYLOPRIM) 100 mg tablet Take 1 tablet by mouth once daily. For gout. - losartan (COZAAR) 100 mg tablet Take 1 tablet by mouth once daily. - XARELTO 20 mg tablet Take 1 tablet by mouth daily with dinner. - docusate sodium (STOOL SOFTENER ORAL) Take by mouth twice daily. - amLODIPine (NORVASC) 5 mg tablet Take 1 tablet by mouth once daily. - atorvastatin (LIPITOR) 40 mg tablet Take 0.5 tablets by mouth once daily. For cholesterol. Problem List As Of Date 12/02/2023 Noted Resolved BENIGN HYPERTENSION [I10] HEMORRHOIDS NOS [K64.9] Sciatica [M54.30] 04/07/2007 03/24/2017 Migraine Aura without Headache [G43.109] 10/10/2009 Gout [M10.9] 07/11/2010 Hyperlipidemia with target LDL less than 100 [E*07/11/2010 Supraventricular tachycardia, paroxysmal (HCC) *11/20/2014 11/01/2019 Syncope [R55] 11/23/2014 02/20/2015 Sick sinus syndrome (HCC) [I49.5] 11/23/2014 Paroxysmal atrial fibrillation (HCC) [I48.0] 02/02/2015 Family history of colon cancer in mother [Z80.0]02/20/2015 Faintness [R55] 05/01/2015 03/24/2017 Status post placement of implantable loop recor*08/19/2016 11/01/2019 Chronic anticoagulation [Z79.01] 08/19/2016 Nonsustained ventricular tachycardia (HCC) [I47*01/14/2017 11/01/2019 Lightheadedness [R42] 01/14/2017 03/24/2017 Hyperkalemia [E87.5] 04/20/2018 11/01/2019 Skin lesion of back [L98.9] 11/01/2019 Orthostatic lightheadedness [R42] 11/01/2019 At high risk for falls [Z91.81] 12/24/2020 Arthritis of hip [M16.10] 12/24/2020 Dementia without behavioral disturbance (HCC) [*09/26/2022 Stage 3a chronic kidney disease (HCC) [N18.31] 01/27/2023 Encounter Status:Closed by RHEA JIN on 12/02/23 [facility] 12-02-2023 Note HNO ID: [id number] Author: RHEA JIN MA Service: ? Author Type: Shot Polisher Type: Progress Notes Filed: 12/02/2023 16:55 Note Text: POPULATION HEALTH NAVIGATION OUTREACH Action/12.02.23 Patient is on HCC list and needs appointment to address gap closure ~Annual wellness exam Outcome: ~Called and spoke to patient who states she no longer goes to [facility]. ~PCP updated. Reason for Outreach Care Gap/HCC or Scheduling Wellness Visits Care Gaps due: Medicare Annual Wellness Visit Patient Contacted: Spoke to patient/parent/or legal guardian Patient identified by name and : Yes Care Gap/HCC/Scheduling Wellness actions taken: Patient declined: Not interested in scheduling PCP field updated Navigation Signature: Rhea Jin MA December 02, 2023 11:21 AM [facility] 12-02-2023 History of Present illness Narrative POPULATION HEALTH NAVIGATION OUTREACH Action/12.02.23 Patient is on HCC list and needs appointment to address gap closure ~Annual wellness exam Outcome: ~Called and spoke to patient who states she no longer goes to [facility]. ~PCP updated. Reason for Outreach Care Gap/HCC or Scheduling Wellness Visits Care Gaps due: Medicare Annual Wellness Visit Patient Contacted: Spoke to patient/parent/or legal guardian Patient identified by name and : Yes Care Gap/HCC/Scheduling Wellness actions taken: Patient declined: Not interested in scheduling PCP field updated Navigation Signature: Rhea Jin MA December 02, 2023 11:21 AM documented in this encounter [facility] 08-27-2023 Miscellaneous Notes This encounter faxed along with form. Suzie Stuart Ma Patient may hold Xarelto for 2 doses for this procedure. 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 Please fax this information and if not acceptable, can see if someone can sign tomorrow. Office received fax from [facility] on 08/26/23 to Tao Gonzalez CNP regarding patient. Patient has been ordered by Dr. Nicholson to complete a lumbar puncture procedure on 08/31/23. They are requesting that patient hold her Xarelto for 2 doses. Pt PCP and [facility] Team are currently out of the office until 08/31/23, which is the date of the Procedure. On-Call Provider is out of the office but taking call at this time. Routing message to OC Provider to review. Adrienne Saini Ma documented in this encounter [facility] 06-01-2023 Note Patient Outreach ([facility] CRISTINA SOTO ([id number]) 1945 F Date Time Provider Department 06/01/23 MINER, JARRED L [facility] During your visit today, we recorded the following information about you: Jarred Miner RN 06/01/2023 10:35 AM Signed CC [facility] NURSE - CHART REVIEW Provider KENDRA PCC Action Chart review Impacted humeral neck fracture sustained during mechanical fall Close follow up by PCP No follow up Pt identified by name and . Reason for Review: Payor request Patient Attributed To: QAE Payer: AEDENNY Chart Review For: Utilization: ED Total Patient High CostTotal Patient High Cost {HIGH COST:827891) Quality measure review Payor request for assistance Action Taken: No action needed Jarred Miner RN June 01, 2023 10:34 AM Allergies As of Date: 06/01/2023 Noted Allergy Reaction OXYCODONE 09/12/2022 8 - GI Upset Comments: Vomiting Date Reviewed: 01/27/2023 Reviewed by: Adrienne Saini Ma - Fully Assessed Prescriptions as of 06/01/2023 - metoprolol succinate ER (TOPROL XL) 25 mg 24 hr tablet Take 1 tablet by mouth every other day. - amiodarone (PACERONE) 200 mg tablet Take 1 tablet by mouth once daily. - allopurinol (ZYLOPRIM) 100 mg tablet Take 1 tablet by mouth once daily. For gout. - losartan (COZAAR) 100 mg tablet Take 1 tablet by mouth once daily. - XARELTO 20 mg tablet Take 1 tablet by mouth daily with dinner. - docusate sodium (STOOL SOFTENER ORAL) Take by mouth twice daily. - amLODIPine (NORVASC) 5 mg tablet Take 1 tablet by mouth once daily. - atorvastatin (LIPITOR) 40 mg tablet Take 0.5 tablets by mouth once daily. For cholesterol. Problem List As Of Date 06/01/2023 Noted Resolved BENIGN HYPERTENSION [I10] HEMORRHOIDS NOS [K64.9] Sciatica [M54.30] 04/07/2007 03/24/2017 Migraine Aura without Headache [G43.109] 10/10/2009 Gout [M10.9] 07/11/2010 Hyperlipidemia with target LDL less than 100 [E*07/11/2010 Supraventricular tachycardia, paroxysmal (HCC) *11/20/2014 11/01/2019 Syncope [R55] 11/23/2014 02/20/2015 Sick sinus syndrome (HCC) [I49.5] 11/23/2014 Paroxysmal atrial fibrillation (HCC) [I48.0] 02/02/2015 Family history of colon cancer in mother [Z80.0]02/20/2015 Faintness [R55] 05/01/2015 03/24/2017 Status post placement of implantable loop recor*08/19/2016 11/01/2019 Chronic anticoagulation [Z79.01] 08/19/2016 Nonsustained ventricular tachycardia (HCC) [I47*01/14/2017 11/01/2019 Lightheadedness [R42] 01/14/2017 03/24/2017 Hyperkalemia [E87.5] 04/20/2018 11/01/2019 Skin lesion of back [L98.9] 11/01/2019 Orthostatic lightheadedness [R42] 11/01/2019 At high risk for falls [Z91.81] 12/24/2020 Arthritis of hip [M16.10] 12/24/2020 Dementia without behavioral disturbance (HCC) [*09/26/2022 Stage 3a chronic kidney disease (HCC) [N18.31] 01/27/2023 Encounter Status:Closed by JARRED MINER on 06/01/23 [facility] 06-01-2023 Note HNO ID: [id number] Author: Jarred Miner RN Service: ? Author Type: Registered Nurse Type: Progress Notes Filed: 06/01/2023 10:35 AM Note Text: CC [facility] NURSE - CHART REVIEW Provider FYI PCC Action Chart review Impacted humeral neck fracture sustained during mechanical fall Close follow up by PCP No follow up Pt identified by name and . Reason for Review: Payor request Patient Attributed To: QAE Payer: [employer] Chart Review For: Utilization: ED Total Patient High CostTotal Patient High Cost {HIGH COST:565323) Quality measure review Payor request for assistance Action Taken: No action needed Jarred Miner RN June 01, 2023 10:34 AM [facility] 02-26-2023 Miscellaneous Notes OK to refill as ordered Rustam Becker MD Patient has been identified by name and date of : Yes Requested Prescriptions Pending Prescriptions Disp Refills metoprolol succinate ER (TOPROL XL) 25 mg 24 hr tablet Sig: Take 1 tablet by mouth every other day. RX INSTRUCTIONS: Patient aware RX will be sent to pharmacy. No need to notify patient. Mary Lou Kaur documented in this encounter [facility] 01-27-2023 Note HNO ID: [id number] Author: Rustam Becker MD Service: ? Author Type: Physician Type: Progress Notes Filed: 01/27/2023 3:16 PM Note Text: Chief Complaint Patient presents with: F/U 6 Month HPI Cristina Soto is a 77 year old female who presents here today for a 6 month follow up. Pt here today with her spouse for her routine follow up and lab review. Pt last seen by Jackie on 09/26/22 for a hospital follow up. Pt has 7 grandchildren. GI - Denies any stomach or bowel issues. No issues with blood in stool since her last OV. Colonoscopy completed in 08/2021 noting hemorrhoids. Denies any urinary issues presently, did f/u with Urology. HTN - Denies checking BP at home or having symptoms of chest pain or sob. Reports occasional dizziness with positional changes, tries to be careful of this. Follows with [facility] Cardiology, Dr. Morrison annually. On current regimen of Toprol XL 25 mg every other day, Amlodipine 200 mg daily, Norvasc 10 mg daily and Losartan 100 mg daily. Toprol was decreased to every other day to help with dizziness. Denies any edema in lower legs. Gout - Stable with use of Allopurinol 100 mg once daily. Afib - Stable with use of Xarelto 20 mg daily. Denies any bleeding or bruising. Lipids - Stable, followed by Cardiology. On current regimen of Lipitor 40 mg 0.5 tab po every day. Does try to watch diet, states that she's lost weight on purpose. Denies any exercise, other then when walking with her grandchildren. Derm - Hx of basal cell carcinoma. Was seen by General Surgery. Neuro - Spouse states that she's had dementia issues/memory issues for the past couple years, but seems to be getting worse. Pt states that she's doing fine but spouse states it's not good. Pt was referred to Geriatrics at [facility], but has not seen anyone. He attempted to contact them 3 x with no call back. He still prefers to proceed with this after her upcoming surgery. Did fall and broke her arm. Since that time she's been stable. Does have limited ROM with left arm. states that she cancelled her PT and didn't complete this. Pt has scheduled cataract surgery with Dr. Villa at [facility]. Pt scheduled for left eye on 02/02/23 and right eye 02/17/23. - Has Adv Dir/Living will scanned into chart, but has brought new ones to be scanned into file. Discussed Tdap and insurance coverage. Past medical history, appointments, medications, allergies reviewed. Previous Medical History PAST MEDICAL HISTORY Diagnosis Date Arthritis Diverticulosis of colon (without mention of hemorrhage) Diverticulosis Essential hypertension, benign Family history of diabetes mellitus Family history of ischemic heart disease Family history of malignant neoplasm of gastrointestinal tract Gout 07/11/2010 History of falling Hyperlipidemia LDL goal < 100 07/11/2010 shelter (current) use of anticoagulants Mild cognitive impairment, so stated Nonsustained ventricular tachycardia 01/14/2017 Obesity, unspecified Paroxysmal atrial fibrillation (HCC) 02/02/2015 Presence of artificial hip joint Supraventricular tachycardia, paroxysmal (HCC) 11/20/2014 Unspecified hemorrhoids without mention of complication Hemorrhoids Previous Surgical History PAST SURGICAL HISTORY Procedure Laterality Date ARTHRP ACETBLR/PROX FEM PROSTC AGRFT/ALGRFT Left 04/13/2017 Dr. best COLONOSCOPY FLX DX W/COLLJ SPEC WHEN PFRMD 06/26/2003 Colonoscopy COLONOSCOPY FLX DX W/COLLJ SPEC WHEN PFRMD 12/26/2009 COLONOSCOPY FLX DX W/COLLJ SPEC WHEN PFRMD 08/27/2021 HIP SURGERY HX Right 10/21/2021 Right THR-Dr. Best JOINT REPLACEMENT HX LIG/TRNSXJ FLP TUBE ABDL/VAG APPR UNI/BI Tubal ligation TONSILLECTOMY PRIMARY/SECONDARY Tonsillectomy Family History FAMILY HISTORY Problem Relation Age of Onset Colon Cancer Mother diagnosed in her 80s per patient Arthritis Mother other (ASHD) Mother Arthritis Father other (colonic polyps) Brother pt stated 04/30 not aware of any fam Hx polyps Patient Allergies ALLERGIES Allergen Reactions Oxycodone GI Upset Vomiting Current Medications Current Outpatient Medications on File Prior to Visit Medication Sig amiodarone (PACERONE) 200 mg tablet Take 1 tablet by mouth once daily. allopurinol (ZYLOPRIM) 100 mg tablet Take 1 tablet by mouth once daily. For gout. losartan (COZAAR) 100 mg tablet Take 1 tablet by mouth once daily. XARELTO 20 mg tablet Take 1 tablet by mouth daily with dinner. docusate sodium (STOOL SOFTENER ORAL) Take by mouth twice daily. amLODIPine (NORVASC) 5 mg tablet Take 1 tablet by mouth once daily. atorvastatin (LIPITOR) 40 mg tablet Take 0.5 tablets by mouth once daily. For cholesterol. metoprolol succinate ER (TOPROL XL) 25 mg 24 hr tablet Take 1 tablet by mouth once daily. (Patient taking differently: Take 25 mg by mouth every other day.) No current facility-administered medications on file prior to visi (more content not included)... [facility] 12-15-2022 Miscellaneous Notes The following approved medication requests have been transmitted electronically. Requested Prescriptions Pending Prescriptions Disp Refills amiodarone (PACERONE) 200 mg tablet 90 tablet 3 Sig: Take 1 tablet by mouth once daily. allopurinol (ZYLOPRIM) 100 mg tablet 90 tablet 3 Sig: Take 1 tablet by mouth once daily. For gout. losartan (COZAAR) 100 mg tablet 90 tablet 3 Sig: Take 1 tablet by mouth once daily. XARELTO 20 mg tablet 90 tablet 3 Sig: Take 1 tablet by mouth daily with dinner. Tao Gonzalez APRN.CNP Patient has been identified by name and date of : No Requested Prescriptions Pending Prescriptions Disp Refills amiodarone (PACERONE) 200 mg tablet 90 tablet 3 Sig: Take 1 tablet by mouth once daily. allopurinol (ZYLOPRIM) 100 mg tablet 90 tablet 3 Sig: Take 1 tablet by mouth once daily. For gout. losartan (COZAAR) 100 mg tablet 90 tablet 3 Sig: Take 1 tablet by mouth once daily. XARELTO 20 mg tablet 90 tablet 3 Sig: Take 1 tablet by mouth daily with dinner. RX INSTRUCTIONS: Patient aware RX will be sent to pharmacy. No need to notify patient. Yanira Adkins [employer] documented in this encounter [facility] 10-20-2022 Miscellaneous Notes Noted Rustam Becker MD Rosas with [facility] calls to let provider know that patient was seen for a one time only PT eval. Faith Canales, ZACHARY documented in this encounter [facility] 10-20-2022 Miscellaneous Notes Detailed message left on Josefa -OT secure vm with dr's verbal order. Ana Laura Martin LPN OK for verbal order for OT as requested Rustam Becker MD Josefa with [facility], OT calling to get verbal orders to see pt this week. Pt has not seen Dr. Bynum yet and has apt with him on Thursday and they will probably see her . DX left humeral fracture. Please advise Josefa. Okay to leave a detailed message. Geni Davenport LPN documented in this encounter [facility] 10-20-2022 Miscellaneous Notes Pts called in and reports that [facility] Urology never received consult for Pt. Faxed over orders, labs, demographics sheet, last OV notes, and insurance cards to # [phone]. documented in this encounter [facility] 10-10-2022 Miscellaneous Notes Patient's returned call and given provider's message below. requesting urology referral information be faxed to [facility]. Faxed as requested to Central Scheduling there. Katiana Rebollar RN Unable to reach patient. Left VM to return call to office. Please read below and advise. Filomena Dean MA Can you please call the patient and and let them know that I reviewed her recent urine test results. Urine culture came back with mixed biota again. This is more than likely due to contamination while collecting. As long as she is not having any UTI symptoms we do not need to be concerned at this time. Microanalysis did come back positive again with blood noted in the urine. I would recommend at this time that they consider having a follow-up with urology. Closest urologist with the [facility] is in [place] or local would be Dr. Brumfield or Dr. Granda. Please let me know what they prefer. Thank you. Jackie Savage APRN.[facility]AC[facility] SLICER documented in this encounter [facility] 09-30-2022 Miscellaneous Notes Patient spouse notified of results, verbalizes understanding of instructions. Silvia Ledbetter LPN Can you please call the patient and and let them know that I have placed the orders to repeat the urine testing. I would ensure that they cleanse properly and collect sample to the best of their capabilities. This can be completed in the next week. If blood is noted in the urine again then I would recommend a follow-up with urology for further evaluation Please let me know if They have any questions. Thank you Jackie Savage APRN.SUKUMAR returned call and given provider's message below. Reports patient is better, no UTI s/s (urg/freq/pain-burn with urination/fever/flank pain). Reports patient does have some dementia that is worse than usual, but better than it was. Asking since urine sample was contaminated, should they repeat urine test? Reviewed procedure for cleansing prior to urine collection and does not think patient did the cleansing / collection correct. Would the next step be repeat urine test or see urologist? Please advise . TC to pt. LM to call office, ask for triage nurse to get results. Silvia Ledbetter LPN Can you please call the patient and and let them know that I reviewed her urine testing. Culture came back for mixed by Biotmonse which is more than likely due to contamination while collecting sample. Can you please ask how she has been feeling? Any increased confusion? Or urinary symptoms? Urinalysis did come back + for blood in the urine. Has she seen urology in the past? If she has not I would recommend a follow-up to further evaluate this. Consult has been placed. Jackie Savage APRN.SUKUMAR documented in this encounter [facility] 09-25-2022 Miscellaneous Notes Katty called and notified, verbalized understanding. She will be sending order over for PCP to sign. Adrienne Saini Ma Okay to proceed with HH orders. Tao Gonzalez APRN.CNP Katty Pineda calls for a verbal order to omit tomorrow's HH aide visit. Katty reports that she will be seen by OT and they will provide the service if ok with provider. Please call verbal order to [phone]. Fatih Canales RN documented in this encounter [facility] 09-25-2022 Miscellaneous Notes Call to Valdez and notified her of message below from Provider. Verbalized understanding. Adrienne Saini Ma Agree with plan. Dr. Becker will follow. Tao Gonzalez APRN.CNP Valdez calling from [facility] to report plan of care for patient and custodial will visit patient 1 time a week for 3 weeks. [facility] will work with patient on education on UTI prevention. Please review and Advise, Marie Rizzo RN documented in this encounter [facility] 09-22-2022 History of Present illness Narrative TRANSITION CARE MANAGEMENT (TCM) INITIAL CONTACT [facility] Outreach Provider Action/FYI: Pt admited for a UTI and fractured Left arm. Initial contact with patient post discharge, spoke to spouse. Patient identified by name and . TRANSITION CARE MANAGEMENT INITIAL OUTREACH DOCUMENTATION: No flowsheet data found. SUMMARY: -Pt discharged from 09/16/22 on 09/19/22. -Admitted for: UTI and Fractured Left arm Do you have a hospital follow up appointment with your PCP? Appointment on 09/26/22 with Jay Savage. Yes. Remind patient of appointment date, time, and location. If not within 14 calendar days of discharge - please reschedule accordingly. MEDICATIONS: Many patients have questions or concerns about their medications once they are home. Were you prescribed any new medications? Yes Amoxicillin Were you told to hold any medications? No Were any of your medications discontinued? No Do you have any questions about getting or taking your medications? No Your discharge instructions/After visit Summary (AVS) are important in guiding you through the recovery process. Is there anything I might help you understand? No Do you have all the necessary equipment and supplies at home? Yes Medical records from recent hospitalization: Requested from outside hospital documented in this encounter [facility] 09-18-2022 Miscellaneous Notes Called and left a detailed voicemail notifying Katty [facility] of providers message. Hospital phone number was left in case she had any questions. Brynn Mccarthy RN I agree and am willing to follow Rustam Becker MD Katty nurse @ [facility] calling to let PCP know patient is being discharged from [facility] today with orders for PT/OT. Agree and willing to follow? Katty's phone # [phone]. Bree Giraldo RN documented in this encounter [facility] 09-12-2022 Nurse Note Referral paperwork has been faxed to [facility] as requested by pt. Faxed too [phone]. Adrienne Saini Ma documented in this encounter [facility] 09-12-2022 History of Present illness Narrative Chief Complaint Patient presents with: Hospital Follow Up HPI Cristina Soto is a 77 year old female who presents here today for ER Follow Up.. Pt presented to [facility] ER on 09/11/22 for fall while at a basketball game. Shoulder xray shows left humeral neck impacted fracture without glenohumeral dislocation. Demineralized bones. Pt states she is not able to take Oxycodone for pain. She was given Tylenol 500 mg to take 1,000 mg every 8 hours prn pain. Requests additional pain medication. Has arm in sling and swathe today. Below copied from Care Everywhere: HPI History of Present Illness Chief Complaint: Upper Extremity Injury Informant: patient and family Narrative Narrative: And fell when she missed the last step. She landed on her left side. Denies hitting her head. She caught herself with her arm. She also hit her left hip slightly. Her hip does hurt a little bit when she is walking but she is able to walk relatively normally. She has had total hip replacement. She is on Xarelto. However she never hit her head has no headache and is acting normally per family. Her primary area of pain of the left shoulder. Rest makes it better and motion or palpation makes it worse. View External Imaging - X-ray [ID [id number]] View External Imaging - X-ray [ID [id number]] Past medical history, appointments, medications, allergies reviewed. Previous Medical History PAST MEDICAL HISTORY Diagnosis Date Arthritis Diverticulosis of colon (without mention of hemorrhage) Diverticulosis Essential hypertension, benign Family history of diabetes mellitus Family history of ischemic heart disease Family history of malignant neoplasm of gastrointestinal tract Gout 07/11/2010 History of falling Hyperlipidemia LDL goal < 100 07/11/2010 shelter (current) use of anticoagulants Mild cognitive impairment, so stated Nonsustained ventricular tachycardia 01/14/2017 Obesity, unspecified Paroxysmal atrial fibrillation (HCC) 02/02/2015 Presence of artificial hip joint Supraventricular tachycardia, paroxysmal (HCC) 11/20/2014 Unspecified hemorrhoids without mention of complication Hemorrhoids Previous Surgical History PAST SURGICAL HISTORY Procedure Laterality Date ARTHRP ACETBLR/PROX FEM PROSTC AGRFT/ALGRFT Left 04/13/2017 Dr. best COLONOSCOPY FLX DX W/COLLJ SPEC WHEN PFRMD 06/26/2003 Colonoscopy COLONOSCOPY FLX DX W/COLLJ SPEC WHEN PFRMD 12/26/2009 COLONOSCOPY FLX DX W/COLLJ SPEC WHEN PFRMD 08/27/2021 HIP SURGERY HX Right 10/21/2021 Right THR-Dr. Best JOINT REPLACEMENT HX LIG/TRNSXJ FLP TUBE ABDL/VAG APPR UNI/BI Tubal ligation TONSILLECTOMY PRIMARY/SECONDARY <AGE 12 Tonsillectomy Family History FAMILY HISTORY Problem Relation Age of Onset Colon Cancer Mother diagnosed in her 80s per patient Arthritis Mother other (ASHD) Mother Arthritis Father other (colonic polyps) Brother pt stated 04/30 not aware of any fam Hx polyps Patient Allergies ALLERGIES No Known Allergies Current Medications Current Outpatient Medications on File Prior to Visit Medication Sig XARELTO 20 mg tablet TAKE 1 TABLET BY MOUTH ONCE DAILY WITH DINNER amLODIPine (NORVASC) 5 mg tablet Take 1 tablet by mouth once daily. amiodarone (PACERONE) 200 mg tablet Take 1 tablet by mouth once daily. losartan (COZAAR) 100 mg tablet Take 1 tablet by mouth once daily. allopurinol (ZYLOPRIM) 100 mg tablet Take 1 tablet by mouth once daily. For gout. atorvastatin (LIPITOR) 40 mg tablet Take 0.5 tablets by mouth once daily. For cholesterol. metoprolol succinate ER (TOPROL XL) 25 mg 24 hr tablet Take 1 tablet by mouth once daily. (Patient taking differently: Take 25 mg by mouth every other day.) No current facility-administered medications on file prior to visit. Social History Social History Tobacco Use Smoking status: Never Smokeless tobacco: Never Vaping Use Vaping Use: Never used Substance Use Topics Alcohol use: No Drug use: No EXAM: BP 136/84 (BP Site: Right Arm, BP Position: Sitting, BP Cuff Size: Regular Adult) Pulse 64 Resp 16 Wt 75.3 kg (166 lb) BMI 27.62 kg/m General Appearance: Well appearing, alert, in no acute distress, well-hydrated, well nourished.. Left arm: in sling; able to move fingers. Health Maintenance List DTAP,TDAP,TD(3 - Td or Tdap) due on 04/07/2017 ANNUAL PCP TEAM CHRONIC DISEASE VISIT due on 07/22/2023 BP CONTROLLED (<130/80) due on 08/09/2023 DIABETES SCREEN due on 01/13/2025 COLORECTAL CANCER SCREENING due on 08/27/2026 BONE DENSITY Completed INFLUENZA Completed ADVANCE DIRECTIVE DISCUSSION Completed DEPRESSION ASSESSMENT Completed SHINGRIX VACCINE Completed COVID-19 VACCINE Completed PNEUMOCOCCAL: 65+ Completed HEPATITIS C SCREENING Discontinued Data reviewed ER Reports from [facility] ASSESSMENT/PLAN: 1. Closed fracture of proximal end of left humerus with routine healing, unspecified fracture morphology, subsequent encounter - ICD9: V54.11, ICD10: S42.D Has appt with Ortho 09/16; continue current care until then. Requests Home Health orders for OT/PT due to being in sling - TRAMADOL 50 MG TABLET - NON-[facility] Follow up prn Medical Decision Making: Problems: Low: Acute, uncomplicated illness or injury Risk: Moderate: Drug management Medical Decision Making Level: 3 - Low Rustam Becker MD documented in this encounter [facility] 08-09-2022 History of Present illness Narrative Radiology Service Progress Note PATIENT NAME: Cristina Soto DATE OF SERVICE: August 09, 2022 TIME: 8:55 AM PATIENT IDENTITY VERIFICATION COMPLETED USING TWO (2) IDENTIFIERS: Name and Date of confirmed by patient verbally. FALL SCREENING: Has the patient had 2 falls in the last year or 1 fall with injury or currently using an Ambulatory Assistive Device (Walker, Cane, Wheelchair, Crutches, etc.)? No PATIENT GENDER DATA: Female. status: : No status: NO. PATIENT RELEVANT IMPLANT DATA REVIEWED: Not Applicable RADIOLOGY DEPARTMENT: General X-ray: Exam(s) Completed: Spine X-Ray(s): Lumbar AP / LAT / L5-S1 PERIPHERAL IV DATA: Not applicable SIGNED BY: RT Rubia(R) August 09, 2022 8:55 AM documented in this encounter [facility] 05-29-2022 History of Present illness Narrative Chief Complaint Patient presents with: Acute Visit: Covid This Team Access Model encounter involved medical decision making outside of a scheduled office visit. Patient was offered a virtual/telemedicine appointment in lieu of an office visit due to recommendations to reduce patient exposure to COVID-19. Telephone was used for evaluation of this patient. Patient agrees to the visit: Yes Patient Location: [facility] Cristina Soto is a 77 year old female who is contacted today for a phone visit This is an established patient of Dr. Rustam Becker MD Reports: Tested + Covid on 05/27/2022 at [facility] ER. Went to the ER due to having difficulty having a conversation. Having sore throat and productive cough. symptoms started on 05/27/2022. Not taking any medication at this time. Past medical history, appointments, medications, allergies reviewed 05/29/2022 Previous Medical History PAST MEDICAL HISTORY Diagnosis Date Arthritis Diverticulosis of colon (without mention of hemorrhage) Diverticulosis Essential hypertension, benign Family history of diabetes mellitus Family history of ischemic heart disease Family history of malignant neoplasm of gastrointestinal tract Gout 07/11/2010 History of falling Hyperlipidemia LDL goal < 100 07/11/2010 shelter (current) use of anticoagulants Mild cognitive impairment, so stated Nonsustained ventricular tachycardia (HCC) 01/14/2017 Obesity, unspecified Paroxysmal atrial fibrillation (HCC) 02/02/2015 Presence of artificial hip joint Supraventricular tachycardia, paroxysmal (HCC) 11/20/2014 Unspecified hemorrhoids without mention of complication Hemorrhoids Previous Surgical History PAST SURGICAL HISTORY Procedure Laterality Date ARTHRP ACETBLR/PROX FEM PROSTC AGRFT/ALGRFT Left 04/13/2017 Dr. best COLONOSCOPY FLX DX W/COLLJ SPEC WHEN PFRMD 06/26/2003 Colonoscopy COLONOSCOPY FLX DX W/COLLJ SPEC WHEN PFRMD 12/26/2009 COLONOSCOPY FLX DX W/COLLJ SPEC WHEN PFRMD 08/27/2021 HIP SURGERY HX Right 10/21/2021 Right THR-Dr. Best JOINT REPLACEMENT HX LIG/TRNSXJ FLP TUBE ABDL/VAG APPR UNI/BI Tubal ligation TONSILLECTOMY PRIMARY/SECONDARY <AGE 12 Tonsillectomy Family History FAMILY HISTORY Problem Relation Age of Onset Colon Cancer Mother diagnosed in her 80s per patient Arthritis Mother other (ASHD) Mother Arthritis Father other (colonic polyps) Brother pt stated 04/30 not aware of any fam Hx polyps Patient Allergies ALLERGIES No Known Allergies Current Medications Current Outpatient Medications on File Prior to Visit Medication Sig amiodarone (PACERONE) 200 mg tablet Take 1 tablet by mouth once daily. losartan (COZAAR) 100 mg tablet Take 1 tablet by mouth once daily. allopurinol (ZYLOPRIM) 100 mg tablet Take 1 tablet by mouth once daily. For gout. amLODIPine (NORVASC) 5 mg tablet Take 1 tablet by mouth once daily. aspirin 81 mg chewable tablet Take 81 mg by mouth once daily. atorvastatin (LIPITOR) 40 mg tablet Take 0.5 tablets by mouth once daily. For cholesterol. metoprolol succinate ER (TOPROL XL) 25 mg 24 hr tablet Take 1 tablet by mouth once daily. (Patient taking differently: Take 25 mg by mouth every other day. ) No current facility-administered medications on file prior to visit. Social History Social History Tobacco Use Smoking status: Never Smokeless tobacco: Never Vaping Use Vaping Use: Never used Substance Use Topics Alcohol use: No Drug use: No Review of Symptoms GENERAL: No malaise or fatigue. No fevers. HEENT: Negative for headaches No eye discharge or redness No earaches +sore throat Nose POS/NEG for congestion and nasal discharge NECK: Negative for pain or swelling. No lumps RESPIRATORY: + Cough CARDIOVASCULAR: Negative for chest pain GI: No nausea, vomiting, or diarrhea MUSCULOSKELETAL: Negative for bodyaches SKIN: Negative for rash or itching Neuro: No lightheadedness or dizziness EXAM: There were no vitals taken for this visit. Limited exam as visit was completed over the phone platform. Virtual visit completed using video, limited exam completed. Patient sounds or appears ill: Yes Patient is not able to speak in complete sentences: N/A Patient has labored breathing: No. Patient is audibly coughing: No Psych: Attitude - cooperative, easily engaged in conversation Affect - Euthymic, normal mood Mental status: Alert. Speech is clear and fluent with good repetition, comprehension Health Maintenance List BP CONTROLLED (<130/80) Never done DTAP,TDAP,TD(3 - Td or Tdap) due on 04/07/2017 INFLUENZA(1) due on 05/15/2022 ANNUAL PCP TEAM CHRONIC DISEASE VISIT due on 01/17/2023 DEPRESSION SCREENING due on 01/17/2023 DIABETES SCREEN due on 01/13/2025 COLORECTAL CANCER SCREENING due on 08/27/2026 BONE DENSITY Completed ADVANCE DIRECTIVE DISCUSSION Completed SHINGRIX VACCINE Completed COVID-19 VACCINE Completed PNEUMOCOCCAL: 65+ Completed HEPATITIS C SCREENING Discontinued Data reviewed Last 5 Encounter BP Readings: Date: BP: 01/17/2022 136/60 09/30/2021 128/68 09/23/2021 126/64 09/09/2021 124/54 08/27/2021 118/57 BMI Readings from Last 5 Encounters: 01/17/22 : 27.62 kg/m 09/30/21 : 28.12 kg/m 09/23/21 : 28.19 kg/m 09/09/21 : 28.02 kg/m 08/27/21 : 29.18 kg/m Last 5 Encounter Wt Readings: Date: Wt: 01/17/2022 75.3 kg (166 lb) 09/30/2021 76.7 kg (169 lb) 09/23/2021 76.8 kg (169 lb 6.4 oz) 09/09/2021 76.4 kg (168 lb 6.4 oz) 08/27/2021 77.1 kg (169 lb 15.6 oz) Medication and allergy list reviewed, reconciled and updated 05/29/2022 Total appointment time on phone with patient = 11-20 minutes Nirmatrelvir/Ritonavir (Paxlovid) Eligibility and Patient Discussion [facility] Formulary Restriction Criteria: Adult outpatients 18 years and older with ALL of the following: [x] Patient has positive SARS-COV-2 viral test (PCR or antigen test) during current illness [x] Patient has symptoms for 5 days or less [x] Not requiring hospitalization at any time for management of COVID-19 [x] Not requiring supplemental oxygen or a change in baseline supplemental oxygen [x] Not utilized for pre-exposure or post-exposure prophylaxis for prevention of COVID-19 [x] Patient does not have severe renal impairment (eGFR < 30 mL/min) or severe hepatic impairment (Child-Armendariz Class C) [x] Meeting at least one of the criteria for high risk of progression to severe COVID-19: [x] Age over 65 years [] Cancer [] Chronic kidney disease [] Chronic liver disease [] Chronic lung diseases, including cystic fibrosis [] Dementia or other neurological conditions [] Diabetes (type 1 or type 2) [] Disabilities, including Down syndrome and neurodevelopmental disorders [x] Heart conditions [] HIV infection [] Immunocompromised state [] Mental health conditions [] Medical related technological dependence (tracheostomy, gastrostomy, or positive pressure ventilation (not related to COVID) [] Overweight and obesity (BMI greater or equal to 25 for adults) [] Physical inactivity [] [] Sickle cell disease or thalassemia [] Smoking, current or former [] Solid organ or blood stem cell transplant [] Stroke or cerebrovascular disease [] Substance use disorders [] Tuberculosis [] People from racial and ethnic minority groups Criteria above are met: Yes Date of Positive Test:05/27/2022 Date of Symptom Onset: 05/27/2022 Patient received COVID vaccine: Yes Drug-Drug interactions reviewed: Yes. Drug interactions were identified and the following actions were taken stop Pacerone and Lipitor. I have discussed the use of the investigational therapeutic, nirmatrelvir/ritonavir, for the treatment of mild to moderate COVID-19 and its use under Emergency Use Authorization with the patient. The patient was informed that nirmatrelvir/ritonavir is not an FDA approved drug and that it is authorized for use under this Emergency Use Authorization. The patient was also informed of the significant known benefits and potential risks of nirmatrelvir/ritonavir, and the extent to which such potential risks and benefits are unknown. The patient was informed that there is mandatory reporting of all medication errors and serious adverse events potentially related to nirmatrelvir/ritonavir treatment within 7 calendar days from the onset of the event and that events up to 28 days after completion of therapy need to be reported. The discussion included alternatives to receiving nirmatrelvir/ritonavir, including clinical trials, and potential the risks and benefits of those alternatives. The patient was provided electronically with the Fact Sheet for Patients, Parents and Caregivers . The patient was also instructed that in addition to the treatment with nirmatrelvir/ritonavir, he/she should continue to self-isolate and use infection control measures (e.g., wear mask, isolate, social distance, avoid sharing personal items, clean and disinfect high touch surfaces, and frequent handwashing) according to CDC guidelines. The patient stated understanding and gave verbal consent to proceeding with nirmatrelvir/ritonavir treatment. Jackie Savage APRN.CNP May 29, 2022 11:18 AM ASSESSMENT/PLAN: 1. COVID-19 - ICD9: 079.89, ICD10: U07.1 - Start Paxlovid, take as directed. - Stop taking atorvastatin and Pacerone, instructed to seek the Er if heart rate is rapid. - May use ulsl-qys-vngbtjd cold and cough medication as needed for symptom management. - Instructed to quarantine for 5 days per the CDC guidelines, wear a mask around individuals for an additional 5 days. - NIRMATRELVIR 150 MG-RITONAVIR 100 MG TABLETS IN A DOSE PACK (EUA) Follow-up as needed or sooner if symptoms get worse or do not improve. Discussed treatment plan and patient voices understanding. Patient's questions answered appropriately. Medications and potential side effects were discussed and patient voices understanding. Jackie Savage APRN.CNP This note was partially generated using [employer] voice recognition system. Note was reviewed for accuracy. There may be minor misspellings or grammar miscues with [employer] voice recognition. documented in this encounter [facility] 05-29-2022 Instructions Jackie Savage APRN.CNP - 05/29/2022 11:13 AM EDT 1.) Start Paxlovid, take as directed. Stop taking Pacerone and Atorvastatin while taking this medication. May start again once you finish Paxlovid. 2.) May use kcbj-nlr-nnxfknu cold and cough medication as needed for symptom management. 3.) Red flag symptoms go to ER. 4.) Quarantine for 5 days from the onset of symptoms, wear a mask for an additional 5 days while around others. 5.) Follow-up as needed. How to Manage Common Symptoms Associated with COVID for Adults Fever- Fever is a temperature over 100.4 F and can occur when the body is fighting an infection. To help treat a fever: Drink plenty of fluids and stay well hydrated. Eat small amounts of easy to digest food. Rest. Your body needs rest to recover, but getting up and moving around the house frequently is a good idea. You should try to continue doing your normal daily activities (bathing, toileting, grooming, cooking), though you will probably feel tired, and need to rest often. Avoid any heavy activity or exercise, as this will increase your body temperature. Dress in light clothing and stay covered in a light sheet. Keep the room temperature cool. Take a slightly warm (not cold or cool) bath, or apply damp washcloths to the forehead and wrists. Cough- Cough is a common symptom associated with COVID and can be bothersome. To help treat a cough: Stay well hydrated. Try warm water or tea with lemon and/or honey to help soothe the cough. Use a humidifier to add moisture to the air. Try a product with menthol, like a cough drop or a rub for your chest such as Vicks, which can help reduce cough. Try cough drops. Avoid smoking and other strong odors or perfumes. Try breathing exercises to keep your lungs open and clear. Take a big deep breath through your nose and hold for 5 seconds before slowly releasing. Repeat frequently, while you are awake. Congestion- Runny nose or nasal congestion can occur with COVID. Treatment can help relieve symptoms: Try OTC nasal saline spray, or nasal saline rinse to relieve mucus congestion. Nasal strips can help keep nasal passages open, to increase airflow. Elevating your head with an extra pillow in bed can help reduce congestion. Using a humidifier can increase moisture in the air, and make breathing easier. Sore Throat- Another common symptom with COVID, can be managed at home by: Stay well hydrated. Gargle with salt water - mix teaspoon salt with 1 cup of warm water and gargle. This helps to loosen mucus in the back of the throat and may reduce discomfort. Try ice chips, popsicles or lozenges to soothe the throat. Nausea/Vomiting/Diarrhea- These are common symptoms, and staying hydrated is most important. If you are nauseous or vomiting, start with small sips of water every 10-15 minutes and increase as tolerated. You can try sucking an ice cube too. If tolerating, you can try pedialyte or Gatorade, or flat sprite or nathalie-brittany. Start slowly and increase as you are able to. Instead of meals, try smaller, more frequent snacks. Try eating bland foods like crackers, toast, rice, and applesauce. Avoid spicy, greasy or fried foods and dairy containing foods. Even if you aren't feeling hungry due to lack of smell or taste, it is important to try to take in some food when you are able. After drinking and eating, rest in an upright position for up to two hours as needed to help decrease nauseous feelings. Try closing your eyes, avoid moving and watching TV. Avoid strong odors that can make you feel more nauseated. When to seek emergency medical attention Look for emergency warning signs for COVID-19. If having any of these symptoms, seek emergency medical care immediately: Trouble breathing Persistent pain or pressure in the chest New confusion Inability to wake or stay awake Bluish lips or face *This list is not all possible symptoms. Please call your medical provider for any other symptoms that are severe or concerning to you. FACT SHEET FOR PATIENTS, PARENTS, AND CAREGIVERS EMERGENCY USE AUTHORIZATION (EUA) OF PAXLOVID FOR CORONAVIRUS DISEASE 2019 (COVID-19) You are being given this Fact Sheet because your healthcare provider believes it is necessary to provide you with PAXLOVID for the treatment of ajdf-rv-tllpztkh coronavirus disease (COVID-19) caused by the SARS-CoV-2 virus. This Fact Sheet contains information to help you understand the risks and benefits of taking the PAXLOVID you have received or may receive. The U.S. Food and Drug Administration (FDA) has issued an Emergency Use Authorization (EUA) to make PAXLOVID available during the COVID-19 pandemic (for more details about an EUA please see What is an Emergency Use Authorization? at the end of this document). PAXLOVID is not an FDA-approved medicine in the [place]. Read this Fact Sheet for information about PAXLOVID. Talk to your healthcare provider about your options or if you have any questions. It is your choice to take PAXLOVID. What is COVID-19? COVID-19 is caused by a virus called a coronavirus. You can get COVID-19 through close contact with another person who has the virus. COVID-19 illnesses have ranged from very zhwq-bf-dyalxn, including illness resulting in . While information so far suggests that most COVID-19 illness is mild, serious illness can happen and may cause some of your other medical conditions to become worse. Older people and people of all ages with severe, long lasting (chronic) medical conditions like heart disease, lung disease, and diabetes, for example seem to be at higher risk of being hospitalized for COVID-19. What is PAXLOVID? PAXLOVID is an investigational medicine used to treat etig-zz-fdgvgdpv COVID-19 in adults and children [12 years of age and older weighing at least 88 pounds (40 kg)] with positive results of direct SARS-CoV-2 viral testing, and who are at high risk for progression to severe COVID-19, including hospitalization or . PAXLOVID is investigational because it is still being studied. There is limited information about the safety and effectiveness of using PAXLOVID to treat people with zhyf-sg-fpivpacg COVID-19. The FDA has authorized the emergency use of PAXLOVID for the treatment of mnwy-bi-fcsmvjgb COVID-19 in adults and children [12 years of age and older weighing at least 88 pounds (40 kg)] with a positive test for the virus that causes COVID-19, and who are at high risk for progression to severe COVID-19, including hospitalization or , under an EUA. 1 Revised: 29 November 2021 What should I tell my healthcare provider before I take PAXLOVID? Tell your healthcare provider if you: Have any allergies Have liver or kidney disease Are or plan to become Are a child Have any serious illnesses Tell your healthcare provider about all the medicines you take, including prescription and fmxf-gns-pzrfptx medicines, vitamins, and herbal supplements. Some medicines may interact with PAXLOVID and may cause serious side effects. Keep a list of your medicines to show your healthcare provider and pharmacist when you get a new medicine. You can ask your healthcare provider or pharmacist for a list of medicines that interact with PAXLOVID. Do not start taking a new medicine without telling your healthcare provider. Your healthcare provider can tell you if it is safe to take PAXLOVID with other medicines. Tell your healthcare provider if you are taking combined hormonal contraceptive. PAXLOVID may affect how your control pills work. Females who are able to become should use another effective alternative form of contraception or an additional barrier method of contraception. Talk to your healthcare provider if you have any questions about contraceptive methods that might be right for you. How do I take PAXLOVID? PAXLOVID consists of 2 medicines: nirmatrelvir and ritonavir. Take 2 pink tablets of nirmatrelvir with 1 white tablet of ritonavir by mouth 2 times each day (in the morning and in the evening) for 5 days. For each dose, take all 3 tablets at the same time. If you have kidney disease, talk to your healthcare provider. You may need a different dose. Swallow the tablets whole. Do not chew, break, or crush the tablets. Take PAXLOVID with or without food. Do not stop taking PAXLOVID without talking to your healthcare provider, even if you feel better. If you miss a dose of PAXLOVID within 8 hours of the time it is usually taken, take it as soon as you remember. If you miss a dose by more than 8 hours, skip the missed dose and take the next dose at your regular time. Do not take 2 doses of PAXLOVID at the same time. If you take too much PAXLOVID, call your healthcare provider or go to the nearest hospital emergency room right away. If you are taking a ritonavir-or cobicistat-containing medicine to treat hepatitis C or Human Immunodeficiency Virus (HIV), you should continue to take your medicine as prescribed by your healthcare provider. Talk to your healthcare provider if you do not feel better or if you feel worse after 5 days. Who should generally not take PAXLOVID? Do not take PAXLOVID if: You are allergic to nirmatrelvir, ritonavir, or any of the ingredients in PAXLOVID You are taking any of the following medicines: Alfuzosin Pethidine, propoxyphene Ranolazine Amiodarone, dronedarone, flecainide, propafenone, quinidine Colchicine Lurasidone, pimozide, clozapine Dihydroergotamine, ergotamine, methylergonovine Lovastatin, simvastatin Sildenafil (Revatio ) for pulmonary arterial hypertension (PAH) Triazolam, oral midazolam Apalutamide Carbamazepine, phenobarbital, phenytoin Rifampin Nan s Wort (hypericum perforatum) Taking PAXLOVID with these medicines may cause serious or life-threatening side effects or affect how PAXLOVID works. These are not the only medicines that may cause serious side effects if taken with PAXLOVID. PAXLOVID may increase or decrease the levels of multiple other medicines. It is very important to tell your healthcare provider about all of the medicines you are taking because additional laboratory tests or changes in the dose of your other medicines may be necessary while you are taking PAXLOVID. Your healthcare provider may also tell you about specific symptoms to watch out for that may indicate that you need to stop or decrease the dose of some of your other medicines. What are the important possible side effects of PAXLOVID? Possible side effects of PAXLOVID are: Allergic Reactions. Allergic reactions can happen in people taking PAXLOVID, even after only 1 dose. Stop taking PAXLOVID and call your healthcare provider right away if you get any of the following symptoms of an allergic reaction: hives trouble swallowing or breathing swelling of the mouth, lips, or face throat tightness hoarseness skin rash Liver Problems. Tell your healthcare provider right away if you have any of these signs and symptoms of liver problems: loss of appetite, yellowing of your skin and the whites of eyes (jaundice), dark-colored urine, pale colored stools and itchy skin, stomach area (abdominal) pain. Resistance to HIV Medicines. If you have untreated HIV infection, PAXLOVID may lead to some HIV medicines not working as well in the future. Other possible side effects include: altered sense of taste diarrhea high blood pressure muscle aches These are not all the possible side effects of PAXLOVID. Not many people have taken PAXLOVID. Serious and unexpected side effects may happen. PAXLOVID is still being studied, so it is possible that all of the risks are not known at this time. What other treatment choices are there? Veklury (remdesivir) is FDA-approved for the treatment of ktyt-sj-gxiftcvh COVID-19 in certain adults and children. Talk with your doctor to see if Veklury is appropriate for you. Like PAXLOVID, FDA may also allow for the emergency use of other medicines to treat people with COVID-19. Go to https://www.fda.gov/emergency-pre paredness-andresponse/mcm-legal-r tgvrantns-ygr-mhpsor-framework/em olyxseg-ifq-xftdeiirunfjs for information on the emergency use of other medicines that are authorized by FDA to treat people with COVID-19. Your healthcare provider may talk with you about clinical trials for which you may be eligible. It is your choice to be treated or not to be treated with PAXLOVID. Should you decide not to receive it or for your child not to receive it, it will not change your standard medical care. What if I am or ? There is notch machine operator treating women or mothers with PAXLOVID. For a mother and unborn baby, the benefit of taking PAXLOVID may be greater than the risk from the treatment. If you are , discuss your options and specific situation with your healthcare provider. It is recommended that you use effective barrier contraception or do not have sexual activity while taking PAXLOVID. If you are , discuss your options and specific situation with your healthcare provider. How do I report side effects with PAXLOVID? Contact your healthcare provider if you have any side effects that bother you or do not go away. Report side effects to [employer] at www.fda.gov/medNetMovie or call 6-842-ZHY3291 or you can report side effects to [employer] at the contact information provided below. Website Fax number Telephone number [employer] How should I store PAXLOVID? Store PAXLOVID tablets at room temperature, between 68?F to 77?F (20?C to 25?C). How can I learn more about COVID-19? Ask your healthcare provider. Visit https://www.cdc.gov/COVID19. Contact your local or state public health department. What is an Emergency Use Authorization (EUA)? The [place] FDA has made PAXLOVID available under an emergency access mechanism called an Emergency Use Authorization (EUA). The EUA is supported by a [place] of Health and Human Service (HHS) declaration that circumstances exist to justify the emergency use of drugs and biological products during the COVID-19 pandemic. PAXLOVID for the treatment of [id number] COVID-19 in adults and children [12 years of age and older weighing at least 88 pounds (40 kg)] with positive results of direct SARS-CoV-2 viral testing, and who are at high risk for progression to severe COVID-19, including hospitalization or , has not undergone the same type of review as an FDA-approved product. In issuing an EUA under the COVID-19 public health emergency, the FDA has determined, among other things, that based on the total amount of scientific evidence available including data from adequate and well-controlled clinical trials, if available, it is reasonable to believe that the product may be effective for diagnosing, treating, or preventing COVID-19, or a serious or life-threatening disease or condition caused by COVID-19; that the known and potential benefits of the product, when used to diagnose, treat, or prevent such disease or condition, outweigh the known and potential risks of such product; and that there are no adequate, approved, and available alternatives. All of these criteria must be met to allow for the product to be used in the treatment of patients during the COVID-19 pandemic. The EUA for PAXLOVID is in effect for the duration of the COVID-19 declaration justifying emergency use of this product, unless terminated or revoked (after which the products may no longer be used under the EUA). Additional Information For general questions, visit the website or call the telephone number provided below. Website Telephone number [email or web address] (4-831-A79-PACK) You can also go to www.[employer] or call for more information. Pfizer Distributed by [employer] [place] [address] [id number] Revised: 29 November 2021 documented in this encounter [facility] 05-27-2022 Miscellaneous Notes agree Protocol recommends call 911 now. Pts reports was having trouble forming sentences and words. He states she sometimes has trouble with this, but it is more than normal. He reports her confusion has also increased. Care plan reviewed with patient. Patient voices understanding. Advised patients to call 911 now. He reports he will. Reason for Disposition [1] Difficult to awaken or acting confused (e.g., disoriented, slurred speech) AND [2] present now AND [3] new-onset Protocols used: Confusion - [id number] documented in this encounter [facility] 02-03-2022 Miscellaneous Notes OK to refill as ordered Rustam Becker MD Patient's spouse calling and asking if Dr. Becker would send refill for this medication. Patient is out. Spouse states was last refilled by Dr Clark Mabry. Patient does see Dr. Morrison at [facility]. Thank you. Katiana Rebollar RN Typically this medication is prescribed/managed by a pouch making machine operator. Does she have a pouch making machine operator she has been following up with? Patient calling and said she is out of medication. Please advise Patient has been identified by name and date of : Yes Patient phones for refill(s): Pending Prescriptions Disp Refills AMIODARONE 200 MG TABLET 90 tablet 3 Sig: Take 1 tablet by mouth once daily. UBALDO: No Date of last office visit in primary care: 01/17/2022, has appt 07/22/2022 Last 2 Encounter Wt Readings: Date: Wt: 01/17/2022 75.3 kg (166 lb) 09/30/2021 76.7 kg (169 lb) Previous labs/tests for medication: Blood Pressure: BUN (mg/dL) Date Value 01/13/2022 21 02/25/2019 13 Sodium (mmol/L) Date Value 01/13/2022 140 02/25/2019 143 Last 1 Encounter BP Readings: Date: BP: 01/17/2022 136/60 Please advise. Thank you. Keira Mcduffie LPN documented in this encounter [facility] 01-17-2022 Instructions Jackie Savage APRN.SUKUMAR - 01/17/2022 1:23 PM EDT 1.) Schedule appointment with Dr. Morrison to discuss medication and dizziness concerns. 2.) Continue to take all medication as prescribed. 3.) Stay well hydrated 4.) Refills provided. 5.) Follow up in 6 months or sooner as needed. Get repeat labs in 6 months. documented in this encounter [facility] 01-17-2022 History of Present illness Narrative This is a 76 year old female who presents today with: Patient presents with: 6 Month Exam HISTORY OF PRESENT ILLNESS: Cristina Soto is a 76 year old female. Patient presents with: 6 Month Exam In the office for 6-month follow-up. HTN: Taking Toprol XL 25 mg every other day, prasterone 200 mg daily, Norvasc 10 mg daily, and losartan 100 mg daily. Seeing cardiology at [facility] once per year (). Taking Toprol every other day to help with dizziness which was helpful. Has had 1 fall from dizziness in the past couple of months. Has to be very mindful of position changes and walking. No LOC. AFIB: Taking Xarelto 20 mg daily. Tolerating mediation well, no bleeding. Gout: Taking allopurinol 100 mg daily. Symptoms well controlled. Basal cell carcinoma: Was seen in general surgery for skin lesion on right shoulder, biopsy showed basal cell carcinoma. Skin lesion was removed with a +1 margin. Last follow-up with general surgery was in September. Plan of care includes close observation. Colonoscopy: Completed in 08/2021, family history of colon cancer. Mood: Denies increased sadness, anxiety, or SI/HI. Vaccines: Refers she had booster Tdap several years ago, unsure of date. Labs completed prior to office visit today, CBC, uric acid, fasting lipid were all normal. CMP showed slight decrease in kidney function GFR 59. PAST MEDICAL HISTORY: PAST MEDICAL HISTORY Diagnosis Date Arthritis Diverticulosis of colon (without mention of hemorrhage) Diverticulosis Essential hypertension, benign Family history of diabetes mellitus Family history of ischemic heart disease Family history of malignant neoplasm of gastrointestinal tract Gout 07/11/2010 History of falling Hyperlipidemia LDL goal < 100 07/11/2010 ocean [employer] intermediary (current) use of anticoagulants Mild cognitive impairment, so stated Nonsustained ventricular tachycardia (HCC) 01/14/2017 Obesity, unspecified Paroxysmal atrial fibrillation (HCC) 02/02/2015 Presence of artificial hip joint Supraventricular tachycardia, paroxysmal (HCC) 11/20/2014 Unspecified hemorrhoids without mention of complication Hemorrhoids PAST SURGICAL HISTORY Procedure Laterality Date ARTHRP ACETBLR/PROX FEM PROSTC AGRFT/ALGRFT Left 04/13/2017 Dr. best COLONOSCOPY FLX DX W/COLLJ SPEC WHEN PFRMD 06/26/2003 Colonoscopy COLONOSCOPY FLX DX W/COLLJ SPEC WHEN PFRMD 12/26/2009 COLONOSCOPY FLX DX W/COLLJ SPEC WHEN PFRMD 08/27/2021 HIP SURGERY HX Right 10/21/2021 Right THR-Dr. Best JOINT REPLACEMENT HX LIG/TRNSXJ FLP TUBE ABDL/VAG APPR UNI/BI Tubal ligation TONSILLECTOMY PRIMARY/SECONDARY <AGE 12 Tonsillectomy ALLERGIES Patient has no known allergies. MEDICATIONS Current Outpatient Medications Medication Sig amLODIPine (NORVASC) 5 mg tablet Take 1 tablet by mouth once daily. aspirin 81 mg chewable tablet Take 81 mg by mouth once daily. atorvastatin (LIPITOR) 40 mg tablet Take 0.5 tablets by mouth once daily. For cholesterol. losartan (COZAAR) 100 mg tablet Take 1 tablet by mouth once daily. allopurinol (ZYLOPRIM) 100 mg tablet Take 1 tablet by mouth once daily. For gout. rivaroxaban (XARELTO) 20 mg tablet Take 1 tablet by mouth daily with dinner. metoprolol succinate ER (TOPROL XL) 25 mg 24 hr tablet Take 1 tablet by mouth once daily. (Patient taking differently: Take 25 mg by mouth every other day. ) amiodarone (PACERONE) 200 mg tablet Take 1 tablet by mouth once daily. No current facility-administered medications for this visit. FAMILY HISTORY Problem Relation Age of Onset Colon Cancer Mother diagnosed in her 80s per patient Arthritis Mother other (ASHD) Mother Arthritis Father other (colonic polyps) Brother pt stated 04/30 not aware of any fam Hx polyps Social History Tobacco Use Smoking status: Never Smoker Smokeless tobacco: Never Used Vaping Use Vaping Use: Never used Substance Use Topics Alcohol use: No Drug use: No REVIEW OF SYSTEMS GENERAL: No weight loss, malaise or fevers/chills HEENT: Negative for frequent or significant headaches, No changes in hearing or vision. NECK: Negative for lumps, goiter, pain and significant neck swelling RESPIRATORY: Negative for cough, hemoptysis, wheezing, dyspnea or shortness of breath CARDIOVASCULAR: Negative for chest pain, leg swelling, orthopnea, or palpitations GI: No nausea, vomiting, or diarrhea/constipation. No hematochezia/melena. No heartburn or reflux symptoms. : No history of dysuria, frequency or incontinence MUSCULOSKELETAL: Negative for joint pain or swelling. SKIN: Negative for lesions, rash, and itching ENDOCRINE: Negative for cold or heat intolerance, polyuria, polydipsia and goiter NEURO: No history of headaches, syncope, paralysis, seizures or tremors MOOD: Negative for depression, anxiety, or suicidal ideation. EXAM: BP 136/60 Pulse 62 Resp 16 Wt 75.3 kg (166 lb) SpO2 98% BMI 27.62 kg/m PHYSICAL EXAM: General Appearance: Well appearing, alert, in no acute distress, well-hydrated, well nourished. Skin: Skin color, texture, turgor normal, no suspicious rashes or lesions. Head: Normocephalic, no masses, lesions, tenderness or abnormalities. Eyes: Anicteric sclera. Extraocular movements are intact. Lungs: Lungs clear to auscultation. No wheezing, rhonchi, rales. Heart: RRR without murmur, gallop, or rubs. No ectopy. Abdomen: Normal abdominal exam, Abdomen soft, non-tender. Bowel sounds normal. No masses, organomegaly, Negative CVA tenderness. Extremities: No deformities, edema, skin discoloration, clubbing or cyanosis. Good capillary refill. Peripheral Pulses: Normal, Capillary refill <2secs, strong peripheral pulses, Pulses palpable. ASSESSMENT/PLAN: 1. Essential hypertension, benign - ICD9: 401.1, ICD10: I10 (primary diagnosis) - good control - Continue current medication(s) - Recommended regular aerobic exercise. - Goal of BP <130/80 - LOSARTAN 100 MG TABLET 2. Paroxysmal atrial fibrillation (HCC) - ICD9: 427.31, ICD10: I48.0 - Continue current medication. - Recommend follow up with Cardiology to discuss medication regimen and ongoing dizziness. - ALLOPURINOL 100 MG TABLET - RIVAROXABAN 20 MG TABLET 3. Skin lesion of back - ICD9: 709.9, ICD10: L98.9 - Close observation of healing surgical laceration. 4. Chronic gout without tophus, unspecified cause, unspecified site - ICD9: 274.02, ICD10: [id number].9XX0 - Continue with allopurinol. Follow-up in 6 months or sooner as needed. Discussed treatment plan and patient voices understanding. Patient's questions answered appropriately. Medications and potential side effects were discussed and patient voices understanding. Jackie Savage APRN.CNP This note was partially generated using [employer] voice recognition system. Note was reviewed for accuracy. There may be minor misspellings or grammar miscues with [employer] voice recognition. documented in this encounter [facility] 01-14-2022 Miscellaneous Notes TC to patient who verbalizes understanding of providers message. Patient is now scheduled for a 6 month follow up with Jackie Savage on 01/17/2022 at 8:40 AM per providers request. NAKIA Priest Please inform patient that her labs look good. Due for a 6 month follow up with our team. Tao Gonzalez APRN.CNP documented in this encounter [facility] 12-11-2021 History of Present illness Narrative POPULATION HEALTH NAVIGATION OUTREACH Action/FYI: [employer] Care Gaps Discuss/Due: Advance Directives, 6 Month PCP Follow up Outcome:Left message on voicemail and sent MyChart message. Pt identified by name and : NO Outreach Outcome/Action Unable to reach patient: Left message MyChart message sent Reason for Outreach Care Gap or Scheduling/Wellness visits Payer: Payor: [employer] MEDICARE / Plan: [employer] MEDICARE PPO / Product Type: PPO / Care Gap Reviewed:: Follow-up appointment Reminder: Reminder note to check Health Maintenance for items below Health Maintenance items due: ADVANCE DIRECTIVE DISCUSSION Never done Message Sent to Practice: No Navigation Signature: Rhea Jin Population Health Navigator December 11, 2021 9:51 AM documented in this encounter [facility] 04-20-2018 History of Past i llness Narrative Problem Noted Date Resolved Date Hyperkalemia 04/20/2018 11/01/2019 Nonsustained ventricular tachycardia 01/14/2017 11/01/2019 Lightheadedness 01/14/2017 03/24/2017 Status post placement of implantable loop record er 08/19/2016 11/01/2019 Faintness 05/01/2015 03/24/2017 Syncope 11/23/2014 02/20/2015 Supraventricular tachycardia, paroxysmal 015 11/01/2019 Sciatica 04/07/2007 03/24/2017 documented as of this encounter (statuses as of 12/11/2021) [facility] History of Past illness Narrative* Problem Noted Date Resolved Date Hyperkalemia 04/20/2018 11/01/2019 Nonsustained ventricular tachycardia 01/14/2017 11/01/2019 Lightheadedness 01/14/2017 03/24/2017 Status post placement of implantable loop record er 08/19/2016 11/01/2019 Faintness 05/01/2015 03/24/2017 Syncope 11/23/2014 02/20/2015 Supraventricular tachycardia, paroxysmal 015 11/01/2019 Sciatica 04/07/2007 03/24/2017 documented as of this encounter (statuses as of 01/14/2022) [facility] History of Past illness Narrative* Problem Noted Date Resolved Date Hyperkalemia 04/20/2018 11/01/2019 Nonsustained ventricular tachycardia 01/14/2017 11/01/2019 Lightheadedness 01/14/2017 03/24/2017 Status post placement of implantable loop record er 08/19/2016 11/01/2019 Faintness 05/01/2015 03/24/2017 Syncope 11/23/2014 02/20/2015 Supraventricular tachycardia, paroxysmal 09/2 015 11/01/2019 Sciatica 04/07/2007 03/24/2017 documented as of this encounter (statuses as of 01/17/2022) [facility] History of Past illness Narrative* Problem Noted Date Resolved Date Hyperkalemia 04/20/2018 11/01/2019 Nonsustained ventricular tachycardia 01/14/2017 11/01/2019 Lightheadedness 01/14/2017 03/24/2017 Status post placement of implantable loop record er 08/19/2016 11/01/2019 Faintness 05/01/2015 03/24/2017 Syncope 11/23/2014 02/20/2015 Supraventricular tachycardia, paroxysmal 032 015 11/01/2019 Sciatica 04/07/2007 03/24/2017 documented as of this encounter (statuses as of 02/03/2022) [facility] History of Past illness Narrative* Problem Noted Date Resolved Date Hyperkalemia 04/20/2018 11/01/2019 Nonsustained ventricular tachycardia 01/14/2017 11/01/2019 Lightheadedness 01/14/2017 03/24/2017 Status post placement of implantable loop record er 08/19/2016 11/01/2019 Faintness 05/01/2015 03/24/2017 Syncope 11/23/2014 02/20/2015 Supraventricular tachycardia, paroxysmal 0309/2 015 11/01/2019 Sciatica 04/07/2007 03/24/2017 documented as of this encounter (statuses as of 05/27/2022) [facility] History of Past illness Narrative* Problem Noted Date Resolved Date Hyperkalemia 04/20/2018 11/01/2019 Nonsustained ventricular tachycardia 01/14/2017 11/01/2019 Lightheadedness 01/14/2017 03/24/2017 Status post placement of implantable loop record er 08/19/2016 11/01/2019 Faintness 05/01/2015 03/24/2017 Syncope 11/23/2014 02/20/2015 Supraventricular tachycardia, paroxysmal 0309/2 015 11/01/2019 Sciatica 04/07/2007 03/24/2017 documented as of this encounter (statuses as of 05/29/2022) [facility] History of Past illness Narrative* Problem Noted Date Resolved Date Hyperkalemia 04/20/2018 11/01/2019 Nonsustained ventricular tachycardia 01/14/2017 11/01/2019 Lightheadedness 01/14/2017 03/24/2017 Status post placement of implantable loop record er 08/19/2016 11/01/2019 Faintness 05/01/2015 03/24/2017 Syncope 11/23/2014 02/20/2015 Supraventricular tachycardia, paroxysmal 11/20/2 015 11/01/2019 Sciatica 04/07/2007 03/24/2017 documented as of this encounter (statuses as of 09/17/2022) [facility] History of Past illness Narrative* Problem Noted Date Resolved Date Hyperkalemia 04/20/2018 11/01/2019 Nonsustained ventricular tachycardia 01/14/2017 11/01/2019 Lightheadedness 01/14/2017 03/24/2017 Status post placement of implantable loop record er 08/19/2016 11/01/2019 Faintness 05/01/2015 03/24/2017 Syncope 11/23/2014 02/20/2015 Supraventricular tachycardia, paroxysmal 09/2 015 11/01/2019 Sciatica 04/07/2007 03/24/2017 documented as of this encounter (statuses as of 09/19/2022) [facility] History of Past illness Narrative* Problem Noted Date Resolved Date Hyperkalemia 04/20/2018 11/01/2019 Nonsustained ventricular tachycardia 01/14/2017 11/01/2019 Lightheadedness 01/14/2017 03/24/2017 Status post placement of implantable loop record er 08/19/2016 11/01/2019 Faintness 05/01/2015 03/24/2017 Syncope 11/23/2014 02/20/2015 Supraventricular tachycardia, paroxysmal 0309/2 015 11/01/2019 Sciatica 04/07/2007 03/24/2017 documented as of this encounter (statuses as of 09/22/2022) [facility] History of Past illness Narrative* Problem Noted Date Resolved Date Hyperkalemia 04/20/2018 11/01/2019 Nonsustained ventricular tachycardia 01/14/2017 11/01/2019 Lightheadedness 01/14/2017 03/24/2017 Status post placement of implantable loop record er 08/19/2016 11/01/2019 Faintness 05/01/2015 03/24/2017 Syncope 11/23/2014 02/20/2015 Supraventricular tachycardia, paroxysmal 2 015 11/01/2019 Sciatica 04/07/2007 03/24/2017 documented as of this encounter (statuses as of 09/25/2022) [facility] History of Past illness Narrative* Problem Noted Date Resolved Date Hyperkalemia 04/20/2018 11/01/2019 Nonsustained ventricular tachycardia 01/14/2017 11/01/2019 Lightheadedness 01/14/2017 03/24/2017 Status post placement of implantable loop record er 08/19/2016 11/01/2019 Faintness 05/01/2015 03/24/2017 Syncope 11/23/2014 02/20/2015 Supraventricular tachycardia, paroxysmal 11/20/2 015 11/01/2019 Sciatica 04/07/2007 03/24/2017 documented as of this encounter (statuses as of 09/30/2022) [facility] History of Past illness Narrative* Problem Noted Date Resolved Date Hyperkalemia 04/20/2018 11/01/2019 Nonsustained ventricular tachycardia 01/14/2017 11/01/2019 Lightheadedness 01/14/2017 03/24/2017 Status post placement of implantable loop record er 08/19/2016 11/01/2019 Faintness 05/01/2015 03/24/2017 Syncope 11/23/2014 02/20/2015 Supraventricular tachycardia, paroxysmal 0309/2 015 11/01/2019 Sciatica 04/07/2007 03/24/2017 documented as of this encounter (statuses as of 10/10/2022) [facility] History of Past illness Narrative* Problem Noted Date Resolved Date Hyperkalemia 04/20/2018 11/01/2019 Nonsustained ventricular tachycardia 01/14/2017 11/01/2019 Lightheadedness 01/14/2017 03/24/2017 Status post placement of implantable loop record er 08/19/2016 11/01/2019 Faintness 05/01/2015 03/24/2017 Syncope 11/23/2014 02/20/2015 Supraventricular tachycardia, paroxysmal 09/2 015 11/01/2019 Sciatica 04/07/2007 03/24/2017 documented as of this encounter (statuses as of 10/20/2022) [facility] History of Past illness Narrative* Problem Noted Date Resolved Date Hyperkalemia 04/20/2018 11/01/2019 Nonsustained ventricular tachycardia 01/14/2017 11/01/2019 Lightheadedness 01/14/2017 03/24/2017 Status post placement of implantable loop record er 08/19/2016 11/01/2019 Faintness 05/01/2015 03/24/2017 Syncope 11/23/2014 02/20/2015 Supraventricular tachycardia, paroxysmal 2 015 11/01/2019 Sciatica 04/07/2007 03/24/2017 documented as of this encounter (statuses as of 10/21/2022) [facility] History of Past illness Narrative* Problem Noted Date Resolved Date Hyperkalemia 04/20/2018 11/01/2019 Nonsustained ventricular tachycardia 01/14/2017 11/01/2019 Lightheadedness 01/14/2017 03/24/2017 Status post placement of implantable loop record er 08/19/2016 11/01/2019 Faintness 05/01/2015 03/24/2017 Syncope 11/23/2014 02/20/2015 Supraventricular tachycardia, paroxysmal 11/20/2 015 11/01/2019 Sciatica 04/07/2007 03/24/2017 documented as of this encounter (statuses as of 12/15/2022) [facility] History of Past illness Narrative* Problem Noted Date Resolved Date Hyperkalemia 04/20/2018 11/01/2019 Nonsustained ventricular tachycardia 01/14/2017 11/01/2019 Lightheadedness 01/14/2017 03/24/2017 Status post placement of implantable loop record er 08/19/2016 11/01/2019 Faintness 05/01/2015 03/24/2017 Syncope 11/23/2014 02/20/2015 Supraventricular tachycardia, paroxysmal 015 11/01/2019 Sciatica 04/07/2007 03/24/2017 documented as of this encounter (statuses as of 02/26/2023) [facility] History of Past illness Narrative* Problem Noted Date Diagnosed Date Resolved Date Hyperkalemia 04/20/2018 11/01/2019 Nonsustained ventricular tachycardia 01/14/2017 11/01/2019 Lightheadedness 01/14/2017 03/24/2017 Status post placement of imp lantable loop recorder 08/19/2016 11/01/2019 Faintness 05/01/2015 03/24/2017 Syncope 11/23/2014 02/20/2015 Supraventricular tachycardia, paroxysmal 11/20/2014 11/01/2019 Sciatica 04/07/2007 03/24/2017 documented as of this encounter (statuses as of 08/27/2023) [facility] History of Past illness Narrative* Problem Noted Date Diagnosed Date Resolved Date Hyperkalemia 04/20/2018 11/01/2019 Nonsustained ventricular tachycardia 01/14/2017 11/01/2019 Lightheadedness 01/14/2017 03/24/2017 Status post placement of imp lantable loop recorder 08/19/2016 11/01/2019 Faintness 05/01/2015 03/24/2017 Syncope 11/23/2014 02/20/2015 Supraventricular tachycardia, paroxysmal 11/20/2014 11/01/2019 Sciatica 04/07/2007 03/24/2017 documented as of this encounter (statuses as of 12/03/2023) [facility] History of Past illness Narrative* Problem Noted Date Diagnosed Date Resolved Date Hyperkalemia 04/20/2018 11/01/2019 Nonsustained ventricular tachycardia 01/14/2017 11/01/2019 Lightheadedness 01/14/2017 03/24/2017 Status post placement of imp lantable loop recorder 08/19/2016 11/01/2019 Faintness 05/01/2015 03/24/2017 Syncope 11/23/2014 02/20/2015 Supraventricular tachycardia, paroxysmal 11/20/2014 11/01/2019 Sciatica 04/07/2007 03/24/2017 documented as of this encounter (statuses as of 12/26/2023) [facility] [facility] note* Diagnosis Essential hypertension, benign- Primary Paroxysmal atrial fibrillation (HCC) Atrial fibrillation Skin lesion of back Unspecified disorder of skin and subcutaneous tissue Chronic gout without tophus, unspecified cause, unspecified site documented in this encounter [facility]* Diagnosis COVID-19- Primary documented in this encounter [facility]* Diagnosis Closed fracture of proximal end of left humerus with routine healing, unspecified fracture morphology, subsequent encounter- Primary documented in this encounter [facility] note* Diagnosis Microscopic hematuria- Primary documented in this encounter [facility] note* Diagnosis Paroxysmal atrial fibrillation (HCC) Atrial fibrillation Essential hypertension, benign documented in this encounter [facility] note* Diagnosis Acute midline low back pain without sciatica documented in this encounter [facility] for referral (narrative)* Diagnostic Procedure Only (Urgent) - Closed Specialty Diagnoses / Procedures Referred By Contac t Referred To Contact XR IMAGING Diagnoses Acute midline low back pain without sciatica Procedures XR LUMBAR GENERAL 3V AP/LAT/L5-S1 RADEX SPINE LUMBOSACRAL 2/3 VIEWS Cb Romo MD [address] [place] [address] [place] [id number] Referral ID Status Reason Start Date Expiration Date V isits Requested Visits Authorized [id number] Closed Auto-Generate d Referral 08/09/2022 09/08/2023 1 1 [facility] for visit Narrative* Diagnostic Procedure Only (Urgent) - Closed Specialty Diagnoses / Procedures Referred By Contac t Referred To Contact XR IMAGING Diagnoses Acute midline low back pain without sciatica Procedures XR LUMBAR GENERAL 3V AP/LAT/L5-S1 RADEX SPINE LUMBOSACRAL 2/3 VIEWS Cb Romo MD [address] [place] [id number] [place] [id number] Referral ID Status Reason Start Date Expiration Date V isits Requested Visits Authorized [id number] Closed Auto-Generate d Referral 08/09/2022 09/08/2023 1 1 [facility] Summary Purpose Family History No Family History Records FoundNo Family History Records FoundNo Family History Records FoundNo Family History Records Found Advance Directives Documents on File Type Date Recorded 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 Advance Directive(s) 08/27/2021 7:11 AM Advance Directive(s) 08/09/2021 1:26 PM Advance Directive(s) 01/04/2010 10:12 PM Documents on File Type Date Recorded 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 Advance Directive(s) 01/04/2010 10:12 PM Documents on File Type Date Recorded 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 Advance Directive(s) 01/04/2010 10:12 PM Documents on File Type Date Recorded 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 Advance Directive(s) 02/03/2023 8:34 AM Documents on File Type Date Recorded 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 Advance Directive(s) 02/03/2023 8:34 AM Reason for Referral Specialty Diagnoses / Procedures Referred By [place] darling Referred To Contact Urology Diagnoses Microscopic hematuria Procedures CONSULT TO UROLOGY OFFICE/OUTPATIENT NEW HIGH MDM 60-74 MINUTES Jackie Savage, KEITH.BACON SLICER [address] [place] [address] Referral ID Status Reason Start Date Expiration Date Visits Requested Visits Authorized [id number] Pending Review PCP Requested Referral 09/29/2022 09/29/2023 1 1 Additional Source Comments INFORMATION SOURCE (unrecogn ized section and content) DATE CREATED AUTHOR 05/14/2018 [facility] DATE CREATED AUTHOR AUTHOR'S ORGANIZ ATION 05/14/2018 [facility] DATE CREATED AUTHOR AUTHOR'S ORGANIZ ATION 12/22/2020 [facility] DATE CREATED AUTHOR AUTHOR'S ORGANIZ ATION 12/27/2023 [facility] Source Comments (unrecognize d section and content) In the event this informatio n is protected by the Federal Confidentiality of Alcohol and Drug Abuse Patient Records regulations: The Federal rules restrict any use of the information to criminally investigate or prosecute any alcohol or drug abuse patient.[facility] the event this information is protected by the Federal Confidentiality of Alcohol and Drug Abuse Patient Records regulations: The Federal rules restrict any use of the information to criminally investigate or prosecute any alcohol or drug abuse patient.[facility] the event this information is protected by the Federal Confidentiality of Alcohol and Drug Abuse Patient Records regulations: The Federal rules restrict any use of the information to criminally investigate or prosecute any alcohol or drug abuse patient.[facility] the event this information is protected by the Federal Confidentiality of Alcohol and Drug Abuse Patient Records regulations: The Federal rules restrict any use of the information to criminally investigate or prosecute any alcohol or drug abuse patient.[facility] the event this information is protected by the Federal Confidentiality of Alcohol and Drug Abuse Patient Records regulations: The Federal rules restrict any use of the information to criminally investigate or prosecute any alcohol or drug abuse patient.[facility] the event this information is protected by the Federal Confidentiality of Alcohol and Drug Abuse Patient Records regulations: The Federal rules restrict any use of the information to criminally investigate or prosecute any alcohol or drug abuse patient.[facility] the event this information is protected by the Federal Confidentiality of Alcohol and Drug Abuse Patient Records regulations: The Federal rules restrict any use of the information to criminally investigate or prosecute any alcohol or drug abuse patient.[facility] the event this information is protected by the Federal Confidentiality of Alcohol and Drug Abuse Patient Records regulations: The Federal rules restrict any use of the information to criminally investigate or prosecute any alcohol or drug abuse patient.[facility] the event this information is protected by the Federal Confidentiality of Alcohol and Drug Abuse Patient Records regulations: The Federal rules restrict any use of the information to criminally investigate or prosecute any alcohol or drug abuse patient.[facility] the event this information is protected by the Federal Confidentiality of Alcohol and Drug Abuse Patient Records regulations: The Federal rules restrict any use of the information to criminally investigate or prosecute any alcohol or drug abuse patient.[facility] the event this information is protected by the Federal Confidentiality of Alcohol and Drug Abuse Patient Records regulations: The Federal rules restrict any use of the information to criminally investigate or prosecute any alcohol or drug abuse patient.[facility] the event this information is protected by the Federal Confidentiality of Alcohol and Drug Abuse Patient Records regulations: The Federal rules restrict any use of the information to criminally investigate or prosecute any alcohol or drug abuse patient.[facility] the event this information is protected by the Federal Confidentiality of Alcohol and Drug Abuse Patient Records regulations: The Federal rules restrict any use of the information to criminally investigate or prosecute any alcohol or drug abuse patient.[facility] the event this information is protected by the Federal Confidentiality of Alcohol and Drug Abuse Patient Records regulations: The Federal rules restrict any use of the information to criminally investigate or prosecute any alcohol or drug abuse patient.[facility] the event this information is protected by the Federal Confidentiality of Alcohol and Drug Abuse Patient Records regulations: The Federal rules restrict any use of the information to criminally investigate or prosecute any alcohol or drug abuse patient.[facility] the event this information is protected by the Federal Confidentiality of Alcohol and Drug Abuse Patient Records regulations: The Federal rules restrict any use of the information to criminally investigate or prosecute any alcohol or drug abuse patient.[facility] the event this information is protected by the Federal Confidentiality of Alcohol and Drug Abuse Patient Records regulations: The Federal rules restrict any use of the information to criminally investigate or prosecute any alcohol or drug abuse patient.[facility] the event this information is protected by the Federal Confidentiality of Alcohol and Drug Abuse Patient Records regulations: The Federal rules restrict any use of the information to criminally investigate or prosecute any alcohol or drug abuse patient.[facility] the event this information is protected by the Federal Confidentiality of Alcohol and Drug Abuse Patient Records regulations: The Federal rules restrict any use of the information to criminally investigate or prosecute any alcohol or drug abuse patient.[facility] the event this information is protected by the Federal Confidentiality of Alcohol and Drug Abuse Patient Records regulations: The Federal rules restrict any use of the information to criminally investigate or prosecute any alcohol or drug abuse patient.[facility] the event this information is protected by the Federal Confidentiality of Alcohol and Drug Abuse Patient Records regulations: The Federal rules restrict any use of the information to criminally investigate or prosecute any alcohol or drug abuse patient.[facility] the event this information is protected by the Federal Confidentiality of Alcohol and Drug Abuse Patient Records regulations: The Federal rules restrict any use of the information to criminally investigate or prosecute any alcohol or drug abuse patient.[facility] the event this information is protected by the Federal Confidentiality of Alcohol and Drug Abuse Patient Records regulations: The Federal rules restrict any use of the information to criminally investigate or prosecute any alcohol or drug abuse patient.[facility] Reason for Visit (unrecogniz ed section and content) Reason Onset Date Comments Population Health Navigation Outreach 12/11/2021 [employer] Care Gaps Reason Comments Results Reason Comments 6 Month Exam Reason Onset Date Comments Refill Request 02/01/2022 Reason Comments trouble coming up with words Neurologic Problem Reason Comments Acute Visit Covid Reason Comments Hospital Follow Up Reason Comments Home Health Orders Reason Onset Date Comments Transition Of Care 09/22/2022 Pt had a UTI and fracture left arm. Reason Comments [facility] Plan of Care Reason Comments Orders Reason Comments Results Urine Reason Comments Results Urine testing Reason Comments [facility], OT, verbal order needed Reason Comments Patient Update Reason Comments Refill Request Reason Onset Date Comments Refill Request 02/26/2023 Reason Comments Anticoagulation Authorization to [place] anti-thrombotic Reason Onset Date Comments Population Health Navigation Outreach 12/02/2023 [employer] [facility] Reason Comments Radio Gen RMP Radiology Service Pr ogress NotePATIENT NAME: Cristina [facility]tMR[facility]: [id number] OF SERVICE: December 26, 2023TIME: 12:04 PMPATIENT IDENTITY VERIFICATION COMPLETED USING TWO (2) IDENTIFIERS: Name and Date of confirmed by patient verbally.FALL SCREENING: Has the patient had 2 falls in the last year or 1 fall with injury or currently using an Ambulatory Assistive Device (Walker, Cane, Wheelchair, Crutches, etc.)? Emergency Room Patient: Screened in EDPATIENT GENDER DATA: Fema Care Teams (unrecognized sec tion and content) Director Of Casework Relationship Specialty Start Date End Date Rustam Becker MD [address] [place], [place] [id number] PCP - General Family Practice 05/13/21 Pema Mabry III, MD [facility] 01/15/16 Lee Morrisonril S [address] [id number] Physician Cardiology 10/20/18 Director Of Casework Relationship Specialty Start Date End Date Rustam Becker MD [address] [place], [place] [id number] PCP - General Family Practice 05/13/21 Pema Mabry III, MD [facility] 01/15/16 Dane Morrison S [address] [id number] Physician Cardiology 10/20/18 Director Of Casework Relationship Specialty Start Date End Date Rustam Becker MD [address] [place], [place] [id number] PCP - General Family Practice 05/13/21 Pema Mabry III, MD Family Practice 01/15/16 Prince, Wake S [address] [place] [address] Physician Cardiology 10/20/18 Director Of Casework Relationship Specialty Start Date End Date Rustam Becker MD [address] [place] [address] PCP - General Family Practice 05/13/21 Pema Mabry III, MD Family Practice 01/15/16 Prince, Dane S [address] [place] [address] Physician Cardiology 10/20/18 Director Of Casework Relationship Specialty Start Date End Date Rustam Becker MD [address] [place] [address] PCP - General Family Practice 05/13/21 Pema Mabry III, MD Family Practice 01/15/16 Prince, Wake S [address] [place] [address] Physician Cardiology 10/20/18 Director Of Casework Relationship Specialty Start Date End Date Rustam Becker MD [address] [place] [address] PCP - General Family Practice 05/13/21 Pema Mabry III, MD Family Practice 01/15/16 Prince, Dane S [address] [place] [address], [place] [address] Physician Cardiology 10/20/18 Director Of Casework Relationship Specialty Start Date End Date Rustam Becker MD [address] [place] [address] PCP - General Family Medicine 05/13/21 Pema Mabry III, MD Family Medicine 01/15/16 Prince, Wake S [address] [place] [address] Physician Cardiology 10/20/18 Director Of Casework Relationship Specialty Start Date End Date Rustam Becker MD [address] [place] [address] PCP - General Family Medicine 05/13/21 Pema Mabry III, MD Family Medicine 01/15/16 Prince, Wake S [address] [place] [address] Physician Cardiology 10/20/18 Director Of Casework Relationship Specialty Start Date End Date Rustam Becker MD [address] [place] [address] PCP - General Family Medicine 05/13/21 Pema Mabry III, MD Family Medicine 01/15/16 Prince, Wake S [address] [place] [address] Physician Cardiology 10/20/18 Director Of Casework Relationship Specialty Start Date End Date Rustam Becker MD [address] [place] [address] PCP - General Family Medicine 05/13/21 Pema Mabry III, MD Family Medicine 01/15/16 [facility], Wake S [address] [place] [address] Physician Cardiology 10/20/18 Director Of Casework Relationship Specialty Start Date End Date Rustam Becker MD [address] [place] [address] PCP - General Family Medicine 05/13/21 Pema Mabry III, MD Family Medicine 01/15/16 Prince, Wake S [address] [place] [address] Physician Cardiology 10/20/18 Director Of Casework Relationship Specialty Start Date End Date Rustam Becker MD [address] [place] [address] PCP - General Family Medicine 05/13/21 Pema Mabry III, MD Family Medicine 01/15/16 Prince, Dane S [address] [address] Physician Cardiology 10/20/18 Director Of Casework Relationship Specialty Start Date End Date Rustam Becker MD [address] [place] [address] PCP - General Family Medicine 05/13/21 Pema Mabry III, MD Family Medicine 01/15/16 Prince Dane S [address] [address] Physician Cardiology 10/20/18 Director Of Casework Relationship Specialty Start Date End Date Rustam Becker MD [address] [place] [address] PCP - General Family Medicine 05/13/21 Pema Mabry III, MD Family Medicine 01/15/16 Prince Dane S [address] [address] Physician Cardiology 10/20/18 Director Of Casework Relationship Specialty Start Date End Date Rustam Becker MD [address] [place] [address] PCP - General Family Medicine 05/13/21 Pema Mabry III, MD Family Medicine 01/15/16 Dane Morrison MD [address] [place] [address] Physician Cardiology 10/20/18 Director Of Casework Relationship Specialty Start Date End Date Rustam Nicholson Chi [address] [place] [address] PCP - General Gerontology 12/02/23 Pema Mabry III, MD Family Medicine 01/15/16 Dane Morrison MD [address] [place] [address] Physician Cardiology 10/20/18 Director Of Casework Relationship Specialty Start Date End Date Rustam Nicholson Chi [address] [place] [address] PCP - General Gerontology 12/02/23 Pema Mabry III, MD Family Medicine 01/15/16 Dane Morrison MD [address] [place] [address] Physician Cardiology 10/20/18 Director Of Casework Relationship Specialty Start Date End Date Rustam Becker MD [address] [place] [address] PCP - General Family Medicine 05/13/21 12/01/23 Pema Mabry III, MD Family Medicine 01/15/16 Dane Morrison MD [address] [place] [address] Physician Cardiology 10/20/18 FOR RECORDS PERTAINING TO PATIENTS WHO ARE OR HAVE BEEN ENROLLED IN A CHEMICAL DEPENDENCY/SUBSTANCEABUSE PROGRAM, SOME INFORMATION MAY BE OMITTED. This clinical summary was aggregated from multiple sources. Caution should be exercised in using it in the provision of clinical care. This summary normalizes information from multiple sources, and as a consequence, information in this document may materially change the coding, format and clinical context of patient data. In addition, data may be omitted in some cases. CLINICAL DECISIONS SHOULD BE BASED ON THE PRIMARY CLINICAL RECORDS. [facility] [employer] [facility]. provides no warranty or guarantee of the accuracy or completeness of information in this document.
[2024-07-05 13:20] LABS: Absolute Lymphocyte Count 1.87 X10^3/uL (0.83-4.51); Absolute Neutrophil Count 3.2 X10^3/uL (2.0-7.7); Basophil# 0.01 X10^3/uL; Basophil% 0.2 % (0-1); Eosinophil# 0.04 X10^3/uL; Eosinophils% 0.7 % (0-5); Hematocrit 40.9 % (37-47); Hemoglobin 12.8 g/dL (12.0-15.0); Lymphocyte # 1.87 X10^3/ul (0.83-4.51); Lymphocyte % 33.2 % (19-41); Mean Corp Hgb Conc 31.3 g/dL (32-36); Mean Corpuscular Hgb 30.6 pg (27.0-32.0); Mean Corpuscular Volume 97.8 fL (81-99); Mean Platelet Vol. 10.2 fl (6.2-12.0); Monocyte% 8.9 % (0-10); NRBC Flagged by Analyzer 0 % (0-5); Neutrophil # 3.21 X10^3/uL (2.7-7.7); Neutrophil % 56.8 % (47-70); Platelet Count 259 K/mm3 (150-450); RBC Distribution Width CV 13.1 % (11.6-14.6); Red Blood Count 4.18 M/mm3 (4.2-5.4); White Blood Count 5.6 K/mm3 (4.4-11.0)
[2024-07-05 14:06] LABS: AST(SGOT) 18 U/L (15-37); Alanine Aminotransfer ALT/SGPT 25 U/L (13-56); Albumin, Serum 3.6 g/dL (3.2-5.0); Alkaline Phosphatase 88 U/L (45-117); Anion Gap 6 (5-15); BUN 19 mg/dL (7-18); BUN/Creat Ratio 17.4 RATIO (10-20); Chloride 109 mmol/L (98-107); Creatinine, Serum 1.09 mg/dL (0.55-1.02); EST Glomerular Filtration Rate 51 mL/min (>60); Est Glom Filt Rate - Afr Amer 62 mL/min (>60); Globulin 3.6 g/dL (2.2-4.2); Glucose 89 mg/dL (74-106); Potassium 4.4 mmol/L (3.5-5.1); Protein, Total 7.2 g/dL (6.4-8.2); Sodium Level 142 mmol/L (136-145); Thyroid Stim Hormone (TSH) 0.525 uIU/mL (0.358-3.740); Uric Acid 3.1 mg/dL (2.6-6.0)
== END | disposition home or self-care (01) ==
LOC: LAB 11:45
PROVIDERS: PCP Family Medicine Geriatric Medicine; Referring Provider Family Medicine Geriatric Medicine; Visit Provider Family Medicine Geriatric Medicine
DX: I10 Essential (primary) hypertension (principal); M10.9 Gout, unspecified; E55.9 Vitamin D deficiency, unspecified
CPT/HCPCS: 36415; 80053; 82306; 84443; 84550; 85025

== ENCOUNTER → 2024-10-17 | Outpatient (CLI) | payer MEDICARE, SELFPAY ==
[2024-10-17 21:47] LABS: M R Staph aureus DNA By PCR Negative (Negative); Staph aureus DNA By PCR NEGATIVE (Negative)
[2024-10-17 21:48] LABS: Probe Check PASS; Specimen Processing Control PASS
== END | disposition home or self-care (01) ==
PROVIDERS: PCP Family Medicine Geriatric Medicine; Referring Provider Family Medicine Geriatric Medicine; Visit Provider Family Medicine Geriatric Medicine
DX: L03.113 Cellulitis of right upper limb (principal); S61.401A Unspecified open wound of right hand, initial encounter
CPT/HCPCS: 87070; 87205; 87640

== ENCOUNTER 2024-10-27 10:15 | Outpatient (RCR) | payer MEDICARE, SELFPAY ==
[2024-10-20 10:21] VITALS: BP 151/73; PULSE 98; RESP 16; TEMP 35.9; BMI 25.3
--- NOTE | 2024-10-20 10:56 | PCM.WC.HP ---
History of Present Illness Date of Service: 10/20/24 Chief Complaint: Right Hand Wound History of Wound: Ms. Guillaume is a 79-year-old referred to the wound center by her PCP due to a right hand wound. Sustained a few days ago after she fell and hit her hand against a wooden pipe. Was seen by her PCP and given an antibiotic injection. She was also started on Keflex and doxycycline. Has been applying an antibiotic ointment on it as well. She believes that it is improving, has had less bleeding/pain with dressing changes. She feels well otherwise. History of atrial fibrillation on Eliquis. Appetite is good. [facility] Medical History (Updated 10/20/24 @ 12:[address] Kylee Puga MD) History of fall Open wound, hand Fall (~12/2023) Atrial fibrillation COVID-19 (05/27/22) Loss of hearing Wears glasses Arthritis High cholesterol Syncope Non-smoker History of pain when walking History of edema Hypertension Cardiology follow-up encounter Hypertensive emergency (07/08/20) Nonobstructive atherosclerosis of coronary artery Closed head injury with brief loss of consciousness Thyroid nodule Obstructive sleep apnea Obesity Nonsustained ventricular tachycardia Paroxysmal supraventricular tachycardia Gout Diverticulosis Essential (primary) hypertension Paroxysmal atrial fibrillation Sick sinus syndrome Dyslipidemia Home Medications ?Medication ?Instructions ?Recorded ?Last Taken ?Type rivaroxaban 20 mg tablet 20 mg PO QHS BLOOD THINNER #90 tabs 02/03/20 08/31/23 Rx allopurinol 100 mg tablet 100 mg PO QHS gout 03/13/20 09/15/22 History losartan 100 mg tablet 100 mg PO DAILY blood pressure 07/08/20 09/16/22 History amiodarone 200 mg tablet 200 mg PO DAILY heart rate 09/16/22 09/16/22 History atorvastatin 20 mg tablet 20 mg PO QHS CHOLESTEROL #90 tabs 05/04/23 Unknown Rx donepezil 5 mg tablet 5 mg PO DAILY 09/02/23 Unknown History memantine 10 mg tablet 10 mg PO BID 09/02/23 Unknown History amlodipine 5 mg tablet 5 mg PO BID #180 tabs 12/01/23 Unknown Rx cyanocobalamin (vitamin B-12) 1,000 mcg PO DAILY 01/26/24 Unknown History 1,000 mcg tablet (Vitamin B-12) cephalexin 500 mg capsule 500 mg PO BID 10/20/24 Unknown History doxycycline hyclate 100 mg tablet 100 mg PO BID 10/20/24 Unknown History Allergy/AdvReac Type Severity Reaction Status Date / Time No Known Allergies Allergy Verified 07/28/24 10:24 Family History Mother Colon cancer CAD (coronary artery disease) Surgical History History of hip surgery History of left hip replacement (2018) History of left heart catheterization (07/10/20) History of cardioversion (05/06/19) History of loop recorder History of tubal ligation History of tonsillectomy Social History Smoking Status: Never smoker alcohol intake: never substance use type: does not use caffeine: No ROS Constitutional Constitutional: Reports frequent falls; Denies change in weight, daytime sleepiness, difficulty sleeping, fatigue, headache(s) or increased appetite Eyes Eyes: Denies blindness, bloody eye, change in eye color, change in vision, discharge from eye(s) or discongugate gaze ENT HEENT: Denies ear discharge, epistaxis, foreign body in nose, halitosis, headache(s), hearing loss, hoarseness or mouth pain Cardiovascular Cardiovascular: Denies abdominal edema, abdominal pain, chest pain, chest pain with activity, cold extremities or cyanosis Respiratory/Chest Respiratory/Chest: Denies chest congestion, difficulty clearing secretions, dry cough, dyspnea on exertion, excessive phlegm production, hemoptysis or hoarseness Gastrointestinal Gastrointestinal: Denies belching, bloating, change in bowel habits, chewing difficulty, coffee ground emesis or constipation Genitourinary Genitourinary: Denies abdominal discomfort, burning urination or flank pain Musculoskeletal Musculoskeletal: Denies atrophy, difficulty walking, muscle weakness, tingling or tremors Integumentary Integumentary: Denies change in pigmentation, erythema, furuncle, hirsutism or jaundice Neurologic Neurologic: Denies abnormal movements, abnormal speech, behavior changes, convulsions, focal weakness or lack of coordination Psychiatric Psychiatric: Denies auditory hallucinations, behavioral changes, difficulty concentrating, hallucinations, paranoia or tactile hallucinations Endocrine Endocrinology: Denies cold intolerance, deepening of the voice, excessive sweating, flushing, heat intolerance or increase in ring/shoe/hat size Hematologic/Lymphatic Hematologic/Lymphatic: Reports easy bleeding and easy bruising Allergic/Immunologic Allergic/Immunologic: Denies itchy eyes, rhinitis, throat swelling, tongue swelling or wheezing Vital Signs Vital Signs Vital Signs: 10/20/24 10:21 Temperature 96.6 F L Temperature Source Temporal Pulse Rate 98 Respiratory Rate 16 Blood Pressure 151/73 H Blood Pressure Mean 99 Blood Pressure Source Monitor Blood Pressure Position Sitting Blood Pressure Location Right Arm Oxygen Delivery Method Room Air Weight Weight: 157 lb Body Mass Index (BMI) 25.3 Physical Exam Const alert and no apparent distress General Appearance: cooperative and comfortable HEENT normocephalic, head/scalp atraumatic and hearing grossly normal bilaterally Eyes EOMs intact bilaterally Neck full ROM and supple General: normal visual inspection Resp normal respiratory effort and normal air movement Effort and Inspection: able to speak in complete sentences Cardio regular rate Rhythm: abnormal rhythm irregularly irregular GI soft to palpation, non-tender and non-distended Extremity no clubbing, cyanosis or edema Skin Wounds: wounds noted size Size: See clinical note, bed with slough, no odor, open and surrounding erythema Neuro CN's II-XII intact bilaterally, moves all extremities and no focal motor deficits Psych mental status grossly normal, thought process normal, cooperative and affect normal Debridement Note Debridement Note Wound debrided: Right hand (dorsum) Type of Debridement: Excisional debridement Anesthesia Used: 5% Lidocaine Gel Depth: Down to and including healthy tissue and in the subcutaneous layer Percentage of wound debrided: 100 Instrument Used: 5mm curette Tissue Removed: Slough and devitalized tissue Severity: Fat Layer Exposed Amount of bleeding with debridement: Mild Bleeding Controlled with: Pressure Patient tolerated procedure: Patient tolerated procedure well Post-Debridement Measurements and Additional Note: Post-Debridement Measurements/Treatment - Nurse 1 - General Ulcer Assessment Start: 10/20/24 10:21 Freq: Status: Active Protocol: SUDARSHAN Activity Type Activity Date Activity User E-sign Co-sign Detail Recorded Client Recorded Date Recorded By Document 10/20/24 10:21 [id number] 10/20/24 10:30 10/20/24 10:21 - Today's Visit Information Type of service Initial Visit Arrival Mode Ambulatory Transfer Assistance None Accompanied by Patient Identification Verified (Name & Yes ) Patient Requires Transmission-Based No Precautions Height and Weight Height 5 ft 6 in Weight 157 lb Weight in Pounds 157.0 lbs Weight Measurement Method Stated by Patient Body Mass Index (BMI) 25.3 BMI Classification Overweight Vital Signs Temperature (97.8 F-99.1 F) 96.6 F L Temperature Source Temporal Pulse Rate (60-100) 98 Pulse Location Monitor Respiratory Rate (12-18) 16 Respiratory rate source Observation Oxygen Delivery Method Room Air Blood Pressure (90/60-120/80) 151/73 H Blood Pressure Mean 99 Source Monitor Position Sitting Blood Pressure Location Right Arm History Since Last Visit- (Skip if this is Patient's initial visit) Left Footwear Regular Shoe Right Footwear Regular Shoe Pain Scale: 0-10 Numeric Is Patient Pain Free? 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 Cultural/Rastafari Needs that may affect No Treatment Plan Teaching: Wound Center Wound Center -Person Taught Patient -Teaching Method Discussion -Response to teaching Verbalize Understanding WC - Nurse 1 - General Ulcer Measurement Start: 10/20/24 10:21 Freq: Status: Active Protocol: Activity Type Activity Date Activity User E-sign Co-sign Detail Recorded Client Recorded Date Recorded By Document 10/20/24 10:21 [id number] 10/20/24 10:30 10/20/24 10:21 Wound Center Nurse 1 #1 Right Hand -Combined with other wound No -Current Size (cm) - Length 1.0 -Current Size (cm) - Width 1.5 -Current Size (cm) - Depth 0.1 -Total Square Cm 1.50 -Date of Last Picture (Recall this 10/20/24 field) -Photo Taken Yes -Epithelialization None Present -Tunneling No -Undermining/Tunneling No -Circular Undermining No -Exudate Amt Small -Exudate Type Serosanguineous -Wound Margin Distinct, Outline Attached -Granulation Amt Small (1-33%) -Granulation Quality [place] -Slough/Fibrin Yes -Necrosis Amt Medium (34-66%) -Necrotic Tissue Type Adherent Slough -Texture (Trish-wound Skin Appearance) Assessed -Moisture (Trish-wound Skin Appearance) Assessed -Color (Trish-wound Skin Appearance) Assessed -Temperature (Trish-wound Skin No Abnormality Appearance) (Pt Warm) -Tenderness on Palpation (Trish-wound Yes Skin Appearance) -Ulcer Cleansing Rinsed/ Irrigated with Saline -Foul Odor after Cleansing No -Anesthetic Used 5% Lidocaine Gel WC - Nurse 2 - General Ulcer CM Notes Start: 10/20/24 10:21 Freq: Status: Active Protocol: Activity Type Activity Date Activity User E-sign Co-sign Detail Recorded Client Recorded Date Recorded By Document 10/20/24 10:36 [id number] 10/20/24 10:46 GM 10/20/24 10:36 Wound Center Nurse 2 -Time 10:36 -Correct Patient Yes -Correct Side, Site, Position Yes -Correct Procedure Yes -Procedure Performed Yes -Type of Procedure Debridement -Clinical Debridement Subcutaneous -Tissue Removed Subcutaneous -Post Debridement (cm) - Length 1.1 -Post Debridement (cm) - Width 2.5 -Post Debridement (cm) - Depth 0.1 -Total Square (Post) (cm) 2.75 -Area of Debridement (cm) - Length 1.1 -Area of Debridement (cm) - Width 2.5 -Total Square (Area) (cm) 2.75 -Tunneling No -Undermining/Tunneling No -Circular Undermining No -Wound/Ulcer Outcome Not Healed -Ulcer Cleansing Rinsed/ Irrigated with Saline -Foul Odor after Cleansing No -Bioengineered Tissue No -Bleeding Controlled with Pressure -Treatment Response Procedure Tolerated Well -Debridement - Subq, 1st 20sq cm Yes Pain Scale: 0-10 Numeric Is Patient Pain Free? Yes Charges/Coding Visit Charges Office Visits / Consults: 44542 OV L3 Est 20min Procedures Integumentary 111xxx-113xx: 48776 Meme subq tissue 20 sq cm/< Assessment/Plan Assessment/Plan (1) Open wound, hand: CODE(S): S61.409A - Unspecified open wound of unspecified hand, initial encounter QUALIFIERS: Encounter type: initial encounter Open wound type: laceration Foreign body presence: without foreign body Laterality: right Qualified Code(s): S61.411A - Laceration without foreign body of right hand, initial encounter PLAN: Right hand. Traumatic, laceration (2) Chronic anticoagulation: CODE(S): Z79.01 - USP (current) use of anticoagulants (3) Atrial fibrillation: CODE(S): I48.91 - Unspecified atrial fibrillation (4) History of fall: CODE(S): Z91.81 - History of falling PLAN: Plan Debridement done as documented above, procedure was well-tolerated. Currently on antibiotics prescribed by her PCP, no clinical concerns for infection at this time. No cultures done. Promogran daily, cover with Adaptic and gauze. Change more often if needed however, no significant drainage reported by patient. Appetite is said to be good, optimized protein intake discussed. Vitamin C, D and zinc also discussed, they voiced understanding. Keep right upper extremity propped up to avoid edema, again she voiced understanding. Their questions were answered and they were advised to let us know if they have any further questions or concerns. Follow-up in a week or sooner if needed. This note was generated with [employer] dictation software. It may contain incorrect words, spelling, and punctuation that were not noted in checking the note before signing.
--- NOTE | 2024-10-21 12:36 | WC ---
PHOTO 10/20/24 RIGHT HAND
[2024-10-27 10:11] VITALS: BP 133/67; PULSE 95; RESP 12; TEMP 36.3; BMI 25.3
--- NOTE | 2024-10-27 13:08 | PCM.WC.PN ---
History of Present Illness Date of Service: 10/27/24 Chief Complaint: Right Hand Wound History of Wound: Ms. Guillaume is a 79-year-old referred to the wound center by her PCP due to a right hand wound. Sustained a few days ago after she fell and hit her hand against a wooden pipe. Was seen by her PCP and given an antibiotic injection. She was also started on Keflex and doxycycline. Has been applying an antibiotic ointment on it as well. She believes that it is improving, has had less bleeding/pain with dressing changes. She feels well otherwise. History of atrial fibrillation on Eliquis. Appetite is good. Progress of Wound: Improving. No new concerns reported at this time. Objective Data Objective Data Vital Signs: Vital Signs Temp Pulse Resp BP O2 Del Method 97.3 F L 95 12 133/67 H Room Air 10/27/24 10:11 10/27/24 10:11 10/27/24 10:11 10/27/24 10:11 10/20/24 10:21 Oxygen Delivery Method Room Air Weight: 157 lb Body Mass Index (BMI) 25.3 Charges/Coding Procedures Integumentary 111xxx-113xx: 31294 Meme subq tissue 20 sq cm/< Physical Exam Const alert and no apparent distress General Appearance: cooperative and comfortable HEENT normocephalic, head/scalp atraumatic and hearing grossly normal bilaterally Eyes EOMs intact bilaterally Neck full ROM and supple General: normal visual inspection Resp normal respiratory effort Effort and Inspection: able to speak in complete sentences GI non-distended Extremity no clubbing, cyanosis or edema Skin Wounds: wounds noted size Size: See clinical note, bed granulating well, no odor, open and surrounding erythema Neuro CN's II-XII intact bilaterally, moves all extremities and no focal motor deficits Psych mental status grossly normal, thought process normal, cooperative and affect normal Debridement Note Debridement Note Wound debrided: Right hand (dorsum) Type of Debridement: Excisional debridement Anesthesia Used: 5% Lidocaine Gel Depth: Down to and including healthy tissue and in the subcutaneous layer Percentage of wound debrided: 100 Instrument Used: 3mm curette Tissue Removed: Slough and devitalized tissue Severity: Fat Layer Exposed Bleeding Controlled with: Pressure Patient tolerated procedure: Patient tolerated procedure well Post-Debridement Measurements and Additional Note: Post-Debridement Measurements/Treatment WC - Nurse 1 - General Ulcer Assessment Start: 10/20/24 10:21 Freq: Status: Active Protocol: SUDARSHAN Activity Type Activity Date Activity User E-sign Co-sign Detail Recorded Client Recorded Date Recorded By Document 10/20/24 10:21 GM [id number] 10/20/24 10:30 GM Document 10/27/24 10:11 ML [id number] 10/27/24 10:18 ML 10/20/24 10/27/24 10:21 10:11 WC - Today's Visit Information Type of service Initial Visit 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 ) Arrival Mode Ambulatory Ambulatory Transfer Assistance None None Accompanied by Patient Identification Verified (Name & Yes Yes ) Patient Requires Transmission-Based No No Precautions Height and Weight Height 5 ft 6 in Weight 157 lb Weight in Pounds 157.0 lbs Weight Measurement Method Stated by Patient Body Mass Index (BMI) 25.3 25.3 BMI Classification Overweight Overweight Vital Signs Temperature (97.8 F-99.1 F) 96.6 F L 97.3 F L Temperature Source Temporal Temporal Pulse Rate (60-100) 98 95 Pulse Location Monitor Monitor Respiratory Rate (12-18) 16 12 Respiratory rate source Observation Observation Oxygen Delivery Method Room Air Blood Pressure (90/60-120/80) 151/73 H 133/67 H Blood Pressure Mean (mm Hg) 99 89 Source Monitor Monitor Position Sitting Sitting Blood Pressure Location Right Arm Right Arm History Since Last Visit- (Skip if this is Patient's initial visit) Have you changed medications since your No last visit? Any new allergies or adverse reactions No Had a fall/change in ADL's that may No increase risk of falls Signs or symptoms of abuse and/or No neglect since last visit Have you been in the hospital since your No last visit? Has dressing in place as prescribed No Has compression in place as prescribed N/A Has offloadiing in place as prescribed N/A Experienced any changes in pain level or No management Left Footwear Regular Shoe Right Footwear Regular Shoe Pain Scale: 0-10 Numeric Is Patient Pain Free? Yes Yes Culture/Mu-Ism/Clay Carman Cultural/Mu-Ism Needs that may affect No Treatment Plan Teaching: Wound Center Wound Center -Person Taught Patient -Teaching Method Discussion -Response to teaching Verbalize Understanding [id number] - Nurse 1 - General Ulcer Measurement Start: 10/20/24 10:21 Freq: Status: Active Protocol: Activity Type Activity Date Activity User E-sign Co-sign Detail Recorded Client Recorded Date Recorded By Document 10/20/24 10:21 GM [id number] 10/20/24 10:30 GM Document 10/27/24 10:11 ML [id number] 10/27/24 10:18 ML 10/20/24 10/27/24 10:21 10:11 Wound Center Nurse 1 #1 Right Hand -Combined with other wound No -Current Size (cm) - Length 1.0 1 -Current Size (cm) - Width 1.5 1.5 -Current Size (cm) - Depth 0.1 0.1 -Total Square Cm 1.50 1.5 -Date of Last Picture (Recall this 10/20/24 field) -Photo Taken Yes -Epithelialization None Present -Tunneling No -Undermining/Tunneling No -Circular Undermining No -Exudate Amt Small Small -Exudate Type Serosanguineous -Wound Margin Distinct, Distinct, Outline Outline Attached Attached -Granulation Amt Small (1-33%) Medium (34-66%) -Granulation Quality [place] -Slough/Fibrin Yes No -Necrosis Amt Medium (34-66%) None Present (0 %) -Necrotic Tissue Type Adherent Slough -Texture (Trish-wound Skin Appearance) Assessed Assessed -Moisture (Trish-wound Skin Appearance) Assessed Assessed -Color (Trish-wound Skin Appearance) Assessed Assessed -Temperature (Trish-wound Skin No Abnormality No Abnormality Appearance) (Pt Warm) (Pt Warm) -Tenderness on Palpation (Trish-wound Yes No Skin Appearance) -Ulcer Cleansing Rinsed/ Rinsed/ Irrigated with Irrigated with Saline Saline -Foul Odor after Cleansing No No -Anesthetic Used 5% Lidocaine 5% Lidocaine Gel Gel WC - Nurse 2 - General Ulcer CM Notes Start: 10/20/24 10:21 Freq: Status: Active Protocol: Activity Type Activity Date Activity User E-sign Co-sign Detail Recorded Client Recorded Date Recorded By Document 10/20/24 10:36 [id number] 10/20/24 10:46 GM Document 10/27/24 10:29 [id number] 10/27/24 10:33 GM 10/20/24 10/27/24 10:36 10:29 Wound Center Nurse 2 #1 Right Hand -Time 10:36 10:29 -Correct Patient Yes Yes -Correct Side, Site, Position Yes Yes -Correct Procedure Yes Yes -Procedure Performed Yes Yes -Type of Procedure Debridement Debridement -Clinical Debridement Subcutaneous Subcutaneous -Tissue Removed Subcutaneous Subcutaneous -Post Debridement (cm) - Length 1.1 0.8 -Post Debridement (cm) - Width 2.5 2.0 -Post Debridement (cm) - Depth 0.1 0.1 -Total Square (Post) (cm) 2.75 1.60 -Area of Debridement (cm) - Length 1.1 0.8 -Area of Debridement (cm) - Width 2.5 2.0 -Total Square (Area) (cm) 2.75 1.60 -Tunneling No No -Undermining/Tunneling No No -Circular Undermining No No -Wound/Ulcer Outcome Not Healed Not Healed -Ulcer Cleansing Rinsed/ Rinsed/ Irrigated with Irrigated with Saline Saline -Foul Odor after Cleansing No No -Bioengineered Tissue No No -Bleeding Controlled with Pressure Pressure -Treatment Response Procedure Procedure Tolerated Well Tolerated Well -Offloading No -Debridement - Subq, 1st 20sq cm Yes Yes Pain Scale: 0-10 Numeric Is Patient Pain Free? Yes Yes - Nurse 3 - General Ulcer D/C NN Start: 10/20/24 10:21 Freq: Status: Active Protocol: Activity Type Activity Date Activity User E-sign Co-sign Detail Recorded Client Recorded Date Recorded By Document 10/20/24 11:11 [id number] 10/20/24 11:12 Document 10/27/24 10:50 [id number] 10/27/24 10:51 10/20/24 10/27/24 11:11 10:50 Wound Care Center Nurse 3 #1 Right Hand -Ulcer Cleansing Not Cleansed Rinsed/ Irrigated with Saline -Foul Odor after Cleansing No No -Primary Dressing Applied NonAdherent NonAdherent Contact Layer, Contact Layer, Promogran Promogran -Primary Dressing Covered/Secured with Dry Gauze, Dry Gauze Secured with Tape -Other Covering coban -Promogran 1 1 Pain Scale: 0-10 Numeric Is Patient Pain Free? Yes Yes Teaching: Wound Center Dressing wound -Person Taught Patient,Family -Teaching Method Discussion, Demonstration -Response to teaching Verbalize Understanding WC - Visit Discharge Discharge Condition Stable Stable Ambulatory Status Ambulatory Ambulatory Transportation Private Auto Private Auto Accompanied by Medication Reconcilliation completed & Yes provided to patient/care provider Clinical Summary of Care Provided Yes Assessment/Plan Assessment/Plan (1) Open wound, hand: CODE(S): S61.409A - Unspecified open wound of unspecified hand, initial encounter QUALIFIERS: Encounter type: initial encounter Open wound type: laceration Foreign body presence: without foreign body Laterality: right Qualified Code(s): S61.411A - Laceration without foreign body of right hand, initial encounter PLAN: Right hand. 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 Improving, no new concerns reported at this time. Continue Promogran daily, cover with Adaptic and gauze. Continue optimized protein intake, vitamin C, D and zinc. Keep right upper extremity propped up to avoid edema. Their questions were answered and they were advised to let us know if they have any further questions or concerns. Follow-up in 2 weeks or sooner if needed. This note was generated with [employer] dictation software. It may contain incorrect words, spelling, and punctuation that were not noted in checking the note before signing.
== END 2024-11-11 11:07 | disposition home or self-care (01) ==
LOC: WC 10:15
PROVIDERS: PCP Family Medicine Geriatric Medicine; Referring Provider Family Medicine Geriatric Medicine; Visit Provider Internal Medicine
DX: S61.411A Laceration without foreign body of right hand, initial encounter (principal); I48.0 Paroxysmal atrial fibrillation; W01.198A Fall on same level from slipping, tripping and stumbling with subsequent striking against other object, initial encounter; E78.00 Pure hypercholesterolemia, unspecified; M10.9 Gout, unspecified; I25.10 Atherosclerotic heart disease of native coronary artery without angina pectoris; I10 Essential (primary) hypertension; G47.33 Obstructive sleep apnea (adult) (pediatric); Z79.01 Long term (current) use of anticoagulants; Z79.899 Other long term (current) drug therapy
CPT/HCPCS: 11042; 99213; G0463

== ENCOUNTER → 2025-01-03 | Outpatient (CLI) | payer MEDICARE, SELFPAY ==
[2025-01-03 11:47] LABS: Absolute Lymphocyte Count 1.72 X10^3/uL (0.83-4.51); Absolute Neutrophil Count 3.7 X10^3/uL (2.0-7.7); Basophil# 0.03 X10^3/uL; Basophil% 0.5 % (0-1); Eosinophil# 0.05 X10^3/uL; Eosinophils% 0.8 % (0-5); Hemoglobin 12.9 g/dL (12.0-15.0); Lymphocyte # 1.72 X10^3/ul (0.83-4.51); Lymphocyte % 28.2 % (19-41); Mean Corp Hgb Conc 32.3 g/dL (32-36); Mean Corpuscular Hgb 31.4 pg (27.0-32.0); Mean Corpuscular Volume 97.3 fL (81-99); Mean Platelet Vol. 10.2 fl (6.2-12.0); Monocyte# 0.54 X10^3/uL; Monocyte% 8.9 % (0-10); NRBC Flagged by Analyzer 0 % (0-5); Neutrophil # 3.73 X10^3/uL (2.7-7.7); Neutrophil % 61.3 % (47-70); Platelet Count 268 K/mm3 (150-450); RBC Distribution Width SD 46.5 fl (35.1-43.9); Red Blood Count 4.11 M/mm3 (4.2-5.4); White Blood Count 6.1 K/mm3 (4.4-11.0)
[2025-01-03 12:36] LABS: ALB/GLOB Ratio 1.5 RATIO (0.9-2.4); AST(SGOT) 28 U/L (<=31); Alanine Aminotransfer ALT/SGPT 27 U/L (<=34); Alkaline Phosphatase 97 U/L (35-104); Anion Gap 10 (5-15); BUN 18 mg/dL (4-19); BUN/Creat Ratio 16.9 RATIO (10-20); Calcium,Total 8.9 mg/dL (7.6-11.0); Carbon Dioxide 24.7 mmol/L (21.0-32.0); Chloride 107 mmol/L (98-108); Creatinine, Serum 1.07 mg/dL (0.70-1.20); EST Glomerular Filtration Rate 53 (>60); Globulin 2.7 g/dL (2.2-4.2); Glucose 94 mg/dL (70-99); Potassium 4.4 mmol/L (3.3-5.1); Protein, Total 6.8 g/dL (5.9-8.4); Sodium Level 142 mmol/L (133-145); Thyroid Stim Hormone (TSH) 0.855 uIU/mL (0.300-4.200); Total Bilirubin 0.43 mg/dL (0.00-1.30); Uric Acid 3.4 mg/dL (2.6-6.0); Vitamin D,25 Hydroxy 13.2 ng/mL (30-100)
== END | disposition home or self-care (01) ==
LOC: LAB 10:57
PROVIDERS: PCP Family Medicine Geriatric Medicine; Referring Provider Family Medicine Geriatric Medicine; Visit Provider Family Medicine Geriatric Medicine
DX: I10 Essential (primary) hypertension (principal); M10.9 Gout, unspecified; E55.9 Vitamin D deficiency, unspecified
CPT/HCPCS: 36415; 80053; 82306; 84443; 84550; 85025

== ENCOUNTER → 2025-03-25 | Outpatient (CLI) | payer MEDICARE, SELFPAY ==
--- NOTE | 2025-03-25 11:04 | ECHOD_ITS ---
Reason For Study Reason For Study: ABNL EKG, AFIB. Procedure This was a 2D Doppler, Color Flow transthoracic echocardiogram. Exam performed in department. Left Ventricle Normal LV size. The left ventricular ejection fraction is 55 %. No regional wall motion abnormalities noted. Right Ventricle Normal RV size. Normal systolic function. Atria The left atrium is mildly enlarged. Normal right atrium. Mitral Valve Normal mitral valve. Tricuspid Valve Normal tricuspid valve. Mild tricuspid valve insufficiency. Aortic Valve Trisinus/trileaflet aortic valve. Mild (1+) aortic valve insufficiency. Pulmonic Valve Normal pulmonic valve. Great Vessels Normal aortic root. The pulmonary artery is normal size. Inferior vena cava collapse with respiration. Pericardium/Pleural No pericardial effusion. MMode/2D Measurements & Calculations LVIDd: 4.8 cm IVSd: 1.1 cm LAV(MOD- bp): 65.4 ml LVIDs: 3.4 cm LVPWd: 0.95 cm LAV(MOD- bp) Indexed: 35.9 ml/m2 RVDd: 3.0 cm FS: 28.4 % LAV(MOD- sp2): 64.7 ml LAV(MOD- sp4): 67.3 ml SV(MOD-sp4): 18.8 ml SV(sp4- el): 18.8 ml LVAd ap4: 15.9 cm2 LVLd ap4: 6.4 cm SI(MOD-sp4): 10.3 ml/m2 EDV(MOD-sp4): 33.5 ml EDV(sp4-el): 33.2 ml LVAs ap4: 9.8 cm2 LVLs ap4: 5.7 cm ESV(MOD-sp4): 14.7 ml ESV(sp4-el): 14.4 ml EF(MOD-sp4): 56.0 % EF(sp4-el): 56.6 % LA A4 area: 21.6 cm2 LA dimension(2D): 3.9 cm RA A4 area: 16.1 cm2 TAPSE: 1.8 cm Doppler Measurements & Calculations MV E max vinicius: 71.1 cm/sec Lat Peak E' Vinicius: 6.3 cm/sec Med Peak E' Vinicius: 7.6 cm/sec E/E' lat: 11.2 E/E' med: 9.3 MV V2 max: 78.0 cm/sec Ao V2 max: 135.2 cm/sec AI max vinicius: 365.9 cm/sec MV max P.4 mmHg Ao max P.3 mmHg AI max P.6 mmHg MV V2 mean: 30.7 cm/sec Ao V2 mean: 87.9 cm/sec MV mean P.54 mmHg Ao mean P.5 mmHg AI dec slope: 137.3 cm/sec2 MV V2 VTI: 13.1 cm Ao V2 VTI: 23.6 cm AI P1/2t: 780.5 msec AV (velocity ratio): 0.65 LV V1 max: 83.2 cm/sec MR max vinicius: 433.3 cm/sec PA V2 max: 78.3 cm/sec LV V1 max P.8 mmHg MR max P.1 mmHg PA V2 mean: 53.6 cm/sec LV V1 mean P.3 mmHg MR mean vinicius: 347.7 cm/sec PA V2 VTI: 14.0 cm LV V1 mean: 53.4 cm/sec MR mean P.2 mmHg LV V1 VTI: 15.3 cm MR VTI: 134.5 cm PI dec slope: 106.7 cm/sec2 TR max vinicius: 216.9 cm/sec TR max P.8 mmHg ECHO/Echo Complete Interpretation Summary The left atrium is mildly enlarged. Normal LV size. The left ventricular ejection fraction is 55 %. Mild (1+) aortic valve insufficiency. Mild tricuspid valve insufficiency. Ordering Physician: Dane Morrison Referring Physician: Rustam Nicholson Chi Performed By: Araceli Guzman, SHALONDA, RVT
== END | disposition home or self-care (01) ==
LOC: CVS 10:51
PROVIDERS: PCP Family Medicine Geriatric Medicine; Referring Provider Internal Medicine Cardiovascular Disease; Visit Provider Internal Medicine Cardiovascular Disease
DX: I48.91 Unspecified atrial fibrillation (principal); R94.31 Abnormal electrocardiogram [ECG] [EKG]
CPT/HCPCS: 93306

== ENCOUNTER → 2025-07-06 | Outpatient (CLI) | payer MEDICARE, SELFPAY ==
[2025-07-06 09:20] LABS: Hematocrit 43.5 % (37-47); Hemoglobin 14.0 g/dL (12.0-15.0); Immature Granulocytes Count 0.020 X10^3/uL (0.0-0.0); Mean Corp Hgb Conc 32.2 g/dL (32-36); Mean Corpuscular Volume 96.9 fL (81-99); Mean Platelet Vol. 10.0 fl (6.2-12.0); NRBC Flagged by Analyzer 0 % (0-5); Platelet Count 246 K/mm3 (150-450); RBC Distribution Width CV 12.6 % (11.6-14.6); RBC Distribution Width SD 45.3 fl (35.1-43.9); Red Blood Count 4.49 M/mm3 (4.2-5.4); White Blood Count 7.3 K/mm3 (4.4-11.0)
[2025-07-06 10:43] LABS: AST(SGOT) 25 U/L (<=31); Alanine Aminotransfer ALT/SGPT 19 U/L (<=34); Albumin, Serum 3.7 g/dL (3.4-4.8); Alkaline Phosphatase 85 U/L (35-104); Anion Gap 11 (5-15); BUN 17 mg/dL (4-19); BUN/Creat Ratio 15.0 RATIO (10-20); Calcium,Total 8.8 mg/dL (7.6-11.0); Carbon Dioxide 25.8 mmol/L (21.0-32.0); Chloride 104 mmol/L (98-108); Globulin 3.0 g/dL (2.2-4.2); Glucose 113 mg/dL (70-99); Potassium 4.4 mmol/L (3.3-5.1); Uric Acid 3.9 mg/dL (2.6-6.0); Vitamin D,25 Hydroxy 24.8 ng/mL (30-100)
[2025-07-06 17:13] LABS: Xtra Tube Kwok EXTRA TUBE
== END | disposition home or self-care (01) ==
LOC: POLAB3 09:13
PROVIDERS: PCP Family Medicine Geriatric Medicine; Visit Provider Family Medicine Geriatric Medicine
DX: I10 Essential (primary) hypertension (principal); E03.9 Hypothyroidism, unspecified; M10.9 Gout, unspecified; E55.9 Vitamin D deficiency, unspecified
CPT/HCPCS: 36415; 80053; 82306; 84443; 84550; 85025